=== PATIENT | male | born 1945 | race Caucasian/White ===

== ENCOUNTER 2020-10-18 11:19 | Emergency (ER) | payer MEDICARE, SELFPAY ==
--- NOTE | ~2020-10-18 | CT_ITS ---
EXAMINATION: CT abdomen pelvis w con DATE: 10/18/2020 12:52 INDICATION: Generalized abdominal pain. Nausea. TECHNIQUE: Computed tomography (CT) of the abdomen and pelvis was performed with 100 mL Omnipaque 350 intravenous contrast. Automated exposure control and iterative reconstruction technique were employe d. The dose-length product was 792.83 mGy-cm. COMPARISON: CT abdomen and pelvis 06/24/2016 FINDINGS: The visualized portions of the lung bases demonstrate motion artifact. There are airspace a nd groundglass opacities in dependent right lower lobe. There is mild atelectasis in left lower lobe. Calcified bilateral pulmonary nodules are consistent with old granulomatous disease. No pleural effu tata. There is a large sliding hiatal hernia. The heart size is normal. No pericardial effusion. Ther e are cysts in the liver measuring up to 7 mm. The gallbladder is normal. Calcifications in the splee n are consistent with old granulomatous disease. The pancreas and right adrenal gland are normal. The re is a chronic 11 mm mass in left adrenal gland, likely an adenoma. There are cysts in the kidneys m easuring up to 15 mm on the left. There are scattered diverticula in the colon. There is wall thicken ing of the rectosigmoid. There is a 6.9 x 5.5 cm mass of extraluminal stool adjacent to the sigmoid c olon with visible large perforation of the sigmoid colon. There are scattered foci of free intraperit giordano gas. The appendix is normal. There is a small volume of ascites. There is wall thickening of mu ch of the small bowel, consistent with enteritis. There is a supraumbilical ventral hernia containing fat. There are no pathologically enlarged lymph nodes. There is thoracic dextroscoliosis and lumbar levoscoliosis. There is severe thoracolumbar spondylosis. IMPRESSION: 1. Perforated sigmoid colon with fecal peritonitis. I called this result to Dr. Urbina on 10/18/20 at 1:01 PM. 2. Large sliding hiatal hernia. 3. Airspace and groundglass opacities in right lung lower lobe, consistent with atelectasis versus pn eumonia. Reviewed, dictated and finalized at location A. ST MANAGER IMPRESSION: 1. Perforated sigmoid colon with fecal peritonitis. I called this result to Dr. Urbina on 10/18/20 at 1:01 PM. 2. Large sliding hiatal hernia. 3. Airspace and groundglass opacities in right lung lower lobe, consistent with atelectasis versus pneumonia.
--- NOTE | ~2020-10-18 | XR_ITS ---
EXAMINATION: XR chest 2V EXAM DATE: 10/18/2020 12:53 INDICATION: Shortness of breath, nausea, constipation. 2 days status post colonoscopy. TECHNIQUE: Frontal and lateral projections of the chest obtained and reviewed. Comparison is made to prior examination from 12/22/2014. FINDINGS: Small amount of patchy right basilar atelectasis or infection. Also probable moderate-sized hiatal hernia. There is no pneumothorax suspected. There are no pleural effusions. Cardiomediastinal silhouette is normal. There are mild bony degenerative changes. IMPRESSION: Small amount of patchy right basilar atelectasis or infection. Hiatal hernia. Reviewed, dictated and finalized at location A. ER WIRE LOOM IMPRESSION: Small amount of patchy right basilar atelectasis or infection. Hiat al hernia.
[2020-10-18 11:20] VITALS: BP 163/101; PULSE 79; RESP 20; TEMP 36.6; O2SAT 100
[2020-10-18] MEDS: MORPHINE SULFATE (*CRX) 2 MG/ML INJ (11:30)
[2020-10-18] MEDS: ONDANSETRON INJ 4 MG/2 ML VIAL (11:30)
--- NOTE | 2020-10-18 11:36 | ECG_ITS ---
Measurements Intervals Only Rate: 86 P: 78 MD: 173 QRS: 76 QRSD: 96 T: -8 QT: 362 QTc: 434 Interpretive Statements SINUS RHYTHM VENTRICULAR PREMATURE COMPLEX INCOMPLETE RIGHT BUNDLE BRANCH BLOCK DELAYED PRECORDIAL R/S TRANSITION LEFT VENTRICULAR HYPERTROPHY AND ST-T CHANGE BORDERLINE ST-T WAVE ABNORMALITY- INFERIOR LEADS BASELINE ARTIFACT- I, II, III, AVR, AVL, AVF, V1-V6 BORDERLINE ECG Electronically Signed On 10-18-2020 14:23:13 BAKERY MACHINE MECHANIC SUPERVISOR by Robson Dowling D.O.
--- NOTE | 2020-10-18 11:46 | PHAR ---
10/18/20 11:45 - PT. HAS HAD MORPHINE PRIOR AND TOLERATES PER NURSE NAGY.
[2020-10-18] MEDS: SODIUM CHLORIDE 0.9% IV 500 ML 999 ML IV CONT (11:52)
[2020-10-18 12:09] LABS: Basophils Absolute Auto 0.01 K/mm3 (0.00-0.10); Basophils Percent Auto 0.1 % (0.0-1.0); Eosinophils Absolute Auto 0.03 K/mm3 (0.02-0.50); Eosinophils Percent Auto 0.3 % (1.0-6.0); Hematocrit 48.9 % (37.0-46.0); Hemoglobin 15.7 g/dL (12.4-15.3); Immature Granulocyte Absolute 0.03 K/mm3 (0.00-0.00); Immature Granulocyte Percent A 0.3 % (0.0-0.0); Lymphocytes Absolute Auto 1.24 K/mm3 (1.10-4.50); Lymphocytes Percent Auto 12.1 % (18.0-42.0); Mean Corpuscular HGB Conc 32.1 g/dL (32.0-36.0); Mean Corpuscular Hemoglobin 31.3 pg (27.0-31.0); Mean Corpuscular Volume 97.6 fL (78.0-102.0); Mean Platelet Volume 9.5 fl (8.7-11.0); Monocytes Absolute Auto 0.33 K/mm3 (0.10-0.90); Monocytes Percent Auto 3.2 % (2.0-11.0); Neutrophils Absolute Auto 8.6 K/mm3 (1.7-7.2); Platelet Count Result 286 K/mm3 (150-420); Red Blood Count 5.01 M/mm3 (4.70-6.10); Red Cell Distribution Width 12.8 % (11.6-14.4); White Blood Count 10.2 K/mm3 (4.8-10.8)
[2020-10-18 12:30] LABS: Alanine Aminotransferase 25 U/L (16-63); Albumin Level 3.7 g/dL (3.4-5.0); Alkaline Phosphatase 84 U/L (46-116); Anion Gap 13 mmol/L (8-16); Aspartate Amino Transferase 18 U/L (15-37); Bilirubin,Total 0.4 mg/dL (0.00-1.00); Blood Urea Nitrogen 14 mg/dL (7-18); Calcium 9.1 mg/dL (8.5-10.1); Carbon Dioxide 23 mmol/L (21-32); Chloride 102 mmol/L (98-108); Estimated Glomerular Filt Rate > 60; Glucose 127 mg/dL (70-99); Lipase 129 U/L (73-393); Osmolality Calculated 288 mOsm/kg (285-295); Potassium 3.6 mmol/L (3.5-5.1); Sodium 138 mmol/L (136-145); Total Protein 7.2 g/dL (6.4-8.2)
[2020-10-18 12:31] LABS: Troponin I < 0.02 ng/mL (0.00-0.056)
[2020-10-18 12:32] LABS: BNP 30.1 pg/mL (0-100)
[2020-10-18] MEDS: ONDANSETRON INJ 4 MG/2 ML VIAL IV PUSH (12:38)
--- NOTE | 2020-10-18 13:12 | PC.NURSE ---
RN IN TO ROOM - V-TACH FOUND ON MONITOR. PT STATES HE DOESN'T FEEL BAD. PADS PLACED, CRASH CART AT BEDSIDE - ORDERS FOR AMOIDARONE REQUESTED
[2020-10-18 13:19] VITALS: BP 126/79; PULSE 81
[2020-10-18] MEDS: AMIODARONE 150 MG/D5W 100 ML 150 MG/100 ML BAG 600 MG IV CONT ×2 (13:19→13:35)
--- NOTE | 2020-10-18 13:21 | ECG_ITS ---
Measurements Intervals [place] Rate: 87 P: 61 NM: 166 QRS: 50 QRSD: 96 T: 74 QT: 364 QTc: 440 Interpretive Statements SINUS RHYTHM VENTRICULAR COUPLET AND VENTRICULAR BIGEMINY INCOMPLETE RIGHT BUNDLE BRANCH BLOCK LEFT VENTRICULAR HYPERTROPHY WITH ST-T CHANGE BORDERLINE ST-T WAVE ABNORMALITY- INFERIOR LEADS ABNORMAL ECG Electronically Signed On 10-18-2020 14:25:45 LIGHT ARMORED RECONNAISSANCE OFFICER by Robson Dowling D.O.
[2020-10-18 13:30] VITALS: BP 136/83; PULSE 94; RESP 16; O2SAT 100
[2020-10-18] MEDS: MORPHINE SULFATE (*CRX) 2 MG/ML INJ IV PUSH (13:30)
[2020-10-18 13:35] VITALS: BP 112/50; PULSE 88
--- NOTE | 2020-10-18 13:38 | PC.NURSE ---
1ST L NS STARTED AND INFUSING THROUGH RIGHT HAND
[2020-10-18 13:39] LABS: Magnesium 2.1 mg/dL (1.8-2.4)
--- NOTE | 2020-10-18 13:55 | ED.ABDPAIN ---
HPI - Abdominal Pain General Chief Complaint: Abdominal Pain Stated Complaint: AMBULANCE Source: patient and family Mode of arrival: EMS Limitations: no limitations History of Present Illness HPI narrative: This is a 74-year-old gentleman presents to the emergency department via EMS after having severe abdominal pain started earlier this morning, with nausea vomiting. Initially prior to arrival O2 sats dropped to 75% was started on 4L of oxygen currently at 96 to 100%. Patient has a history of hypertension, patient had a colonoscopy approximately 3 days ago at [facility] by Dr. Luna and found to have diverticulosis with some colon polyps. Subsequent to that over the last 2 to 3 days has become increasingly constipated with severe abdominal pain diffuse in nature with some currently no fever or chills blood pressure of 112/50. Patient has also history of mild emphysema with hypertension and BPH. Denies chest pain currently there is no shortness of breath no flank pain no dysuria. MD elicited complaint: abdominal pain Pertinent past history: constipation Onset (ago): hour(s) Pain Consistency: constant Location: diffuse Severity: severe Quality: dull Related Data Home Medications Medication Instructions Recorded Confirmed dorzolamide 2 %-timolol 0.5 % (PF) 1 drop EACH EYE BID 07/19/20 10/18/20 eye drops fiber 1 tablet PO DAILY 07/19/20 10/18/20 lactobacillus combination no.9 4 4,000 mmu cells PO DAILY 07/19/20 10/18/20 billion cell capsule latanoprost 0.005 % eye drops 1 drop EACH EYE QPM 07/19/20 10/18/20 multivitamin with minerals 1 tablet PO DAILY 07/19/20 10/18/20 Allergies Allergy/AdvReac Type Severity Reaction Status Date / Time brimonidine Allergy Unknown irritation Verified 07/19/20 08:36 in eye brinzolamide Allergy Unknown increase Verified 07/19/20 08:36 in eye pressure codeine Allergy Unknown Unknown Verified 07/19/20 08:36 erythromycin base Allergy Unknown made eye Verified 07/19/20 08:36 red and eyelid swell oxycodone Allergy Unknown rash with Verified 07/19/20 08:36 blisters on back & sores in mouth procaine Allergy Unknown heart race Verified 07/19/20 08:36 NOVACAINE Allergy Mild Unknown Uncoded 07/19/20 08:36 Review of Systems Review of Systems: All systems reviewed & are unremarkable except as noted in HPI and below PMFSH Past Medical History Medical History (Updated 10/18/20 @ 14:05 by Claudy Urbina MD) Adenoma of left adrenal gland BPH (benign prostatic hyperplasia) Chronic low back pain Colon cancer screening COPD with emphysema Elevated PSA Glaucoma Hard of hearing History of colon polyps History of lung cancer History of SCC (squamous cell carcinoma) of skin Medicare annual wellness visit, subsequent Osteoarthritis, multiple sites Primary hypertension Prostate cancer screening Ventral hernia Family History Family History Mother Carcinoma of colon Family history of rheumatoid arthritis Family history of osteoarthritis Acute myocardial infarction Grandparent Acute myocardial infarction Social History Social History Smoking status: Former smoker (Quit 5 years ago) Second hand tobacco smoke exposure: No Smoking end date: 11/30/00 Alcohol intake: current Substance use: never Substance use type: does not use Gender identity (if verbalized by the patient): Male Spiritual care concerns: No Agree to blood products: Yes Exam Const: General: no acute distress Orientation/consciousness: patient oriented x3 HENMT: Head: normal to inspection Eyes: Conjunctivae: conjunctivae normal Pupils: Equal, round and reactive pupils present Neck: Neck: normal visual inspection, no lymphadenopathy and no meningeal signs Chest: Chest palpation & inspection: normal inspection of the
--- NOTE | 2020-10-18 13:56 | PC.NURSE ---
ATTEMPTED TO PLACE NG TUBE X 2 WITHOUT SUCCESS - PT UNABLE TO SWALLOW, UNABLE TO PARTICIPATE - PT STATES THAT HE IS DOING BETTER WITH PAIN OTHER THAN THE NG TUBE PLACEMENT - CALL BACK FROM [facility] STATING THAT DR JOHNSON WILL TAKE PATIENT STRAIGHT TO SURGERY - WILL AWAIT HOSPITALIST FOR ADMIT - PT STILL HAVING RUNS OF V-TACH AND OCCASSIONAL COUPLETS
[2020-10-18 15:05] LABS: Reflex Lactic Acid Yes or No Add Lactic
[2020-10-18 15:15] VITALS: BP 169/96; PULSE 99; RESP 16; O2SAT 99
== END 2020-10-18 15:30 | disposition short-term general hospital (02) ==
PROVIDERS: Emergency Provider Emergency Medicine; PCP Family Medicine
DX: K65.9 Peritonitis, unspecified (principal); Z85.118 Personal history of other malignant neoplasm of bronchus and lung; I10 Essential (primary) hypertension; Z87.891 Personal history of nicotine dependence
CPT/HCPCS: 36415; 71046; 74177; 80053; 83605; 83690; 83735; 83880; 84484; 85025; 87040; 87077; 93005; 96361; 96365; 96367; 96375; 96376; 99285; J0282; J2270; J2405; J2543; J7030; J7040; Q9965

== ENCOUNTER 2020-10-18 16:05 | Inpatient (IN) | payer MEDICARE, SELFPAY ==
[2020-10-18] VITALS (13 sets, daily range): BP systolic 81–155; BP diastolic 47–91; PULSE 74–128; RESP 19–23; TEMP 37.1–37.5; O2SAT 94–100; BMI 24.6
--- NOTE | ~2020-10-18 | XR_ITS ---
EXAMINATION: XR chest PICC line EXAM DATE: 10/19/2020 12:45 INDICATION: PICC Line Insertion . TECHNIQUE: Portable AP frontal chest x-ray was obtained. Comparison is made to prior examination from 10/18/2020. FINDINGS: There is a left-sided PICC line with tip projecting over the cavoatrial junction. Mild car diomegaly. There is pulmonary vascular congestion. Some small bibasilar opacities, atelectasis or inf ection. This is new on the left side. No pneumothorax. There are mild bony degenerative changes. IMPRESSION: 1. Congestive changes. 2. Small amount of bibasilar infection or atelectasis. Reviewed, dictated and finalized at location A. AL SURGEON
--- NOTE | ~2020-10-18 | XR_ITS ---
EXAMINATION: XR chest 1V portable EXAM DATE: 10/20/2020 05:46 INDICATION: Severe sepsis . TECHNIQUE: Portable AP frontal chest x-ray was obtained. Comparison is made to prior examination from 10/19. FINDINGS: There is a left-sided PICC line with tip projecting over the cavoatrial junction. Mild car diomegaly. There is pulmonary vascular congestion. Segmental right mid and bilateral lower lung zone bibasilar opacities, atelectasis or infection. Possible small pleural effusions. No pneumothorax. The re are mild bony degenerative changes. IMPRESSION: 1. Congestive changes. 2. Subsegmental bilateral infection or atelectasis. Reviewed, dictated and finalized at location A. NESS ASSISTANT
--- NOTE | ~2020-10-18 | XR_ITS ---
EXAMINATION: XR chest 1V portable EXAM DATE: 10/21/2020 05:45 INDICATION: Severe sepsis . TECHNIQUE: Portable AP frontal chest x-ray was obtained. Comparison is made to prior examination from 10/20, 10/19, 10/18. FINDINGS: There is a left-sided PICC line with tip projecting over the cavoatrial junction. Mild car diomegaly. There is pulmonary vascular congestion. Segmental right mid and bilateral lower lung zone bibasilar opacities, atelectasis or infection. Poss ible small pleural effusions. No pneumothorax. There are mild bony degenerative changes. Airspace disease has been progressing compared to 10/18. IMPRESSION: 1. Congestive changes. 2. Progressing segmental bilateral infection or atelectasis. Reviewed, dictated and finalized at location A. D SWEATBAND CUTTER
--- NOTE | ~2020-10-18 | CT_ITS ---
EXAMINATION: CT abdomen pelvis wo con DATE: 10/22/2020 08:07 INDICATION: Status post heart segments pouch. Leukocytosis. TECHNIQUE: Computed tomography (CT) of the abdomen and pelvis was performed without intravenous contr ast. The dose-length product was 575.01 mGy-cm. Automated exposure control and iterative reconstructi on technique were employed. COMPARISON: CT dated 10/18/2020. FINDINGS: Interval placement of drainage catheter in the pelvis. There is a laparotomy staple line. I nterval placement of Dan's pouch. There are dilated fluid-filled small bowel loops throughout the abdomen, most likely adynamic ileus. There is Hurd catheter in the bladder. Prostate gland is enlar ged. Small amount of free air, consistent with recent surgery. Gallbladder contains high density material which may represent stones, sludge or vicarious excretion of contrast. Calcified granulomas of the spleen. Nodular thickening of the left adrenal gland, most likely benign adrenal adenoma. Outer lumbar spondylosis. No acute osseous abnormality. Small pleural effusions with underlying compressive atelectasis. There is atherosclerosis. No lymphadenopathy. IMPRESSION: 1. Dilated fluid-filled small bowel loops throughout the abdomen and pelvis, most likely postoperativ e ileus. Obstruction less favored. 2: Postoperative changes noted with drainage catheter in the pelvis. 3: Small pleural effusions with underlying compressive atelectasis. Reviewed, dictated and finalized at location A. OPHANE WORKER IMPRESSION: 1. Dilated fluid-filled small bowel loops throughout the abdomen and pelvis, mo st likely postoperative ileus. Obstruction less favored. 2: Postoperative changes noted with drainage catheter in the pelvis. 3: Small pleural effusions with underlying compressive atelectasis.
--- NOTE | 2020-10-18 16:10 | PC.NURSE ---
This patient, Rafael Moe, was admitted to IMU Room 232-01. Patient/family oriented to hospital policies and general routines including ID bracelet, bed and alarms, visiting hours, pain management, procedures, bathroom and other care routines, personal items, smoking policy, room service/diet, and visiting hours. Information on how to activate the Rapid Response Team has been discussed. Patient/Family are encouraged to report perceived risks to care and to ask questions if they do not understand what they are told or what they should do.
--- NOTE | 2020-10-18 16:37 | PM.CNGS ---
Assessment and Plan Assessment and plan (1) Perforation of sigmoid colon: Code(s): K63.1 - Perforation of intestine (nontraumatic) Status: Acute Assessment and Plan: Patient presents 2 days after a colonoscopy with evidence of large sigmoid perforation and a significant amount of extraluminal stool/fecal peritonitis. CT scan discussed with the patient in detail. He is becoming increasingly more hemodynamically unstable. Will initiate IV fluid bolus, he has received IV Zosyn x 1, continue IV abx, and analgesics. Discussed the patient's case with Dr. Rodriguez. He plans to proceed with emergent exploratory laparotomy, possible ostomy, possible bowel resection. The patient may require a June's procedure. Description of the procedure, risks, benefits, indications, and expected outcomes were discussed with the patient in detail. All questions were answered. Due to his multiple co-morbidities, the patient is a higher risk surgical candidate, which I discussed with him as well. Further plan forthcoming after surgery and Dr. Rodriguez's evaluation. (2) Fecal peritonitis: Code(s): K65.8 - Other peritonitis Status: Acute Assessment and Plan: See plan above. (3) Sepsis: Code(s): A41.9 - Sepsis, unspecified organism Status: Acute Assessment and Plan: Criteria met with tachycardia and tachypnea with known source of infection - fecal peritonitis with sigmoid perforation. Received a dose of IV Zosyn in [place] [facility]. Continue broad-spectrum IV abx. Blood cultures were also obtained at the ER. IV fluid resuscitation, I have initiated a 1L IV fluid bolus while awaiting transfer to OR. (4) COPD with emphysema: Qualifiers: Emphysema type: unspecified Qualified Code(s): J43.9 - Emphysema, unspecified Code(s): J43.9 - Emphysema, unspecified Status: Acute Assessment and Plan: Also with history of left lower lobectomy for lung cancer. Increases risks for surgery. (5) Primary hypertension: Code(s): I10 - Essential (primary) hypertension Status: Acute (6) Ventral hernia: Qualifiers: Obstruction and gangrene presence: without obstruction or gangrene Qualified Code(s): K43.9 - Ventral hernia without obstruction or gangrene Code(s): K43.9 - Ventral hernia without obstruction or gangrene Status: Acute Assessment and Plan: Noted on exam. Asymptomatic. Not currently an urgent issue. History of Present Illness Consult details Consult date: 10/18/20 Reason for consult: other (Sigmoid perforation with fecal peritonitis) Requesting physician: Veronica Bro MD Narrative: This is a 74-year-old male with a history lung cancer, hypertension, COPD, and glaucoma, who presented to [facility] with complaints of generalized abdominal pain. The patient had a routine screening colonoscopy on 10/16/20 with findings of diverticulosis and colon polyps. The patient was sent home and reports noticing abdominal pain after eating dinner that night. He reports the pain was tolerable initially, until this morning after eating breakfast when it suddenly intensified. He reports the pain is sharp and shooting down to his suprapubic area. He reports no bowel movement since the prep prior to the colonoscopy. He states he tried taking suppositories x 2 with still no BM. He does report associated chills and nausea with vomiting in [place] [facility]. CT scan of the abdomen and pelvis in the ED showed a large sigmoid perforation with fecal peritonitis and large sliding hiatal hernia. WBC normal at 10,000 and patient was afebrile. He apparently had a non-sustained run of Vtach and received 300 mg IV Amiodarone in the ER. Vital signs remained stable. Our service was contacted by the ER physician for consult on transfer. The patient was also given a dose of IV Zosyn and IV fluids. The patient is now seen in the IMU. He reports significant abdominal pain with nausea. He repor
[2020-10-18] MEDS: SODIUM CHLORIDE 0.9% IV 1,000 ML 999 ML IV CONT ×2 (17:25→23:50)
--- NOTE | 2020-10-18 18:14 | PM.IMHP ---
H&P: HPI History of Present Illness Date/Time: 10/18/20 18:14 Chief complaint: Peritonitis Narrative: Rafael Moe is a 74 year old male Who is a direct admit from [facility]. The patient had a colonoscopy by Dr. Ornelas approximately 3 days ago at [facility]. The patient stated that he had a little bit of discomfort but nothing major. He said that he just felt like he was constipated so he tried use 2 Dulcolax suppositories yesterday. He had no relief. The patient went to [facility] after having severe abdominal pain that started this morning he also had nausea vomiting. Initially his oxygen was 75% upon arrival via EMS and he was started on 4 L per nasal cannula and his oxygen level came up to 96-100%. He has a history of having polypectomy in the past but the patient was not able to tell me if he had polyps removed 3 days ago. Patient tells me that he had a PFT and was told that he does not have COPD or emphysema. Patient's white count was noted to be 10.2 H&H of 15.7 and 48.9. Neutrophil percentage 84.0. Lactic acid 3.0. Patient had a run of ventricular tachycardia at [facility] and was started on amiodarone. Patient had bigeminy in route to [facility]. Surgery and Cardiology have been consulted. Abdominal pelvis CT was read as perforated sigmoid colon with fecal peritonitis. Large sliding hiatal hernia. Airspace and ground-glass opacities in the right lung lower lobe consistent with atelectasis versus pneumonia. Patient was started on Zosyn. The patient has already been seen by surgery. An IV bolus was ordered for the patient. I spoke with Dorothea Mark concerning the patient we both agreed that the patient should be on an amiodarone drip. Patient is being admitted /placed as inpatient admission on date of service 10/18/2020. Review of Systems Review of Systems: Narrative: The patient is very hard of hearing. All systems reviewed & are unremarkable except as noted in HPI and below Constitutional: Constitutional: Reports as per HPI and Reports no additional constitutional complaints Eyes: Eyes: Reports as per HPI and Reports no additional eye complaints ENT: Reports system reviewed and no additional complaints, except as documented and Reports Normal hearing present Cardiovascular: Cardiovascular: Reports no additional cardiovascular complaints Respiratory: Respiratory: Reports no additional respiratory complaints and Reports no additional respiratory complaints Gastrointestinal: Gastrointestinal: Reports as per HPI and Reports no additional gastrointestinal complaints Musculoskeletal: Musculoskeletal: Reports no additional musculoskeletal complaints Integumentary/Breasts: Skin/Breast: Reports system reviewed and no additional complaints, except as docu and Reports as per HPI Neurologic: Reports system reviewed and no additional complaints, except as documented, Reports as per HPI and Reports Normal hearing present Psychiatric: Psychiatric: Reports no additional psychiatric complaints and Reports as per HPI Endocrine: Endocrine: Reports no additional endocrine complaints Hematologic/Lymphatic: Hematologic/Lymphatic: Reports no additional hematologic/lymphatic complaints Allergic/Immunologic: Allergic/Immunologic: Reports no additional allergic/immunologic complaints [facility] Past Medical History Medical History (Updated 10/18/20 @ 18:43 by Mayda Loza NP) Adenoma of left adrenal gland which was noted to be stable. BPH (benign prostatic hyperplasia) Chronic low back pain Colon cancer screening COPD with emphysema Patient stated that he had PFTs and it was rule out that he does not have emphysema or COPD. Elevated PSA Glaucoma Hard of hearing History of colon polyps History of lung cancer status post partial lobectomy History of SCC (squamous cell carcinoma) of skin Medicare annual wellness visit, subsequent Osteoarthritis, multiple sites Primary hype
[2020-10-18] MEDS: HYDROmorphone HCL INJ (*CRX) 1 MG/ML SYR 2 MG IV PUSH (18:26)
[2020-10-18] MEDS: AMIODARONE 360 MG/D5W 200 ML 360 MG/200 ML BAG 33.33 MG IV CONT (18:27)
[2020-10-18] MEDS: ONDANSETRON INJ 4 MG/2 ML VIAL IV PUSH ×2 (18:36→23:40)
[2020-10-18] MEDS: SODIUM CHLORIDE 0.9% IV 1,000 ML 100 ML IV CONT (18:37)
[2020-10-18 18:54] LABS: Estimated CRCL calculation 79 ml/min; Estimated Glomerular Filt Rate > 60
[2020-10-18 19:17] LABS: Lactic Acid Reflex 2.1 mmol/L (0.7-2.1)
--- NOTE | 2020-10-18 19:25 | WPDANESEPPF ---
Anes - Initial Pre Proc Eval Procedure: Operation Date: 10/18/20 19:45 Proposed Procedures p Exploratory Laparotomy, Possible Bowel Resection, Possible Osteotomy - Kelsie Rodriguez MD Date/Time: 10/18/20 19:25 Surgeon: Veronica Bro MD Pre Op Diagnosis: Peritonitis Patient Data Age: 74 Gender: M Height: 6 ft Weight: 82.5 kg Last Vital Signs Temp 37.5 C 10/18/20 17:04 Pulse 128 H 10/18/20 18:27 Resp 22 H 10/18/20 17:04 BP 148/88 H 10/18/20 18:27 Pulse Ox 98 10/18/20 17:04 Allergies Allergy/AdvReac Type Severity Reaction Status Date / Time brimonidine Allergy Unknown irritation Verified 07/19/20 08:36 in eye brinzolamide Allergy Unknown increase Verified 07/19/20 08:36 in eye pressure codeine Allergy Unknown Unknown Verified 07/19/20 08:36 erythromycin base Allergy Unknown made eye Verified 07/19/20 08:36 red and eyelid swell oxycodone Allergy Unknown rash with Verified 07/19/20 08:36 blisters on back & sores in mouth procaine Allergy Unknown heart race Verified 07/19/20 08:36 NOVACAINE Allergy Mild Unknown Uncoded 07/19/20 08:36 Home Medications Medication Instructions Recorded Confirmed Type dorzolamide 2 %-timolol 0.5 % (PF) 1 drop EACH EYE BID 07/19/20 10/18/20 History eye drops fiber 1 tablet PO DAILY 07/19/20 10/18/20 History lactobacillus combination no.9 4 4,000 mmu cells PO DAILY 07/19/20 10/18/20 History billion cell capsule latanoprost 0.005 % eye drops 1 drop EACH EYE QPM 07/19/20 10/18/20 History lisinopril 10 mg tablet 10 mg PO DAILY #90 tablet 07/19/20 10/18/20 Rx multivitamin with minerals 1 tablet PO DAILY 07/19/20 10/18/20 History Laboratory Tests 10/18/20 10/18/20 10/18/20 18:36 18:36 19:01 WBC Pending RBC Pending Hgb Pending Hct Pending MCV Pending MCH Pending MCHC Pending RDW Pending Plt Count Pending MPV Pending Immature Gran % (Auto) Pending Neut % (Auto) Pending Lymph % (Auto) Pending [place] % (Auto) Pending Eos % (Auto) Pending Baso % (Auto) Pending Lymph # (Auto) Pending [place] # (Auto) Pending Eos # (Auto) Pending Baso # (Auto) Pending Abs Immat Gran (auto) Pending Absolute Neuts (auto) Pending Absolute Nucleated RBC Pending Nucleated RBC % Pending Creatinine 0.80 mg/dL mg/dL (0.7-1.3) Estim Creat Clear Calc 79 ml/min ml/min Estimated GFR > 60 (59 - ) Lactic Acid 2.1 mmol/L mmol/L (0.7-2.1) Patient hx anesthesia problems: none Family hx anesthesia problems: none [facility] Past Medical History Medical History Adenoma of left adrenal gland which was noted to be stable. BPH (benign prostatic hyperplasia) Chronic low back pain Colon cancer screening COPD with emphysema Patient stated that he had PFTs and it was rule out that he does not have emphysema or COPD. Elevated PSA Glaucoma Hard of hearing History of colon polyps History of lung cancer status post partial lobectomy History of SCC (squamous cell carcinoma) of skin Medicare annual wellness visit, subsequent Osteoarthritis, multiple sites Primary hypertension Prostate cancer screening Ventral hernia Surgical History Surgical History H/O cataract extraction H/O colonoscopy with polypectomy H/O vasectomy History of lobectomy of lung History of prostate biopsy History of tonsillectomy Hx of local excision of skin lesion facial Family History Family History Mother Carcinoma of colon Family history of rheumatoid arthri
--- NOTE | 2020-10-18 19:28 | WPDHPUPDATE1 ---
History and Physical Update Update Date/Time: 10/18/20 19:28 History and Physical has been reviewed, including an updated exam of the patient. There are NO changes in the patient's condition. Risks, benefits, and alternatives have been discussed and questions answered. Patient agrees to proceed with procedure.
--- NOTE | 2020-10-18 19:30 | PC.NURSE ---
patient taken to OR by OR staff at 1930 via bed with amio drip running.
--- NOTE | 2020-10-18 20:51 | PM.PROC ---
Procedure Note - Detailed Date of procedure: 10/18/20 Pre-op diagnosis: perforated sigmoid colon perforated sigmoid colon, sepsis, feculent peritonitis Post-op diagnosis: same Procedure performed: exploratory laparatomy, sigmoid colectomy, creation of colostomy, intraabdominal washout Description of procedure: Patient was taken to the operating room and placed in the supine position. After adequate induction of general anesthesia the patient was prepped and draped in the normal sterile fashion. A time-out was then done to verify the patient's identity as well as the procedure being performed. I began by making a generous midline incision. Under entering the abdominal cavity, a large amount of air and feculent drainage was noted. I went ahead and washed out the abdomen and there was noted to be a large amount of feculent peritonitis. In the area of the pelvis there was noted to be a large amount of stool that was extraluminal. This was removed and washed out. The mid sigmoid colon there was noted to be a very large perforation. Given this I went ahead and took down the lateral attachments of the sigmoid colon. Once the sigmoid colon was mobilized I was able to get distal to the perforation. This area of colon was noted to be unremarkable. I went ahead and created window between the mesentery and the colon itself and using in the contour stapler went ahead and transected the distal sigmoid at this point. I then found an area proximal to the perforation and again created a window between the mesentery of the colon. I then went ahead and transected the proximal sigmoid colon with a 75 JOSE stapler. I then took down the mesenteric attachments with the LigaSure device. Once the sigmoid colon removed was sent to pathology for further review. I then went ahead and created a opening in the left lower abdomen for our colostomy. I went ahead and took this incision down through the subcutaneous tissue to the level of the fascia. Once to the fascia and made a cruciate incision and the rectus muscles. I then got through the underlying fascial layer and into the abdominal cavity. I was then able to bring up our proximal sigmoid colon through this incision. This was noted to be tension-free and not twisted. I then went ahead and copiously washed out the abdomen once again. No other pathology was noted. I then left a drain in the pelvis coming out through the right lower quadrant. I then closed the fascia with looped 0 PDS suture x2. The skin was closed with skin rosalba. I then went ahead and matured the ostomy using interrupted 3.0 Vicryl sutures. The patient was noted to be somewhat hypotensive in the operating room and did respond to fluids. His tachycardia did improve during the case. He will be sent back to the recovery room now in critical condition. Of note, he was able to be extubated in the operating room postoperatively. Anesthesia: GETA Surgeon: Kelsie Rodriguez MD Estimated blood loss (mL): 25 Drains: Yes Packing: No Pathology: yes Complications: No immediate complications Condition: critical Disposition: PACU Findings: large perforation of mid sigmoid colon
[2020-10-18] MEDS: LACTATED RINGERS 1,000 ML 30 ML IV CONT (20:54)
--- NOTE | 2020-10-18 21:14 | SUR.PHASEI ---
2053 amiodarone gtt continues 1mg/min.
[2020-10-18] MEDS: fentaNYL CITRATE INJ (*CRX) 100 MCG/2 ML VIAL 25 MCG IV PUSH ×8 (21:20→22:06)
--- NOTE | 2020-10-18 22:27 | PC.NURSE ---
Pt returned from surgery.
[2020-10-19] VITALS (32 sets, daily range): BP systolic 69–140; BP diastolic 42–82; PULSE 74–91; RESP 15–24; TEMP 36.3–37.3; O2SAT 91–99
--- NOTE | 2020-10-19 | ECHO_ITS ---
Patient Info Name: Rafael Moe Age: 74 years : 1945 Gender: Male Ht: 72 in Wt: 191 lbs BSA: 2.11 m2 HR: 77 bpm BP: 94 / 55 mmHg Heart Rhythm: Sinus Rhythm Technical Quality: Good Exam Date: 10/19/2020 9:43 AM Exam Location: [facility] Pul[facility] Patient Status: Inpatient Admit Date: 10/18/2020 Staff Ordering Physician: Marlon Sepulveda MD Sponge Diver: Bryan Ashford, WADECS, RT Attending Provider: Veronica Bro MD Referring Physician: Coco GARCIA; Exam Type: CA echo doppler color flow Study Info Indications I47.2 - Ventricular tachycardia Complete two-dimensional, color flow and Doppler transthoracic echocardiogram is performed. Strain analysis performed. Summary 1. Complete two-dimensional, color flow and Doppler transthoracic echocardiogram is performed. 2. Left ventricular chamber dimension is moderately enlarged. 3. Left ventricular systolic function is moderately reduced, estimated at 30-35%. 4. Right ventricular chamber dimension is moderately enlarged. 5. Mild biatrial dilation. Left Ventricle Left ventricular chamber dimension is moderately enlarged. Left ventricular systolic function is moderately reduced, estimated at 30-35%. The left ventricular diastolic function is normal. Right Ventricle Right ventricular chamber dimension is moderately enlarged. Left Atria Left atrial chamber dimension is mildly enlarged. Right Atria Right atrial chamber dimension is mildly enlarged. Aortic Valve The aortic valve is trileaflet. There is mild aortic valve sclerosis. Pulmonic Valve The pulmonic valve is not well visualized. Mitral Valve The mitral valve has normal leaflets. The mitral valve annulus is mildly calcified. Tricuspid Valve The tricuspid valve leaflets are normal. There is mild tricuspid valve regurgitation. Pericardium/Pleural The pericardium appears normal. Aorta The aortic root size at the sinus of Valsalva is normal. Left Ventricular Outflow Tract Name Value Normal LVOT 2D LVOT Diameter 2.3 cm LVOT Doppler LVOT Peak Gradient 3 mmHg LVOT Mean Gradient 2 mmHg LVOT VTI 14 cm LVOT VTI/AV VTI Ratio 1.1 LVOT Stroke Volume 58 ml LVOT CO 4.4 l/min LVOT CI 2.1 l/min/m2 Pulmonic Valve Name Value Normal RVOT Doppler RVOT Peak Gradient 1 mmHg RVOT Mean Gradient 0 mmHg Mitral Valve Name Value Normal MV Doppler
[2020-10-19] MEDS: metroNIDAZOLE 500 MG/ISO 100ML 500 MG/100 ML BAG 100 MG IVPB ×4 (00:32→21:41)
[2020-10-19] MEDS: HYDROmorphone HCL INJ (*CRX) 1 MG/ML SYR 2 MG IV PUSH (00:44)
[2020-10-19] MEDS: AMIODARONE 360 MG/D5W 200 ML 360 MG/200 ML BAG 33.33 MG IV CONT ×2 (00:45→12:53)
[2020-10-19 04:55] LABS: Hematocrit 44.3 % (42.0-52.0); Hemoglobin 14.5 g/dL (14.0-18.0); Mean Corpuscular HGB Conc 32.7 g/dl (32-36); Mean Corpuscular Hemoglobin 31.5 pg (26-34); Mean Corpuscular Volume 96.1 fl (80-100); Mean Platelet Volume 9.6 fl (7.4-10.4); Platelet Count Result 247 k/mm3 (150-375); Red Blood Count 4.61 M/mm3 (4.6-6.20); Red Cell Distribution Width 13.3 % (11.5-14.5); White Blood Count 13.5 K/mm3 (4.5-10.0)
[2020-10-19 05:09] LABS: Add Urine Microscopic? YES; Appearance Urine Clear (Clear); Bacteria Urine Trace /hpf; Bilirubin Urine Negative (Negative); Blood Urine 2+ (Negative); Color Urine Amber (Yellow); Glucose Urine UA Negative (Negative); Ketones Urine Negative (Negative); Leukocyte Esterase Ur Negative LEU/UL (Negative); Mucus Urine Rare /lpf; Nitrate Urine Negative (Negative); Protein Urine 1+ mg/dL (Negative); RBC Urine 21-50 /hpf (0-2); Squamous Epithelial Cell Urine Rare /hpf (Few); Urobilinogen Urine Negative mg/dL (<2.0)
[2020-10-19 05:09] LABS: Alanine Aminotransferase 23 U/L (4-50); Albumin Level 2.7 g/dL (3.5-5.1); Alkaline Phosphatase 39 U/L (38-126); Anion Gap 9 mmol/L (8-16); Aspartate Amino Transferase 27 U/L (17-59); Bilirubin,Total 0.4 mg/dL (0.2-1.3); Blood Urea Nitrogen 25 mg/dL (9-20); Calcium 8.1 mg/dL (8.4-10.2); Carbon Dioxide 21 mmol/L (22-30); Chloride 107 mmol/L (98-107); Estimated CRCL calculation 43 ml/min; Estimated Glomerular Filt Rate 46; Glucose 125 mg/dL (75-110); Magnesium 1.7 mg/dL (1.6-2.3); Potassium 4.3 mmol/L (3.4-5.0); Sodium 137 mmol/L (137-145)
[2020-10-19 05:15] LABS: Lactic Acid Reflex 4.3 mmol/L (0.7-2.1)
[2020-10-19 05:56] LABS: Band Neutrophils Percent 35 % (0-6); Lymphocytes Absolute Manual 2.02 K/mm3 (1.1-4.5); Monocytes Absolute Manual 1.35 K/mm3 (0.1-0.90); Monocytes Percent Manual 10 % (3-9); Neutrophils Absolute Manual 10.12 K/mm3 (1.3-6.7); Neutrophils Percent Manual 40 % (46-73); Platelet Estimate Adequate (Adequate); Total Cells Counted 100
[2020-10-19] MEDS: SODIUM CHLORIDE 0.9% IV 1,000 ML 100 ML IV CONT ×2 (06:00→16:16)
[2020-10-19] MEDS: ONDANSETRON INJ 4 MG/2 ML VIAL IV PUSH ×2 (06:02→22:16)
[2020-10-19 07:51] LABS: Reflex Lactic Acid Yes or No Add Lactic
[2020-10-19 08:26] LABS: Lactic Acid 3.1 mmol/L (0.7-2.1)
[2020-10-19] MEDS: SODIUM CHLORIDE 0.9% IV 1,000 ML 999 ML IV CONT ×2 (08:33→11:15)
[2020-10-19] MEDS: MORPHINE SULFATE (*CRX) 4 MG/ML INJ 2 MG IV PUSH ×3 (08:34→17:47)
[2020-10-19] MEDS: PROMETHAZINE HCL 25 MG/ML AMPUL 12.5 MG IV PUSH (08:35)
[2020-10-19] MEDS: ENOXAPARIN 40 MG/0.4 ML SYRINGE SUB-Q (08:44)
--- NOTE | 2020-10-19 09:19 | PM.PNGS ---
Progress Note: A&P Assessment and Plan (1) Perforation of sigmoid colon: Code(s): K63.1 - Perforation of intestine (nontraumatic) Status: Acute Assessment and Plan: await ostomy fxn, clears, abx, encourage OOB/IS, start Toradol (2) Fecal peritonitis: Code(s): K65.8 - Other peritonitis Status: Acute Assessment and Plan: cont abx, WBC trending down (3) Sepsis: Code(s): A41.9 - Sepsis, unspecified organism Status: Acute Assessment and Plan: HD stable, cont abx, resus Subjective Subjective Date/Time Seen: 10/19/20 09:19 still c/o significant abd pain Review of Systems Review of Systems: All systems reviewed & are unremarkable except as noted in HPI and below Exam Const: General: acute distress moderate and ill appearing Orientation/consciousness: patient oriented x3 Resp: Effort & Inspection: normal respiratory effort Auscultation: clear to auscultation bilaterally Cardio: Rate: regular rate Rhythm: regular rhythm GI: Inspection: normal to inspection Other: soft, sl dist, ra TTP, incision C/D/I, ostomy viable Objective Data Vital Signs Vital Signs: Vital Signs - 24 hr 10/18/20 16:15 10/18/20 17:04 10/18/20 18:00 Temperature 37.1 C 37.5 C Pulse Rate 110 H 120 H 120 H Respiratory Rate 20 22 H Blood Pressure 155/91 H 148/88 H Pulse Oximetry 100 98 10/18/20 18:27 10/18/20 21:03 10/18/20 21:05 Temperature 37.1 C Pulse Rate 128 H 107 H 97 Respiratory Rate 22 H 23 H Blood Pressure 148/88 H 140/87 120/67 Pulse Oximetry 100 97 10/18/20 21:20 10/18/20 21:35 10/18/20 21:50 Temperature Pulse Rate 97 93 98 Respiratory Rate 19 Blood Pressure 102/52 L 109/71 105/72 Pulse Oximetry 98 97 94 10/18/20 22:25 10/18/20 22:42 10/18/20 23:25 Temperature 37.4 C Pulse Rate 74 87 Respiratory Rate 20 22 H Blood Pressure 104/50 L 94/47 L 81/53 L Pulse Oximetry 95 95 10/18/20 23:39 10/19/20 00:00 10/19/20 00:38 Temperature Pulse Rate 89 91 Respiratory Rate 24 H Blood Pressure 88/53 L 109/65 Pulse Oximetry 10/19/20 00:45 10/19/20 02:00 10/19/20 04:00 Temperature 36.4 C Pulse Rate 82 91 85 Respiratory Rate 18 Blood Pressure 109/65 99/60 L 69/43 L Pulse Oximetry 92 10/19/20 04:16 10/19/20 05:47 10/19/20 06:00 Temperature Pulse Rate 91 83 Respiratory Rate Blood Pressure 76/44 L 107/57 L Pulse Oximetry 10/19/20 06:11 10/19/20 07:55 10/19/20 08:00 Temperature 36.7 C 36.5 C Pulse Rate 81 81 Respiratory Rate 18 22 H Blood Pressure 91/42 L 95/56 L 94/55 L Pulse Oximetry 91 97 10/19/20 09:13 Temperature Pulse Rate 83 Respiratory Rate 20 Blood Pressure 75/53 L Pulse Oximetry 99 Intake/Output Intake/Output: Intake & Output 10/16/20 10/17/20 10/18/20 10/19/20 23:59 23:59 23:59 23:59 Intake Total 1800 2600 Output Total 255 195 Balance 1545 2405 Meds/Results Medications: Active Medications Generic Name Dose Route Start Last Admin Trade Name Freq PRN Reason Stop Dose Admin Dorzolamide/Timolol 1 drop 10/19/20 09:00 10/19/20 08:45 Dorzolamide/Timolol/Pf 2%-0.5% Ophth Droperette EACH EYE 1 drop BID SAYDA Administration Enoxaparin Sodium 40 mg 10/19/20 09:00 10/19/20 08:44 Enoxaparin 40 Mg/0.4 Ml Syringe SUB-Q 40 mg DAILY SAYDA Administration Sodium Chloride 1,000 mls @ 100 mls/hr 10/18/20 18:10 10/19/20 06:00 Normal Saline Iv IV CONT 100 mls/hr .Q10H SAYDA Administration Metronidazole 500 mg in 100 mls @ 100 mls/hr 10/18/20 22:00 10/19/20 07:45 Flagyl 500 Mg/Iso Soln 100 Ml IVPB Infused Q8H SAYDA Infusion Acetaminophen 1,000 mg in 100 mls @ 400 mls/hr 10/18/20 23:48 10/19/20 06:20 Ofirmev 1,000 Mg Ivpb IVPB 10/19/20 23:49 Infused Q6H PRN Infusion Pain Rated 4-6 Amiodarone HCl/Dextrose 360 mg in 200 mls @ 33.333 mls/hr 10/19/20 06:36 Nexterone 360 Mg/D5w 200 Ml IV CONT .Q6H SAYDA 1 MG
[2020-10-19] MEDS: PANTOPRAZOLE 40 MG TABLET PO (10:29)
[2020-10-19] MEDS: MAGNESIUM SULF 1 GM/D5W 100 ML 1 GM/100 ML BAG IVPB (10:30)
--- NOTE | 2020-10-19 11:47 | PM.IMPN ---
Progress Note: A&P Assessment and Plan (1) Sepsis: Code(s): A41.9 - Sepsis, unspecified organism Status: Acute Assessment and Plan: secondary to perforation of colon. Patient had a colonoscopy approximately 3 days ago. Status post colon resection and diverting colostomy p.m. 10/18. Blood pressure continues to be low despite fluid challenges in lactic acid still elevated. Continue antibiotics, central line place for pressors, armature straightener consult added and will be transferred to ICU status. Serial lactate (2) Fecal peritonitis: Code(s): K65.8 - Other peritonitis Status: Acute Assessment and Plan: See above continue with IV fluids IV antibiotics and pain medication. (3) Glaucoma: Qualifiers: Glaucoma type: open-angle Open angle glaucoma type: unspecified type Laterality: bilateral Glaucoma stage: stage unspecified Qualified Code(s): H40.10X0 - Unspecified open-angle glaucoma, stage unspecified Code(s): H40.9 - Unspecified glaucoma Status: Chronic Assessment and Plan: continue with current eye drops. (4) BPH (benign prostatic hyperplasia): Qualifiers: Lower urinary tract symptom presence: unspecified whether lower urinary tract symptoms present Qualified Code(s): N40.0 - Benign prostatic hyperplasia without lower urinary tract symptoms Code(s): N40.0 - Benign prostatic hyperplasia without lower urinary tract symptoms Status: Chronic Assessment and Plan: Patient currently has a Hurd catheter is draining clear yellow urine. (5) Primary hypertension: Code(s): I10 - Essential (primary) hypertension Status: Chronic Assessment and Plan: Patient appears to be septic at this time will hold all blood pressure medications at this time. With continued hypotension pressors will be started. (6) Ventricular tachycardia: Code(s): I47.2 - Ventricular tachycardia Status: Acute Assessment and Plan: Patient was given amiodarone at [facility]. Will continue with amiodarone and his magnesium level is 1.7(1 gm ordered). Echocardiogram has been taken and results pending, cardiology to see (7) JERAD (acute kidney injury): Code(s): N17.9 - Acute kidney failure, unspecified Status: Acute Assessment and Plan: With sepsis and hypotension creatinine has risen to 1.5. Continue to monitor and pressors to raise mean arterial pressure (8) DVT prophylaxis: Code(s): Z29.9 - Encounter for prophylactic measures, unspecified Status: Acute Assessment and Plan: Sanjiv Subjective Date/time seen: 10/19/20 11:47 Interval history: Date of visit 10/19. 74-year-old hypertensive male admitted from [facility] with sigmoid perforation. Patient was septic, had ventricular tachycardia, and was taken to the OR for sigmoid resection and diverting colostomy. This a.m. complaining of quite a bit of pain but continues to have low blood pressure despite fluid boluses. Continues on antibiotics and cultures are pending Exam Narrative: Exam Narrative: Blood pressure 88/52 pulse is 78 saturating 96% on room air afebrile Lungs are clear CV regular to present time a no murmurs Abdomen soft with absent bowel sounds bandage not removed colostomy in place Extremities without edema distal pulses 1+ Neuro alert mentating properly with no focal deficits Objective Data Vital Signs Vital Signs: Vital Signs - 24 hr 10/18/20 16:15 10/18/20 17:04 10/18/20 18:00 Temperature 37.1 C 37.5 C Pulse Rate 110 H 120 H 120 H Respiratory Rate 20 22 H Blood Pressure 155/91 H 148/88 H Pulse Oximetry 100 98 10/18/20 18:27 10/18/20 21:03 10/18/20 21:05 Temperature 37.1 C Pulse Rate 128 H 107 H 97 Respiratory Rate 22 H 23 H Blood Pressure 148/88 H 140/87 120/67 Pulse Oximetry 100 97 10/18/20 21:20 10/18/20 21:35 10/18/20 21:50 Temperature Pulse Rate 97 93 98 Res
[2020-10-19] MEDS: LIDOCAINE HCL 1% PF INJ 5 ML VIAL INFILTRATE (12:15)
--- NOTE | 2020-10-19 12:42 | WPDCNINT ---
Assessment and Plan Assessment and plan (1) Septic shock: Code(s): A41.9 - Sepsis, unspecified organism; R65.21 - Severe sepsis with septic shock Status: Acute Assessment and Plan: septic shock most likely related to peritonitis, perforated sigmoid colon - patient hypotensive, refractory to 3 L IV fluid bolus - decreased end organ perfusion reflected by elevated lactic acid acute kidney injury - with PICC line inserted, will start Levophed and maintain mean arterial pressures > 65 mmHg (2) Perforation of sigmoid colon: Code(s): K63.1 - Perforation of intestine (nontraumatic) Status: Acute Assessment and Plan: perforated sigmoid colon status post ex lap, sigmoid colectomy, creation of colostomy on 10/18/2020 - surgery following - pain control - ARASELI draining serosanguineous drainage (3) JERAD (acute kidney injury): Code(s): N17.9 - Acute kidney failure, unspecified Status: Acute Assessment and Plan: patient with acute kidney injury most likely related to septic shock, decreased and organ perfusion - patient adequately fluid-resuscitated - this will start Levophed and maintain mean arterial pressures greater than 65 mmHg - will continue monitor urine output, renal function,electrolytes (4) DVT prophylaxis: Code(s): Z29.9 - Encounter for prophylactic measures, unspecified Status: Acute Assessment and Plan: continue Lovenox (5) Ventricular tachycardia: Code(s): I47.2 - Ventricular tachycardia Status: Acute Assessment and Plan: patient was ventricular tachycardia could be related to acidosis, sepsis septic shock - will continue to monitor - cardiology has been consulted, patient was given a bolus of amiodarone overnight (6) Fecal peritonitis: Code(s): K65.8 - Other peritonitis Status: Acute Assessment and Plan: as above (7) COPD with emphysema: Qualifiers: Emphysema type: unspecified Qualified Code(s): J43.9 - Emphysema, unspecified Code(s): J43.9 - Emphysema, unspecified Status: Acute Assessment and Plan: will place patient on bronchodilators Additional Plan discussed with patient and updated with his condition and plan of care. I did discuss with him regarding putting a central line /PICC line and starting 1 blood pressure support medication to which he is agreeable. I answered all questions code status: Full code critical care time spent: 47 minutes patient transferred from IMU status to ICU status Due to a high probability of clinically significant, life threatening deterioration, the patient required my highest level of preparedness to intervene emergently and I personally spent this critical care time directly and personally managing the patient. This critical care time included obtaining a history; examining the patient; pulse oximetry; ordering and review of studies; arranging urgent treatment with development of a management plan; evaluation of patient's response to treatment; frequent reassessment; and discussions with other providers. It was exclusive of separately billable procedures and treating other patients and teaching time. Please see Assessment and Plan section and the rest of the note for further information on patient assessment and treatment Gas Worker Consult Note Consult date: 10/19/20 Time Seen: 11:02 Reason for consult: severe sepsis /shock, perforated sigmoid colon status post ex lap, sigmoid colectomy, creation of colostomy on 10/18/2020 HPI: Rafael Moe is a 74 year old male with past medical history of COPD with emphysema, history of lung cancer status post partial lobectomy, osteoarthritis, essential hypertension, BPH, chronic back pain, adenoma of the left adrenal gland presented the ED at [facility] on 10/18/2020 with complains of nausea, vomiting on the day of admission. Patient is O2 sats ER will also 75% and had to be plac
[2020-10-19] MEDS: IPRATROPIUM BR 0.02% INH SOLN 0.5 MG/2.5 ML VIAL INHALATION ×2 (13:33→20:22)
[2020-10-19] MEDS: LEVALBUTEROL NEB 1.25 MG/3 ML 0.63 MG INHALATION ×2 (13:33→20:22)
[2020-10-19] MEDS: CENTRAL LINE FLUSH 10 ML IV PUSH ×2 (14:30→21:47)
--- NOTE | 2020-10-19 14:33 | PM.CNCAR ---
Assessment and Plan Additional Plan 74-year-old gentleman with longstanding hypertension appears to have LVH fib by high based on the appearance of his electrocardiogram. He had asymptomatic ventricular tachycardia in the emergency room as he was presenting with peritonitis due to perforation of the sigmoid colon. Is now been operated last evening to repair the perforation and is recovering satisfactorily. I believe we should discontinue intravenous amiodarone at this time since he has never had clinically problematic arrhythmias in the past. Obviously I will review his echocardiogram and leave further recommendations if necessary based on those findings. Claudy Palacios MD [facility] History of Present Illness History of Present Illness Consult date/time: 10/19/20 14:33 Reason For Visit: perforated sigmoid colon Narrative: This is a 74-year-old man I am seeing at the request of the hospitalist because of ventricular arrhythmias that were [facility] was transferred here yesterday evening. The patient states he is not known to have any significant cardiac problems in the past. He came to the emergency room at [place] because of abdominal pain that began 2 days prior to presenting shortly after he underwent a routine screening colonoscopy at another hospital. I do not have any of the records pertaining to the procedure but the patient states that after he was discharged 0 me did have some abdominal pain on Thursday evening at home through the course of Thursday and with it progressively worsened at to the point where he went to the emergency room. He was found to have peritonitis with a perforation in the sigmoid colon as a consequence of the procedure. He was transferred here to [facility] for some reason even though we did not perform the colonoscopy here. I do not believe any of his medical care is delivered at this hospital. He was taken to the operating room by the surgeons last evening for repair of the perforation in the colon and lavage of the peritoneum with fecal peritonitis. When he was in the emergency room at [place] he was on telemetry and he had a 8 or 9 beat run of ventricular tachycardia which was asymptomatic and that prompted consulting me to see him. He states other than hypertension he has never had any specific cardiac problems in the past he does not have any history of chest pain exertional dyspnea orthopnea PND palpitations he has never had a syncopal episode. Because of the arrhythmia he was placed on intravenous amiodarone which continues to run at this time. His telemetry at [place] has not demonstrated any significant arrhythmias thus far. An echocardiogram has apparently been done this morning which is pending. The patient's 12 lead ECG demonstrates a sinus mechanism with voltage criteria and repolarization abnormalities typical of LVH. Review of Systems Constitutional: Comments: Patient of course is generally weak and has abdominal pain following surgery last evening. Eyes: Eyes: Reports no additional eye complaints ENT: Reports system reviewed and no additional complaints, except as documented Cardiovascular: Cardiovascular: Reports no additional cardiovascular complaints Gastrointestinal: Gastrointestinal: Reports as per HPI Neurologic: Reports system reviewed and no additional complaints, except as documented Endocrine: Endocrine: Reports no additional endocrine complaints Hematologic/Lymphatic: Hematologic/Lymphatic: Reports no additional hematologic/lymphatic complaints Allergic/Immunologic: Allergic/Immunologic: Reports no additional allergic/immunologic complaints PMFSH Past Medical History Medical History Adenoma of left adrenal gland which was noted to be stable. BPH (benign prostatic hyperplasia) Chronic low back pain Colon cancer screening COPD with emphysema P
--- NOTE | 2020-10-19 17:13 | WPDANESPN ---
Anes - Prog Note Post-Op Date/Time: 10/19/20 17:13 Cardiovascular status: normal Respiratory status: normal Airway patency: baseline Mental status: baseline Post-Op hydration status: normal Vital Signs: Last Vital Signs Temp 37.3 C 10/19/20 16:00 Pulse 83 10/19/20 16:00 Resp 20 10/19/20 16:00 BP 110/59 L 10/19/20 16:00 Pulse Ox 99 10/19/20 16:00 Pain Score (VAS): 0 I/O: Intake & Output 10/19/20 10/19/20 10/19/20 07:59 15:59 23:59 Intake Total 2600 150 1000 Output Total 195 510 Balance 2405 -360 1000 Laboratory Tests 10/19/20 04:24 10/19/20 04:24 10/18/20 10/18/20 10/18/20 18:36 18:36 19:01 WBC Cancelled RBC Cancelled Hgb Cancelled Hct Cancelled MCV Cancelled MCH Cancelled MCHC Cancelled RDW Cancelled Plt Count Cancelled MPV Cancelled Immature Gran % (Auto) Cancelled Neut % (Auto) Cancelled Lymph % (Auto) Cancelled [place] % (Auto) Cancelled Eos % (Auto) Cancelled Baso % (Auto) Cancelled Lymph # (Auto) Cancelled [place] # (Auto) Cancelled Eos # (Auto) Cancelled Baso # (Auto) Cancelled Abs Immat Gran (auto) Cancelled Absolute Neuts (auto) Cancelled Absolute Nucleated RBC Cancelled Total Counted Neutrophils % (Manual) Band Neutrophils % Lymphocytes % (Manual) Monocytes % (Manual) Nucleated RBC % Cancelled Abs Neuts (Manual) Abs Lymphs (Manual) Abs Monocytes (Manual) Platelet Estimate % Immature Plt Fraction Cancelled Sodium Potassium Chloride Carbon Dioxide Anion Gap BUN Creatinine 0.80 Estim Creat Clear Calc 79 Estimated GFR > 60 Glucose Lactic Acid 2.1 Calcium Magnesium Total Bilirubin AST ALT Alkaline Phosphatase Total Protein Albumin TSH (Reflex) Urine Color Urine Appearance Urine pH Ur Specific [place] Urine Protein Urine Glucose (UA) Urine Ketones Ur Blood (Man) Urine Nitrate Urine Bilirubin Urine Urobilinogen Leukocyte Esterase Rfl Urine RBC Urine WBC Ur Squamous Epith Cells Urine Bacteria Urine Mucus 10/19/20 10/19/20 10/19/20 04:24 04:24 04:24 WBC 13.5 H RBC 4.61 Hgb 14.5 Hct 44.3 MCV 96.1 MCH 31.5 MCHC 32.7 RDW 13.3 Plt Count 247 MPV 9.6 Immature Gran % (Auto) Bulldozer Operator Neut % (Auto) Bulldozer Operator Lymph % (Auto) Bulldozer Operator [place] % (Auto) Bulldozer Operator Eos % (Auto) Bulldozer Operator Baso % (Auto) Bulldozer Operator Lymph # (Auto) Bulldozer Operator [place] # (Auto) Bulldozer Operator Eos # (Auto) Bulldozer Operator Baso # (Auto) Bulldozer Operator Abs Immat Gran (auto) Bulldozer Operator Absolute Neuts (auto) Bulldozer Operator Absolute Nucleated RBC Bulldozer Operator Total Counted 100 Neutrophils % (Manual) 40 L Band Neutrophils % 35 H Lymphocytes % (Manual) 15.0 L Monocytes % (Manual) 10 H Nucleated RBC % Bulldozer Operator Abs Neuts (Manual) 10.12 H Abs Lymphs (Manual) 2.02 Abs Monocytes (Manual) 1.35 H Platelet Estimate Adequate % Immature Plt Fraction Sodium 137 Potassium 4.3 Chloride 107 Carbon Dioxide 21 L Anion Gap 9 BUN 25 H Creatinine 1.50 H Estim Creat Clear Calc 43 Estimated GFR 46 L Glucose 125 H Lactic Acid 4.3 H* Calcium 8.1 L Magnesium 1.7 Total Bilirubin 0.4 AST 27 ALT 23 Alkaline Phosphatase 39 Total Protein 5.0 L Albumin 2.7 L TSH (Reflex) Urine Color Urine Appearance Urine pH Ur Specific [place] Urine Protein Urine Glucose (UA) Urine Ketones Ur Blood (Man) Urine Nitrate Urine Bilirubin Urine Urobilinogen Leukocyte Esterase Rfl Urine RBC Urine WBC Ur Squamous Epith Cells Urine Bacteria Urine Mucus 10/19/20 10/19/20 10/19/20 04:24 04:40 08:05 WBC RBC Hgb Hct MCV MCH MCHC RDW Plt Count MPV Immature Gran % (Auto) Neut % (Auto) Lymph % (Auto) [place] % (Auto) Eos % (Auto) Baso % (Auto) Lymph # (Auto)
--- NOTE | 2020-10-19 20:31 | PC.NURSE ---
@1100 - status changed to ICU - remains in room 206-2
[2020-10-19] MEDS: LATANOPROST 0.005% OP SOLN 2.5 ML BTL 1 DROP EACH EYE (21:57)
[2020-10-20] VITALS (27 sets, daily range): BP systolic 111–172; BP diastolic 70–91; PULSE 61–100; RESP 16–21; TEMP 36.3–37.2; O2SAT 92–98
[2020-10-20] MEDS: MORPHINE SULFATE (*CRX) 4 MG/ML INJ 2 MG IV PUSH (01:11)
[2020-10-20] MEDS: LEVALBUTEROL NEB 1.25 MG/3 ML 0.63 MG INHALATION ×4 (02:28→20:29)
[2020-10-20] MEDS: IPRATROPIUM BR 0.02% INH SOLN 0.5 MG/2.5 ML VIAL INHALATION ×4 (02:28→20:29)
[2020-10-20] MEDS: SODIUM CHLORIDE 0.9% IV 1,000 ML 100 ML IV CONT (02:46)
[2020-10-20] MEDS: metroNIDAZOLE 500 MG/ISO 100ML 500 MG/100 ML BAG 100 MG IVPB ×3 (05:55→21:25)
[2020-10-20] MEDS: CENTRAL LINE FLUSH 10 ML IV PUSH ×3 (05:55→21:28)
[2020-10-20 05:58] LABS: Hematocrit 36.2 % (42.0-52.0); Hemoglobin 12.4 g/dL (14.0-18.0); Mean Corpuscular HGB Conc 34.3 g/dl (32-36); Mean Corpuscular Hemoglobin 31.9 pg (26-34); Mean Corpuscular Volume 93.1 fl (80-100); Mean Platelet Volume 9.5 fl (7.4-10.4); Platelet Count Result 170 k/mm3 (150-375); Red Blood Count 3.89 M/mm3 (4.6-6.20); Red Cell Distribution Width 13.5 % (11.5-14.5); White Blood Count 20.2 K/mm3 (4.5-10.0)
[2020-10-20 06:15] LABS: Lactic Acid Reflex 1.2 mmol/L (0.7-2.1)
[2020-10-20 06:16] LABS: Alanine Aminotransferase 23 U/L (4-50); Albumin Level 2.5 g/dL (3.5-5.1); Alkaline Phosphatase 51 U/L (38-126); Anion Gap 4 mmol/L (8-16); Aspartate Amino Transferase 44 U/L (17-59); Bilirubin,Total 0.3 mg/dL (0.2-1.3); Blood Urea Nitrogen 33 mg/dL (9-20); Calcium 7.8 mg/dL (8.4-10.2); Carbon Dioxide 23 mmol/L (22-30); Chloride 110 mmol/L (98-107); Estimated CRCL calculation 46 ml/min; Estimated Glomerular Filt Rate 50; Glucose 89 mg/dL (75-110); Magnesium 2.1 mg/dL (1.6-2.3); Phosphorus 3.2 mg/dL (2.5-4.5); Potassium 4.2 mmol/L (3.4-5.0); Sodium 137 mmol/L (137-145)
--- NOTE | 2020-10-20 08:17 | WPDINTPN ---
Progress Note: A&P Assessment and Plan (1) Septic shock: Code(s): A41.9 - Sepsis, unspecified organism; R65.21 - Severe sepsis with septic shock Status: Acute Assessment and Plan: septic shock most likely related to peritonitis, perforated sigmoid colon responded well to continued fluid challenge without need for pressors Continue Zosyn Ok to downgrade to IMU status (2) JERAD (acute kidney injury): Code(s): N17.9 - Acute kidney failure, unspecified Status: Acute Assessment and Plan: 10/19 creatinine 1.5, 10/20 1.4 (baseline 0.9) 10/19 U/O 550 ml Continue to monitor (3) Perforation of sigmoid colon: Code(s): K63.1 - Perforation of intestine (nontraumatic) Status: Acute Assessment and Plan: s/p expl lap 10/18/2020 (4) Anemia: Qualifiers: Anemia type: unspecified type Qualified Code(s): D64.9 - Anemia, unspecified Code(s): D64.9 - Anemia, unspecified Status: Acute Assessment and Plan: Likely due to dilution and phlebotomies, no s/sx bleeding Monitor (5) COPD with emphysema: Qualifiers: Emphysema type: unspecified Qualified Code(s): J43.9 - Emphysema, unspecified Code(s): J43.9 - Emphysema, unspecified Status: Acute Assessment and Plan: Continue oxygen, bronchodilators (6) Primary hypertension: Code(s): I10 - Essential (primary) hypertension Status: Chronic Assessment and Plan: Medications on hold Subjective Date/time seen: 10/20/20 08:17 Interval history: Seen by yoga coordinator 10/19 due to refractory hypotension, JERAD, septic shock. C/o moderate abdominal pain with coughing. Otherwise comfortable. No sob at rest. Denies home oxygen use. Review of Systems Review of Systems: All systems reviewed & are unremarkable except as noted in HPI and below Exam Narrative: Exam Narrative: HEENT: PERRL, sclerae nonicteric, pharyngeal mucosa pink and intact NECK: No JVD, adenopathy, or thyromegaly CHEST: Coarse BS. Normal effort. HEART: NL S1/S2, regular, no murmur ABDOMEN: BS+, soft, mild diffuse tenderness EXTREMITIES: No cyanosis, edema, or clubbing. Pedal pulses trace NEUROLOGIC: CN intact and symmetric to inspection. MUSCULOSKELETAL: Tone and strength symmetric. PSYCH: Alert. Oriented to person, place, and time. (including date: 10/20/2020) Objective Data Vital Signs Vital Signs: Vital Signs - 24 hr 10/19/20 09:13 10/19/20 10:00 10/19/20 10:30 Temperature Pulse Rate 83 78 83 Respiratory Rate 20 15 Blood Pressure 75/53 L 89/57 L Pulse Oximetry 99 94 10/19/20 11:31 10/19/20 12:00 10/19/20 12:45 Temperature 97.6 F 97.4 F L Pulse Rate 79 74 80 Respiratory Rate 18 24 H Blood Pressure 89/58 L 98/53 L Pulse Oximetry 96 95 10/19/20 12:53 10/19/20 13:00 10/19/20 13:30 Temperature Pulse Rate 81 80 81 Respiratory Rate 20 20 Blood Pressure 98/53 L 106/62 109/70 Pulse Oximetry 94 94 10/19/20 13:35 10/19/20 13:46 10/19/20 14:00 Temperature Pulse Rate 83 83 84 Respiratory Rate 16 16 20 Blood Pressure 101/64 Pulse Oximetry 94 10/19/20 15:00 10/19/20 16:00 10/19/20 17:00 Temperature 99.2 F Pulse Rate 87 78 78 Respiratory Rate 20 20 Blood Pressure 110/62 110/59 L 114/69 Pulse Oximetry 99 99 99 10/19/20 18:00 10/19/20 19:00 10/19/20 20:00 Temperature 97.4 F L Pulse Rate 87 79 80 Respiratory Rate 20 16 Blood Pressure 115/65 114/79 125/59 L Pulse Oximetry 99 98 10/19/20 20:25 10/19/20 21:00 10/19/20 22:00 Temperature Pulse Rate 84 85 Respiratory Rate 18 Blood Pressure 140/82 130/67 Pulse Oximetry 10/20/20 00:00 10/20/20 02:00 10/20/20 02:29 Temperature 97.4 F L Pulse Rate 83 89 92 Respiratory Rate 16 18 Blood Pressure 138/74 111/89 Pulse Oximetry 95 10/20/20 03:00 10/20/20 04:00 10/20/20 04:33 Temperature 97.7 F 97.9 F Pulse Rate 98 88 88 Respiratory Rate 20 16 18 Bloo
[2020-10-20] MEDS: ONDANSETRON INJ 4 MG/2 ML VIAL IV PUSH ×2 (09:11→20:33)
[2020-10-20] MEDS: carvediloL 3.125 MG TABLET PO ×2 (09:39→21:27)
--- NOTE | 2020-10-20 10:54 | PM.PNCARD ---
Progress Note: A&P Additional Plan 74-year-old gentleman with Ventricular arrhythmias that are asymptomatic but are noted on telemetry while he is here undergoing treatment for fecal peritonitis. Echocardiogram does demonstrate left ventricular systolic dysfunction. Today will plan to start medical therapy for this since he is no longer NPO carvedilol and losartan are started for his LV systolic dysfunction and I am going to start a loading dose of amiodarone orally for the ventricular arrhythmias. When he is recovered from this acute illness he will need to undergo angiography to clarify hit the substrate of his systolic dysfunction and ventricular arrhythmias. Claudy Palacios MD [facility] Subjective Date/time seen: Date of service: 10/20/20 10:54 Interval history: Follow-up visit in this 74-year-old gentleman with ventricular arrhythmias. Patient was hospitalized for fecal peritonitis resulted from iatrogenic perforation of his sigmoid colon. No cardiovascular complaints today No previous history of significant cardiac problems but echocardiogram done yesterday does demonstrate significant left ventricular systolic dysfunction. Long discussion with the patient this morning about the implications of these findings and the need to start medical therapy for this while he is in the hospital. He will require more complete evaluation when he is recovered from his peritonitis. Exam Const: General: no acute distress Other: Still has mild abdominal discomfort tolerating clear liquids HENMT: Mouth: Yes moist mucous membranes Eyes: Sclera: sclerae normal Pupils: Equal, round and reactive pupils present Neck: Neck: supple and no JVD Other: Carotid upstrokes normal no bruits audible Resp: Effort & Inspection: normal respiratory effort Auscultation: clear to auscultation bilaterally Cardio: Rate: regular rate Rhythm: regular rhythm GI: Other: Abdomen relatively soft hypoactive bowel sounds are noted Skin: General skin exam: normal color Neuro: Cognition (Neuro): normal cognition Extrem: General: normal to inspection Objective Data Vital Signs Vital Signs: Vital Signs - 24 hr 10/19/20 11:31 10/19/20 12:00 10/19/20 12:45 Temperature 36.4 C 36.3 C L Pulse Rate 79 74 80 Respiratory Rate 18 24 H Blood Pressure 89/58 L 98/53 L Pulse Oximetry 96 95 10/19/20 12:53 10/19/20 13:00 10/19/20 13:30 Temperature Pulse Rate 81 80 81 Respiratory Rate 20 20 Blood Pressure 98/53 L 106/62 109/70 Pulse Oximetry 94 94 10/19/20 13:35 10/19/20 13:46 10/19/20 14:00 Temperature Pulse Rate 83 83 84 Respiratory Rate 16 16 20 Blood Pressure 101/64 Pulse Oximetry 94 10/19/20 15:00 10/19/20 16:00 10/19/20 17:00 Temperature 37.3 C Pulse Rate 87 78 78 Respiratory Rate 20 20 Blood Pressure 110/62 110/59 L 114/69 Pulse Oximetry 99 99 99 10/19/20 18:00 10/19/20 19:00 10/19/20 20:00 Temperature 36.3 C L Pulse Rate 87 79 80 Respiratory Rate 20 16 Blood Pressure 115/65 114/79 125/59 L Pulse Oximetry 99 98 10/19/20 20:25 10/19/20 21:00 10/19/20 22:00 Temperature Pulse Rate 84 85 Respiratory Rate 18 Blood Pressure 140/82 130/67 Pulse Oximetry 10/20/20 00:00 10/20/20 02:00 10/20/20 02:29 Temperature 36.3 C L Pulse Rate 83 89 92 Respiratory Rate 16 18 Blood Pressure 138/74 111/89 Pulse Oximetry 95 10/20/20 03:00 10/20/20 04:00 10/20/20 04:33 Temperature 36.5 C 36.6 C Pulse Rate 98 88 88 Respiratory Rate 20 16 18 Blood Pressure 137/70 139/76 139/76 Pulse Oximetry 95 97 97 10/20/20 06:00 10/20/20 08:00 10/20/20 09:04 Temperature 36.9 C Pulse Rate 97 98 91 Respiratory Rate 20 21 H Blood Pressure 143/89 H 156/85 H Pulse Oximetry 97 97 10/20/20 09:39 Temperature Pulse Rate 99 Respiratory Rate Blood Pressure Pulse Oximetry Intake/Output Intake/Output: Intake & Output 10/17/20 10/18/20 10/19/20 10/20/20 23:59 23:59 23:59 23:59
--- NOTE | 2020-10-20 11:13 | PM.PNGS ---
Progress Note: A&P Assessment and Plan (1) Perforation of sigmoid colon: Code(s): K63.1 - Perforation of intestine (nontraumatic) Status: Acute Assessment and Plan: await ostomy fxn, clears, abx, encourage OOB/IS. Encouraged patient to try to do more walking today if he feels good. (2) Fecal peritonitis: Code(s): K65.8 - Other peritonitis Status: Acute Assessment and Plan: cont abx, WBC trending down (3) Sepsis: Code(s): A41.9 - Sepsis, unspecified organism Status: Acute Assessment and Plan: HD stable, cont abx, resus. Creatinine and BUN still up some will continue IV fluids. Subjective Subjective Date/Time Seen: 10/20/20 11:13 Post Op day: 2 ( Continues to progress fairly well postop day 2) Patient reports: feels better and still having pain Interval history: nurses have not had to empty the ostomy bag. Patient has not noticed any flatus coming into the bag. Denies nausea today. Tolerating some sips clear liquids. Review of Systems Review of Systems: All systems reviewed & are unremarkable except as noted in HPI and below Eyes: Eyes: Denies change in vision and Denies loss of vision ENT: Denies dizziness and Denies headache(s) Cardiovascular: Cardiovascular: Denies chest pain, Denies syncope, Denies leg edema, Denies lightheadedness, Denies radiating jaw, neck or arm pain and Denies dyspnea Respiratory: Respiratory: Denies cough, Denies dyspnea and Denies wheezing Gastrointestinal: Gastrointestinal: Reports as per HPI, Reports no additional gastrointestinal complaints, Reports abdominal pain, Reports constipation, Denies nausea and Denies vomiting Comments: Indicates he took 2 sips of coffee and some water since breakfast. Musculoskeletal: Musculoskeletal: Denies deformity, Denies joint swelling, Denies radiating pain into limb and Denies tingling Integumentary/Breasts: Skin/Breast: Denies pruritus, Denies wounds and Denies jaundice Neurologic: Denies dizziness, Denies syncope, Denies headache(s), Denies loss of vision, Denies tingling, Denies tremor(s) and Denies weakness Psychiatric: Psychiatric: Denies anxiety and Denies depression Hematologic/Lymphatic: Hematologic/Lymphatic: Denies easy bleeding and Denies easy bruising Allergic/Immunologic: Allergic/Immunologic: Denies wheezing Exam Const: General: alert, awake, acute distress moderate, in distress moderate, ill appearing and uncomfortable Nutritional Appearance: average body habitus Orientation/consciousness: patient oriented x3 Limitations: no limitations HENMT: Head: normal to inspection, normocephalic and atraumatic Ears: external ears normal and other ([place]) General nose exam: Normal external nose present Mouth: Yes Normal oral and palatal mucosa present and Yes moist mucous membranes Eyes: General: appearance normal, both eyes and all related structures Sclera: sclerae normal Pupils: Equal, round and reactive pupils present EOM: EOMs intact bilaterally Neck: Neck: normal visual inspection and full ROM Resp: Effort & Inspection: normal respiratory effort, able to speak in complete sentences and no respiratory distress Auscultation: clear to auscultation bilaterally Cardio: Rate: regular rate and tachycardic Rhythm: regular rhythm Heart sounds: S1 normal heart sound present and S2 normal heart sound present GI: Inspection: normal to inspection and no scars GI Palp: Yes abdominal tenderness and Yes Soft to palpation Auscultation: normal bowel sounds Rectal Exam: deferred Other: soft, sl dist, ra TTP, incision C/D/I, ostomy viable. Only some bloody fluid in ostomy bag. No gas or stool yet. Midline incision covered with Tegaderm and under ostomy so not changed today. Mild serosanguineous drainage is visible. Skin: General skin exam: no rashes or lesions noted and pallor Neuro: General: patient oriented x3, moves all extremities and no focal motor deficits Cranial nerves:
[2020-10-20] MEDS: AMIODARONE HCL 200 MG TABLET 400 MG PO ×2 (12:19→21:26)
[2020-10-20] MEDS: LOSARTAN POTASSIUM 25 MG TABLET PO (12:19)
[2020-10-20] MEDS: SODIUM CHLORIDE 0.9% IV 1,000 ML 75 ML IV CONT (12:19)
[2020-10-20] MEDS: PANTOPRAZOLE 40 MG TABLET PO (12:19)
[2020-10-20] MEDS: ENOXAPARIN 40 MG/0.4 ML SYRINGE SUB-Q (12:19)
--- NOTE | 2020-10-20 16:38 | PM.IMPN ---
Progress Note: A&P Assessment and Plan (1) Sepsis: Code(s): A41.9 - Sepsis, unspecified organism Status: Acute Assessment and Plan: secondary to perforation of colon. Patient had a colonoscopy approximately 3 days prior. Status post colon resection and diverting colostomy p.m. 10/18. Blood pressure continues to rebound without pressors and lactic acid now normal. Continue antibiotics, central line placed 10/19, sales planning analyst consulted and will now downgrade to IMU status (2) Fecal peritonitis: Code(s): K65.8 - Other peritonitis Status: Acute Assessment and Plan: See above continue with IV fluids IV antibiotics and pain medication. One BC growing clostridium ramasum . continue zosyn (3) Glaucoma: Qualifiers: Glaucoma type: open-angle Open angle glaucoma type: unspecified type Laterality: bilateral Glaucoma stage: stage unspecified Qualified Code(s): H40.10X0 - Unspecified open-angle glaucoma, stage unspecified Code(s): H40.9 - Unspecified glaucoma Status: Chronic Assessment and Plan: continue with current eye drops. (4) BPH (benign prostatic hyperplasia): Qualifiers: Lower urinary tract symptom presence: unspecified whether lower urinary tract symptoms present Qualified Code(s): N40.0 - Benign prostatic hyperplasia without lower urinary tract symptoms Code(s): N40.0 - Benign prostatic hyperplasia without lower urinary tract symptoms Status: Chronic Assessment and Plan: Patient currently has a Hurd catheter is draining clear yellow urine. (5) Primary hypertension: Code(s): I10 - Essential (primary) hypertension Status: Chronic Assessment and Plan: Blood pressure has rebounded and Cardiology starting ARB with the beta-eloy, losartan 25 daily and Coreg 3.125 b.i.d. (6) Ventricular tachycardia: Code(s): I47.2 - Ventricular tachycardia Status: Acute Assessment and Plan: Patient was given amiodarone at [facility]. Echo revealed ejection fraction 30-35% and Cardiology loading orally with amiodarone (7) JERAD (acute kidney injury): Code(s): N17.9 - Acute kidney failure, unspecified Status: Acute Assessment and Plan: With sepsis and hypotension creatinine milan to 1.5 and now 1.4. Continue to monitor (8) DVT prophylaxis: Code(s): Z29.9 - Encounter for prophylactic measures, unspecified Status: [facility] ([facility] Cardiomyopathy: Code(s): I42.9 - Cardiomyopathy, unspecified Status: Acute Assessment and Plan: EF 30-35% , started Coreg and losartan. Watch fluid balance. Will need ischemic evaluation eval later date Subjective Date/time seen: 10/20/20 16:38 Interval history: Date of visit 10/20. 74-year-old hypertensive male admitted from [facility] with sigmoid perforation. Patient was septic, had ventricular tachycardia, and was taken to the OR for sigmoid resection and diverting colostomy. This a.m. still feels poorly. Continues on antibiotics Exam Narrative: Exam Narrative: Blood pressure 156/84 pulse is 92 saturating 96% on room air afebrile Lungs are clear CV regular a no murmurs Abdomen soft with bowel sounds increasing, bandage not removed colostomy in place Extremities without edema distal pulses 1+ Neuro alert mentating properly with no focal deficits Objective Data Vital Signs Vital Signs: Vital Signs - 24 hr 10/19/20 17:00 10/19/20 18:00 10/19/20 19:00 Temperature Pulse Rate 78 87 79 Respiratory Rate 20 20 Blood Pressure 114/69 115/65 114/79 Pulse Oximetry 99 99 10/19/20 20:00 10/19/20 20:25 10/19/20 21:00 Temperature 36.3 C L Pulse Rate 80 84 Respiratory Rate 16 18 Blood Pressure 125/59 L 140/82 Pulse Oximetry 98 10/19/20 22:00 10/20/20 00:00 10/20/20 02:00 Temperature 36.3 C L Pulse Rate 85 83 89 Respiratory Rate 16 Bloo
[2020-10-20] MEDS: LATANOPROST 0.005% OP SOLN 2.5 ML BTL 1 DROP EACH EYE (17:58)
[2020-10-21] VITALS (22 sets, daily range): BP systolic 165–183; BP diastolic 82–97; PULSE 47–98; RESP 16–24; TEMP 36.9–37.4; O2SAT 92–97
[2020-10-21] MEDS: PROMETHAZINE HCL 25 MG/ML AMPUL 12.5 MG IV PUSH ×3 (00:08→22:12)
[2020-10-21] MEDS: SODIUM CHLORIDE 0.9% IV 1,000 ML 75 ML IV CONT ×2 (00:09→19:58)
[2020-10-21] MEDS: LEVALBUTEROL NEB 1.25 MG/3 ML 0.63 MG INHALATION ×2 (01:44→14:51)
[2020-10-21] MEDS: IPRATROPIUM BR 0.02% INH SOLN 0.5 MG/2.5 ML VIAL INHALATION ×2 (01:44→14:51)
[2020-10-21] MEDS: metroNIDAZOLE 500 MG/ISO 100ML 500 MG/100 ML BAG 100 MG IVPB ×3 (05:44→20:01)
[2020-10-21] MEDS: CENTRAL LINE FLUSH 10 ML IV PUSH ×3 (05:52→20:00)
[2020-10-21 06:17] LABS: Hemoglobin 11.8 g/dL (14.0-18.0); Mean Corpuscular HGB Conc 34.7 g/dl (32-36); Mean Corpuscular Hemoglobin 31.2 pg (26-34); Mean Corpuscular Volume 89.9 fl (80-100); Mean Platelet Volume 10.1 fl (7.4-10.4); Platelet Count Result 180 k/mm3 (150-375); Red Blood Count 3.78 M/mm3 (4.6-6.20); Red Cell Distribution Width 13.4 % (11.5-14.5); White Blood Count 21.8 K/mm3 (4.5-10.0)
[2020-10-21 06:33] LABS: Alanine Aminotransferase 22 U/L (4-50); Albumin Level 2.7 g/dL (3.5-5.1); Alkaline Phosphatase 69 U/L (38-126); Anion Gap 5 mmol/L (8-16); Aspartate Amino Transferase 44 U/L (17-59); Bilirubin,Total 0.4 mg/dL (0.2-1.3); Blood Urea Nitrogen 37 mg/dL (9-20); Carbon Dioxide 24 mmol/L (22-30); Chloride 109 mmol/L (98-107); Estimated CRCL calculation 54 ml/min; Estimated Glomerular Filt Rate 59; Glucose 94 mg/dL (75-110); Magnesium 2.3 mg/dL (1.6-2.3); Phosphorus 2.2 mg/dL (2.5-4.5); Potassium 3.1 mmol/L (3.4-5.0); Sodium 138 mmol/L (137-145)
[2020-10-21 06:46] LABS: Band Neutrophils Percent 10 % (0-6); Metamyelocytes Percent 3 %; Monocytes Absolute Manual 0.21 K/mm3 (0.1-0.90); Monocytes Percent Manual 1 % (3-9); Neutrophils Absolute Manual 19.62 K/mm3 (1.3-6.7); Neutrophils Percent Manual 80 % (46-73); Platelet Estimate Adequate (Adequate); Total Cells Counted 100
[2020-10-21 06:47] LABS: Crenated RBC 2+ (NORMAL)
[2020-10-21] MEDS: POTASSIUM CHLORIDE 20 MEQ PACKET (FOR LIQUID) 40 MEQ PO (09:38)
[2020-10-21] MEDS: POTASSIUM PHOS,M-BASIC-D-BASIC 20 MMOL in SODIUM CHLORIDE 0.9% IV 250 ML 64 MMOL IVPB (09:39)
[2020-10-21] MEDS: ENOXAPARIN 40 MG/0.4 ML SYRINGE SUB-Q (09:40)
[2020-10-21] MEDS: LOSARTAN POTASSIUM 25 MG TABLET PO (09:40)
[2020-10-21] MEDS: PANTOPRAZOLE 40 MG TABLET PO (09:40)
[2020-10-21] MEDS: DORZOLAMIDE/TIMOLOL OPHTH SOL 10 ML BOTTLE 1 DROP EACH EYE ×2 (09:40→19:59)
[2020-10-21] MEDS: carvediloL 3.125 MG TABLET PO (09:41)
[2020-10-21] MEDS: AMIODARONE HCL 200 MG TABLET 400 MG PO ×2 (09:41→19:59)
[2020-10-21] MEDS: ONDANSETRON INJ 4 MG/2 ML VIAL IV PUSH ×2 (10:19→19:58)
--- NOTE | 2020-10-21 11:14 | PCPTNOTE ---
Per nursing: Patient reported he did not want any therapy for today and that patient had a busy morning.
--- NOTE | 2020-10-21 11:59 | PM.PNCARD ---
Progress Note: A&P Additional Plan 74-year-old white male with: Ventricular arrhythmias and fecal peritonitis with echo evidence of moderate left ventricular systolic dysfunction. Carvedilol and losartan were started. Because of elevated blood pressure I will advanced the doses of both of them today. Amiodarone will be continued orally at 400 mg q.12 hours with anticipation to reduce the dosage to a more typical maintenance dosage prior to discharge. If he remains clinically stable from the cardiac perspective I would plan on bringing this gentleman's the cardiac catheterization lab for angiography when he is recovered from his peritonitis. Claudy Palacios MD [facility] Subjective Date/time seen: Date of service: 10/21/20 11:59 Interval history: Follow-up visit in this 74-year-old gentleman with ventricular arrhythmias. Patient was hospitalized for fecal peritonitis resulted from iatrogenic perforation of his sigmoid colon. No previous history of significant cardiac problems but echocardiogram done does demonstrate significant left ventricular systolic dysfunction. Long discussion with the patient about the implications of these findings and the need to start medical therapy for this while he is in the hospital. He will require more complete evaluation when he is recovered from his peritonitis. No cardiovascular complaints today. Patient still has some abdominal discomfort not surprisingly because of his fecal peritonitis. He is hypertensive but no longer having any ventricular arrhythmias on oral amiodarone Exam Const: General: no acute distress and uncomfortable Other: Still has mild abdominal discomfort tolerating clear liquids HENMT: Mouth: Yes moist mucous membranes Eyes: Sclera: sclerae normal Pupils: Equal, round and reactive pupils present Neck: Neck: supple and no JVD Thyroid: thyroid normal Other: Carotid upstrokes normal no bruits audible Resp: Effort & Inspection: normal respiratory effort Auscultation: clear to auscultation bilaterally Cardio: Rate: regular rate Rhythm: regular rhythm Other: No murmur no gallop no rub GI: Auscultation: abnormal bowel sounds Other: Abdomen relatively soft hypoactive bowel sounds are noted Skin: General skin exam: normal color Neuro: Cranial nerves: Yes Equal, round and reactive pupils present Cognition (Neuro): normal cognition Extrem: General: normal to inspection Objective Data Vital Signs Vital Signs: Vital Signs - 24 hr 10/20/20 12:00 10/20/20 12:19 10/20/20 14:00 Temperature 36.5 C Pulse Rate 94 99 87 Respiratory Rate 20 Blood Pressure 158/91 H Pulse Oximetry 98 10/20/20 15:17 10/20/20 15:54 10/20/20 16:00 Temperature 37.2 C Pulse Rate 89 95 Respiratory Rate 18 20 Blood Pressure 168/90 H Pulse Oximetry 92 93 10/20/20 18:00 10/20/20 19:57 10/20/20 20:00 Temperature 37.1 C Pulse Rate 100 96 95 Respiratory Rate 18 Blood Pressure 167/89 H Pulse Oximetry 95 94 10/20/20 20:32 10/20/20 20:45 10/20/20 21:26 Temperature Pulse Rate 94 92 86 Respiratory Rate 20 20 Blood Pressure Pulse Oximetry 10/20/20 21:27 10/20/20 22:00 10/20/20 23:41 Temperature 36.9 C Pulse Rate 86 97 95 Respiratory Rate 18 Blood Pressure 172/89 H Pulse Oximetry 94 10/20/20 23:45 10/21/20 00:00 10/21/20 01:45 Temperature Pulse Rate 98 90 Respiratory Rate 20 Blood Pressure Pulse Oximetry 94 10/21/20 01:54 10/21/20 02:00 10/21/20 04:00 Temperature 37.1 C Pulse Rate 90 93 87 Respiratory Rate 20 18 Blood Pressure 174/94 H Pulse Oximetry 96 10/21/20 06:00 10/21/20 08:00 10/21/20 09:41 Temperature 37.1 C Pulse Rate 93 96 81 Respiratory Rate 16 Blood Pressure 170/97 H Pulse Oximetry 93 10/21/20 10:00 Temperature Pulse Rate 88 Respiratory Rate Blood Pressure Pulse Oximetry Intake/Output Intake/Output: Intake & Output 10/18/20 10/19/20 10/20/20 10/21/20
--- NOTE | 2020-10-21 13:05 | PCOTNOTE ---
10/21/2020: per nursing hold therapy this date due to patient not feeling well; per nursing patient verbalized not wanting any therapy today; will follow up as appropriate at later time/date for OT treatment
--- NOTE | 2020-10-21 13:45 | PM.PNGS ---
Progress Note: A&P Assessment and Plan (1) Perforation of sigmoid colon: Code(s): K63.1 - Perforation of intestine (nontraumatic) Status: Acute Assessment and Plan: Improving postop day 3. Ostomy now functioning so continue with increasing clear liquids and add b.i.d. ensure surgery supplement also, cont' abx, encourage OOB/IS and walking with PT. Encouraged patient to try to do more walking today if he feels good. (2) Fecal peritonitis: Code(s): K65.8 - Other peritonitis Status: Acute Assessment and Plan: cont abx, WBC trending slightly up will repeat CBC in a.m. (3) Sepsis: Code(s): A41.9 - Sepsis, unspecified organism Status: Acute Assessment and Plan: HD stable, cont abx, watch IVF and increase po liquid intake as tolerated. Creatinine and BUN still up some will continue IV fluids. Subjective Subjective Date/Time Seen: 10/21/20 12:45 Post Op day: 3 Patient reports: still having pain and bowel movement Interval history: patient was sleeping peacefully in his bed when I entered the room. He wakened easily. States he is still has some abdominal pain but is improving. Nurse reports a blowout with lots of liquid stool from the ostomy today in the morning. She has had to change the bag twice and some stool did spill over onto the dressing so dressing on the midline was changed, but the incision looks clean and dry. Review of Systems Constitutional: Constitutional: Reports as per HPI, Denies excessive sweating, Denies fatigue, Denies fever(s), Denies headache(s), Reports lethargy and Denies weakness Eyes: Eyes: Denies change in vision and Denies loss of vision ENT: Denies dizziness and Denies headache(s) Cardiovascular: Cardiovascular: Denies chest pain, Denies syncope, Denies leg edema, Denies lightheadedness, Denies radiating jaw, neck or arm pain and Denies dyspnea Respiratory: Respiratory: Denies cough, Denies dyspnea and Denies wheezing Gastrointestinal: Gastrointestinal: Reports as per HPI, Reports abdominal pain ( Mild and incisional), Denies nausea and Denies vomiting Comments: patient and nurse report loose liquid dark stool from a ostomy. Patient tolerating sips of clear liquids now. Musculoskeletal: Musculoskeletal: Denies deformity, Denies joint swelling, Denies radiating pain into limb and Denies tingling Integumentary/Breasts: Skin/Breast: Denies pruritus, Denies wounds and Denies jaundice Neurologic: Denies dizziness, Denies syncope, Denies headache(s), Denies loss of vision, Denies tingling, Denies tremor(s) and Denies weakness Psychiatric: Psychiatric: Denies anxiety and Denies depression Exam Const: General: alert, awake, acute distress moderate, in distress moderate, ill appearing and uncomfortable Nutritional Appearance: average body habitus Orientation/consciousness: patient oriented x3 Limitations: no limitations HENMT: Head: normal to inspection, normocephalic and atraumatic Ears: external ears normal and other (U[place]KLEET) General nose exam: Normal external nose present Mouth: Yes Normal oral and palatal mucosa present and Yes moist mucous membranes Eyes: General: appearance normal, both eyes and all related structures Sclera: sclerae normal Pupils: Equal, round and reactive pupils present EOM: EOMs intact bilaterally Neck: Neck: normal visual inspection and full ROM Resp: Effort & Inspection: normal respiratory effort, able to speak in complete sentences and no respiratory distress Auscultation: clear to auscultation bilaterally Cardio: Rate: regular rate and tachycardic Rhythm: regular rhythm Heart sounds: S1 normal heart sound present and S2 normal heart sound present GI: Inspection: incision ( clean and dry with widely spaced intermittent rosalba, no erythema) and scaphoid GI Palp: Yes abdominal tenderness ( mild near incision) Auscultation: normal bowel sounds Other: ostomy pink and viable with dark liquid stool coming
--- NOTE | 2020-10-21 17:29 | PM.IMPN ---
Progress Note: A&P Assessment and Plan (1) Sepsis: Code(s): A41.9 - Sepsis, unspecified organism Status: Acute Assessment and Plan: secondary to perforation of colon. Patient had a colonoscopy approximately 3 days prior. Status post colon resection and diverting colostomy p.m. 10/18. Blood pressure continues to rebound without pressors and lactic acid now normal. Continue antibiotics, central line placed 10/19, diesel inspector consulted and now downgraded to IMU status 10/20 (2) Fecal peritonitis: Code(s): K65.8 - Other peritonitis Status: Acute Assessment and Plan: See above continue with IV fluids IV antibiotics and pain medication. One BC growing clostridium ramasum . continue zosyn (3) Glaucoma: Qualifiers: Glaucoma type: open-angle Open angle glaucoma type: unspecified type Laterality: bilateral Glaucoma stage: stage unspecified Qualified Code(s): H40.10X0 - Unspecified open-angle glaucoma, stage unspecified Code(s): H40.9 - Unspecified glaucoma Status: Chronic Assessment and Plan: continue with current eye drops. (4) BPH (benign prostatic hyperplasia): Qualifiers: Lower urinary tract symptom presence: unspecified whether lower urinary tract symptoms present Qualified Code(s): N40.0 - Benign prostatic hyperplasia without lower urinary tract symptoms Code(s): N40.0 - Benign prostatic hyperplasia without lower urinary tract symptoms Status: Chronic Assessment and Plan: Patient currently has a Hurd catheter is draining clear yellow urine. (5) Primary hypertension: Code(s): I10 - Essential (primary) hypertension Status: Chronic Assessment and Plan: Blood pressure has rebounded and Cardiology starting ARB with the beta-eloy, now losartan 50 daily and Coreg 6.25 b.i.d. (6) Ventricular tachycardia: Code(s): I47.2 - Ventricular tachycardia Status: Acute Assessment and Plan: Patient was given amiodarone at [facility]. Echo revealed ejection fraction 30-35% and Cardiology loading orally with amiodarone (7) JERAD (acute kidney injury): Code(s): N17.9 - Acute kidney failure, unspecified Status: Acute Assessment and Plan: With sepsis and hypotension creatinine milan to 1.5 and now 1.2. Continue to monitor good urine output with 1L more than intake (8) DVT prophylaxis: Code(s): Z29.9 - Encounter for prophylactic measures, unspecified Status: Acute Assessment and Plan: Lovenox (9) Cardiomyopathy: Code(s): I42.9 - Cardiomyopathy, unspecified Status: Acute Assessment and Plan: EF 30-35% , started Coreg and losartan. Watch fluid balance.(good as above) Will need ischemic evaluation eval later date Subjective Date/time seen: 10/21/20 17:29 Interval history: Date of visit 10/21. 74-year-old hypertensive male admitted from [facility] with sigmoid perforation. Patient was septic, had ventricular tachycardia, and was taken to the OR for sigmoid resection and diverting colostomy. This a.m. still feels poorly. Continues on antibiotics, colostomy functioning Exam Narrative: Exam Narrative: Blood pressure 170/76 pulse is 90 saturating 94% on room air afebrile Lungs are clear CV regular no murmurs Abdomen soft with bowel sounds increasing, bandage not removed colostomy in place with gas and lliquid stool Extremities without edema distal pulses 1+ Neuro alert mentating properly with no focal deficits Objective Data Vital Signs Vital Signs: Vital Signs - 24 hr 10/20/20 18:00 10/20/20 19:57 10/20/20 20:00 Temperature 37.1 C Pulse Rate 100 96 95 Respiratory Rate 18 Blood Pressure 167/89 H Pulse Oximetry 95 94 10/20/20 20:32 10/20/20 20:45 10/20/20 21:26 Temperature Pulse Rate 94 92 86 Respiratory Rate 20 20 Blood Pressure Pulse Oximetry 10/20/20 21:27 10/20/20 22:00 11
[2020-10-21] MEDS: LATANOPROST 0.005% OP SOLN 2.5 ML BTL 1 DROP EACH EYE (17:41)
[2020-10-21] MEDS: MORPHINE SULFATE (*CRX) 4 MG/ML INJ 2 MG IV PUSH ×2 (17:41→22:12)
[2020-10-21] MEDS: carvediloL 6.25 MG TABLET PO (19:59)
[2020-10-22] VITALS (21 sets, daily range): BP systolic 152–181; BP diastolic 85–98; PULSE 76–98; RESP 18–24; TEMP 36.3–37.4; O2SAT 96–98; BMI 27.3
[2020-10-22] MEDS: LEVALBUTEROL NEB 1.25 MG/3 ML 0.63 MG INHALATION ×3 (01:41→22:02)
[2020-10-22] MEDS: IPRATROPIUM BR 0.02% INH SOLN 0.5 MG/2.5 ML VIAL INHALATION ×3 (01:41→22:02)
[2020-10-22] MEDS: MORPHINE SULFATE (*CRX) 4 MG/ML INJ 2 MG IV PUSH ×3 (02:51→21:18)
[2020-10-22] MEDS: PROMETHAZINE HCL 25 MG/ML AMPUL 12.5 MG IV PUSH ×2 (02:51→12:05)
[2020-10-22] MEDS: metroNIDAZOLE 500 MG/ISO 100ML 500 MG/100 ML BAG 100 MG IVPB ×3 (05:15→21:12)
[2020-10-22] MEDS: CENTRAL LINE FLUSH 10 ML IV PUSH ×3 (05:16→21:13)
[2020-10-22 05:36] LABS: Hematocrit 35.6 % (42.0-52.0); Hemoglobin 12.2 g/dL (14.0-18.0); Mean Corpuscular HGB Conc 34.3 g/dl (32-36); Mean Corpuscular Hemoglobin 31.3 pg (26-34); Mean Corpuscular Volume 91.3 fl (80-100); Mean Platelet Volume 9.9 fl (7.4-10.4); Platelet Count Result 198 k/mm3 (150-375); Red Cell Distribution Width 13.7 % (11.5-14.5); White Blood Count 23.6 K/mm3 (4.5-10.0)
[2020-10-22 05:46] LABS: Alanine Aminotransferase 21 U/L (4-50); Albumin Level 2.7 g/dL (3.5-5.1); Alkaline Phosphatase 87 U/L (38-126); Anion Gap 5 mmol/L (8-16); Aspartate Amino Transferase 39 U/L (17-59); Bilirubin,Total 0.6 mg/dL (0.2-1.3); Blood Urea Nitrogen 41 mg/dL (9-20); Calcium 8.1 mg/dL (8.4-10.2); Carbon Dioxide 25 mmol/L (22-30); Chloride 108 mmol/L (98-107); Estimated CRCL calculation 58 ml/min; Estimated Glomerular Filt Rate > 60; Glucose 101 mg/dL (75-110); Magnesium 2.4 mg/dL (1.6-2.3); Phosphorus 2.4 mg/dL (2.5-4.5); Potassium 3.4 mmol/L (3.4-5.0); Sodium 138 mmol/L (137-145)
[2020-10-22 07:06] LABS: Band Neutrophils Percent 6 % (0-6); Lymphocytes Absolute Manual 1.88 K/mm3 (1.1-4.5); Metamyelocytes Percent 2 %; Monocytes Percent Manual 3 % (3-9); Neutrophils Absolute Manual 20.53 K/mm3 (1.3-6.7); Neutrophils Percent Manual 81 % (46-73); Total Cells Counted 100
[2020-10-22 07:07] LABS: Platelet Estimate Adequate (Adequate)
--- NOTE | 2020-10-22 07:29 | PM.PNGS ---
Progress Note: A&P Assessment and Plan (1) Perforation of sigmoid colon: Code(s): K63.1 - Perforation of intestine (nontraumatic) Status: Acute Assessment and Plan: ostomy + fxn, nuzhat clears, cont to encourage OOB/IS (2) Sepsis: Code(s): A41.9 - Sepsis, unspecified organism Status: Acute Assessment and Plan: increasing leukocytosis, will get CT for further eval Subjective Subjective Date/Time Seen: 10/22/20 07:25 feels a little better, still c abd pain Review of Systems Constitutional: Constitutional: Denies chills, Reports fatigue, Denies fever(s), Reports lethargy, Reports malaise, Reports poor appetite and Reports weakness Cardiovascular: Cardiovascular: Reports no additional cardiovascular complaints Respiratory: Respiratory: Reports no additional respiratory complaints Gastrointestinal: Gastrointestinal: Reports abdominal pain, Denies nausea and Denies vomiting Exam Const: General: cooperative, acute distress mild and ill appearing Orientation/consciousness: patient oriented x3 Resp: Effort & Inspection: normal respiratory effort Auscultation: diminished lung sounds Cardio: Rate: regular rate Rhythm: regular rhythm GI: Inspection: normal to inspection, distended and incision GI Palp: Yes abdominal tenderness, Yes Soft to palpation, Yes Tenderness to palpation present (GI) and No Guarding due to palpation present (GI) Other: ostomy c good output, ARASELI c serous output Objective Data Vital Signs Vital Signs: Vital Signs - 24 hr 10/21/20 08:00 10/21/20 09:41 10/21/20 10:00 Temperature 37.1 C Pulse Rate 96 81 88 Respiratory Rate 16 Blood Pressure 170/97 H Pulse Oximetry 93 10/21/20 10:22 10/21/20 12:00 10/21/20 14:00 Temperature 36.9 C Pulse Rate 86 87 Respiratory Rate 16 Blood Pressure 172/93 H Pulse Oximetry 92 96 10/21/20 14:54 10/21/20 15:04 10/21/20 16:00 Temperature 37.1 C Pulse Rate 96 92 84 Respiratory Rate 24 H 24 H 20 Blood Pressure 177/96 H Pulse Oximetry 95 10/21/20 18:00 10/21/20 19:59 10/21/20 20:00 Temperature Pulse Rate 83 84 85 Respiratory Rate 18 Blood Pressure Pulse Oximetry 97 10/21/20 20:03 10/21/20 21:40 10/21/20 22:00 Temperature 37.4 C Pulse Rate 83 78 87 Respiratory Rate 20 Blood Pressure 183/87 H 171/82 H Pulse Oximetry 96 10/21/20 23:18 10/22/20 00:00 10/22/20 01:42 Temperature 37.0 C Pulse Rate 84 86 95 Respiratory Rate 20 18 24 H Blood Pressure 165/96 H Pulse Oximetry 95 98 10/22/20 01:54 10/22/20 02:00 10/22/20 04:00 Temperature 36.6 C Pulse Rate 98 81 83 Respiratory Rate 24 H 18 Blood Pressure 181/93 H Pulse Oximetry 96 10/22/20 06:00 10/22/20 07:07 Temperature 36.5 C Pulse Rate 84 80 Respiratory Rate 18 Blood Pressure 159/98 H Pulse Oximetry 97 Intake/Output Intake/Output: Intake & Output 10/19/20 10/20/20 10/21/20 10/22/20 23:59 23:59 23:59 23:59 Intake Total 4120 2615 3501.7 978 Output Total 1185 1020 3910 560 Balance 2935 1595 -408.3 418 Meds/Results Medications: Active Medications Generic Name Dose Route Start Last Admin Trade Name Freq PRN Reason Stop Dose Admin Amiodarone HCl 400 mg 10/20/20 10:55 10/21/20 19:59 Amiodarone Hcl 200 Mg Tablet PO 400 mg Q12HR SAYDA Administration Carvedilol 6.25 mg 10/21/20 21:00 10/21/20 19:59 Carvedilol 6.25 Mg Tablet PO 6.25 mg Q12HR SAYDA Administration Dorzolamide/Timolol 1 drop 10/20/20 09:00 10/21/20 19:59 Dorzolamide/Timolol Ophth Roseanna 10 Ml Bottle EACH EYE 1 drop Q12HR SAYDA Administration Enoxaparin Sodium 40 mg 10/19/20 09:00 10/21/20 09:40 Enoxaparin 40 Mg/0.4 Ml Syringe SUB-Q 40 mg DAILY SAYDA Administration Sodium Chloride 1,000 mls @ 75 mls/hr 10/18/20 18:10 10/22/20 06:36 Normal Saline Iv IV CONT 75 mls/hr .[id number] SAYDA Infusion Metronidazole 500 mg in 100 mls @ 100 mls/hr 10/18/20 22:00 10/22/20 06:
[2020-10-22] MEDS: carvediloL 6.25 MG TABLET PO ×2 (09:04→21:12)
[2020-10-22] MEDS: LOSARTAN POTASSIUM 50 MG TABLET PO (09:05)
[2020-10-22] MEDS: ENOXAPARIN 40 MG/0.4 ML SYRINGE SUB-Q (09:05)
[2020-10-22] MEDS: DORZOLAMIDE/TIMOLOL OPHTH SOL 10 ML BOTTLE 1 DROP EACH EYE ×2 (09:06→21:12)
[2020-10-22] MEDS: PANTOPRAZOLE 40 MG TABLET PO (09:06)
[2020-10-22] MEDS: AMIODARONE HCL 200 MG TABLET 400 MG PO (09:07)
[2020-10-22] MEDS: ONDANSETRON INJ 4 MG/2 ML VIAL IV PUSH ×2 (09:15→21:18)
[2020-10-22] MEDS: SODIUM CHLORIDE 0.9% IV 1,000 ML 75 ML IV CONT (14:20)
--- NOTE | 2020-10-22 14:56 | PM.PNCARD ---
Progress Note: A&P Additional Plan Patient is clinically stable no evidence of decompensated LV dysfunction and arrhythmias seem to have settled down with amiodarone. I am going to reduce his dosage to 400 mg daily. Once again when he is recovered from his peritonitis he will need angiography to further workup his LV dysfunction and ventricular arrhythmias. Claudy Palacios MD [facility] Subjective Date/time seen: 10/22/20 14:56 Interval history: Follow-up visit in this 74-year-old man with left ventricular systolic dysfunction identified an echocardiogram because of ventricular arrhythmias. Patient is principally admitted to the hospital because of fecal peritonitis due to iatrogenic perforation of his colon during colonoscopy Patient generally feels poorly but not on any other significant distress. Exam Const: General: no acute distress and uncomfortable Other: Still has mild abdominal discomfort tolerating clear liquids HENMT: Mouth: Yes moist mucous membranes Eyes: Sclera: sclerae normal Pupils: Equal, round and reactive pupils present Neck: Neck: supple and no JVD Thyroid: thyroid normal Other: Carotid upstrokes normal no bruits audible Resp: Effort & Inspection: normal respiratory effort Auscultation: clear to auscultation bilaterally Cardio: Rate: regular rate Rhythm: regular rhythm Other: No murmur no gallop no rub GI: Auscultation: abnormal bowel sounds Other: Abdomen relatively soft hypoactive bowel sounds are noted Skin: General skin exam: normal color Neuro: Cranial nerves: Yes Equal, round and reactive pupils present Cognition (Neuro): normal cognition Extrem: General: normal to inspection Objective Data Vital Signs Vital Signs: Vital Signs - 24 hr 10/21/20 15:04 10/21/20 16:00 10/21/20 18:00 Temperature 37.1 C Pulse Rate 92 84 83 Respiratory Rate 24 H 20 Blood Pressure 177/96 H Pulse Oximetry 95 10/21/20 19:59 10/21/20 20:00 10/21/20 20:03 Temperature 37.4 C Pulse Rate 84 85 83 Respiratory Rate 18 20 Blood Pressure 183/87 H Pulse Oximetry 97 96 10/21/20 21:40 10/21/20 22:00 10/21/20 23:18 Temperature 37.0 C Pulse Rate 78 87 84 Respiratory Rate 20 Blood Pressure 171/82 H 165/96 H Pulse Oximetry 95 10/22/20 00:00 10/22/20 01:42 10/22/20 01:54 Temperature Pulse Rate 86 95 98 Respiratory Rate 18 24 H 24 H Blood Pressure Pulse Oximetry 98 10/22/20 02:00 10/22/20 04:00 10/22/20 06:00 Temperature 36.6 C Pulse Rate 81 83 84 Respiratory Rate 18 Blood Pressure 181/93 H Pulse Oximetry 96 10/22/20 07:07 10/22/20 08:00 10/22/20 09:04 Temperature 36.5 C Pulse Rate 80 90 83 Respiratory Rate 18 Blood Pressure 159/98 H Pulse Oximetry 97 10/22/20 09:07 10/22/20 10:00 10/22/20 10:21 Temperature Pulse Rate 86 78 76 Respiratory Rate 18 Blood Pressure Pulse Oximetry 96 10/22/20 12:00 Temperature 36.8 C Pulse Rate 82 Respiratory Rate 18 Blood Pressure 152/85 H Pulse Oximetry 97 Intake/Output Intake/Output: Intake & Output 10/19/20 10/20/20 10/21/20 10/22/20 23:59 23:59 23:59 23:59 Intake Total 4120 2615 3501.7 1750 Output Total 1185 1020 3910 600 Balance 2935 1595 -408.3 1150 Meds/Results Medications: Active Medications Generic Name Dose Route Start Last Admin Trade Name Freq PRN Reason Stop Dose Admin Amiodarone HCl 400 mg 10/20/20 10:55 10/22/20 09:07 Amiodarone Hcl 200 Mg Tablet PO 400 mg Q12HR SAYDA Administration Carvedilol 6.25 mg 10/21/20 21:00 10/22/20 09:04 Carvedilol 6.25 Mg Tablet PO 6.25 mg Q12HR SAYDA Administration Dorzolamide/Timolol 1 drop 10/20/20 09:00 10/22/20 09:06 Dorzolamide/Timolol Ophth Roseanna 10 Ml Bottle EACH EYE 1 drop Q12HR SAYDA Administration Enoxaparin Sodium 40 mg 10/19/20 09:00 10/22/20 09:05 Enoxaparin 40 Mg/0.4 Ml Syringe SUB-Q 40 mg DAILY SAYDA Administration Sodium Chloride 1,000 mls @ 75 mls/hr 10/18/20
--- NOTE | 2020-10-22 17:14 | PM.IMPN ---
Progress Note: A&P Assessment and Plan (1) Sepsis: Code(s): A41.9 - Sepsis, unspecified organism Status: Acute Assessment and Plan: secondary to perforation of colon. Patient had a colonoscopy approximately 3 days prior. Status post colon resection and diverting colostomy p.m. 10/18. Blood pressure continues to rebound without pressors and lactic acid now normal. Continue antibiotics, central line placed 10/19, physical testing supervisor consulted and now downgraded to IMU status 10/20 (2) Fecal peritonitis: Code(s): K65.8 - Other peritonitis Status: Acute Assessment and Plan: See above continue with IV fluids IV antibiotics and pain medication. One BC growing clostridium ramasum . continue zosyn WBC still 23k today and repeat CT scan abdomen pelvis showed only ileus with no evidence of abscess formation (3) Glaucoma: Qualifiers: Glaucoma type: open-angle Open angle glaucoma type: unspecified type Laterality: bilateral Glaucoma stage: stage unspecified Qualified Code(s): H40.10X0 - Unspecified open-angle glaucoma, stage unspecified Code(s): H40.9 - Unspecified glaucoma Status: Chronic Assessment and Plan: continue with current eye drops. (4) BPH (benign prostatic hyperplasia): Qualifiers: Lower urinary tract symptom presence: unspecified whether lower urinary tract symptoms present Qualified Code(s): N40.0 - Benign prostatic hyperplasia without lower urinary tract symptoms Code(s): N40.0 - Benign prostatic hyperplasia without lower urinary tract symptoms Status: Chronic Assessment and Plan: Patient currently has a Hurd catheter is draining clear yellow urine. (5) Primary hypertension: Code(s): I10 - Essential (primary) hypertension Status: Chronic Assessment and Plan: Blood pressure has rebounded and Cardiology started ARB with the beta-eloy, now losartan 50 daily and Coreg 6.25 b.i.d. (6) Ventricular tachycardia: Code(s): I47.2 - Ventricular tachycardia Status: Acute Assessment and Plan: Patient was given amiodarone at [facility]. Echo revealed ejection fraction 30-35% and Cardiology loading orally with amiodarone (7) JERAD (acute kidney injury): Code(s): N17.9 - Acute kidney failure, unspecified Status: Acute Assessment and Plan: With sepsis and hypotension creatinine milan to 1.5 and now 1.1. Continue to monitor good urine output still (8) DVT prophylaxis: Code(s): Z29.9 - Encounter for prophylactic measures, unspecified Status: Acute Assessment and Plan: Lovenox (9) Cardiomyopathy: Code(s): I42.9 - Cardiomyopathy, unspecified Status: Acute Assessment and Plan: EF 30-35% , started Coreg and losartan. Watch fluid balance.(good as above) Will need ischemic evaluation eval later date Subjective Date/time seen: 10/22/20 17:14 Interval history: Date of visit 10/22. 74-year-old hypertensive male admitted from [facility] with sigmoid perforation. Patient was septic, had ventricular tachycardia, and was taken to the OR for sigmoid resection and diverting colostomy. This a.m. still feels poorly. Continues on antibiotics, colostomy functioning now Exam Narrative: Exam Narrative: Blood pressure 168/78 pulse is 90 saturating 94% on room air afebrile Lungs are clear CV regular no murmurs Abdomen soft with bowel sounds increasing, bandage not removed colostomy in place with gas and liquid stool Extremities without edema distal pulses 1+ Neuro alert mentating properly with no focal deficits Objective Data Vital Signs Vital Signs: Vital Signs - 24 hr 10/21/20 18:00 10/21/20 19:59 10/21/20 20:00 Temperature Pulse Rate 83 84 85 Respiratory Rate 18 Blood Pressure Pulse Oximetry 97 10/21/20 20:03 10/21/20 21:40 10/21/20 22:00 Temperature 37.4 C Pulse Rate 83 78 87 Respiratory Rate
[2020-10-22] MEDS: LATANOPROST 0.005% OP SOLN 2.5 ML BTL 1 DROP EACH EYE (17:28)
[2020-10-22] MEDS: POTASSIUM PHOS,M-BASIC-D-BASIC 20 MMOL in SODIUM CHLORIDE 0.9% IV 250 ML 64 MMOL IVPB (19:07)
[2020-10-23] VITALS (19 sets, daily range): BP systolic 122–162; BP diastolic 66–91; PULSE 66–86; RESP 16–20; TEMP 36.2–37.2; O2SAT 94–100
[2020-10-23] MEDS: PROMETHAZINE HCL 25 MG/ML AMPUL 12.5 MG IV PUSH (01:31)
[2020-10-23] MEDS: LEVALBUTEROL NEB 1.25 MG/3 ML 0.63 MG INHALATION ×3 (03:00→14:34)
[2020-10-23] MEDS: IPRATROPIUM BR 0.02% INH SOLN 0.5 MG/2.5 ML VIAL INHALATION ×3 (03:00→14:34)
[2020-10-23 04:17] LABS: Basophils Absolute Auto 0.1 K/mm3 (0.0-0.1); Basophils Percent Auto 0.3 % (0.2-1.2); Eosinophils Absolute Auto 0.1 K/mm3 (0-0.3); Eosinophils Percent Auto 0.5 % (0-4.4); Hematocrit 34.1 % (42.0-52.0); Hemoglobin 11.3 g/dL (14.0-18.0); Immature Granulocyte Absolute 0.29 K/mm3 (0.00-0.031); Immature Granulocyte Percent A 1.6 % (0-0.5); Lymphocytes Absolute Auto 1.71 K/mm3 (0.9-3.2); Lymphocytes Percent Auto 9.7 % (18.3-44.2); Mean Corpuscular HGB Conc 33.1 g/dl (32-36); Mean Corpuscular Hemoglobin 30.4 pg (26-34); Mean Corpuscular Volume 91.7 fl (80-100); Mean Platelet Volume 9.7 fl (7.4-10.4); Monocytes Absolute Auto 2.1 K/mm3 (0.1-0.6); Monocytes Percent Auto 11.7 % (2.6-8.5); Neutrophils Absolute Auto 13.5 K/mm3 (1.3-6.7); Neutrophils Percent Auto 76.2 % (45.5-73.1); Platelet Count Result 205 k/mm3 (150-375); Red Blood Count 3.72 M/mm3 (4.6-6.20); Red Cell Distribution Width 13.7 % (11.5-14.5); White Blood Count 17.7 K/mm3 (4.5-10.0)
[2020-10-23 04:37] LABS: Alanine Aminotransferase 19 U/L (4-50); Albumin Level 2.5 g/dL (3.5-5.1); Alkaline Phosphatase 86 U/L (38-126); Anion Gap 4 mmol/L (8-16); Aspartate Amino Transferase 33 U/L (17-59); Bilirubin,Total 0.6 mg/dL (0.2-1.3); Blood Urea Nitrogen 37 mg/dL (9-20); Calcium 7.8 mg/dL (8.4-10.2); Carbon Dioxide 23 mmol/L (22-30); Chloride 112 mmol/L (98-107); Estimated CRCL calculation 58 ml/min; Estimated Glomerular Filt Rate > 60; Glucose 92 mg/dL (75-110); Magnesium 2.1 mg/dL (1.6-2.3); Phosphorus 2.9 mg/dL (2.5-4.5); Potassium 3.4 mmol/L (3.4-5.0); Sodium 139 mmol/L (137-145)
[2020-10-23] MEDS: SODIUM CHLORIDE 0.9% IV 1,000 ML 75 ML IV CONT (05:33)
[2020-10-23] MEDS: metroNIDAZOLE 500 MG/ISO 100ML 500 MG/100 ML BAG 100 MG IVPB (05:35)
[2020-10-23] MEDS: CENTRAL LINE FLUSH 10 ML IV PUSH ×3 (05:35→21:09)
[2020-10-23] MEDS: PANTOPRAZOLE 40 MG TABLET PO (08:11)
[2020-10-23] MEDS: ENOXAPARIN 40 MG/0.4 ML SYRINGE SUB-Q (08:12)
[2020-10-23] MEDS: AMIODARONE HCL 200 MG TABLET 400 MG PO (08:12)
[2020-10-23] MEDS: carvediloL 6.25 MG TABLET PO (08:12)
[2020-10-23] MEDS: LOSARTAN POTASSIUM 50 MG TABLET PO (08:12)
[2020-10-23] MEDS: ONDANSETRON INJ 4 MG/2 ML VIAL IV PUSH ×3 (08:13→20:58)
[2020-10-23] MEDS: MORPHINE SULFATE (*CRX) 4 MG/ML INJ 2 MG IV PUSH ×2 (08:13→14:33)
[2020-10-23] MEDS: DORZOLAMIDE/TIMOLOL OPHTH SOL 10 ML BOTTLE 1 DROP EACH EYE ×2 (08:13→20:02)
--- NOTE | 2020-10-23 08:21 | PM.IMPN ---
Progress Note: A&P Assessment and Plan (1) Sepsis: Code(s): A41.9 - Sepsis, unspecified organism Status: Acute Assessment and Plan: Sepsis with shock. Secondary to perforation of colon. Blood pressure continues to rebound without pressors and lactic acid now normal (1.2 on 10/20). Was initially ICU status but able to be downgraded to IMU on 10/20. Central line placed 10/19 but changed to PICC line now in place. Continue antibiotics and IV fluids but monitor closely since has low EF. Slowly recovering. (2) Fecal peritonitis: Code(s): K65.8 - Other peritonitis Status: Acute Assessment and Plan: Secondary to perforation of colon. Patient had a colonoscopy approximately 3 days prior. Now status post colon resection and diverting colostomy p.m. 10/18. One of four BC growing beta lactamase negative clostridium ramosum. Currently on Zosyn and Flagyl. WBC better today. Repeat CT scan abdomen pelvis (10/22) showing dilated, fluid filled SB c/w ileus but no evidence of abscess formation. Increase activity as toelrated. Continue with IV fluids, IV antibiotics and pain medication. Could stop Flagyl since redundant and could be contributing to his nausea. (3) Glaucoma: Qualifiers: Glaucoma stage: stage unspecified Glaucoma type: open-angle Laterality: bilateral Open angle glaucoma type: unspecified type Qualified Code(s): H40.10X0 - Unspecified open-angle glaucoma, stage unspecified Code(s): H40.9 - Unspecified glaucoma Status: Chronic Assessment and Plan: Stable. Continue with current eye drops. (4) BPH (benign prostatic hyperplasia): Qualifiers: Lower urinary tract symptom presence: unspecified whether lower urinary tract symptoms present Qualified Code(s): N40.0 - Benign prostatic hyperplasia without lower urinary tract symptoms Code(s): N40.0 - Benign prostatic hyperplasia without lower urinary tract symptoms Status: Chronic Assessment and Plan: Patient currently has a Hurd catheter is draining clear yellow urine. Okay to remove Hurd catheter when okay with General surgery. Patient is not on medications for BPH from home. Watch for urine retention after Hurd removed. (5) Primary hypertension: Code(s): I10 - Essential (primary) hypertension Status: Chronic Assessment and Plan: Patient became severely hypotensive on the main supervisor ditching hours of 10/19/2020. Blood pressure has since improved and he has reverted back to hypertensive pressures. Coreg and losartan have been started. Continue to adjust medications as needed. (6) Ventricular tachycardia: Code(s): I47.2 - Ventricular tachycardia Status: Acute Assessment and Plan: Patient was given amiodarone at [facility]. Echo revealed ejection fraction 30-35% and Cardiology loading orally with amiodarone. Continue the same. (7) JERAD (acute kidney injury): Code(s): N17.9 - Acute kidney failure, unspecified Status: Acute Assessment and Plan: Acute kidney injury related to sepsis and hypotension. Creatinine milan to 1.5 and now 1.1 and stable. Good urine output. Continue to monitor. Okay to remove Hurd catheter when okay with surgery. (8) Cardiomyopathy: Code(s): I42.9 - Cardiomyopathy, unspecified Status: Acute Assessment and Plan: Echo here showing EF 30-35%. He has been started on Coreg and losartan. Monitor fluid balance. Will need ischemic evaluation at a later date. Appreciate Cardiology input. (9) DVT prophylaxis: Code(s): Z29.9 - Encounter for prophylactic measures, unspecified Status: Acute Assessment and Plan: Lovenox Subjective Date/time seen: 10/23/20 08:21 Interval history: Date of visit 10/23 74yo male with HTN admitted from [facility] with sigmoid perforation. Patient was septic, had ventricular tachycardi
--- NOTE | 2020-10-23 09:34 | PM.PNCARD ---
Progress Note: A&P Assessment and Plan (1) Ventricular tachycardia: Code(s): I47.2 - Ventricular tachycardia Status: Acute Assessment and Plan: Continue amiodarone. Rhythm is stable. Eventually need cardiac catheterization (2) Cardiomyopathy: Code(s): I42.9 - Cardiomyopathy, unspecified Status: Acute Assessment and Plan: As above. Continue carvedilol, losartan. Will increase his carvedilol to 12.5 mg p.o. b.i.d. (3) Perforation of sigmoid colon: Code(s): K63.1 - Perforation of intestine (nontraumatic) Status: Acute Assessment and Plan: On antibiotics (4) Septic shock: Code(s): A41.9 - Sepsis, unspecified organism; R65.21 - Severe sepsis with septic shock Status: Acute Assessment and Plan: Per other Services Subjective Date/time seen: 10/23/20 09:34 Interval history: 74-year-old with peritonitis. Cardiology consult had for ventricular arrhythmia Date of service 10/23/2020: She remains stable from a rhythm perspective. No significant arrhythmia overnight. No chest pain or shortness of breath Review of Systems Eyes: Eyes: Reports no additional eye complaints ENT: Reports system reviewed and no additional complaints, except as documented Cardiovascular: Cardiovascular: Reports no additional cardiovascular complaints Gastrointestinal: Gastrointestinal: Reports as per HPI Neurologic: Reports system reviewed and no additional complaints, except as documented Endocrine: Endocrine: Reports no additional endocrine complaints Hematologic/Lymphatic: Hematologic/Lymphatic: Reports no additional hematologic/lymphatic complaints Allergic/Immunologic: Allergic/Immunologic: Reports no additional allergic/immunologic complaints Exam Const: General: no acute distress and uncomfortable Other: Still has mild abdominal discomfort tolerating clear liquids HENMT: Mouth: Yes moist mucous membranes Eyes: Sclera: sclerae normal Pupils: Equal, round and reactive pupils present Neck: Neck: supple and no JVD Thyroid: thyroid normal Other: Carotid upstrokes normal no bruits audible Resp: Effort & Inspection: normal respiratory effort Auscultation: clear to auscultation bilaterally Cardio: Rate: regular rate Rhythm: regular rhythm Other: No murmur no gallop no rub GI: Auscultation: abnormal bowel sounds Other: Abdomen relatively soft hypoactive bowel sounds are noted Skin: General skin exam: normal color Neuro: Cranial nerves: Yes Equal, round and reactive pupils present Cognition (Neuro): normal cognition Extrem: General: normal to inspection Objective Data Vital Signs Vital Signs: Vital Signs - 24 hr 10/22/20 10:00 10/22/20 10:21 10/22/20 12:00 Temperature 36.8 C Pulse Rate 78 76 82 Respiratory Rate 18 18 Blood Pressure 152/85 H Pulse Oximetry 96 97 10/22/20 14:00 10/22/20 16:00 10/22/20 18:00 Temperature 37.4 C Pulse Rate 78 80 86 Respiratory Rate 20 Blood Pressure 162/96 H Pulse Oximetry 96 10/22/20 19:33 10/22/20 20:00 10/22/20 21:12 Temperature 36.3 C L Pulse Rate 85 78 78 Respiratory Rate 20 18 Blood Pressure 158/95 H Pulse Oximetry 96 96 10/22/20 22:00 10/22/20 22:03 10/23/20 00:00 Temperature 36.3 C L Pulse Rate 78 78 76 Respiratory Rate 18 20 Blood Pressure 152/81 H Pulse Oximetry 98 10/23/20 02:00 10/23/20 03:03 10/23/20 04:00 Temperature 36.6 C Pulse Rate 78 81 77 Respiratory Rate 20 20 Blood Pressure 162/91 H Pulse Oximetry 97 10/23/20 06:00 10/23/20 08:12 10/23/20 08:19 Temperature 37.1 C Pulse Rate 78 66 80 Respiratory Rate 20 Blood Pressure 161/89 H Pulse Oximetry 99 10/23/20 09:04 Temperature Pulse Rate 74 Respiratory Rate 16 Blood Pressure Pulse Oximetry 94 Intake/Output Intake/Output: Intake & Output 10/20/20 10/21/20 10/22/20 10/23/20 23:59 23:59 23:59 23:59 Intake Total 4045 3501.7 2596.667 1200 Output
[2020-10-23] MEDS: KCL 20 MEQ/D5/0.9% SOD CHL 1,000 ML 70 ML IV CONT (10:04)
--- NOTE | 2020-10-23 16:20 | PM.PNGS ---
Progress Note: A&P Assessment and Plan (1) Perforation of sigmoid colon: Code(s): K63.1 - Perforation of intestine (nontraumatic) Status: Acute Assessment and Plan: Ostomy function and patient tolerating his diet. Will advance to full liquids today. Continue IV abx. WBC trending down to 17,700 today and he is afebrile. CT scan abd/pelvis reviewed, no concerning findings. Encourage OOB/IS. His son is planning to get ostomy teaching with the wound care nurses tomorrow. (2) Sepsis: Code(s): A41.9 - Sepsis, unspecified organism Status: Acute Assessment and Plan: Continue IV abx, see plan above. Additional Plan Discussed plan of care with Dr. Rodriguez. Subjective Subjective Date/Time Seen: 10/23/20 16:20 Post Op day: 5 Patient reports: no new complaints, pain is less, tolerating liquids well and voiding w/o difficulty Interval history: Patient seen and examined. He reports having some mid abdominal pain primarily only with movement and this improves with pain medication. Denies any abdominal pain at rest in bed at this time. Denies nausea or vomiting, but did have a short episode of nausea earlier today when he had severe pain with walking the halls, which subsided quickly. Voiding without issues since Hurd was removed. +ostomy function. No other complaints at this time. Review of Systems Review of Systems: All systems reviewed & are unremarkable except as noted in HPI and below Constitutional: Constitutional: Reports no additional constitutional complaints, Denies chills and Denies fever(s) Cardiovascular: Cardiovascular: Reports no additional cardiovascular complaints, Denies chest pain, Denies pedal edema, Denies leg edema and Denies dyspnea Respiratory: Respiratory: Reports no additional respiratory complaints, Denies cough and Denies dyspnea Gastrointestinal: Gastrointestinal: Reports as per HPI and Reports no additional gastrointestinal complaints Exam Const: General: comfortable, no acute distress, alert and awake Orientation/consciousness: patient oriented x3 Resp: Effort & Inspection: normal respiratory effort and able to speak in complete sentences Auscultation: clear to auscultation bilaterally Cardio: Rate: regular rate Rhythm: regular rhythm GI: Inspection: non-distended GI Palp: Yes Soft to palpation, Yes Tenderness to palpation present (GI) (incisional), No Guarding due to palpation present (GI) and No Rebound tenderness present Auscultation: normal bowel sounds Other: Midline incision with minimal cloudy murrieta drainage, rosalba intact and no erythema. RLQ ARASELI drain with serous drainage. LLQ colostomy edematous but pink/moist with small amount of liquid stool in bag. Neuro: General: patient oriented x3 and moves all extremities Cranial nerves: Yes CN's II-XII intact bilaterally Speech: normal speech Extrem: General: no calf tenderness and no edema Psych: Mental Status: mental status grossly normal Attitude: cooperative Thought process: Normal thought process present Thought content: Yes Normal thought content present Objective Data Vital Signs Vital Signs: Vital Signs - 24 hr 10/22/20 18:00 10/22/20 19:33 10/22/20 20:00 Temperature 97.3 F L Pulse Rate 86 85 78 Respiratory Rate 20 18 Blood Pressure 158/95 H Pulse Oximetry 96 96 10/22/20 21:12 10/22/20 22:00 10/22/20 22:03 Temperature Pulse Rate 78 78 78 Respiratory Rate 18 Blood Pressure Pulse Oximetry 10/23/20 00:00 10/23/20 02:00 10/23/20 03:03 Temperature 97.4 F L Pulse Rate 76 78 81 Respiratory Rate 20 20 Blood Pressure 152/81 H Pulse Oximetry 98 10/23/20 04:00 10/23/20 06:00 10/23/20 08:00 Temperature 97.8 F Pulse Rate 77 78 75 Respiratory Rate 20 16 Blood Pressure 162/91 H Pulse Oximetry 97 94 10/23/20 08:12 10/23/20 08:19 10/23/20 09:04 Temperature 98.8 F Pulse Rate 66 80 74 Respiratory Rate 20 16 Blood Pressure 161/89 H Pulse Oximetry 99 9
--- NOTE | 2020-10-23 17:27 | PC.NURSE ---
This patient, Rafael Moe, was received from IMU on 10/23/20 at 1727. Patient/family oriented to unit policies and routines
--- NOTE | 2020-10-23 17:37 | PC.NURSE ---
This patient, Rafael Moe, was transferred to [ 349] on 10/23/20 at 1737. Personal belongings sent with patient. Report given to [PATRICIO Aguayo @ [phone] ]. Appropriate documentation sent with patient.
[2020-10-23] MEDS: LATANOPROST 0.005% OP SOLN 2.5 ML BTL 1 DROP EACH EYE (17:51)
[2020-10-23] MEDS: carvediloL 12.5 MG TABLET PO (20:01)
[2020-10-24] VITALS (14 sets, daily range): BP systolic 134–167; BP diastolic 71–89; PULSE 59–98; RESP 16–20; TEMP 35.8–36.8; O2SAT 96–100
[2020-10-24] MEDS: MORPHINE SULFATE (*CRX) 4 MG/ML INJ 2 MG IV PUSH ×4 (00:20→21:09)
[2020-10-24 05:28] LABS: Basophils Absolute Auto 0.1 K/mm3 (0.0-0.1); Basophils Percent Auto 0.5 % (0.2-1.2); Eosinophils Absolute Auto 0.2 K/mm3 (0-0.3); Eosinophils Percent Auto 1.2 % (0-4.4); Hematocrit 34.7 % (42.0-52.0); Hemoglobin 11.8 g/dL (14.0-18.0); Immature Granulocyte Percent A 4.5 % (0-0.5); Lymphocytes Absolute Auto 2.17 K/mm3 (0.9-3.2); Lymphocytes Percent Auto 12.2 % (18.3-44.2); Mean Corpuscular Hemoglobin 31.2 pg (26-34); Mean Corpuscular Volume 91.8 fl (80-100); Mean Platelet Volume 9.6 fl (7.4-10.4); Monocytes Absolute Auto 2.5 K/mm3 (0.1-0.6); Monocytes Percent Auto 14.1 % (2.6-8.5); Neutrophils Percent Auto 67.5 % (45.5-73.1); Platelet Count Result 220 k/mm3 (150-375); Red Blood Count 3.78 M/mm3 (4.6-6.20); Red Cell Distribution Width 13.9 % (11.5-14.5); White Blood Count 17.8 K/mm3 (4.5-10.0)
[2020-10-24 05:38] LABS: Alanine Aminotransferase 19 U/L (4-50); Albumin Level 2.5 g/dL (3.5-5.1); Alkaline Phosphatase 75 U/L (38-126); Anion Gap 3 mmol/L (8-16); Aspartate Amino Transferase 32 U/L (17-59); Bilirubin,Total 0.7 mg/dL (0.2-1.3); Blood Urea Nitrogen 31 mg/dL (9-20); Calcium 7.7 mg/dL (8.4-10.2); Carbon Dioxide 25 mmol/L (22-30); Chloride 110 mmol/L (98-107); Estimated CRCL calculation 64 ml/min; Estimated Glomerular Filt Rate > 60; Glucose 119 mg/dL (75-110); Phosphorus 2.7 mg/dL (2.5-4.5); Potassium 3.4 mmol/L (3.4-5.0); Sodium 138 mmol/L (137-145)
[2020-10-24] MEDS: KCL 20 MEQ/D5/0.9% SOD CHL 1,000 ML 70 ML IV CONT (06:00)
[2020-10-24] MEDS: CENTRAL LINE FLUSH 10 ML IV PUSH ×3 (06:47→21:04)
--- NOTE | 2020-10-24 08:17 | PM.PNGS ---
Progress Note: A&P Assessment and Plan (1) Perforation of sigmoid colon: Code(s): K63.1 - Perforation of intestine (nontraumatic) Status: Acute Assessment and Plan: Ostomy functioning well and patient tolerating his diet, although with more complaints of bloating today. Will try advancing to soft diet and see how patient tolerates. Ostomy is functioning well. Continue IV Zosyn (day 7), Flagyl stopped. WBC 17,800 today and he remains afebrile, trend labs. Encourage increased activity and out of bed for meals. Encouraged IS use. (2) Sepsis: Code(s): A41.9 - Sepsis, unspecified organism Status: Acute Assessment and Plan: Patient was previously on vasopressors post-op, but is off now and BP remains stable. / blood cultures show clostridium ramosum. Continue IV abx, see plan above. (3) Cardiomyopathy: Code(s): I42.9 - Cardiomyopathy, unspecified Status: Acute Assessment and Plan: Cardiology now following and recommendations noted. Echo showed EF of 30-35%. Now on Coreg and losartan. Additional Plan Discussed plan of care with Dr. Rodriguez. Subjective Subjective Date/Time Seen: 10/24/20 08:17 Post Op day: 6 (Ex lap, intraabdominal washout, June's procedure) Patient reports: still having pain, tolerating liquids well, voiding w/o difficulty, bowel movement (+ostomy function), nausea and afebrile Interval history: Patient seen and examined this morning with wound care nurses. The patient's son is at the bedside to get colostomy education. The patient reports feeling bloated this morning. He did have some nausea earlier this morning again, but no vomiting. + ostomy output with about 100 cc or more of liquid stool in the bag. No other complaints at this time. Review of Systems Review of Systems: All systems reviewed & are unremarkable except as noted in HPI and below Constitutional: Constitutional: Reports no additional constitutional complaints, Denies chills and Denies fever(s) Cardiovascular: Cardiovascular: Reports no additional cardiovascular complaints, Denies chest pain and Denies pedal edema Respiratory: Respiratory: Reports no additional respiratory complaints, Denies cough and Denies wheezing Gastrointestinal: Gastrointestinal: Reports as per HPI, Reports no additional gastrointestinal complaints, Reports bloating, Reports nausea and Denies vomiting Exam Const: General: comfortable, no acute distress, alert and awake Orientation/consciousness: patient oriented x3 Resp: Effort & Inspection: able to speak in complete sentences and no respiratory distress Auscultation: clear to auscultation bilaterally Cardio: Rate: regular rate Rhythm: regular rhythm GI: Inspection: other (mildly distended) GI Palp: Yes Soft to palpation, Yes Tenderness to palpation present (GI) (diffusely tender, improved, worse near incision) and No Hernia present Auscultation: normal bowel sounds Other: Midline incision with minimal cloudy murrieta drainage, rosalba intact and no erythema. RLQ ARASELI drain with serous drainage. LLQ colostomy edematous but pink/moist with small amount of liquid stool in bag - surrounding skin appears healthy. Neuro: General: moves all extremities and no focal motor deficits Speech: normal speech Extrem: General: no clubbing, cyanosis or edema and no calf tenderness Psych: Appearance: grossly normal Mental Status: mental status grossly normal Affect: normal affect Insight: Good insight present (Psych) Judgement: Good judgement present (Psych) Objective Data Vital Signs Vital Signs: Vital Signs - 24 hr 10/23/20 08:19 10/23/20 09:04 10/23/20 09:14 Temperature 98.8 F Pulse Rate 80 74 79 Respiratory Rate 20 16 16 Blood Pressure 161/89 H Pulse Oximetry 99 94 10/23/20 10:00 10/23/20 12:00 10/23/20 14:34 Temperature 97.1 F L Pulse Rate 78 76 84 Respiratory Rate 18 18 Blood Pressure 126/78 Pulse Oximetry 95 10/23/20 14:44 10/23/20 15:29
[2020-10-24] MEDS: POTASSIUM CHLORIDE 20 MEQ TABLET PO (09:00)
[2020-10-24] MEDS: AMIODARONE HCL 200 MG TABLET 400 MG PO (09:01)
[2020-10-24] MEDS: PANTOPRAZOLE 40 MG TABLET PO (09:03)
[2020-10-24] MEDS: LOSARTAN POTASSIUM 50 MG TABLET PO (09:03)
[2020-10-24] MEDS: DORZOLAMIDE/TIMOLOL OPHTH SOL 10 ML BOTTLE 1 DROP EACH EYE ×2 (09:03→21:04)
[2020-10-24] MEDS: ENOXAPARIN 40 MG/0.4 ML SYRINGE SUB-Q (09:03)
[2020-10-24] MEDS: carvediloL 12.5 MG TABLET PO ×2 (09:04→21:04)
--- NOTE | 2020-10-24 10:28 | PM.PNCARD ---
Progress Note: A&P Additional Plan 74-year-old man with: Admission with fecal peritonitis due to colon perforation recovering from surgery satisfactorily. Patient with ventricular arrhythmias and found to have moderate left ventricular systolic dysfunction placed on medical therapy for this as well as amiodarone for his rhythm he is asymptomatic. As we have set in previous notes when he is recovered from this peritonitis he will require ischemia workup ( cath) Claudy Palacios MD [facility] Subjective Date/time seen: Date of service: 10/24/20 10:28 Interval history: 74-year-old man with: Newly diagnosed left ventricular systolic dysfunction while the patient is hospitalized with fecal peritonitis related to iatrogenic colon perforation. Seems to be recovering fairly well from surgery apparently his ostomy is working fine and he is tolerating a liquid diet. Patient was resting comfortably in the room when I came in to see him did not appear to be in any distress Exam Const: General: comfortable and no acute distress HENMT: Mouth: Yes moist mucous membranes Eyes: Sclera: sclerae normal Pupils: Equal, round and reactive pupils present Neck: Neck: supple and no JVD Resp: Effort & Inspection: normal respiratory effort Auscultation: clear to auscultation bilaterally Cardio: Rate: regular rate Rhythm: regular rhythm Other: Occasional PVCs GI: GI Palp: Yes Soft to palpation Other: Bowel sounds remain hypoactive Skin: General skin exam: normal color Neuro: Cognition (Neuro): normal cognition Objective Data Vital Signs Vital Signs: Vital Signs - 24 hr 10/23/20 12:00 10/23/20 14:34 10/23/20 14:44 Temperature 36.2 C L Pulse Rate 76 84 86 Respiratory Rate 18 18 18 Blood Pressure 126/78 Pulse Oximetry 95 10/23/20 15:29 10/23/20 16:00 10/23/20 20:00 Temperature 37.2 C Pulse Rate 72 77 84 Respiratory Rate 20 Blood Pressure 122/66 Pulse Oximetry 100 10/23/20 20:01 10/23/20 21:04 10/24/20 00:00 Temperature 36.8 C Pulse Rate 81 83 76 Respiratory Rate 18 Blood Pressure 147/82 H Pulse Oximetry 99 10/24/20 04:00 10/24/20 06:00 10/24/20 09:01 Temperature 36.7 C Pulse Rate 79 59 L 87 Respiratory Rate 16 Blood Pressure 167/89 H Pulse Oximetry 96 10/24/20 09:04 10/24/20 09:05 10/24/20 09:55 Temperature 36.2 C L Pulse Rate 87 77 79 Respiratory Rate 16 Blood Pressure 150/71 H Pulse Oximetry 100 Intake/Output Intake/Output: Intake & Output 10/21/20 10/22/20 10/23/20 10/24/20 23:59 23:59 23:59 23:59 Intake Total 3501.7 2596.667 2308 1445 Output Total 3910 4700 2950 1890 Balance -408.3 -2103.333 -642 -445 Meds/Results Medications: Active Medications Generic Name Dose Route Start Last Admin Trade Name Freq PRN Reason Stop Dose Admin Amiodarone HCl 400 mg 10/23/20 09:00 10/24/20 09:01 Amiodarone Hcl 200 Mg Tablet PO 400 mg DAILY SAYDA Administration Carvedilol 12.5 mg 10/23/20 21:00 10/24/20 09:04 Carvedilol 12.5 Mg Tablet PO 12.5 mg Q12HR SAYDA Administration Dorzolamide/Timolol 1 drop 10/20/20 09:00 10/24/20 09:03 Dorzolamide/Timolol Ophth Roseanna 10 Ml Bottle EACH EYE 1 drop Q12HR SAYDA Administration Enoxaparin Sodium 40 mg 10/19/20 09:00 10/24/20 09:03 Enoxaparin 40 Mg/0.4 Ml Syringe SUB-Q 40 mg DAILY SAYDA Administration Piperacillin/Tazobactam/Dextrose 3.375 gm in 50 mls @ 100 mls/hr 10/19/20 12:00 10/24/20 05:18 Zosyn 3.375 Gm/D5w 50ml Pm IVPB 100 mls/hr Q6HR SAYDA Administration Potassium Chloride/Dextrose/Sod Cl 1,000 mls @ 70 mls/hr 10/23/20 08:45 10/24/20 06:00 Kcl 20 Meq/D5/0.9% Sod Chl IV CONT 70 mls/hr .[id number] SAYDA Administration Ipratropium [place] 0.5 mg 10/23/20 15:04 Ipratropium Br 0.02% Inh Soln 0.5 Mg/2.5 Ml Vial INHALATION Q6HRT PRN Shortness Of Breath Or Wheezing Latanoprost 1 drop 10/19/20 18:00 10/23/20 17:51 Latanoprost 0.005% Op Soln 2.
--- NOTE | 2020-10-24 11:24 | PCDIET ---
Nutrition Follow-Up Complete: Nutrition Diagnosis: Inadequate oral intake related to fecal peritonitis, post op ileus as evidenced by day 5 NPO/clear liquid diet. Nutrition Goal: Patient to meet estimated nutritional needs. Goal in progress. Patient tolerating small amounts of full liquid diet (50% of meals and below) with Ensure Surgery (330kcal, 18g protein) at meals. Some reported c/o nausea and bloating, but keeping liquids down. Last recorded weight is 92.2 kg which is increased from last review, despite -I/O. Recommend continuing diet, as tolerated, with supplements. Bowel Motility: +Stool via ostomy Labs Reviewed: Hgb (11.8), Hct (34.7), Glu (119), Alb (2.5), Cl (110), Jefe Ca (8.9) Meds Noted: Amiodarone, Coreg, Atrovent, Xopenex, Cozaar, Protonix, Zosyn, D5NS with 20mEq KCl at 70mL/hr Additional Notes: No skin issues, other than abdominal drains and surgical sites. Will continue to monitor with same goal. Nutrition Monitoring and Evaluation: Follow up every 5 days.
--- NOTE | 2020-10-24 12:52 | PC.NURSE ---
Ostomy bag completely changed. Pt got up to chair for lunch and bag leaked requiring a complete bed change as well as a new ostomy. Pt tolerated well.
--- NOTE | 2020-10-24 16:27 | PM.IMPN ---
Progress Note: A&P Assessment and Plan (1) Sepsis: Code(s): A41.9 - Sepsis, unspecified organism Status: Acute Assessment and Plan: Sepsis with shock. Secondary to perforation of colon. Blood pressure rebounded without pressors and lactic acid became normal. Was initially ICU status but able to be downgraded to IMU on 10/20 then moved to medical. Central line placed 10/19 but changed to PICC line now in place. Continue antibiotics. Slowly recovering. (2) Fecal peritonitis: Code(s): K65.8 - Other peritonitis Status: Acute Assessment and Plan: Secondary to perforation of colon. Patient had a colonoscopy approximately 3 days prior. Now status post colon resection and diverting colostomy performed on 10/18. 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 Was on Zosyn and Flagyl but narrowed just to Zosyn. WBC about the same. Repeat CT scan abdomen pelvis (10/22) showing dilated, fluid filled SB c/w ileus but no evidence of abscess formation. Increase activity as tolerated. Continue with IV antibiotics and pain medication. (3) Glaucoma: Qualifiers: Glaucoma stage: stage unspecified Glaucoma type: open-angle Laterality: bilateral Open angle glaucoma type: unspecified type Qualified Code(s): H40.10X0 - Unspecified open-angle glaucoma, stage unspecified Code(s): H40.9 - Unspecified glaucoma Status: Chronic Assessment and Plan: Stable. Continue with current eye drops. (4) BPH (benign prostatic hyperplasia): Qualifiers: Lower urinary tract symptom presence: unspecified whether lower urinary tract symptoms present Qualified Code(s): N40.0 - Benign prostatic hyperplasia without lower urinary tract symptoms Code(s): N40.0 - Benign prostatic hyperplasia without lower urinary tract symptoms Status: Chronic Assessment and Plan: Patient had Hurd catheter removed. Patient is not on medications for BPH from home. No evidence of urine retention. 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 Blood pressure has since improved and he has reverted back to hypertensive pressures. Coreg and losartan have been started and he is tolerating it well. Continue to adjust medications as needed. (6) Ventricular tachycardia: Code(s): I47.2 - Ventricular tachycardia Status: Acute Assessment and Plan: Patient was given amiodarone at [facility]. Echo revealed ejection fraction 30-35% and Cardiology loading orally with amiodarone. Continue the same. (7) JERAD (acute kidney injury): Code(s): N17.9 - Acute kidney failure, unspecified Status: Acute Assessment and Plan: Acute kidney injury related to sepsis and hypotension. Creatinine milan to 1.5 and now 1.0 and stable. Continue to monitor. (8) Cardiomyopathy: Code(s): I42.9 - Cardiomyopathy, unspecified Status: Acute Assessment and Plan: Echo here showing EF 30-35%. He has been started on Coreg and losartan. Monitor fluid balance. Will need ischemic evaluation at a later date. Appreciate Cardiology input. (9) DVT prophylaxis: Code(s): Z29.9 - Encounter for prophylactic measures, unspecified Status: Acute Assessment and Plan: Lovenox Subjective Date/time seen: 10/24/20 16:27 Interval history: Date of visit 10/24 74yo male with HTN admitted from [facility] with sigmoid perforation. Patient was septic, had ventricular tachycardia, and was taken to the OR for sigmoid resection and diverting colostomy the evening of 10/18. Patient feels craig. Abd pain 6/10 earlier. Tolerting the diet advancement without n/v. No CP or SOB. Exam Narrative: Exam Narrative: AF 96.5 136/75 80 16 99%
[2020-10-24] MEDS: LATANOPROST 0.005% OP SOLN 2.5 ML BTL 1 DROP EACH EYE (18:01)
[2020-10-25] VITALS (12 sets, daily range): BP systolic 136–142; BP diastolic 72–80; PULSE 68–86; RESP 14–20; TEMP 36.6–37.3; O2SAT 96–97
[2020-10-25] MEDS: MORPHINE SULFATE (*CRX) 4 MG/ML INJ 2 MG IV PUSH ×4 (01:39→18:43)
[2020-10-25] MEDS: CENTRAL LINE FLUSH 20 ML IV PUSH (05:15)
[2020-10-25] MEDS: CENTRAL LINE FLUSH 10 ML IV PUSH ×3 (05:15→21:55)
[2020-10-25 05:24] LABS: Basophils Absolute Auto 0.1 K/mm3 (0.0-0.1); Basophils Percent Auto 0.3 % (0.2-1.2); Eosinophils Absolute Auto 0.4 K/mm3 (0-0.3); Eosinophils Percent Auto 1.8 % (0-4.4); Hematocrit 32.2 % (42.0-52.0); Hemoglobin 10.8 g/dL (14.0-18.0); Immature Granulocyte Absolute 0.82 K/mm3 (0.00-0.031); Immature Granulocyte Percent A 4.3 % (0-0.5); Lymphocytes Absolute Auto 2.29 K/mm3 (0.9-3.2); Mean Corpuscular HGB Conc 33.5 g/dl (32-36); Mean Corpuscular Hemoglobin 31.2 pg (26-34); Mean Corpuscular Volume 93.1 fl (80-100); Mean Platelet Volume 9.8 fl (7.4-10.4); Monocytes Absolute Auto 2.2 K/mm3 (0.1-0.6); Monocytes Percent Auto 11.7 % (2.6-8.5); Neutrophils Absolute Auto 13.4 K/mm3 (1.3-6.7); Neutrophils Percent Auto 69.9 % (45.5-73.1); Platelet Count Result 235 k/mm3 (150-375); Red Blood Count 3.46 M/mm3 (4.6-6.20); Red Cell Distribution Width 13.8 % (11.5-14.5); White Blood Count 19.1 K/mm3 (4.5-10.0)
[2020-10-25 08:24] LABS: Alanine Aminotransferase 17 U/L (4-50); Albumin Level 2.4 g/dL (3.5-5.1); Alkaline Phosphatase 64 U/L (38-126); Anion Gap 5 mmol/L (8-16); Aspartate Amino Transferase 30 U/L (17-59); Bilirubin,Total 0.5 mg/dL (0.2-1.3); Blood Urea Nitrogen 26 mg/dL (9-20); Calcium 7.8 mg/dL (8.4-10.2); Carbon Dioxide 23 mmol/L (22-30); Chloride 110 mmol/L (98-107); Estimated CRCL calculation 64 ml/min; Estimated Glomerular Filt Rate > 60; Glucose 98 mg/dL (75-110); Potassium 3.2 mmol/L (3.4-5.0); Sodium 138 mmol/L (137-145)
--- NOTE | 2020-10-25 09:30 | PM.PNCARD ---
Progress Note: A&P Additional Plan 74-year-old man with left ventricular systolic dysfunction and ventricular arrhythmias now on amiodarone, losartan and carvedilol. He is clinically stable. When he completely recovers from his peritonitis he will require angiography but there is no reason to proceed with this in the foreseeable future Claudy Palacios MD [facility] Subjective Date/time seen: Date of service: 10/25/20 09:30 Interval history: 74-year-old man with: Newly diagnosed left ventricular systolic dysfunction. Patient is being treated with ARB, beta-eloy and amiodarone for ventricular arrhythmias. He has been admitted because of fecal peritonitis related to iatrogenic perforation of the sigmoid colon. Recovering from surgery satisfactorily. Resting comfortably in bed this morning offers no cardiovascular complaints. Exam Const: General: comfortable, no acute distress and uncomfortable Other: Still has mild abdominal discomfort tolerating clear liquids HENMT: Mouth: Yes moist mucous membranes Eyes: Sclera: sclerae normal Pupils: Equal, round and reactive pupils present Neck: Neck: supple and no JVD Thyroid: thyroid normal Other: Carotid upstrokes normal no bruits audible Resp: Effort & Inspection: normal respiratory effort Auscultation: clear to auscultation bilaterally Cardio: Rate: regular rate Rhythm: regular rhythm Other: Occasional PVCs GI: Auscultation: abnormal bowel sounds Other: Bowel sounds remain hypoactive Skin: General skin exam: normal color Neuro: Cranial nerves: Yes Equal, round and reactive pupils present Cognition (Neuro): normal cognition Extrem: General: normal to inspection Objective Data Vital Signs Vital Signs: Vital Signs - 24 hr 10/24/20 09:55 10/24/20 12:00 10/24/20 14:00 Temperature 36.2 C L 35.8 C L Pulse Rate 79 78 98 Respiratory Rate 16 16 Blood Pressure 150/71 H 136/75 Pulse Oximetry 100 99 10/24/20 16:00 10/24/20 18:00 10/24/20 20:00 Temperature 36.1 C L Pulse Rate 80 84 80 Respiratory Rate 16 Blood Pressure 134/77 Pulse Oximetry 100 10/24/20 20:26 10/24/20 21:04 10/25/20 00:00 Temperature 36.8 C Pulse Rate 76 80 73 Respiratory Rate 20 Blood Pressure 142/72 H Pulse Oximetry 96 10/25/20 00:46 10/25/20 04:17 10/25/20 06:00 Temperature 37.1 C 37.3 C Pulse Rate 72 79 68 Respiratory Rate 20 14 Blood Pressure 142/72 H 136/80 Pulse Oximetry 97 96 Intake/Output Intake/Output: Intake & Output 10/22/20 10/23/20 10/24/20 10/25/20 23:59 23:59 23:59 23:59 Intake Total 2596.667 2308 2825 100 Output Total 4700 2950 5495 340 Balance -2103.333 -422 70 -240 Meds/Results Medications: Active Medications Generic Name Dose Route Start Last Admin Trade Name Freq PRN Reason Stop Dose Admin Amiodarone HCl 400 mg 10/23/20 09:00 10/24/20 09:01 Amiodarone Hcl 200 Mg Tablet PO 400 mg DAILY SAYDA Administration Carvedilol 12.5 mg 10/23/20 21:00 10/24/20 21:04 Carvedilol 12.5 Mg Tablet PO 12.5 mg Q12HR SAYDA Administration Dorzolamide/Timolol 1 drop 10/20/20 09:00 10/24/20 21:04 Dorzolamide/Timolol Ophth Roseanna 10 Ml Bottle EACH EYE 1 drop Q12HR SAYDA Administration Enoxaparin Sodium 40 mg 10/19/20 09:00 10/24/20 09:03 Enoxaparin 40 Mg/0.4 Ml Syringe SUB-Q 40 mg DAILY SAYDA Administration Piperacillin/Tazobactam/Dextrose 3.375 gm in 50 mls @ 100 mls/hr 10/19/20 12:00 10/25/20 05:44 Zosyn 3.375 Gm/D5w 50ml Pm IVPB Infused Q6HR SAYDA Infusion Ipratropium Summers 0.5 mg 10/23/20 15:04 Ipratropium Br 0.02% Inh Soln 0.5 Mg/2.5 Ml Vial INHALATION Q6HRT PRN Shortness Of Breath Or Wheezing Latanoprost 1 drop 10/19/20 18:00 10/24/20 18:01 Latanoprost 0.005% Op Soln 2.5 Ml Btl EACH EYE 1 drop QPM SAYDA Administration Levalbuterol HCl 0.63 mg 10/23/20 15:04 Levalbuterol Neb 1.25 Mg/3 Ml INHALATION Q6HRT PRN Shortness Of Breath Or Wheezing L
[2020-10-25] MEDS: carvediloL 12.5 MG TABLET PO ×2 (10:01→20:11)
[2020-10-25] MEDS: DORZOLAMIDE/TIMOLOL OPHTH SOL 10 ML BOTTLE 1 DROP EACH EYE ×2 (10:01→20:12)
[2020-10-25] MEDS: LOSARTAN POTASSIUM 50 MG TABLET PO (10:01)
[2020-10-25] MEDS: PANTOPRAZOLE 40 MG TABLET PO (10:01)
[2020-10-25] MEDS: AMIODARONE HCL 200 MG TABLET 400 MG PO (10:01)
[2020-10-25] MEDS: ENOXAPARIN 40 MG/0.4 ML SYRINGE SUB-Q (10:01)
--- NOTE | 2020-10-25 10:19 | PM.PNGS ---
Progress Note: A&P Assessment and Plan (1) Perforation of sigmoid colon: Code(s): K63.1 - Perforation of intestine (nontraumatic) Status: Acute Assessment and Plan: doing well overall, cont soft diet, cont ARASELI/abx given leukocytosis (2) Leukocytosis: Code(s): D72.829 - Elevated white blood cell count, unspecified Status: Acute Assessment and Plan: unsure of etiology, cont ARASELI and abx for now, CT a few days ago largely unremarkable, cont to follow Subjective Subjective Date/Time Seen: 10/25/20 10:19 feels ok, nuzhat soft diet Review of Systems Review of Systems: All systems reviewed & are unremarkable except as noted in HPI and below Exam Const: General: cooperative, comfortable and no acute distress Resp: Effort & Inspection: normal respiratory effort Auscultation: clear to auscultation bilaterally Cardio: Rate: regular rate Rhythm: regular rhythm GI: Inspection: normal to inspection, non-distended and incision GI Palp: Yes abdominal tenderness, Yes Soft to palpation and No Tenderness to palpation present (GI) Other: soft, sl dist, ra TTP, incision C/D/I, ostomy good fxn, ARASELI c serous drainage Objective Data Vital Signs Vital Signs: Vital Signs - 24 hr 10/24/20 12:00 10/24/20 14:00 10/24/20 16:00 Temperature 35.8 C L Pulse Rate 78 98 80 Respiratory Rate 16 Blood Pressure 136/75 Pulse Oximetry 99 10/24/20 18:00 10/24/20 20:00 10/24/20 20:26 Temperature 36.1 C L 36.8 C Pulse Rate 84 80 76 Respiratory Rate 16 20 Blood Pressure 134/77 142/72 H Pulse Oximetry 100 96 10/24/20 21:04 10/25/20 00:00 10/25/20 00:46 Temperature 37.1 C Pulse Rate 80 73 72 Respiratory Rate 20 Blood Pressure 142/72 H Pulse Oximetry 97 10/25/20 04:17 10/25/20 06:00 10/25/20 10:01 Temperature 37.3 C Pulse Rate 79 68 85 Respiratory Rate 14 Blood Pressure 136/80 Pulse Oximetry 96 Intake/Output Intake/Output: Intake & Output 10/22/20 10/23/20 10/24/20 10/25/20 23:59 23:59 23:59 23:59 Intake Total 2596.667 2308 2825 100 Output Total 6961 8794 6994 623 Spnzghd -9195.040 -462 70 240 Meds/Results Medications: Active Medications Generic Name Dose Route Start Last Admin Trade Name Freq PRN Reason Stop Dose Admin Amiodarone HCl 400 mg 10/23/20 09:00 10/25/20 10:01 Amiodarone Hcl 200 Mg Tablet PO 400 mg DAILY SAYDA Administration Carvedilol 12.5 mg 10/23/20 21:00 10/25/20 10:01 Carvedilol 12.5 Mg Tablet PO 12.5 mg Q12HR SAYDA Administration Dorzolamide/Timolol 1 drop 10/20/20 09:00 10/25/20 10:01 Dorzolamide/Timolol Ophth Roseanna 10 Ml Bottle EACH EYE 1 drop Q12HR SAYDA Administration Enoxaparin Sodium 40 mg 10/19/20 09:00 10/25/20 10:01 Enoxaparin 40 Mg/0.4 Ml Syringe SUB-Q 40 mg DAILY SAYDA Administration Piperacillin/Tazobactam/Dextrose 3.375 gm in 50 mls @ 100 mls/hr 10/19/20 12:00 10/25/20 05:44 Zosyn 3.375 Gm/D5w 50ml Pm IVPB Infused Q6HR SAYDA Infusion Ipratropium Schwertner 0.5 mg 10/23/20 15:04 Ipratropium Br 0.02% Inh Soln 0.5 Mg/2.5 Ml Vial INHALATION Q6HRT PRN Shortness Of Breath Or Wheezing Latanoprost 1 drop 10/19/20 18:00 10/24/20 18:01 Latanoprost 0.005% Op Soln 2.5 Ml Btl EACH EYE 1 drop QPM SAYDA Administration Levalbuterol HCl 0.63 mg 10/23/20 15:04 Levalbuterol Neb 1.25 Mg/3 Ml INHALATION Q6HRT PRN Shortness Of Breath Or Wheezing Losartan Potassium 50 mg 10/22/20 09:00 10/25/20 10:01 Losartan Potassium 50 Mg Tablet PO 50 mg QAM SAYDA Administration Morphine Sulfate 2 mg 10/19/20 08:19 10/25/20 08:00 Morphine Sulfate (*Crx) 4 Mg/Ml Inj IV PUSH 2 mg Q4H PRN Administration Pain Rated 7-10 Ondansetron HCl 4 mg 10/18/20 18:06 10/23/20 20:58 Ondansetron Inj 4 Mg/2 Ml Vial IV PUSH 4 mg Q6H PRN Administration Nausea And Vomiting Pantoprazole Sodium 40 mg 10/19/20 09:00 10/25/20 10:01 Pantoprazole 4
--- NOTE | 2020-10-25 15:13 | PM.IMPN ---
Progress Note: A&P Assessment and Plan (1) Sepsis: Code(s): A41.9 - Sepsis, unspecified organism Status: Acute Assessment and Plan: Sepsis with shock. Secondary to perforation of colon. Blood pressure rebounded without pressors and lactic acid became normal. Was initially ICU status but able to be downgraded to IMU on 10/20 then moved to medical. Central line placed 10/19 but changed to PICC line now in place. No fevers but white count still persistently elevated. Recovering well. Continue antibiotics. (2) Fecal peritonitis: Code(s): K65.8 - Other peritonitis Status: Acute Assessment and Plan: Secondary to perforation of colon. Patient had a colonoscopy approximately 3 days prior. Now status post colon resection and diverting colostomy performed on 10/18. 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 Was on Zosyn and Flagyl but narrowed just to Zosyn. Repeat CT scan abdomen pelvis (10/22) showing dilated, fluid filled SB c/w ileus but no evidence of abscess formation. WBC higher today. Continue with IV antibiotics and pain medication. (3) Ventricular tachycardia: Code(s): I47.2 - Ventricular tachycardia Status: Acute Assessment and Plan: Patient was given amiodarone at [facility]. Echo revealed ejection fraction 30-35% and Cardiology loading orally with amiodarone. Continue the same. (4) JERAD (acute kidney injury): Code(s): N17.9 - Acute kidney failure, unspecified Status: Acute Assessment and Plan: Acute kidney injury related to sepsis and hypotension. Creatinine milan to 1.5 and now normal. Continue to monitor. (5) Cardiomyopathy: Code(s): I42.9 - Cardiomyopathy, unspecified Status: Acute Assessment and Plan: Echo here showing EF 30-35%. He has been started on Coreg and losartan. Monitor fluid balance. Will need ischemic evaluation at a later date. Appreciate Cardiology input. 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 Blood pressure has since improved and he has reverted back to hypertensive pressures. Coreg and losartan have been started and he is tolerating it well. Continue to adjust medications as needed. (7) BPH (benign prostatic hyperplasia): Qualifiers: Lower urinary tract symptom presence: unspecified whether lower urinary tract symptoms present Qualified Code(s): N40.0 - Benign prostatic hyperplasia without lower urinary tract symptoms Code(s): N40.0 - Benign prostatic hyperplasia without lower urinary tract symptoms Status: Chronic Assessment and Plan: Patient had Hurd catheter removed. Patient is not on medications for BPH from home. No evidence of urine retention. (8) Glaucoma: Qualifiers: Glaucoma stage: stage unspecified Glaucoma type: open-angle Laterality: bilateral Open angle glaucoma type: unspecified type Qualified Code(s): H40.10X0 - Unspecified open-angle glaucoma, stage unspecified Code(s): H40.9 - Unspecified glaucoma Status: Chronic Assessment and Plan: Stable. Continue with current eye drops. (9) DVT prophylaxis: Code(s): Z29.9 - Encounter for prophylactic measures, unspecified Status: Acute Assessment and Plan: Lovenox Subjective Date/time seen: 10/25/20 15:13 Interval history: Date of visit 10/25 74yo male with HTN admitted from [facility] with sigmoid perforation. Patient was septic, had ventricular tachycardia, and was taken to the OR for sigmoid resection and diverting colostomy the evening of 10/18. Had abdominal pain when sitting up but otherwise abdominal pain is well controlled. No nausea or vomiting. Tolerating oral intake. Up walking to the bathroom. No c
[2020-10-25] MEDS: POTASSIUM CHLORIDE 20 MEQ TABLET PO (15:51)
[2020-10-25] MEDS: LATANOPROST 0.005% OP SOLN 2.5 ML BTL 1 DROP EACH EYE (17:25)
[2020-10-26] VITALS (14 sets, daily range): BP systolic 108–144; BP diastolic 56–77; PULSE 72–83; RESP 16–18; TEMP 36.4–36.8; O2SAT 96–99
[2020-10-26] MEDS: MORPHINE SULFATE (*CRX) 4 MG/ML INJ 2 MG IV PUSH (04:04)
[2020-10-26] MEDS: CENTRAL LINE FLUSH 10 ML IV PUSH ×3 (05:23→21:01)
[2020-10-26] MEDS: ALTEPLASE 2 MG VIAL (CATHFLO) IV PUSH ×2 (06:23→06:24)
[2020-10-26] MEDS: carvediloL 12.5 MG TABLET PO ×2 (08:35→21:00)
[2020-10-26] MEDS: AMIODARONE HCL 200 MG TABLET 400 MG PO (08:35)
[2020-10-26] MEDS: PANTOPRAZOLE 40 MG TABLET PO (08:36)
[2020-10-26] MEDS: DORZOLAMIDE/TIMOLOL OPHTH SOL 10 ML BOTTLE 1 DROP EACH EYE ×2 (08:36→21:01)
[2020-10-26] MEDS: LOSARTAN POTASSIUM 50 MG TABLET PO (08:36)
[2020-10-26] MEDS: ENOXAPARIN 40 MG/0.4 ML SYRINGE SUB-Q (08:36)
--- NOTE | 2020-10-26 08:51 | PM.PNGS ---
Progress Note: A&P Assessment and Plan (1) Perforation of sigmoid colon: Code(s): K63.1 - Perforation of intestine (nontraumatic) Status: Acute Assessment and Plan: patient continues to improve remarkably well. He is now had 7 days of IV Zosyn. Will advance to regular diet. His colostomy is working well and his wound is healing well. Labs are pending from today. Hope to DC ARASELI drain tomorrow. If continues to improve, probably can be discharged on oral antibiotics in the next 2 or 3 days. (2) Fecal peritonitis: Code(s): K65.8 - Other peritonitis Status: Acute Assessment and Plan: Continue IV Zosyn for now. No signs of peritonitis at present. (3) Cardiomyopathy: Code(s): I42.9 - Cardiomyopathy, unspecified Status: Acute Assessment and Plan: Low ejection fraction noted on cardiac echo 10/19. This may have improved. Does not appear to have any signs of congestive heart failure at present. Subjective Subjective Date/Time Seen: 10/26/20 08:51 Post Op day: Eight Patient reports: no new complaints, feels better, pain is less, tolerating a regular diet ( tolerating soft diet well), bowel movement and afebrile Review of Systems Review of Systems: All systems reviewed & are unremarkable except as noted in HPI and below Constitutional: Constitutional: Denies chills, Denies fever(s) and Denies headache(s) Cardiovascular: Cardiovascular: Denies chest pain and Denies dyspnea Respiratory: Respiratory: Denies cough and Denies dyspnea Gastrointestinal: Gastrointestinal: Reports as per HPI Neurologic: Denies confusion and Denies headache(s) Exam Const: General: comfortable and no acute distress; No confusion Orientation/consciousness: patient oriented x3 and No confusion Resp: Effort & Inspection: normal respiratory effort Auscultation: clear to auscultation bilaterally Cardio: Rate: regular rate Rhythm: regular rhythm GI: Inspection: non-distended and incision ( wound healing well, colostomy edematous but pink healthy and functioning) GI Palp: Yes Soft to palpation, Yes Tenderness to palpation present (GI) ( minimal appropriate tenderness), No Guarding due to palpation present (GI) and No Rebound tenderness present Auscultation: normal bowel sounds Neuro: General: patient oriented x3, no focal motor deficits and No confusion Extrem: General: no calf tenderness and no edema Psych: Affect: normal affect Insight: Good insight present (Psych) Judgement: Good judgement present (Psych) Objective Data Vital Signs Vital Signs: Vital Signs - 24 hr 10/25/20 10:01 10/25/20 12:00 10/25/20 14:30 Temperature 36.6 C Pulse Rate 85 78 77 Respiratory Rate 18 Blood Pressure 139/77 Pulse Oximetry 97 10/25/20 16:00 10/25/20 20:00 10/25/20 20:11 Temperature Pulse Rate 77 86 74 Respiratory Rate Blood Pressure Pulse Oximetry 10/25/20 21:57 10/26/20 00:00 10/26/20 02:00 Temperature 37.1 C 36.7 C Pulse Rate 79 74 74 Respiratory Rate 16 18 Blood Pressure 138/77 144/62 H Pulse Oximetry 96 96 10/26/20 04:00 10/26/20 06:00 10/26/20 08:30 Temperature 36.8 C Pulse Rate 74 78 83 Respiratory Rate 16 Blood Pressure 130/56 L Pulse Oximetry 98 10/26/20 08:35 Temperature Pulse Rate 82 Respiratory Rate Blood Pressure Pulse Oximetry Intake/Output Intake/Output: Intake & Output 10/23/20 10/24/20 10/25/20 10/26/20 23:59 23:59 23:59 23:59 Intake Total 2308 2825 850 60 Output Total 2950 2755 1820 1030 [facility] -2 [phone] Meds/Results Medications: Active Medications Generic Name Dose Route Start Last Admin Trade Name Freq PRN Reason Stop Dose Admin Alteplase, Recombinant 2 mg 10/26/20 05:02 10/26/20 06:23 Alteplase 2 Mg Vial (Cathflo) IV PUSH 2 mg ONCE PRN Administration Line Occlusion Alteplase, Recombinant 2 mg 10/26/20 05:03 10/26/20 06:24 Alteplase 2 Mg Vial (Cathfl
[2020-10-26 08:52] LABS: Basophils Absolute Auto 0.1 K/mm3 (0.0-0.1); Basophils Percent Auto 0.4 % (0.2-1.2); Eosinophils Absolute Auto 0.3 K/mm3 (0-0.3); Eosinophils Percent Auto 1.7 % (0-4.4); Hematocrit 31.3 % (42.0-52.0); Hemoglobin 10.4 g/dL (14.0-18.0); Immature Granulocyte Absolute 0.64 K/mm3 (0.00-0.031); Immature Granulocyte Percent A 3.4 % (0-0.5); Lymphocytes Absolute Auto 1.72 K/mm3 (0.9-3.2); Lymphocytes Percent Auto 9.2 % (18.3-44.2); Mean Corpuscular HGB Conc 33.2 g/dl (32-36); Mean Corpuscular Volume 93.4 fl (80-100); Mean Platelet Volume 10.9 fl (7.4-10.4); Monocytes Absolute Auto 1.4 K/mm3 (0.1-0.6); Monocytes Percent Auto 7.2 % (2.6-8.5); Neutrophils Absolute Auto 14.7 K/mm3 (1.3-6.7); Neutrophils Percent Auto 78.1 % (45.5-73.1); Red Blood Count 3.35 M/mm3 (4.6-6.20); Red Cell Distribution Width 13.6 % (11.5-14.5); White Blood Count 18.8 K/mm3 (4.5-10.0)
[2020-10-26 08:53] LABS: Anion Gap 2 mmol/L (8-16); Blood Urea Nitrogen 21 mg/dL (9-20); Calcium 7.7 mg/dL (8.4-10.2); Carbon Dioxide 27 mmol/L (22-30); Chloride 106 mmol/L (98-107); Estimated CRCL calculation 64 ml/min; Estimated Glomerular Filt Rate > 60; Glucose 175 mg/dL (75-110); Potassium 3.1 mmol/L (3.4-5.0); Sodium 135 mmol/L (137-145)
[2020-10-26] MEDS: POTASSIUM CHLORIDE 20 MEQ TABLET 40 MEQ PO (11:14)
--- NOTE | 2020-10-26 11:22 | PM.PNCARD ---
Progress Note: A&P Additional Plan 74-year-old man who is found to have left ventricular systolic dysfunction not previously known to be the case in the setting of admission for iatrogenic colon perforation and fecal peritonitis. He is clinically stable and on appropriate medication at this time. Further cardiac workup will be performed after he completely recovers from this event. Claudy Palacios MD [facility] Subjective Date/time seen: date of service:10/26/20 11:22 Interval history: 74-year-old man with: Newly diagnosed left ventricular systolic dysfunction. Patient is being treated with ARB, beta-eloy and amiodarone for ventricular arrhythmias. He has been admitted because of fecal peritonitis related to iatrogenic perforation of the sigmoid colon. Recovering from surgery satisfactorily. Resting comfortably in bed this morning offers no cardiovascular complaints. Patient continues to do reasonably well. His diet is being advanced as of today and he is hoping to be discharged in the next couple of days. Exam Const: General: comfortable, no acute distress and uncomfortable Other: Still has mild abdominal discomfort tolerating clear liquids HENMT: Mouth: Yes moist mucous membranes Eyes: Sclera: sclerae normal Pupils: Equal, round and reactive pupils present Neck: Neck: supple and no JVD Thyroid: thyroid normal Other: Carotid upstrokes normal no bruits audible Resp: Effort & Inspection: normal respiratory effort Auscultation: clear to auscultation bilaterally Cardio: Rate: regular rate Rhythm: regular rhythm Other: Occasional PVCs GI: Auscultation: abnormal bowel sounds Other: Bowel sounds remain hypoactive Skin: General skin exam: normal color Neuro: Cranial nerves: Yes Equal, round and reactive pupils present Cognition (Neuro): normal cognition Extrem: General: normal to inspection Objective Data Vital Signs Vital Signs: Vital Signs - 24 hr 10/25/20 12:00 10/25/20 14:30 10/25/20 16:00 Temperature 36.6 C Pulse Rate 78 77 77 Respiratory Rate 18 Blood Pressure 139/77 Pulse Oximetry 97 10/25/20 20:00 10/25/20 20:11 10/25/20 21:57 Temperature 37.1 C Pulse Rate 86 74 79 Respiratory Rate 16 Blood Pressure 138/77 Pulse Oximetry 96 10/26/20 00:00 10/26/20 02:00 10/26/20 04:00 Temperature 36.7 C Pulse Rate 74 74 74 Respiratory Rate 18 Blood Pressure 144/62 H Pulse Oximetry 96 10/26/20 06:00 10/26/20 08:30 10/26/20 08:35 Temperature 36.8 C Pulse Rate 78 83 82 Respiratory Rate 16 Blood Pressure 130/56 L Pulse Oximetry 98 10/26/20 09:47 Temperature 36.6 C Pulse Rate 77 Respiratory Rate 18 Blood Pressure 114/62 Pulse Oximetry 98 Intake/Output Intake/Output: Intake & Output 10/23/20 10/24/20 10/25/20 10/26/20 23:59 23:59 23:59 23:59 Intake Total 2308 2825 850 230 Output Total 2950 2755 1820 1330 [facility] -[phone] Meds/Results Medications: Active Medications Generic Name Dose Route Start Last Admin Trade Name Freq PRN Reason Stop Dose Admin Acetaminophen 500 mg 10/26/20 08:46 Acetaminophen 500 Mg Tablet PO Q6H PRN Mild Pain (1-3) or Fever Alteplase, Recombinant 2 mg 10/26/20 05:02 10/26/20 06:23 Alteplase 2 Mg Vial (Cathflo) IV PUSH 2 mg ONCE PRN Administration Line Occlusion Alteplase, Recombinant 2 mg 10/26/20 05:03 10/26/20 06:24 Alteplase 2 Mg Vial (Cathflo) IV PUSH 2 mg ONCE PRN Administration Line Occlusion Amiodarone HCl 400 mg 10/23/20 09:00 10/26/20 08:35 Amiodarone Hcl 200 Mg Tablet PO 400 mg DAILY SAYDA Administration Carvedilol 12.5 mg 10/23/20 21:00 10/26/20 08:35 Carvedilol 12.5 Mg Tablet PO 12.5 mg Q12HR SAYDA Administration Dorzolamide/Timolol 1 drop 10/20/20 09:00 10/26/20 08:36 Dorzolamide/Timolol Ophth Roseanna 10 Ml Bottle EACH EYE 1 drop Q12HR SAYDA Administration Enoxaparin Sodium 40 mg 10/19/20 09:00
[2020-10-26] MEDS: LATANOPROST 0.005% OP SOLN 2.5 ML BTL 1 DROP EACH EYE (17:18)
[2020-10-26] MEDS: POTASSIUM CHLORIDE 20 MEQ TABLET.ER 40 MEQ PO (17:18)
--- NOTE | 2020-10-26 17:32 | PM.IMPN ---
Progress Note: A&P Assessment and Plan (1) Sepsis: Code(s): A41.9 - Sepsis, unspecified organism Status: Acute Assessment and Plan: Sepsis with shock. Secondary to perforation of colon. Blood pressure rebounded without pressors and lactic acid became normal. Was initially ICU status but able to be downgraded to IMU on 10/20 then moved to medical. Central line placed 10/19 but changed to PICC line now in place. No fevers but white count still persistently elevated. Recovering well. (2) Fecal peritonitis: Code(s): K65.8 - Other peritonitis Status: Acute Assessment and Plan: Secondary to perforation of colon. Patient had a colonoscopy approximately 3 days prior. Now status post colon resection and diverting colostomy performed on 10/18. 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 Was on Zosyn and Flagyl but narrowed just to Zosyn. Repeat CT scan abdomen pelvis (10/22) showing dilated, fluid filled SB c/w ileus but no evidence of abscess formation. WBC higher today. Consider ESBL or related to the PICC line. Will adjust abx. Increase activity as tolerated. Continue to monitor. (3) Ventricular tachycardia: Code(s): I47.2 - Ventricular tachycardia Status: Acute Assessment and Plan: Patient was given amiodarone at [facility]. Echo revealed ejection fraction 30-35% and Cardiology loading orally with amiodarone. Continue the same. (4) JERAD (acute kidney injury): Code(s): N17.9 - Acute kidney failure, unspecified Status: Acute Assessment and Plan: Acute kidney injury related to sepsis and hypotension. Creatinine milan to 1.5 and now normal. Continue to monitor. (5) Cardiomyopathy: Code(s): I42.9 - Cardiomyopathy, unspecified Status: Acute Assessment and Plan: Echo here showing EF 30-35%. He has been started on Coreg and losartan. Monitor fluid balance. Will need ischemic evaluation at a later date. Appreciate Cardiology input. 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 Blood pressure has since improved and he has reverted back to hypertensive pressures. Coreg and losartan have been started and he is tolerating it well. Continue to adjust medications as needed. (7) BPH (benign prostatic hyperplasia): Qualifiers: Lower urinary tract symptom presence: unspecified whether lower urinary tract symptoms present Qualified Code(s): N40.0 - Benign prostatic hyperplasia without lower urinary tract symptoms Code(s): N40.0 - Benign prostatic hyperplasia without lower urinary tract symptoms Status: Chronic Assessment and Plan: Patient had Hurd catheter removed. Patient is not on medications for BPH from home. No evidence of urine retention. (8) Glaucoma: Qualifiers: Glaucoma stage: stage unspecified Glaucoma type: open-angle Laterality: bilateral Open angle glaucoma type: unspecified type Qualified Code(s): H40.10X0 - Unspecified open-angle glaucoma, stage unspecified Code(s): H40.9 - Unspecified glaucoma Status: Chronic Assessment and Plan: Stable. Continue with current eye drops. (9) DVT prophylaxis: Code(s): Z29.9 - Encounter for prophylactic measures, unspecified Status: Acute Assessment and Plan: Lovenox Subjective Date/time seen: 10/26/20 17:32 Interval history: Date of visit 10/26 74[facility]. Patient was septic, had ventricular tachycardia, and was taken to the OR for sigmoid resection and diverting colostomy the evening of 10/18. Patient feels well. Wa
[2020-10-26] MEDS: traMADol HCL (*CRX) 50 MG TABLET PO (21:00)
[2020-10-27] VITALS (8 sets, daily range): BP systolic 131–139; BP diastolic 56–63; PULSE 50–85; RESP 15–16; TEMP 36.2–36.5; O2SAT 97–99
[2020-10-27] MEDS: CENTRAL LINE FLUSH 10 ML IV PUSH ×3 (05:29→21:09)
[2020-10-27 06:10] LABS: Hematocrit 30.7 % (42.0-52.0); Hemoglobin 10.4 g/dL (14.0-18.0); Mean Corpuscular HGB Conc 33.9 g/dl (32-36); Mean Corpuscular Hemoglobin 30.9 pg (26-34); Mean Corpuscular Volume 91.1 fl (80-100); Mean Platelet Volume 9.8 fl (7.4-10.4); Platelet Count Result 375 k/mm3 (150-375); Red Blood Count 3.37 M/mm3 (4.6-6.20); Red Cell Distribution Width 13.6 % (11.5-14.5); White Blood Count 20.2 K/mm3 (4.5-10.0)
[2020-10-27 06:25] LABS: Anion Gap 4 mmol/L (8-16); Blood Urea Nitrogen 17 mg/dL (9-20); Calcium 7.7 mg/dL (8.4-10.2); Carbon Dioxide 25 mmol/L (22-30); Chloride 107 mmol/L (98-107); Estimated CRCL calculation 70 ml/min; Estimated Glomerular Filt Rate > 60; Glucose 107 mg/dL (75-110); Potassium 3.7 mmol/L (3.4-5.0); Sodium 136 mmol/L (137-145)
[2020-10-27] MEDS: LOSARTAN POTASSIUM 50 MG TABLET PO (08:18)
[2020-10-27] MEDS: ENOXAPARIN 40 MG/0.4 ML SYRINGE SUB-Q (08:18)
[2020-10-27] MEDS: AMIODARONE HCL 200 MG TABLET 400 MG PO (08:18)
[2020-10-27] MEDS: PANTOPRAZOLE 40 MG TABLET PO (08:18)
[2020-10-27] MEDS: POTASSIUM CHLORIDE 20 MEQ TABLET.ER 40 MEQ PO ×2 (08:18→16:59)
[2020-10-27] MEDS: DORZOLAMIDE/TIMOLOL OPHTH SOL 10 ML BOTTLE 1 DROP EACH EYE ×2 (08:18→21:06)
[2020-10-27] MEDS: carvediloL 12.5 MG TABLET PO ×2 (08:18→21:06)
--- NOTE | 2020-10-27 10:23 | PM.PNGS ---
Progress Note: A&P Assessment and Plan (1) Fecal peritonitis: Code(s): K65.8 - Other peritonitis Status: Acute Assessment and Plan: Peritonitis has resolved but white blood cell count continues to be elevated. Appears patient has a wound infection which is not at all surprising considering the nature of his illness. Lower 2/3 of the wound cleaned and irrigated. Will start dressing changes. Hopefully white blood cell count will come down. If not would repeat CT scan. Antibiotic changed to Primaxin noted (2) Perforation of sigmoid colon: Code(s): K63.1 - Perforation of intestine (nontraumatic) Status: Acute Assessment and Plan: Resolved after resection and June procedure (3) Leukocytosis: Code(s): D72.829 - Elevated white blood cell count, unspecified Status: Acute Assessment and Plan: See above. Probably from wound infection as noted (4) Cardiomyopathy: Code(s): I42.9 - Cardiomyopathy, unspecified Status: Acute Assessment and Plan: See if can DC telemetry. Subjective Subjective Date/Time Seen: 10/27/20 10:23 Post Op day: Nine Patient reports: no new complaints, pain is less, tolerating a regular diet and afebrile Review of Systems Review of Systems: All systems reviewed & are unremarkable except as noted in HPI and below Constitutional: Constitutional: Denies chills, Denies fever(s) and Denies headache(s) Cardiovascular: Cardiovascular: Denies chest pain and Denies dyspnea Respiratory: Respiratory: Denies cough and Denies dyspnea Gastrointestinal: Gastrointestinal: Reports as per HPI Neurologic: Denies confusion and Denies headache(s) Exam Const: General: comfortable and no acute distress; No confusion Orientation/consciousness: patient oriented x3 and No confusion GI: Inspection: non-distended and incision (Erythema and purulent drainage noted) GI Palp: Yes Soft to palpation, Yes Tenderness to palpation present (GI), No Guarding due to palpation present (GI), No Rebound tenderness present and Yes Other GI palpation findings present (Isaac removed and purulent fluid noted lower 2/3 wound) Auscultation: normal bowel sounds Neuro: General: patient oriented x3, no focal motor deficits and No confusion Extrem: General: no calf tenderness and no edema Psych: Affect: normal affect Insight: Good insight present (Psych) Judgement: Good judgement present (Psych) Objective Data Vital Signs Vital Signs: Vital Signs - 24 hr 10/26/20 12:00 10/26/20 13:39 10/26/20 16:00 Temperature 36.4 C Pulse Rate 80 74 74 Respiratory Rate 16 Blood Pressure 108/59 L Pulse Oximetry 99 10/26/20 17:24 10/26/20 20:00 10/26/20 21:00 Temperature 36.6 C Pulse Rate 72 79 76 Respiratory Rate 16 Blood Pressure 122/69 Pulse Oximetry 98 10/26/20 21:10 10/27/20 00:00 10/27/20 04:00 Temperature 36.5 C Pulse Rate 74 71 75 Respiratory Rate 16 Blood Pressure 138/77 Pulse Oximetry 98 10/27/20 05:38 10/27/20 08:18 Temperature 36.5 C Pulse Rate 50 L 85 Respiratory Rate 15 Blood Pressure 131/58 L Pulse Oximetry 98 Intake/Output Intake/Output: Intake & Output 10/24/20 10/25/20 10/26/20 10/27/20 23:59 23:59 23:59 23:59 Intake Total 2825 850 1090 1150 Output Total 2755 1820 1590 1175 Balance 70 -970 -500 -25 Meds/Results Medications: Active Medications Generic Name Dose Route Start Last Admin Trade Name Freq PRN Reason Stop Dose Admin Acetaminophen 500 mg 10/26/20 08:46 Acetaminophen 500 Mg Tablet PO Q6H PRN Mild Pain (1-3) or Fever Alteplase, Recombinant 2 mg 10/26/20 05:02 10/26/20 06:23 Alteplase 2 Mg Vial (Cathflo) IV PUSH 2 mg ONCE PRN Administration Line Occlusion Alteplase, Recombinant 2 mg 10/26/20 05:03 10/26/20 06:24 Alteplase 2 Mg Vial (Cathflo) IV PUSH 2 mg ONCE PRN Administration Line Occlusion Amiodarone HCl 400 mg 10/23
[2020-10-27] MEDS: HYDROGEN PEROXIDE 3% SOLN(*SP) 473 ML BOTTLE (12:30)
--- NOTE | 2020-10-27 13:53 | PM.PNCARD ---
Progress Note: A&P Assessment and Plan (1) Ventricular tachycardia: Code(s): I47.2 - Ventricular tachycardia Status: Acute Assessment and Plan: Continue amiodarone. In bigeminy today. Potassium was low the last couple of days and is being supplemented. Now up to 3.7. Eventually needs an ischemia eval, probably cardiac catheterization. Will follow up in office after discharge. (2) Cardiomyopathy: Code(s): I42.9 - Cardiomyopathy, unspecified Status: Acute Assessment and Plan: As above. Continue carvedilol, losartan. (3) Perforation of sigmoid colon: Code(s): K63.1 - Perforation of intestine (nontraumatic) Status: Acute Assessment and Plan: White cell count still elevated, Dr. Mccann thinks he has a wound infection, on Primaxin. Recovering. (4) Septic shock: Code(s): A41.9 - Sepsis, unspecified organism; R65.21 - Severe sepsis with septic shock Status: Acute Assessment and Plan: Resolved. Subjective Date/time seen: 10/27/20 13:53 Interval history: 74-year-old man we are following for newly diagnosed left ventricular systolic dysfunction. Patient is being treated with ARB, beta-eloy and amiodarone for ventricular arrhythmias. He has been admitted because of fecal peritonitis related to iatrogenic perforation of the sigmoid colon. 10/26/2020: Recovering from surgery satisfactorily. Resting comfortably in bed this morning offers no cardiovascular complaints. Patient continues to do reasonably well. His diet is being advanced as of today and he is hoping to be discharged in the next couple of days. Date of service 10/27/2020: Able to walk to the bathroom with assistance. Did not sleep well; was a bit queasy last night. No shortness of breath or chest pain. Telemetry discontinued. Does not need oxygen. Narcotic pain medications changed to Tylenol because of confusion. Review of Systems Constitutional: Constitutional: Reports fatigue and Reports weakness ENT: Denies nasal congestion Cardiovascular: Cardiovascular: Denies chest pain, Denies leg edema, Denies lightheadedness and Denies palpitations Respiratory: Respiratory: Denies cough and Denies dyspnea Gastrointestinal: Gastrointestinal: Reports abdominal pain Genitourinary: Genitourinary: Denies hematuria Musculoskeletal: Musculoskeletal: Reports no additional musculoskeletal complaints Integumentary/Breasts: Skin/Breast: Reports dry skin ( itchy back, dry skin, no rash) Neurologic: Reports system reviewed and no additional complaints, except as documented Psychiatric: Psychiatric: Reports behavioral changes ( apparently was disoriented, thought to be secondary to narcotics) Exam Const: General: comfortable and no acute distress HENMT: General nose exam: no epistaxis Eyes: EOM: EOMs intact bilaterally Neck: Neck: supple Resp: Effort & Inspection: normal respiratory effort Auscultation: clear to auscultation bilaterally Cardio: Rate: regular rate Rhythm: abnormal rhythm regularly irregular Other: the patient is in bigeminy GI: Inspection: non-distended Skin: General skin exam: normal color and no rashes or lesions noted Neuro: Cognition (Neuro): abnormal cognition ( patient is still a bit fuzzy about details) Speech: normal speech Motor exam (neuro): Normal motor muscle tone present throughout Extrem: Right lower extremity: lower leg not examined Left lower extremity: lower leg not examined Psych: Affect: normal affect Objective Data Vital Signs Vital Signs: Vital Signs - 24 hr 10/26/20 16:00 10/26/20 17:24 10/26/20 20:00 Temperature 97.8 F Pulse Rate 74 72 79 Respiratory Rate 16 Blood Pressure 122/69 Pulse Oximetry 98 10/26/20 21:00 10/26/20 21:10 10/27/20 00:00 Temperature 97
--- NOTE | 2020-10-27 15:10 | PM.IMPN ---
Progress Note: A&P Assessment and Plan (1) Sepsis: Code(s): A41.9 - Sepsis, unspecified organism Status: Acute Assessment and Plan: Sepsis with shock. Secondary to perforation of colon. Blood pressure rebounded without pressors and lactic acid became normal. Was initially ICU status but able to be downgraded to IMU on 10/20 then moved to medical. Central line placed 10/19 but changed to PICC line now in place. No fevers but white count still persistently elevated. Recovering well. (2) Fecal peritonitis: Code(s): K65.8 - Other peritonitis Status: Acute Assessment and Plan: Secondary to perforation of colon. Patient had a colonoscopy approximately 3 days prior. Now status post colon resection and diverting colostomy performed on 10/18. 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 Was on Zosyn and Flagyl but narrowed just to Zosyn. Repeat CT scan abdomen pelvis (10/22) showing dilated, fluid filled SB c/w ileus but no evidence of abscess formation. WBC was climbing so we considered ESBL or related to the PICC line; abx changed to Primaxin 10/26/20. WBC worse today but felt related to to the wound infection and not failure of abx therapy. Will continue Primaxin and follow WBC now that this area has been opened and drained. Increase activity as tolerated. Continue to monitor. (3) Ventricular tachycardia: Code(s): I47.2 - Ventricular tachycardia Status: Acute Assessment and Plan: Patient was given amiodarone at [facility]. Echo revealed ejection fraction 30-35% and Cardiology loading orally with amiodarone. Continue the same. (4) JERAD (acute kidney injury): Code(s): N17.9 - Acute kidney failure, unspecified Status: Acute Assessment and Plan: Acute kidney injury related to sepsis and hypotension. Creatinine milan to 1.5 and now normal. Continue to monitor. (5) Cardiomyopathy: Code(s): I42.9 - Cardiomyopathy, unspecified Status: Acute Assessment and Plan: Echo here showing EF 30-35%. He has been started on Coreg and losartan. Monitor fluid balance. Will need ischemic evaluation at a later date. Appreciate Cardiology input. (6) Primary hypertension: Code(s): I10 - Essential (primary) hypertension Status: Chronic Assessment and Plan: Patient became severely hypotensive on student assistance counselor hours of 10/19/2020. Blood pressure has since improved and he has reverted back to hypertensive pressures. Coreg and losartan have been started and he is tolerating it well. Continue to adjust medications as needed. (7) BPH (benign prostatic hyperplasia): Qualifiers: Lower urinary tract symptom presence: unspecified whether lower urinary tract symptoms present Qualified Code(s): N40.0 - Benign prostatic hyperplasia without lower urinary tract symptoms Code(s): N40.0 - Benign prostatic hyperplasia without lower urinary tract symptoms Status: Chronic Assessment and Plan: Patient had Hurd catheter removed. Patient is not on medications for BPH from home. No evidence of urine retention. (8) Glaucoma: Qualifiers: Glaucoma stage: stage unspecified Glaucoma type: open-angle Laterality: bilateral Open angle glaucoma type: unspecified type Qualified Code(s): H40.10X0 - Unspecified open-angle glaucoma, stage unspecified Code(s): H40.9 - Unspecified glaucoma Status: Chronic Assessment and Plan: Stable. Continue with current eye drops. (9) DVT prophylaxis: Code(s): Z29.9 - Encounter for prophylactic measures, unspecified Status: Acute Assessment and Plan: Lovenox Subjective Date/time seen: 10/27/20 15:10 Interval history: Date of visit 10/27 74yo male with HTN admitted from [facility]
[2020-10-27] MEDS: LATANOPROST 0.005% OP SOLN 2.5 ML BTL 1 DROP EACH EYE (16:59)
[2020-10-28] MEDS: ACETAMINOPHEN 500 MG TABLET PO ×4 (00:21→22:46)
[2020-10-28 04:22] VITALS: BP 139/57; PULSE 70; RESP 17; TEMP 36.4; O2SAT 99
[2020-10-28] MEDS: CENTRAL LINE FLUSH 20 ML IV PUSH (05:02)
[2020-10-28] MEDS: CENTRAL LINE FLUSH 10 ML IV PUSH ×3 (05:03→20:47)
[2020-10-28 05:12] LABS: Hematocrit 29.7 % (42.0-52.0); Hemoglobin 10.1 g/dL (14.0-18.0); Mean Corpuscular Hemoglobin 31.8 pg (26-34); Mean Corpuscular Volume 93.4 fl (80-100); Mean Platelet Volume 9.5 fl (7.4-10.4); Platelet Count Result 384 k/mm3 (150-375); Red Blood Count 3.18 M/mm3 (4.6-6.20); Red Cell Distribution Width 13.4 % (11.5-14.5); White Blood Count 18.4 K/mm3 (4.5-10.0)
[2020-10-28 05:40] LABS: Anion Gap 2 mmol/L (8-16); Blood Urea Nitrogen 13 mg/dL (9-20); Calcium 7.8 mg/dL (8.4-10.2); Carbon Dioxide 27 mmol/L (22-30); Chloride 107 mmol/L (98-107); Estimated CRCL calculation 70 ml/min; Estimated Glomerular Filt Rate > 60; Glucose 102 mg/dL (75-110); Potassium 3.9 mmol/L (3.4-5.0); Sodium 136 mmol/L (137-145)
[2020-10-28] MEDS: PANTOPRAZOLE 40 MG TABLET PO (08:37)
[2020-10-28] MEDS: DORZOLAMIDE/TIMOLOL OPHTH SOL 10 ML BOTTLE 1 DROP EACH EYE ×2 (08:37→20:47)
[2020-10-28] MEDS: LOSARTAN POTASSIUM 50 MG TABLET PO (08:37)
[2020-10-28] MEDS: POTASSIUM CHLORIDE 20 MEQ TABLET.ER 40 MEQ PO (08:37)
[2020-10-28] MEDS: ENOXAPARIN 40 MG/0.4 ML SYRINGE SUB-Q (08:37)
[2020-10-28 08:38] VITALS: PULSE 80
[2020-10-28] MEDS: carvediloL 12.5 MG TABLET PO ×2 (08:38→20:47)
[2020-10-28] MEDS: AMIODARONE HCL 200 MG TABLET 400 MG PO (08:38)
--- NOTE | 2020-10-28 09:23 | PM.PNGS ---
Progress Note: A&P Assessment and Plan (1) Fecal peritonitis: Code(s): K65.8 - Other peritonitis Status: Acute Assessment and Plan: essentially resolved as patient is eating and has normal bowel sounds. Colostomy is functioning. He is having some stool per rectum which is concerning to him. I reassured him that this was not unusual and will stop in time. White blood cell count slightly better at 18,000 today. Wound looks good. Fascia intact but understandably has some fascial necrosis due to fecal peritonitis. No purulent drainage from wound. (2) Perforation of sigmoid colon: Code(s): K63.1 - Perforation of intestine (nontraumatic) Status: Resolved (3) Leukocytosis: Code(s): D72.829 - Elevated white blood cell count, unspecified Status: Acute Assessment and Plan: Slightly better at 18,000. Continue to follow. (4) Cardiomyopathy: Code(s): I42.9 - Cardiomyopathy, unspecified Status: Acute Assessment and Plan: No evidence CHF at present Subjective Subjective Date/Time Seen: 10/28/20 09:23 Post Op day: 10 Patient reports: no new complaints, feels better, tolerating a regular diet, bowel movement and afebrile Review of Systems Review of Systems: All systems reviewed & are unremarkable except as noted in HPI and below Constitutional: Constitutional: Denies chills, Denies fever(s), Reports increased appetite and Denies night sweats Cardiovascular: Cardiovascular: Denies chest pain and Denies dyspnea Respiratory: Respiratory: Denies cough and Denies dyspnea Gastrointestinal: Gastrointestinal: Reports as per HPI Neurologic: Denies confusion and Denies headache(s) Exam Const: General: comfortable and no acute distress; No confusion Orientation/consciousness: patient oriented x3 and No confusion GI: Inspection: incision ( Mostly pink and granulating but there is some fascial necrosis. ) and other ( stoma working well) GI Palp: Yes Soft to palpation, Yes Tenderness to palpation present (GI) ( minimal), No Guarding due to palpation present (GI) and No Rebound tenderness present Auscultation: normal bowel sounds Neuro: General: patient oriented x3, no focal motor deficits and No confusion Extrem: General: no calf tenderness and no edema Psych: Affect: normal affect Insight: Good insight present (Psych) Judgement: Good judgement present (Psych) Objective Data Vital Signs Vital Signs: Vital Signs - 24 hr 10/27/20 14:18 10/27/20 19:57 10/27/20 21:06 Temperature 36.2 C L 36.3 C L Pulse Rate 66 70 80 Respiratory Rate 16 16 Blood Pressure 139/56 L 138/63 Pulse Oximetry 99 97 10/28/20 04:22 10/28/20 08:38 Temperature 36.4 C Pulse Rate 70 80 Respiratory Rate 17 Blood Pressure 139/57 L Pulse Oximetry 99 Intake/Output Intake/Output: Intake & Output 10/25/20 10/26/20 10/27/20 10/28/20 23:59 23:59 23:59 23:59 Intake Total 850 1090 3260 450 Output Total 1820 1590 2575 800 Balance -970 -500 685 -350 Meds/Results Medications: Active Medications Generic Name Dose Route Start Last Admin Trade Name Freq PRN Reason Stop Dose Admin Acetaminophen 500 mg 10/26/20 08:46 10/28/20 08:36 Acetaminophen 500 Mg Tablet PO 500 mg Q6H PRN Administration Mild Pain (1-3) or Fever Alteplase, Recombinant 2 mg 10/26/20 05:02 10/26/20 06:23 Alteplase 2 Mg Vial (Cathflo) IV PUSH 2 mg ONCE PRN Administration Line Occlusion Alteplase, Recombinant 2 mg 10/26/20 05:03 10/26/20 06:24 Alteplase 2 Mg Vial (Cathflo) IV PUSH 2 mg ONCE PRN Administration Line Occlusion Amiodarone HCl 400 mg 10/23/20 09:00 10/28/20 08:38 Amiodarone Hcl 200 Mg Tablet PO 400 mg DAILY SAYDA Administration Carvedilol 12.5 mg 10/23/20 21:00 10/28/20 08:38 Carvedilol 12.5 Mg Tablet PO 12.5 mg Q12HR SAYDA Administration Dorzolamide/Timolol 1 drop 10/20/20 09:00 10/28/20 08:37 Dorzolamide/
--- NOTE | 2020-10-28 11:52 | PM.PNCARD ---
Progress Note: A&P Assessment and Plan (1) Ventricular tachycardia: Code(s): I47.2 - Ventricular tachycardia Status: Acute Assessment and Plan: Continue amiodarone. Potassium was low the last couple of days and is being supplemented BID. Now up to 3.9. Eventually needs an ischemia eval, probably cardiac catheterization. Will follow up in office after discharge. (2) Cardiomyopathy: Code(s): I42.9 - Cardiomyopathy, unspecified Status: Acute Assessment and Plan: EF 30- 35%. Continue carvedilol, losartan. (3) Perforation of sigmoid colon: Code(s): K63.1 - Perforation of intestine (nontraumatic) Status: Resolved Assessment and Plan: White cell count still elevated, Dr. Mccann thinks he has a wound infection, on Primaxin. Recovering. (4) Septic shock: Code(s): A41.9 - Sepsis, unspecified organism; R65.21 - Severe sepsis with septic shock Status: Acute Assessment and Plan: Resolved. STill has IV antibiotics through PICC. Subjective Date/time seen: 10/28/20 11:52 Interval history: 74-year-old man we are following for newly diagnosed left ventricular systolic dysfunction, EF 30-35%. Patient is being treated with ARB, beta-eloy and amiodarone for nonsustained ventricular tachycardia and PVCs. He has been admitted because of fecal peritonitis related to iatrogenic perforation of the sigmoid colon. 10/26/2020: Recovering from surgery satisfactorily. Resting comfortably in bed this morning offers no cardiovascular complaints. Patient continues to do reasonably well. His diet is being advanced as of today and he is hoping to be discharged in the next couple of days. 10/27/2020: Able to walk to the bathroom with assistance. Did not sleep well; was a bit queasy last night. No shortness of breath or chest pain. Telemetry discontinued. Does not need oxygen. Narcotic pain medications changed to Tylenol because of confusion. Date of Service 10/28/2020: Doing better, tolerating diet, no SOB or CP. Tongue chavez. Review of Systems Constitutional: Constitutional: Reports lethargy ENT: Denies epistaxis Cardiovascular: Cardiovascular: Denies chest pain, Denies pedal edema, Denies lightheadedness and Denies palpitations Respiratory: Respiratory: Denies dyspnea and Denies dyspnea on exertion Gastrointestinal: Gastrointestinal: Reports abdominal pain and Denies hematochezia Genitourinary: Genitourinary: Denies hematuria Musculoskeletal: Musculoskeletal: Reports no additional musculoskeletal complaints Integumentary/Breasts: Skin/Breast: Denies rash Neurologic: Reports system reviewed and no additional complaints, except as documented Exam Const: General: no acute distress HENMT: Mouth: Yes moist mucous membranes Other: Fissures on tongue but no lesions or thrush Eyes: EOM: EOMs intact bilaterally Neck: Neck: supple Resp: Effort & Inspection: normal respiratory effort Auscultation: clear to auscultation bilaterally Cardio: Rate: regular rate Rhythm: regular rhythm Heart sounds: no murmurs GI: Inspection: non-distended GI Palp: Yes Soft to palpation Skin: General skin exam: normal color Neuro: Speech: normal speech Extrem: Right lower extremity: no edema Left lower extremity: no edema Psych: Mental Status: mental status grossly normal Affect: normal affect Objective Data Vital Signs Vital Signs: Vital Signs - 24 hr 10/27/20 14:18 10/27/20 19:57 10/27/20 21:06 Temperature 97.1 F L 97.3 F L Pulse Rate 66 70 80 Respiratory Rate 16 16 Blood Pressure 139/56 L 138/63 Pulse Oximetry 99 97 10/28/20 04:22 10/28/20 08:38 Temperature 97.6 F Pulse Rate 70 80 Respiratory Rate 17 Blood Pressure 139/57 L Pulse Oximetry 99 Intake/Output Intake/Output: Int
--- NOTE | 2020-10-28 16:47 | PM.IMPN ---
Progress Note: A&P Assessment and Plan (1) Sepsis: Code(s): A41.9 - Sepsis, unspecified organism Status: Acute Assessment and Plan: Sepsis with shock. Secondary to perforation of colon. Blood pressure rebounded without pressors and lactic acid became normal. Was initially ICU status but able to be downgraded to IMU on 10/20 then moved to medical. Central line placed 10/19 but changed to PICC line that is now in place. No fevers but white count persistently elevated but improved today. Recovering well. (2) Fecal peritonitis: Code(s): K65.8 - Other peritonitis Status: Acute Assessment and Plan: Secondary to perforation of colon. Patient had a colonoscopy approximately 3 days prior. Now status post colon resection and diverting colostomy performed on 10/18. 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 Was on Zosyn and Flagyl but narrowed just to Zosyn. Repeat CT scan abdomen pelvis (10/22) showing dilated, fluid filled SB c/w ileus but no evidence of abscess formation. WBC was climbing so ESBL considered and abx changed to Primaxin 10/26/20. Lower part of the wound was cleaned and irrigated 10/27; WBC better today and felt elevated WBC related to the wound infection and not failure of abx therapy. Will continue Primaxin and follow WBC now that this area has been opened and drained. Increase activity as tolerated. Continue to monitor. (3) Ventricular tachycardia: Code(s): I47.2 - Ventricular tachycardia Status: Acute Assessment and Plan: Patient was given amiodarone at [facility]. Echo revealed ejection fraction 30-35% and Cardiology loading orally with amiodarone. Continue the same. (4) JERAD (acute kidney injury): Code(s): N17.9 - Acute kidney failure, unspecified Status: Acute Assessment and Plan: Acute kidney injury related to sepsis and hypotension. Creatinine milan to 1.5 and now normal. Continue to monitor. (5) Cardiomyopathy: Code(s): I42.9 - Cardiomyopathy, unspecified Status: Acute Assessment and Plan: Echo here showing EF 30-35%. He has been started on Coreg and losartan. Monitor fluid balance. Will need ischemic evaluation at a later date. Appreciate Cardiology input. (6) Primary hypertension: Code(s): I10 - Essential (primary) hypertension Status: Chronic Assessment and Plan: Patient became severely hypotensive on town manager hours of 10/19/2020. Blood pressure has since improved and he has reverted back to hypertensive pressures. Coreg and losartan have been started and he is tolerating it well. Continue to adjust medications as needed. (7) BPH (benign prostatic hyperplasia): Qualifiers: Lower urinary tract symptom presence: unspecified whether lower urinary tract symptoms present Qualified Code(s): N40.0 - Benign prostatic hyperplasia without lower urinary tract symptoms Code(s): N40.0 - Benign prostatic hyperplasia without lower urinary tract symptoms Status: Chronic Assessment and Plan: Patient had Hurd catheter removed. Patient is not on medications for BPH from home. No evidence of urine retention. (8) Glaucoma: Qualifiers: Glaucoma stage: stage unspecified Glaucoma type: open-angle Laterality: bilateral Open angle glaucoma type: unspecified type Qualified Code(s): H40.10X0 - Unspecified open-angle glaucoma, stage unspecified Code(s): H40.9 - Unspecified glaucoma Status: Chronic Assessment and Plan: Stable. Continue with current eye drops. (9) DVT prophylaxis: Code(s): Z29.9 - Encounter for prophylactic measures, unspecified Status: Acute Assessment and Plan: Lovenox Subjective Date/time seen: 10/28/20 16:47 Interval history: Date o
[2020-10-28] MEDS: LATANOPROST 0.005% OP SOLN 2.5 ML BTL 1 DROP EACH EYE (17:00)
[2020-10-28] MEDS: POTASSIUM CHLORIDE 20 MEQ TABLET.ER PO (17:00)
[2020-10-28 19:28] VITALS: BP 151/75; PULSE 64; RESP 17; TEMP 36.1; O2SAT 99
[2020-10-28 20:47] VITALS: PULSE 64
[2020-10-29 04:21] VITALS: BP 154/70; PULSE 72; RESP 16; TEMP 36.3; O2SAT 98
[2020-10-29] MEDS: ACETAMINOPHEN 500 MG TABLET PO ×3 (05:26→20:40)
[2020-10-29] MEDS: CENTRAL LINE FLUSH 10 ML IV PUSH ×3 (05:27→21:22)
[2020-10-29] MEDS: CENTRAL LINE FLUSH 20 ML IV PUSH (05:27)
[2020-10-29 05:48] LABS: Hematocrit 31.8 % (42.0-52.0); Hemoglobin 10.7 g/dL (14.0-18.0); Mean Corpuscular HGB Conc 33.6 g/dl (32-36); Mean Corpuscular Hemoglobin 30.7 pg (26-34); Mean Corpuscular Volume 91.1 fl (80-100); Mean Platelet Volume 9.6 fl (7.4-10.4); Platelet Count Result 488 k/mm3 (150-375); Red Blood Count 3.49 M/mm3 (4.6-6.20); Red Cell Distribution Width 13.3 % (11.5-14.5); White Blood Count 16.4 K/mm3 (4.5-10.0)
[2020-10-29 06:01] LABS: Anion Gap 3 mmol/L (8-16); Blood Urea Nitrogen 13 mg/dL (9-20); Calcium 8.3 mg/dL (8.4-10.2); Carbon Dioxide 27 mmol/L (22-30); Chloride 105 mmol/L (98-107); Estimated CRCL calculation 64 ml/min; Estimated Glomerular Filt Rate > 60; Glucose 105 mg/dL (75-110); Potassium 3.9 mmol/L (3.4-5.0); Sodium 135 mmol/L (137-145)
[2020-10-29 08:09] VITALS: PULSE 70
[2020-10-29] MEDS: AMIODARONE HCL 200 MG TABLET 400 MG PO (08:09)
[2020-10-29] MEDS: POTASSIUM CHLORIDE 20 MEQ TABLET.ER PO ×2 (08:09→17:29)
[2020-10-29 08:11] VITALS: PULSE 70
[2020-10-29] MEDS: DORZOLAMIDE/TIMOLOL OPHTH SOL 10 ML BOTTLE 1 DROP EACH EYE ×2 (08:11→20:40)
[2020-10-29] MEDS: PANTOPRAZOLE 40 MG TABLET PO (08:11)
[2020-10-29] MEDS: ENOXAPARIN 40 MG/0.4 ML SYRINGE SUB-Q (08:11)
[2020-10-29] MEDS: carvediloL 12.5 MG TABLET PO ×2 (08:11→20:40)
[2020-10-29] MEDS: LOSARTAN POTASSIUM 50 MG TABLET PO (08:14)
--- NOTE | 2020-10-29 09:41 | PM.PNGS ---
Progress Note: A&P Assessment and Plan (1) Perforation of sigmoid colon: Code(s): K63.1 - Perforation of intestine (nontraumatic) Status: Resolved Assessment and Plan: doing well, nuzhat diet, +ostomy fxn, will try to get wound vac for opened incision (2) Leukocytosis: Code(s): D72.829 - Elevated white blood cell count, unspecified Status: Acute Assessment and Plan: trending down, cont abx, wound care Subjective Subjective Date/Time Seen: 10/29/20 09:41 feels pretty good, no acute issues Review of Systems Review of Systems: All systems reviewed & are unremarkable except as noted in HPI and below Exam Const: General: cooperative, comfortable and no acute distress Resp: Effort & Inspection: normal respiratory effort Auscultation: clear to auscultation bilaterally Cardio: Rate: regular rate Rhythm: regular rhythm GI: Inspection: incision GI Palp: Yes Soft to palpation, Yes Tenderness to palpation present (GI), No Guarding due to palpation present (GI) and No Rigid due to palpation Other: ostomy - +fxn, viable, soft, sl dist, ap TTP, incision opened no drainage some fibrinous exudate noted Objective Data Vital Signs Vital Signs: Vital Signs - 24 hr 10/28/20 19:28 10/28/20 20:47 10/29/20 04:21 Temperature 36.1 C L 36.3 C L Pulse Rate 64 64 72 Respiratory Rate 17 16 Blood Pressure 151/75 H 154/70 H Pulse Oximetry 99 98 10/29/20 08:09 10/29/20 08:11 Temperature Pulse Rate 70 70 Respiratory Rate Blood Pressure Pulse Oximetry Intake/Output Intake/Output: Intake & Output 10/26/20 10/27/20 10/28/20 10/29/20 23:59 23:59 23:59 23:59 Intake Total 1090 3260 2860 250 Output Total 1590 2575 800 Balance -415 665 0097 250 Meds/Results Medications: Active Medications Generic Name Dose Route Start Last Admin Trade Name Freq PRN Reason Stop Dose Admin Acetaminophen 500 mg 10/26/20 08:46 10/29/20 05:26 Acetaminophen 500 Mg Tablet PO 500 mg Q6H PRN Administration Mild Pain (1-3) or Fever Alteplase, Recombinant 2 mg 10/26/20 05:02 10/26/20 06:23 Alteplase 2 Mg Vial (Cathflo) IV PUSH 2 mg ONCE PRN Administration Line Occlusion Alteplase, Recombinant 2 mg 10/26/20 05:03 10/26/20 06:24 Alteplase 2 Mg Vial (Cathflo) IV PUSH 2 mg ONCE PRN Administration Line Occlusion Amiodarone HCl 400 mg 10/23/20 09:00 10/29/20 08:09 Amiodarone Hcl 200 Mg Tablet PO 400 mg DAILY SAYDA Administration Carvedilol 12.5 mg 10/23/20 21:00 10/29/20 08:11 Carvedilol 12.5 Mg Tablet PO 12.5 mg Q12HR SAYDA Administration Dorzolamide/Timolol 1 drop 10/20/20 09:00 10/29/20 08:11 Dorzolamide/Timolol Ophth [place] 10 Ml Bottle EACH EYE 1 drop Q12HR SAYDA Administration Enoxaparin Sodium 40 mg 10/19/20 09:00 10/29/20 08:11 Enoxaparin 40 Mg/0.4 Ml Syringe SUB-Q 40 mg DAILY SAYDA Administration Imipenem/Cilastatin Sodium 500 mg in 100 mls @ 300 mls/hr 10/27/20 00:00 10/29/20 05:25 Primaxin 500 Mg/D5w 100 Ml IVPB 300 mls/hr Q6HR SAYDA Administration Ipratropium [place] 0.5 mg 10/23/20 15:04 Ipratropium Br 0.02% Inh Soln 0.5 Mg/2.5 Ml Vial INHALATION Q6HRT PRN Shortness Of Breath Or Wheezing Latanoprost 1 drop 10/19/20 18:00 10/28/20 17:00 Latanoprost 0.005% Op Soln 2.5 Ml Btl EACH EYE 1 drop QPM SAYDA Administration Levalbuterol HCl 0.63 mg 10/23/20 15:04 Levalbuterol Neb 1.25 Mg/3 Ml INHALATION Q6HRT PRN Shortness Of Breath Or Wheezing Losartan Potassium 50 mg 10/22/20 09:00 10/29/20 08:14 Losartan Potassium 50 Mg Tablet PO 50 mg QAM SAYDA Administration Ondansetron HCl 4 mg 10/18/20 18:06 10/23/20 20:58 Ondansetron Inj 4 Mg/2 Ml Vial IV PUSH 4 mg Q6H PRN Administration Nausea And Vomiting Pantoprazole Sodium 40 mg 10/19/20 09:00 10/29/20 08:11 Pantoprazole 40 Mg Tablet PO 40 mg QAM SAYDA Administration Potassium Chlor
--- NOTE | 2020-10-29 09:50 | PM.PNCARD ---
Progress Note: A&P Additional Plan 74-year-old man with: Newly diagnosed left ventricular systolic dysfunction as well as ventricular arrhythmias on appropriate medical therapy and doing well clinically. Today I will reduce his amiodarone to 200 mg daily and anticipate seeing this man in the office in the next 1-3 months as an outpatient at which time we will discuss plans for arranging left heart catheterization for completing his workup. There has been no urgent reason for proceeding with that during this hospitalization. Claudy Palacios MD [facility] Subjective Date/time seen: Date of service: 10/29/20 09:51 Interval history: 74-year-old man we are following for newly diagnosed left ventricular systolic dysfunction, EF 30-35%. Patient is being treated with ARB, beta-eloy and amiodarone for nonsustained ventricular tachycardia and PVCs. He has been admitted because of fecal peritonitis related to iatrogenic perforation of the sigmoid colon. 10/29/2020: Resting comfortably denies any cardiovascular symptoms or concerns. Now has been taken off telemetry as well. I will reduce his amiodarone dosage to 200 mg daily in anticipation of upcoming discharge and will make plans to have me see him in the office in the foreseeable future where we will discuss timing of left heart catheterization for further evaluation of his LV dysfunction and arrhythmias. Exam Const: General: comfortable, no acute distress and uncomfortable Other: Still has mild abdominal discomfort tolerating clear liquids HENMT: General nose exam: no epistaxis Mouth: Yes moist mucous membranes Other: Fissures on tongue but no lesions or thrush Eyes: Sclera: sclerae normal Pupils: Equal, round and reactive pupils present EOM: EOMs intact bilaterally Neck: Neck: supple and no JVD Thyroid: thyroid normal Other: Carotid upstrokes normal no bruits audible Resp: Effort & Inspection: normal respiratory effort Auscultation: clear to auscultation bilaterally Cardio: Rate: regular rate Rhythm: regular rhythm and abnormal rhythm regularly irregular Heart sounds: no murmurs Other: the patient is in bigeminy GI: Inspection: non-distended Auscultation: abnormal bowel sounds Other: Bowel sounds remain hypoactive Skin: General skin exam: normal color and no rashes or lesions noted Neuro: Cranial nerves: Yes Equal, round and reactive pupils present Cognition (Neuro): normal cognition and abnormal cognition ( patient is still a bit fuzzy about details) Speech: normal speech Motor exam (neuro): Normal motor muscle tone present throughout Extrem: General: normal to inspection Right lower extremity: no edema Left lower extremity: no edema Psych: Mental Status: mental status grossly normal Affect: normal affect Objective Data Vital Signs Vital Signs: Vital Signs - 24 hr 10/28/20 19:28 10/28/20 20:47 10/29/20 04:21 Temperature 36.1 C L 36.3 C L Pulse Rate 64 64 72 Respiratory Rate 17 16 Blood Pressure 151/75 H 154/70 H Pulse Oximetry 99 98 10/29/20 08:09 10/29/20 08:11 Temperature Pulse Rate 70 70 Respiratory Rate Blood Pressure Pulse Oximetry Intake/Output Intake/Output: Intake & Output 10/26/20 10/27/20 10/28/20 10/29/20 23:59 23:59 23:59 23:59 Intake Total 1090 3260 2860 250 Output Total 1590 2575 800 Balance -586 770 5267 250 Meds/Results Medications: Active Medications Generic Name Dose Route Start Last Admin Trade Name Freq PRN Reason Stop Dose Admin Acetaminophen 500 mg 10/26/20 08:46 10/29/20 05:26 Acetaminophen 500 Mg Tablet PO 500 mg Q6H PRN Administration Mild Pain (1-3) or Fever Alteplase, Recombinant 2 mg 10/26/20 05:02 10/26/20 06:23 Alteplase 2 Mg Vial (Cathflo) IV PUSH 2 mg ONCE PRN Administration Line Occlusion Alteplase, Recombinant 2 mg 10/26/20 05:03 10/26/20 06:24 Alteplase 2 Mg Vial (Cathflo) IV PUSH 2 mg ONCE PRN Administration Line Occlusio
--- NOTE | 2020-10-29 11:59 | PCNFU ---
Nutrition Follow-Up Complete: Inadequate oral intake related to fecal peritonitis, post op ileus as evidenced by day 5 NPO/clear liquid diet. Goal: Patient to meet estimated nutritional needs. Progressing towards goal. We will continue with current goal. Pt current nutrition is Regular. Last recorded weight is 82.9 kg, down from admit weight 91.5 kg. Bowel Motility:+BM reported 10/29. Labs Reviewed:Na 135,Hct 31.8,Hgb 10.7 Meds Noted:KCL, Protonix,Zofran,Lovenox,Coreg Additional Notes: Nutrition follow up. Patient is currently on a regular diet, eating 25-90% of meals. Diet supplements Ensure Surgery is being provided BID providing an additional 330 kcals and 18 gms of protein. Agree with diet orders. Monitoring; Follow up every 5 days.
[2020-10-29 14:00] VITALS: BP 148/58; PULSE 69; RESP 16; TEMP 36.3; O2SAT 100
--- NOTE | 2020-10-29 14:50 | PM.IMPN ---
Progress Note: A&P Assessment and Plan (1) Sepsis: Code(s): A41.9 - Sepsis, unspecified organism Status: Acute Assessment and Plan: Sepsis with shock. Secondary to perforation of colon. Blood pressure rebounded without pressors and lactic acid became normal. Was initially ICU status but able to be downgraded to IMU on 10/20 then moved to medical. Central line placed 10/19 but changed to PICC line that is now in place. No fevers and white count improving. Overall, patient is recovering well. (2) Fecal peritonitis: Code(s): K65.8 - Other peritonitis Status: Acute Assessment and Plan: Secondary to perforation of colon. Patient had a colonoscopy approximately 3 days prior. Now status post colon resection and diverting colostomy performed on 10/18. 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 Was on Zosyn and Flagyl but narrowed just to Zosyn. Repeat CT scan abdomen pelvis (10/22) showing dilated, fluid filled SB c/w ileus but no evidence of abscess formation. WBC was climbing so ESBL considered and abx changed to Primaxin 10/26/20. Lower part of the wound was cleaned and irrigated 10/27; WBC has been trending down since cleaning/irrigating wound. Kelly elevated WBC related to the wound infection and not failure of abx therapy. Will continue Primaxin and follow WBC now that this area has been opened and drained. retina subspecialist to evaluate for possible wound vac. Continue to monitor. Could be discharged on Augmentin when okay with others. (3) Ventricular tachycardia: Code(s): I47.2 - Ventricular tachycardia Status: Acute Assessment and Plan: Patient was given amiodarone at [facility]. Echo revealed ejection fraction 30-35% and Cardiology loading orally with amiodarone. Continue the same. (4) JERAD (acute kidney injury): Code(s): N17.9 - Acute kidney failure, unspecified Status: Acute Assessment and Plan: Acute kidney injury related to sepsis and hypotension. Creatinine milan to 1.5 and now normal. Continue to monitor. (5) Cardiomyopathy: Code(s): I42.9 - Cardiomyopathy, unspecified Status: Acute Assessment and Plan: Echo here showing EF 30-35%. He has been started on Coreg and losartan. Monitor fluid balance. Will need ischemic evaluation at a later date. Appreciate Cardiology input. (6) Primary hypertension: Code(s): I10 - Essential (primary) hypertension Status: Chronic Assessment and Plan: Patient became severely hypotensive on [employer] hours of 10/19/20. Blood pressure has since improved and he has reverted back to hypertensive pressures. Coreg and losartan have been started and he is tolerating these medications well. Continue to adjust medications as needed. (7) BPH (benign prostatic hyperplasia): Qualifiers: Lower urinary tract symptom presence: unspecified whether lower urinary tract symptoms present Qualified Code(s): N40.0 - Benign prostatic hyperplasia without lower urinary tract symptoms Code(s): N40.0 - Benign prostatic hyperplasia without lower urinary tract symptoms Status: Chronic Assessment and Plan: Patient has had Hurd catheter removed. Patient is not on medications for BPH from home. No evidence of urine retention. (8) Glaucoma: Qualifiers: Glaucoma stage: stage unspecified Glaucoma type: open-angle Laterality: bilateral Open angle glaucoma type: unspecified type Qualified Code(s): H40.10X0 - Unspecified open-angle glaucoma, stage unspecified Code(s): H40.9 - Unspecified glaucoma Status: Chronic Assessment and Plan: Stable. Continue with current eye drops. (9) DVT prophylaxis: Code(s): Z29.9 - Encounter for prophylactic measures, unspecified Statu
--- NOTE | 2020-10-29 15:33 | PCWOUND ---
WOCN NOTE Floor RN called to ask about surgeons note for wound vac placement. Did not receive official consult. open incision to close to stoma to achieve a air tight seal. Let Monica WELCH for Dr Rodriguez Know.
[2020-10-29] MEDS: LATANOPROST 0.005% OP SOLN 2.5 ML BTL 1 DROP EACH EYE (17:31)
[2020-10-29 20:31] VITALS: BP 168/70; PULSE 71; RESP 16; TEMP 36.2; O2SAT 95
[2020-10-29 20:40] VITALS: PULSE 71
[2020-10-30] MEDS: ACETAMINOPHEN 500 MG TABLET PO ×2 (04:12→15:40)
[2020-10-30] MEDS: CENTRAL LINE FLUSH 10 ML IV PUSH ×3 (05:07→21:33)
[2020-10-30] MEDS: CENTRAL LINE FLUSH 20 ML IV PUSH (05:08)
[2020-10-30 05:19] LABS: Hematocrit 30.5 % (42.0-52.0); Hemoglobin 10.3 g/dL (14.0-18.0); Mean Corpuscular HGB Conc 33.8 g/dl (32-36); Mean Corpuscular Hemoglobin 31.4 pg (26-34); Mean Platelet Volume 9.3 fl (7.4-10.4); Platelet Count Result 461 k/mm3 (150-375); Red Blood Count 3.28 M/mm3 (4.6-6.20); Red Cell Distribution Width 13.2 % (11.5-14.5); White Blood Count 15.1 K/mm3 (4.5-10.0)
[2020-10-30] MEDS: LOSARTAN POTASSIUM 50 MG TABLET PO (07:59)
[2020-10-30] MEDS: POTASSIUM CHLORIDE 20 MEQ TABLET.ER PO ×2 (07:59→17:04)
[2020-10-30] MEDS: DORZOLAMIDE/TIMOLOL OPHTH SOL 10 ML BOTTLE 1 DROP EACH EYE ×2 (07:59→21:32)
[2020-10-30] MEDS: ENOXAPARIN 40 MG/0.4 ML SYRINGE SUB-Q (07:59)
[2020-10-30] MEDS: PANTOPRAZOLE 40 MG TABLET PO (07:59)
[2020-10-30 08:00] VITALS: PULSE 72
[2020-10-30] MEDS: AMIODARONE HCL 200 MG TABLET PO (08:00)
[2020-10-30 08:03] VITALS: PULSE 72
[2020-10-30] MEDS: carvediloL 12.5 MG TABLET PO ×2 (08:03→21:32)
--- NOTE | 2020-10-30 11:06 | PM.PNGS ---
Progress Note: A&P Assessment and Plan (1) Perforation of sigmoid colon: Code(s): K63.1 - Perforation of intestine (nontraumatic) Status: Resolved Assessment and Plan: Continues to improve. Tolerating a diet and and colostomy is functioning well. Wound care nurses evaluated yesterday and unable to place a wound VAC due to the close proximity of the midline wound to the ostomy not allowing enough room to get a proper seal on the wound VAC. Continue local wound care with wet to dry dressings and medipore tape. Encouraged OOB/IS. Okay from a surgical standpoint to discharge patient with home health when okay with other services. Would recommend another week of oral antibiotics and follow-up in [address] Rodriguez. (2) Leukocytosis: Code(s): D72.829 - Elevated white blood cell count, unspecified Status: Acute Assessment and Plan: Continues to trend down slowly. Continue antibiotics. (3) Cardiomyopathy: Code(s): I42.9 - Cardiomyopathy, unspecified Status: Acute (4) Ventricular tachycardia: Code(s): I47.2 - Ventricular tachycardia Status: Acute Additional Plan Discussed plan of care with Dr. Rodriguez. Subjective Subjective Date/Time Seen: 10/30/20 11:06 Post Op day: 12 Patient reports: no new complaints, feels better, tolerating a regular diet and voiding w/o difficulty Interval history: Patient seen and examined. He reports feeling well today and was tolerating walking the halls earlier this morning. Tolerating a regular diet. Denies nausea, vomiting, or bloating. He reports feeling some soreness on the right side of his ribs and thought he was lying on something to cause this soreness. He is taking Tylenol for this. Denies chest pain, pressure, or SOB. Reports intermittent dry cough. Review of Systems Review of Systems: All systems reviewed & are unremarkable except as noted in HPI and below Constitutional: Constitutional: Reports no additional constitutional complaints, Denies chills and Denies fever(s) Cardiovascular: Cardiovascular: Reports no additional cardiovascular complaints, Denies chest pain, Denies rapid heart rate and Denies pedal edema Respiratory: Respiratory: Reports no additional respiratory complaints, Denies chest congestion, Reports cough, Denies dyspnea and Denies dyspnea on exertion Gastrointestinal: Gastrointestinal: Reports as per HPI, Reports no additional gastrointestinal complaints and Reports other (+ostomy output) Exam Const: General: no acute distress, alert and awake Orientation/consciousness: patient oriented x3 Resp: Effort & Inspection: normal respiratory effort and no respiratory distress Auscultation: clear to auscultation bilaterally Cardio: Rate: regular rate Rhythm: regular rhythm GI: Inspection: non-distended and other (LLQ stoma edematous, pink/moist, working well) GI Palp: Yes Soft to palpation, No Tenderness to palpation present (GI), No Guarding due to palpation present (GI) and No Rebound tenderness present Auscultation: normal bowel sounds Other: Midline wound showing some pink granulation tissue with minimal amount of loose fibrinous debri, no signs of infection. Neuro: General: patient oriented x3, moves all extremities and no focal motor deficits Extrem: General: no clubbing, cyanosis or edema and no calf tenderness Psych: Mental Status: mental status grossly normal Insight: Good insight present (Psych) Judgement: Good judgement present (Psych) Objective Data Vital Signs Vital Signs: Vital Signs - 24 hr 10/29/20 14:00 10/29/20 20:31 10/29/20 20:40 Temperature 97.4 F L 97.1 F L Pulse Rate 69 71 71 Respiratory Rate 16 16 Blood Pressure 148/58 H 168/70 H Pulse Oximetry 100 95 10/30/20 08:00 10/30/20 08:03 Temperature Pulse Rate 72 72 Respiratory Rate Blood Pressure Pulse Oximetry Intake/Output Intake/Output: Intake & Output 10/27/20 10/28/20 10/29/20 10/30/20 23:59 23:59
--- NOTE | 2020-10-30 11:59 | PM.PNCARD ---
Progress Note: A&P Assessment and Plan (1) Ventricular tachycardia: Code(s): I47.2 - Ventricular tachycardia Status: Acute Assessment and Plan: Continue amiodarone. Potassium being supplemented. 3.9 today. Eventually needs an ischemia evaluation. Follow-up this been provided. Cardiac catheterization will be discussed at that time. (2) Cardiomyopathy: Code(s): I42.9 - Cardiomyopathy, unspecified Status: Acute Assessment and Plan: EF 30- 35%. Continue carvedilol, losartan. (3) Perforation of sigmoid colon: Code(s): K63.1 - Perforation of intestine (nontraumatic) Status: Resolved Assessment and Plan: Management per surgery (4) Septic shock: Code(s): A41.9 - Sepsis, unspecified organism; R65.21 - Severe sepsis with septic shock Status: Acute Assessment and Plan: Resolved. Still has IV antibiotics through PICC. Additional Plan OK to discharge from cardiac standpoint. Will monitor potassium and magnesium is an outpatient. See discharge instructions for follow-up. Plan discussed with Dr Monteneg[place] 1200 10/30/2020 Subjective Date/time seen: 10/30/20 11:59 Interval history: Follow-up for: newly diagnosed left ventricular systolic dysfunction, EF 30-35%, nonsustained ventricular tachycardia in the setting of sepsis Date of service: 10/30/2020 Subjective: Right rib pain with deep inspiration. Denied any other chest discomfort, shortness of breath, lightheadedness or palpitations. No lower extremity edema. Review of Systems Constitutional: Constitutional: Reports weakness Eyes: Eyes: Denies blurry vision ENT: Denies epistaxis and Denies nasal congestion Cardiovascular: Cardiovascular: Denies chest pain, Denies pedal edema, Denies leg edema, Denies lightheadedness, Denies palpitations, Denies dyspnea and Denies dyspnea on exertion Respiratory: Respiratory: Denies cough, Denies dyspnea and Denies dyspnea on exertion Gastrointestinal: Gastrointestinal: Denies hematochezia Genitourinary: Genitourinary: Denies hematuria Musculoskeletal: Musculoskeletal: Reports other (Right rib discomfort) Integumentary/Breasts: Skin/Breast: Reports dry skin ( itchy back, dry skin, no rash) and Denies rash Neurologic: Reports weakness Psychiatric: Psychiatric: Denies anxiety and Denies behavioral changes Endocrine: Endocrine: Denies palpitations Hematologic/Lymphatic: Hematologic/Lymphatic: Denies easy bleeding and Denies easy bruising Allergic/Immunologic: Allergic/Immunologic: Denies throat swelling and Denies tongue swelling Exam Const: General: cooperative, comfortable and no acute distress Nutritional Appearance: underweight Orientation/consciousness: patient oriented x3 Limitations: no limitations HENMT: General nose exam: no epistaxis Mouth: Yes moist mucous membranes Eyes: Sclera: sclerae normal Pupils: Equal, round and reactive pupils present EOM: EOMs intact bilaterally Neck: Neck: supple and no JVD Resp: Effort & Inspection: normal respiratory effort Auscultation: clear to auscultation bilaterally Cardio: Rate: regular rate Rhythm: regular rhythm and abnormal rhythm regularly irregular Heart sounds: no murmurs GI: Inspection: non-distended GI Palp: Yes Soft to palpation Auscultation: normal bowel sounds Skin: General skin exam: normal color and no rashes or lesions noted Neuro: Cranial nerves: Yes Equal, round and reactive pupils present Cognition (Neuro): normal cognition Speech: normal speech Motor exam (neuro): Normal motor muscle tone present throughout Extrem: General: normal to inspection Right lower extremity: no edema Left lower extremity: no edema Psych: Mental Status: mental status grossly normal Affect: normal affect Objective Data Vital Signs Vital Signs: Vital Sign
[2020-10-30 12:33] VITALS: BP 114/66
--- NOTE | 2020-10-30 12:36 | PM.IMPN ---
Progress Note: A&P Assessment and Plan (1) Sepsis: Code(s): A41.9 - Sepsis, unspecified organism Status: Acute Assessment and Plan: Sepsis with shock. Secondary to perforation of colon. Blood pressure rebounded without pressors and lactic acid became normal. Was initially ICU status but able to be downgraded to IMU on 10/20 then moved to medical. Central line placed 10/19 but changed to PICC line that is now in place. No fevers and white count slowly falling. Recovering well. (2) Fecal peritonitis: Code(s): K65.8 - Other peritonitis Status: Acute Assessment and Plan: Secondary to perforation of colon. Patient had a colonoscopy approximately 3 days prior. Now status post colon resection and diverting colostomy performed on 10/18. 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 Was on Zosyn and Flagyl but narrowed just to Zosyn. Repeat CT scan abdomen pelvis (10/22) showing dilated, fluid filled SB c/w ileus but no evidence of abscess formation. WBC was climbing so ESBL considered and abx changed to Primaxin 10/26/20. Lower part of the wound was cleaned and irrigated 10/27; WBC better today and felt elevated WBC related to the wound infection and not failure of abx therapy. Will continue Primaxin and follow WBC now that this area has been opened and drained. Increase activity as tolerated. Continue to monitor. (3) Ventricular tachycardia: Code(s): I47.2 - Ventricular tachycardia Status: Acute Assessment and Plan: Patient was given amiodarone at [facility]. Echo revealed ejection fraction 30-35% and Cardiology loaded orally with amiodarone. Continue the same. (4) JERAD (acute kidney injury): Code(s): N17.9 - Acute kidney failure, unspecified Status: Acute Assessment and Plan: Acute kidney injury related to sepsis and hypotension. Creatinine milan to 1.5 and now normal 1.0 . Continue to monitor. (5) Cardiomyopathy: Code(s): I42.9 - Cardiomyopathy, unspecified Status: Acute Assessment and Plan: Echo here showing EF 30-35%. Was started on Coreg and losartan and now at 12.5 bid and 50 mg respectively. Monitor fluid balance. Will need ischemic evaluation at a later date. 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 Blood pressure has since improved and he has reverted back to hypertensive pressures. Coreg and losartan were started and he is tolerating it well. Continue to adjust medications as needed. (7) BPH (benign prostatic hyperplasia): Qualifiers: Lower urinary tract symptom presence: unspecified whether lower urinary tract symptoms present Qualified Code(s): N40.0 - Benign prostatic hyperplasia without lower urinary tract symptoms Code(s): N40.0 - Benign prostatic hyperplasia without lower urinary tract symptoms Status: Chronic Assessment and Plan: Patient had Hurd catheter removed. Patient is not on medications for BPH from home. No evidence of urine retention. (8) Glaucoma: Qualifiers: Glaucoma type: open-angle Open angle glaucoma type: unspecified type Laterality: bilateral Glaucoma stage: stage unspecified Qualified Code(s): H40.10X0 - Unspecified open-angle glaucoma, stage unspecified Code(s): H40.9 - Unspecified glaucoma Status: Chronic Assessment and Plan: Stable. Continue with current eye drops. (9) DVT prophylaxis: Code(s): Z29.9 - Encounter for prophylactic measures, unspecified Status: Acute Assessment and Plan: Lovenox Subjective Date/time seen: 10/30/20 12:36 Interval history: Date of visit 10/30 74yo m
[2020-10-30 14:00] VITALS: BP 125/55; PULSE 68; RESP 16; TEMP 37; O2SAT 100
[2020-10-30] MEDS: LATANOPROST 0.005% OP SOLN 2.5 ML BTL 1 DROP EACH EYE (17:01)
[2020-10-30 20:21] VITALS: BP 124/61; PULSE 72; RESP 16; TEMP 36; O2SAT 99
[2020-10-30 21:32] VITALS: PULSE 74
[2020-10-31] MEDS: ACETAMINOPHEN 500 MG TABLET PO ×2 (00:13→11:24)
[2020-10-31 05:16] LABS: Hematocrit 29.1 % (42.0-52.0); Hemoglobin 9.9 g/dL (14.0-18.0); Mean Corpuscular Volume 91.2 fl (80-100); Mean Platelet Volume 9.1 fl (7.4-10.4); Platelet Count Result 462 k/mm3 (150-375); Red Blood Count 3.19 M/mm3 (4.6-6.20); Red Cell Distribution Width 13.3 % (11.5-14.5); White Blood Count 14.4 K/mm3 (4.5-10.0)
[2020-10-31] MEDS: CENTRAL LINE FLUSH 20 ML IV PUSH (05:28)
[2020-10-31] MEDS: CENTRAL LINE FLUSH 10 ML IV PUSH ×2 (05:28→12:59)
[2020-10-31 05:30] LABS: Potassium 4.1 mmol/L (3.4-5.0)
[2020-10-31 05:54] VITALS: BP 139/60; PULSE 65; RESP 14; TEMP 36.2; O2SAT 100
[2020-10-31 08:52] VITALS: PULSE 65
[2020-10-31] MEDS: AMIODARONE HCL 200 MG TABLET PO (08:52)
[2020-10-31] MEDS: ENOXAPARIN 40 MG/0.4 ML SYRINGE SUB-Q (08:53)
[2020-10-31] MEDS: DORZOLAMIDE/TIMOLOL OPHTH SOL 10 ML BOTTLE 1 DROP EACH EYE (08:53)
[2020-10-31] MEDS: POTASSIUM CHLORIDE 20 MEQ TABLET.ER PO (08:53)
[2020-10-31] MEDS: LOSARTAN POTASSIUM 50 MG TABLET PO (08:53)
[2020-10-31 08:54] VITALS: PULSE 65
[2020-10-31] MEDS: PANTOPRAZOLE 40 MG TABLET PO (08:54)
[2020-10-31] MEDS: carvediloL 12.5 MG TABLET PO (08:54)
--- NOTE | 2020-10-31 12:04 | PM.PNGS ---
Progress Note: A&P Assessment and Plan (1) Perforation of sigmoid colon: Code(s): K63.1 - Perforation of intestine (nontraumatic) Status: Resolved Assessment and Plan: ok to dc home, cont local wound/ostomy care, po abx for additional week, f/u 1-2 wks Subjective Subjective Date/Time Seen: 10/31/20 12:04 pt doing well, reports no issues Review of Systems Review of Systems: All systems reviewed & are unremarkable except as noted in HPI and below Exam Resp: Auscultation: clear to auscultation bilaterally Cardio: Rate: regular rate Rhythm: regular rhythm GI: Inspection: normal to inspection, non-distended and incision GI Palp: No abdominal tenderness, Yes Soft to palpation and No Guarding due to palpation present (GI) Other: S, sl dist, ra TTP, incision drsg C/D/I, ostomy +fxn Objective Data Vital Signs Vital Signs: Vital Signs - 24 hr 10/30/20 12:33 10/30/20 14:00 10/30/20 20:21 Temperature 37.0 C 36.0 C L Pulse Rate 68 72 Respiratory Rate 16 16 Blood Pressure 114/66 125/55 L 124/61 Pulse Oximetry 100 99 10/30/20 21:32 10/31/20 05:54 10/31/20 08:52 Temperature 36.2 C L Pulse Rate 74 65 65 Respiratory Rate 14 Blood Pressure 139/60 Pulse Oximetry 100 10/31/20 08:54 Temperature Pulse Rate 65 Respiratory Rate Blood Pressure Pulse Oximetry Intake/Output Intake/Output: Intake & Output 10/28/20 10/29/20 10/30/20 10/31/20 23:59 23:59 23:59 23:59 Intake Total 2860 1410 2510 840 Output Total 800 Balance 2060 1410 2510 840 Meds/Results Medications: Active Medications Generic Name Dose Route Start Last Admin Trade Name Freq PRN Reason Stop Dose Admin Acetaminophen 500 mg 10/26/20 08:46 10/31/20 11:24 Acetaminophen 500 Mg Tablet PO 500 mg Q6H PRN Administration Mild Pain (1-3) or Fever Alteplase, Recombinant 2 mg 10/26/20 05:02 10/26/20 06:23 Alteplase 2 Mg Vial (Cathflo) IV PUSH 2 mg ONCE PRN Administration Line Occlusion Alteplase, Recombinant 2 mg 10/26/20 05:03 10/26/20 06:24 Alteplase 2 Mg Vial (Cathflo) IV PUSH 2 mg ONCE PRN Administration Line Occlusion Amiodarone HCl 200 mg 10/30/20 09:00 10/31/20 08:52 Amiodarone Hcl 200 Mg Tablet PO 200 mg DAILY SAYDA Administration Carvedilol 12.5 mg 10/23/20 21:00 10/31/20 08:54 Carvedilol 12.5 Mg Tablet PO 12.5 mg Q12HR SAYDA Administration Dorzolamide/Timolol 1 drop 10/20/20 09:00 10/31/20 08:53 Dorzolamide/Timolol Ophth Roseanna 10 Ml Bottle EACH EYE 1 drop Q12HR SAYDA Administration Enoxaparin Sodium 40 mg 10/19/20 09:00 10/31/20 08:53 Enoxaparin 40 Mg/0.4 Ml Syringe SUB-Q 40 mg DAILY SAYDA Administration Imipenem/Cilastatin Sodium 500 mg in 100 mls @ 300 mls/hr 10/27/20 00:00 10/31/20 05:46 Primaxin 500 Mg/D5w 100 Ml IVPB Infused Q6HR SAYDA Infusion Ipratropium [place] 0.5 mg 10/23/20 15:04 Ipratropium Br 0.02% Inh Soln 0.5 Mg/2.5 Ml Vial INHALATION Q6HRT PRN Shortness Of Breath Or Wheezing Latanoprost 1 drop 10/19/20 18:00 10/30/20 17:01 Latanoprost 0.005% Op Soln 2.5 Ml Btl EACH EYE 1 drop QPM SAYDA Administration Levalbuterol HCl 0.63 mg 10/23/20 15:04 Levalbuterol Neb 1.25 Mg/3 Ml INHALATION Q6HRT PRN Shortness Of Breath Or Wheezing Losartan Potassium 50 mg 10/22/20 09:00 10/31/20 08:53 Losartan Potassium 50 Mg Tablet PO 50 mg QAM SAYDA Administration Ondansetron HCl 4 mg 10/18/20 18:06 10/23/20 20:58 Ondansetron Inj 4 Mg/2 Ml Vial IV PUSH 4 mg Q6H PRN Administration Nausea And Vomiting Pantoprazole Sodium 40 mg 10/19/20 09:00 10/31/20 08:54 Pantoprazole 40 Mg Tablet PO 40 mg QAM SAYDA Administration Potassium Chloride 20 meq 10/28/20 17:00 10/31/20 08:53 Potassium Chloride 20 Meq Tablet.Er PO 20 meq BIDWM SAYDA Administration Promethazine HCl 12.5 mg 10/19/20 08:19 10/23/20 01:31 Promethazine Hcl 25 Mg/Ml Amp
--- NOTE | 2020-10-31 18:35 | PM.DS ---
DS: Admitting Diagnosis Admitting Diagnosis Admitting Diagnosis: perforated sigmoid colon DS: Discharge Diagnosis Discharge Diagnosis (1) Sepsis: Code(s): A41.9 - Sepsis, unspecified organism Status: Acute Assessment and Plan: Sepsis with shock. Secondary to perforation of colon. Blood pressure rebounded without pressors and lactic acid became normal. Was initially ICU status but able to be downgraded to IMU on 10/20 then moved to medical. Central line placed 10/19 but changed to PICC line and removed at discharge. No fevers and white count slowly falling 14 K at discharge. Recovering well. (2) Fecal peritonitis: Code(s): K65.8 - Other peritonitis Status: Acute Assessment and Plan: Secondary to perforation of colon. Patient had a colonoscopy approximately 3 days prior. Now status post colon resection and diverting colostomy performed on 10/18. 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 Was on Zosyn and Flagyl but narrowed just to Zosyn. Repeat CT scan abdomen pelvis (10/22) showing dilated, fluid filled SB c/w ileus but no evidence of abscess formation. WBC was climbing so ESBL considered and abx changed to Primaxin 10/26/20. Lower part of the wound was cleaned and irrigated 10/27; WBC better today and felt elevated WBC related to the wound infection and not failure of abx therapy. As above white count down to 14 K and will discharge home for surgery with Cipro and metronidazole for 1 more week and follow-up with surgery after that (3) Ventricular tachycardia: Code(s): I47.2 - Ventricular tachycardia Status: Acute Assessment and Plan: Patient was given amiodarone at [facility]. Echo revealed ejection fraction 30-35% and Cardiology loaded orally with amiodarone. Continue the same. Will follow-up with cardiology 01/10 for possible cardiac catheterization at that time (4) JERAD (acute kidney injury): Code(s): N17.9 - Acute kidney failure, unspecified Status: Acute Assessment and Plan: Acute kidney injury related to sepsis and hypotension. Creatinine milan to 1.5 and now normal 1.0 . Continue to monitor. (5) Cardiomyopathy: Code(s): I42.9 - Cardiomyopathy, unspecified Status: Acute Assessment and Plan: Echo here showing EF 30-35%. Was started on Coreg and losartan and now at 12.5 bid and 50 mg respectively. Will follow-up with cardiology 01/10 for possible follow-up cardiac catheterization ischemic evaluation (6) Primary hypertension: Code(s): I10 - Essential (primary) hypertension Status: Chronic Assessment and Plan: Patient became severely hypotensive on legal transcriptionist hours of 10/19/2020. Blood pressure has since improved and he has reverted back to hypertensive pressures. Coreg and losartan were started and he is tolerating it well. Continue (7) BPH (benign prostatic hyperplasia): Qualifiers: Lower urinary tract symptom presence: unspecified whether lower urinary tract symptoms present Qualified Code(s): N40.0 - Benign prostatic hyperplasia without lower urinary tract symptoms Code(s): N40.0 - Benign prostatic hyperplasia without lower urinary tract symptoms Status: Chronic Assessment and Plan: Patient had Hurd catheter removed. Patient is not on medications for BPH from home. No evidence of urine retention. (8) Glaucoma: Qualifiers: Glaucoma type: open-angle Open angle glaucoma type: unspecified type Laterality: bilateral Glaucoma stage: stage unspecified Qualified Code(s): H40.10X0 - Unspecified open-angle glaucoma, stage unspecified Code(s): H40.9 - Unspecified glaucoma Status: Chronic Assessment and Plan: Stable. Continue with current eye drops. DS: Summary Hospital Course H
== END 2020-10-31 14:35 | disposition home health service (06) | DRG 853 ==
LOC: ANHIMU 10-23 07:59 → ANH3MED 10-24 14:18 → ANHIMU 11-02 15:56 → ANH3MED 11-02 16:01 → ANHIMU 11-02 16:01
PROVIDERS: Internal Medicine; Nurse Practitioner; Nurse Practitioner Family; Surgery; Admitting Provider Family Medicine; PCP Family Medicine; Visit Provider Internal Medicine
PROC: 0DBN0ZZ Excision of Sigmoid Colon, Open Approach (ICD-10-PCS; CPT 49000; principal; 2020-10-18 19:45)
DX: A41.9 Sepsis, unspecified organism (principal); K65.8 Other peritonitis; K63.1 Perforation of intestine (nontraumatic); N17.9 Acute kidney failure, unspecified; I42.9 Cardiomyopathy, unspecified; I47.2 Ventricular tachycardia; N40.0 Benign prostatic hyperplasia without lower urinary tract symptoms; H40.9 Unspecified glaucoma; K44.9 Diaphragmatic hernia without obstruction or gangrene; J43.9 Emphysema, unspecified; K43.9 Ventral hernia without obstruction or gangrene; D72.829 Elevated white blood cell count, unspecified; D64.9 Anemia, unspecified; I10 Essential (primary) hypertension; M19.90 Unspecified osteoarthritis, unspecified site; Z85.118 Personal history of other malignant neoplasm of bronchus and lung; Z85.828 Personal history of other malignant neoplasm of skin; Z98.42 Cataract extraction status, left eye; Z98.41 Cataract extraction status, right eye; Z87.891 Personal history of nicotine dependence
CPT/HCPCS: 36415; 36569; 71045; 74176; 80048; 80053; 80069; 81001; 82565; 83605; 83735; 84100; 84132; 84443; 85025; 85027; 87040; 87086; 88307; 93306; 94640; 97110; 97116; 97163; 97165; 97530; 97535; A9270; C1751; J0131; J0282; J0330; J0743; J1100; J1165; J1170; J1650; J2270; J2405; J2543; J2550; J2704; J2710; J2997; J3010; J3475; J3480; J7030; J7050; J7120

== ENCOUNTER 2020-11-06 12:55 | Outpatient (NON) | payer MEDICARE, SELFPAY ==
[2020-11-06 13:53] LABS: Anion Gap 8 mmol/L (8-16); Blood Urea Nitrogen 11 mg/dL (9-20); Calcium 8.6 mg/dL (8.4-10.2); Carbon Dioxide 26 mmol/L (22-30); Chloride 101 mmol/L (98-107); Estimated Glomerular Filt Rate > 60; Glucose 167 mg/dL (75-110); Potassium 3.9 mmol/L (3.4-5.0); Sodium 135 mmol/L (137-145)
== END 2020-11-06 12:56 ==
LOC: ANHLAB 12:57
PROVIDERS: PCP Family Medicine; Visit Provider Nurse Practitioner Adult Health
DX: I42.9 Cardiomyopathy, unspecified (principal); I10 Essential (primary) hypertension; Z48.815 Encounter for surgical aftercare following surgery on the digestive system; Z43.3 Encounter for attention to colostomy
CPT/HCPCS: 36415; 80048; 83735

== ENCOUNTER 2020-12-07 14:24 | Outpatient (NON) | payer MEDICARE, SELFPAY ==
[2020-12-07 15:35] LABS: Add Urine Microscopic? NO; Appearance Urine Clear (Clear); Bilirubin Urine Negative (Negative); Blood Urine Negative (Negative); Color Urine Yellow (Yellow); Glucose Urine UA Negative (Negative); Ketones Urine Negative (Negative); Leukocyte Esterase Ur Negative LEU/UL (Negative); Nitrate Urine Negative (Negative); Protein Urine Negative (Negative); Specific Grav Ur 1.013 (1.001-1.035); Urobilinogen Urine Negative mg/dL (<2.0)
== END 2020-12-07 14:25 ==
PROVIDERS: PCP Physician Assistant; Visit Provider Physician Assistant
DX: I42.9 Cardiomyopathy, unspecified (principal); I10 Essential (primary) hypertension; Z43.3 Encounter for attention to colostomy; Z48.815 Encounter for surgical aftercare following surgery on the digestive system
CPT/HCPCS: 81003

== ENCOUNTER → 2020-12-24 09:58 | Outpatient (CLI) | payer MEDICARE, SELFPAY ==
--- NOTE | ~2020-12-24 | XR_ITS ---
EXAMINATION: XR enema water soluble DATE: 12/24/2020 10:44 INDICATION: Perforation of a Dan's pouch post prior colostomy placement. TECHNIQUE: A labor representative radiograph was obtained. A catheter was inserted into the patient's rectum. Contra st was infused by gravity. 18 fluoroscopic spot images and 2 conventional radiographs were obtained. Fluoroscopy exposure time was 0.9 minutes. COMPARISON: CT dated 10/22/2020 FINDINGS: Contrast fills a Dan's pouch in the pelvis. There are multiple diverticula along the Dan's po uch. No evident extravasation of contrast to suggest a persistent leak. Multiple phleboliths in the p rehan. IMPRESSION: 1. Dan's pouch with diverticulosis but no evident leak. Reviewed, dictated and finalized at location B. PSY ASSISTANT
== END ==
PROVIDERS: Visit Provider Surgery
DX: K63.1 Perforation of intestine (nontraumatic) (principal); K82.8 Other specified diseases of gallbladder; K57.30 Diverticulosis of large intestine without perforation or abscess without bleeding
CPT/HCPCS: 74270

== ENCOUNTER 2021-02-26 09:41 | Outpatient (CLI) | payer MEDICARE, SELFPAY | END 2021-02-26 09:42 | disposition home or self-care (01) | LOC: ANHSURGERY 09:46 | PROVIDERS: PCP Physician Assistant; Visit Provider Surgery | DX: K63.1 Perforation of intestine (nontraumatic) (principal) | CPT/HCPCS: 36415; 86850; 86900; 86901 ==

== ENCOUNTER → 2021-03-02 05:32 | Outpatient (CLI) | payer MEDICARE, SELFPAY ==
[2021-03-02 19:34] LABS: SARS-CoV-2 RNA PCR Negative
== END ==
PROVIDERS: PCP Physician Assistant; Visit Provider Surgery
DX: Z01.812 Encounter for preprocedural laboratory examination (principal); Z20.822 Contact with and (suspected) exposure to COVID-19
CPT/HCPCS: C9803; U0003; U0005

== ENCOUNTER 2021-03-06 11:32 | Inpatient (IN) | payer MEDICARE, SELFPAY ==
[2021-02-26 10:38] VITALS: PULSE 49; TEMP 36.4; O2SAT 95; BMI 23.8
[2021-03-06] VITALS (14 sets, daily range): BP systolic 107–144; BP diastolic 52–85; PULSE 55–91; RESP 12–20; TEMP 36.3–36.9; O2SAT 96–100
--- NOTE | 2021-03-06 07:34 | PM.IMHP ---
H&P: HPI History of Present Illness Date/Time: 03/06/21 07:34 Pt is a 75 y/o M well known to my service from previous Hartmans' procedure. Pt had perforated sigmoid colon after colonoscopy. Pt has done relatively well and has now been cleared for reversal. Pt c hypaque enema that shows stump is well healed. Pt c known small, reducible parastomal hernia. Chief Complaint: perforated sigmoid colon Review of Systems Review of Systems: All systems reviewed & are unremarkable except as noted in HPI and below PMFSH Past Medical History Medical History Adenoma of left adrenal gland which was noted to be stable. BPH (benign prostatic hyperplasia) Chronic low back pain Colon cancer screening COPD with emphysema Patient stated that he had PFTs and it was rule out that he does not have emphysema or COPD. Elevated PSA Glaucoma Hard of hearing History of colon polyps History of lung cancer status post partial lobectomy History of SCC (squamous cell carcinoma) of skin Medicare annual wellness visit, subsequent Osteoarthritis, multiple sites Primary hypertension Prostate cancer screening Ventral hernia Surgical History Surgical History H/O cataract extraction H/O colonoscopy with polypectomy H/O exploratory laparotomy 10/18/20 exploratory laparatomy, sigmoid colectomy, creation of colostomy, intraabdominal washout H/O vasectomy History of lobectomy of lung History of prostate biopsy History of tonsillectomy Hx of local excision of skin lesion facial Family History Family History Mother Carcinoma of colon Family history of rheumatoid arthritis Family history of osteoarthritis Acute myocardial infarction Grandparent Acute myocardial infarction Father Aneurysm Social History Social History Social History: Lives at home with his China Moe, who he states is his healthcare POA. The patient has 3 biological children and he has 3 step children. 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 Patient has a history of being a former smoker we smoked up to 1 and half packs of cigarettes a day. He stop smoking 1-2-2015. 1-2 beers a day. No marijuana or illicit drugs. Smoking packs per day: 1 Smoking cigarettes per day: 20.0 Years smoked: 50 Smoking pack-years: 50.00 Smoking status: Former smoker Tobacco type: cigarettes Second hand tobacco smoke exposure: No Smoking end date: 11/30/00 Alcohol intake: former Drinks per week: 14 Substance use: never Substance use type: does not use Living arrangements: with family Additional living arrangements comments: Gender identity (if verbalized by the patient): Male Spiritual care concerns: No Agree to blood products: Yes Meds Home Medications and Allergies Home Medications Medication Instructions Recorded Confirmed Type dorzolamide 2 %-timolol 0.5 % (PF) 1 drop EACH EYE BID 07/19/20 02/26/21 History eye drops lactobacillus combination no.9 4 4,000 mmu cells PO DAILY 07/19/20 02/26/21 History billion cell capsule latanoprost 0.005 % eye drops 1 drop EACH EYE QPM 07/19/20 02/26/21 History multivitamin with minerals 1 tablet PO DAILY 07/19/20 02/26/21 History carvedilol [Coreg] 12.5 mg PO Q12HR #60 tablet 10/30/20 02/26/21 Rx losartan [Cozaar] 50 mg PO QAM #30 tablet 10/30/20 02/26/21 Rx docusate sodium 50 mg capsule 50 mg PO DAILY 11/28/20 02/26/21 History peg 400-propylene glycol 0.4 %-0.3 1 drp OPHTHALMIC (EYE) DAILY PRN 11/28/20 02/26/21 History % eye drops acetaminophen 500 mg tablet 500 mg PO Q6H PRN 12/12/20 02/26/21 History metronidazole 500 mg tablet 500 mg PO .COMPLEX #3 tablet 02/05/21 02/26/21 Rx
--- NOTE | 2021-03-06 07:39 | WPDHPUPDATE1 ---
History and Physical Update Update Date/Time: 03/06/21 07:39 History and Physical has been reviewed, including an updated exam of the patient. There are NO changes in the patient's condition. Risks, benefits, and alternatives have been discussed and questions answered. Patient agrees to proceed with procedure.
[2021-03-06] MEDS: ACETAMINOPHEN 500 MG TABLET 1000 MG PO (08:24)
[2021-03-06] MEDS: KETOROLAC 15 MG/ML VIAL (*BKC) IV PUSH (08:30)
[2021-03-06] MEDS: LACTATED RINGERS 1,000 ML 30 ML IV CONT ×2 (08:31→12:14)
[2021-03-06] MEDS: ALVIMOPAN 12 MG CAPSULE PO (08:36)
--- NOTE | 2021-03-06 08:48 | WPDANESEPPF ---
Anes - Initial Pre Proc Eval Procedure: Operation Date: 03/06/21 09:30 Proposed Procedures p Dan's Reversal, Peristomal Hernia Repair - Kelsie Rodriguez MD Date/Time: 03/06/21 08:48 Surgeon: Kelsie Rodriguez MD Pre Op Diagnosis: sigmoid perforation, peristomal hernia Patient Data Age: 75 Gender: M Height: 6 ft Weight: 76.45 kg Last Vital Signs Temp 36.4 C 02/26/21 10:38 Pulse 49 L 02/26/21 10:38 Pulse Ox 95 02/26/21 10:38 Allergies Allergy/AdvReac Type Severity Reaction Status Date / Time codeine Allergy Severe Rash Verified 02/26/21 10:28 oxycodone Allergy Severe rash with Verified 02/26/21 10:28 blisters on back & sores in mouth brimonidine Allergy Unknown irritation Verified 02/26/21 10:28 in eye brinzolamide Allergy Unknown increase Verified 02/26/21 10:28 in eye pressure erythromycin base Allergy Unknown made eye Verified 02/26/21 10:28 red and eyelid swell procaine Allergy Unknown heart race Verified 02/26/21 10:28 NOVACAINE Allergy Mild HEART RACE Uncoded 02/26/21 10:28 Home Medications Medication Instructions Recorded Confirmed Type dorzolamide 2 %-timolol 0.5 % (PF) 1 drop EACH EYE BID 07/19/20 03/06/21 History eye drops lactobacillus combination no.9 4 4,000 mmu cells PO DAILY 07/19/20 03/06/21 History billion cell capsule latanoprost 0.005 % eye drops 1 drop EACH EYE QPM 07/19/20 03/06/21 History multivitamin with minerals 1 tablet PO DAILY 07/19/20 03/06/21 History carvedilol [Coreg] 12.5 mg PO Q12HR #60 tablet 10/30/20 03/06/21 Rx losartan [Cozaar] 50 mg PO QAM #30 tablet 10/30/20 03/06/21 Rx docusate sodium 50 mg capsule 50 mg PO DAILY 11/28/20 03/06/21 History peg 400-propylene glycol 0.4 %-0.3 1 drp OPHTHALMIC (EYE) DAILY PRN 11/28/20 03/06/21 History % eye drops acetaminophen 500 mg tablet 500 mg PO Q6H PRN 12/12/20 03/06/21 History metronidazole 500 mg tablet 500 mg PO .COMPLEX #3 tablet 02/05/21 03/06/21 Rx neomycin 500 mg tablet See Rx Instructions PO .COMPLEX #6 02/05/21 03/06/21 Rx tablet Patient hx anesthesia problems: none Family hx anesthesia problems: none PMFSH Past Medical History Medical History Adenoma of left adrenal gland which was noted to be stable. BPH (benign prostatic hyperplasia) Chronic low back pain Colon cancer screening COPD with emphysema Patient stated that he had PFTs and it was rule out that he does not have emphysema or COPD. Elevated PSA Glaucoma Hard of hearing History of colon polyps History of lung cancer status post partial lobectomy History of SCC (squamous cell carcinoma) of skin Medicare annual wellness visit, subsequent Osteoarthritis, multiple sites Primary hypertension Prostate cancer screening Ventral hernia Surgical History Surgical History H/O cataract extraction H/O colonoscopy with polypectomy H/O exploratory laparotomy 10/18/20 exploratory laparatomy, sigmoid colectomy, creation of colostomy, intraabdominal washout H/O vasectomy History of lobectomy of lung History of prostate biopsy History of tonsillectomy Hx of local excision of skin lesion facial Family History Family History Mother Carcinoma of colon Family history of rheumatoid arthritis Family history of osteoarthritis Acute myocardial infarction Grandparent Acute myocardial infarction Father Aneurysm Social History Social History Social History: Lives at home with his China Moe, who he states is his healthcare POA. The patient has 3 biological children and he has 3 step children. 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 Patient has a history of being
--- NOTE | 2021-03-06 12:07 | PM.PROC ---
Procedure Note - Detailed Date of procedure: 03/06/21 Pre-op diagnosis: sigmoid perforation, peristomal hernia Post-op diagnosis: same Procedure performed: June's reversal, primary repair parastomal hernia, mobilization of the splenic flexure, lysis of adhesions Description of procedure: The patient was taken to the operating room placed in the modified lithotomy position. After adequate induction of general anesthesia, the patient was prepped and draped in the normal sterile fashion. A time-out was then done to verify the patient's identity, as well as the procedure being performed. I began by closing the left lower quadrant colostomy with a running 2 silk stitch. I then made a midline incision through the previous incision and this was carried down into the peritoneal cavity. Once into the peritoneal cavity, it was noted that the patient had some adhesions especially to the pelvic area. A lysis of adhesions was undertaken to free up the small bowel from the pelvis. This lysis of adhesions took approximately half an hour. Once the pelvis was free of its adhesions, I was able to identify the rectal stump. I then slowly and carefully dissected out the rectal stump, which was noted to be quite thin walled. It was noted to be long rectal stump and the proximal portion of the stump was noted to be somewhat friable and thin walled. Given this, I went ahead and placed a contour stapler and freshened the rectal stump resecting approximately 4 cm. I then took down the colostomy in the left lower quadrant. Was noted to be a peristomal hernia with some small bowel that was easily reduced. Once the colostomy was taken down, I went ahead and measured the colon with the EEA sizers. It was noted that a 28 EEA would be the appropriate size for our anastomosis. I then placed the auto purse Sandor device approximately 3 cm from the end of the colostomy. The distal 3 cm of the previous colostomy site was then excised and sent to pathology for further. I then placed the 28 EEA anvil into the proximal colon and tied the pursestring sutures. I then freed up the sigmoid colon for our anticipated anastomosis by taking down the lateral attachments and freeing up the splenic flexure. Once this was achieved, I was able to easily bring the proximal colon down into the pelvis. The rectum was then superiorly dilated with both digital an EEA sizers. Once appropriately dilated, we completed the 28 EEA anastomosis. Upon doing the proctoscope and air leak test, was noted to be some tiny air bubbles. I then went ahead and over sewed the entirety of the staple line with interrupted 3 0 silk sutures. Repeat proctoscope and air leak test showed no bubbles. I then left a 15 Ethiopian ARASELI drain in the pelvis coming out through the right lower quadrant. I then primarily closed the previous stoma and peristomal hernia site with 1 PDS suture. The midline incision was then closed with 0 looped PDS suture. The skin including the stoma site was closed with skin rosalba. Sterile dressing was placed on all wounds. The patient tolerated the procedure well and was extubated in the operating room postoperatively. Will be sent to the recovery room in stable condition. Anesthesia: GETA Surgeon: Kelsie Rodriguez MD Estimated blood loss (mL): 150 Drains: Yes Packing: No Pathology: yes Complications: No immediate complications Condition: stable Disposition: PACU Findings: thin wall, friable rectal stump
--- NOTE | 2021-03-06 12:16 | SUR.OPER ---
1202:: CALL PLACED TO SURGEON ABOUT DRAIN PER HOP STRAINER REQUEST X2
[2021-03-06] MEDS: fentaNYL CITRATE INJ (*CRX) 100 MCG/2 ML VIAL 25 MCG IV PUSH ×5 (12:32→13:10)
--- NOTE | 2021-03-06 12:36 | SUR.PHASEI ---
1230: Dr. Rodriguez present at the bedside and removed ARASELI drain since it wasn't in all the way.
--- NOTE | 2021-03-06 13:25 | ADMGEN ---
This patient, Rafael Moe, was admitted to Medical Room 250-01. Patient/family oriented to hospital policies and general routines including ID bracelet, bed and alarms, visiting hours, pain management, procedures, bathroom and other care routines, personal items, smoking policy, room service/diet, and visiting hours. Information on how to activate the Rapid Response Team has been discussed. Patient/Family are encouraged to report perceived risks to care and to ask questions if they do not understand what they are told or what they should do.
[2021-03-06] MEDS: LACTATED RINGERS 1,000 ML 100 ML IV CONT ×2 (14:01→23:55)
[2021-03-06] MEDS: GABAPENTIN 300 MG CAPSULE 600 MG PO (14:42)
[2021-03-06] MEDS: ACETAMINOPHEN 325 MG TABLET 650 MG PO (17:53)
[2021-03-06] MEDS: carvediloL 12.5 MG TABLET PO (20:41)
[2021-03-06] MEDS: LATANOPROST 0.005% OP SOLN 2.5 ML BTL 1 DROP EACH EYE (20:41)
[2021-03-06] MEDS: DORZOLAMIDE/TIMOLOL OPHTH SOL 10 ML BOTTLE 1 DROP EACH EYE (20:42)
[2021-03-07] VITALS (12 sets, daily range): BP systolic 114–161; BP diastolic 56–93; PULSE 64–104; RESP 16–24; TEMP 36.4–37.9; O2SAT 93–98
[2021-03-07 05:37] LABS: Basophils Percent Auto 0.2 % (0.2-1.2); Eosinophils Percent Auto 0.1 % (0-4.4); Hematocrit 33.3 % (42.0-52.0); Hemoglobin 11.2 g/dL (14.0-18.0); Immature Granulocyte Percent A 0.6 % (0-0.5); Lymphocytes Absolute Auto 2.88 K/mm3 (0.9-3.2); Lymphocytes Percent Auto 16.4 % (18.3-44.2); Mean Corpuscular HGB Conc 33.6 g/dl (32-36); Mean Corpuscular Hemoglobin 30.9 pg (26-34); Mean Corpuscular Volume 91.7 fl (80-100); Mean Platelet Volume 9.9 fl (7.4-10.4); Monocytes Absolute Auto 1.6 K/mm3 (0.1-0.6); Monocytes Percent Auto 9.3 % (2.6-8.5); Neutrophils Absolute Auto 12.9 K/mm3 (1.3-6.7); Neutrophils Percent Auto 73.4 % (45.5-73.1); Platelet Count Result 194 k/mm3 (150-375); Red Blood Count 3.63 M/mm3 (4.6-6.20); Red Cell Distribution Width 13.3 % (11.5-14.5); White Blood Count 17.6 K/mm3 (4.5-10.0)
[2021-03-07 06:00] LABS: Anion Gap 3 mmol/L (8-16); Blood Urea Nitrogen 17 mg/dL (9-20); Carbon Dioxide 26 mmol/L (22-30); Chloride 103 mmol/L (98-107); Estimated CRCL calculation 48 ml/min; Estimated Glomerular Filt Rate 54; Glucose 112 mg/dL (75-110); Potassium 3.9 mmol/L (3.4-5.0); Sodium 132 mmol/L (137-145)
[2021-03-07] MEDS: ACETAMINOPHEN 325 MG TABLET 650 MG PO ×4 (07:16→21:39)
--- NOTE | 2021-03-07 07:36 | WPDANESPN ---
Anes - Prog Note Post-Op Date/Time: 03/07/21 07:36 Cardiovascular status: normal Respiratory status: normal Airway patency: baseline Mental status: baseline Post-Op hydration status: normal Vital Signs: Last Vital Signs Temp 36.7 C 03/07/21 03:01 Pulse 64 03/07/21 03:01 Resp 16 03/07/21 03:01 BP 129/63 03/07/21 03:01 Pulse Ox 97 03/07/21 03:01 Pain Score (VAS): 0 I/O: Intake & Output 03/06/21 03/06/21 03/07/21 15:59 23:59 07:59 Intake Total 300 1155 300 Output Total 350 300 Balance 300 805 0 Laboratory Tests 03/07/21 05:19 03/07/21 05:19 03/07/21 03/07/21 05:19 05:19 WBC 17.6 H RBC 3.63 L Hgb 11.2 L Hct 33.3 L MCV 91.7 MCH 30.9 MCHC 33.6 RDW 13.3 Plt Count 194 D MPV 9.9 Immature Gran % (Auto) 0.6 H Neut % (Auto) 73.4 H Lymph % (Auto) 16.4 L Josephine % (Auto) 9.3 H Eos % (Auto) 0.1 Baso % (Auto) 0.2 Lymph # (Auto) 2.88 Josephine # (Auto) 1.6 H Eos # (Auto) 0.0 Baso # (Auto) 0.0 Abs Immat Gran (auto) 0.10 H Absolute Neuts (auto) 12.9 H Absolute Nucleated RBC 0.0 Nucleated RBC % 0.0 Sodium 132 L Potassium 3.9 Chloride 103 Carbon Dioxide 26 Anion Gap 3 L BUN 17 Creatinine 1.30 Estim Creat Clear Calc 48 Estimated GFR 54 L Glucose 112 H Calcium 8.0 L Post-procedural complaints: none Patient Feedback: Patient satisfied with anesthetic care.
[2021-03-07] MEDS: PANTOPRAZOLE 40 MG TABLET PO (08:01)
[2021-03-07] MEDS: LOSARTAN POTASSIUM 50 MG TABLET PO (08:01)
[2021-03-07] MEDS: carvediloL 12.5 MG TABLET PO ×2 (08:01→21:37)
[2021-03-07] MEDS: ENOXAPARIN 40 MG/0.4 ML SYRINGE SUB-Q (08:03)
[2021-03-07] MEDS: DORZOLAMIDE/TIMOLOL OPHTH SOL 10 ML BOTTLE 1 DROP EACH EYE ×2 (08:03→21:38)
[2021-03-07] MEDS: LACTATED RINGERS 1,000 ML 100 ML IV CONT (10:27)
--- NOTE | 2021-03-07 12:04 | PM.PNGS ---
Progress Note: A&P Assessment and Plan (1) History of creation of ostomy: Code(s): Z93.9 - Artificial opening status, unspecified Status: Acute Assessment and Plan: POD1 and doing well. Having some bloating with meals. Will keep on clear liquids for today. Pain well controlled. Await return of bowel function. Encouraged increased activity/OOB/IS. Will remove Hurd either later today or tomorrow. (2) Parastomal hernia without obstruction or gangrene: Code(s): K43.5 - Parastomal hernia without obstruction or gangrene Status: Acute Assessment and Plan: POD1. See plan above. (3) COPD with emphysema: Qualifiers: Emphysema type: unspecified Qualified Code(s): J43.9 - Emphysema, unspecified Code(s): J43.9 - Emphysema, unspecified Status: Acute Assessment and Plan: Stable. No respiratory complaints. Additional Plan Discussed plan of care with Dr. Rodriguez. Subjective Subjective Date/Time Seen: 03/07/21 12:04 Post Op day: 1 (June's reversal, primary repair parastomal hernia, mobilization of the splenic flexure, lysis of adhesions) Patient reports: no flatus and no bowel movement Interval history: Patient seen lying in bed this morning. Feels bloated after having clear liquids this morning. No nausea or vomiting. Having some incisional abdominal pain but mostly with movement. No other complaints. Review of Systems Review of Systems: All systems reviewed & are unremarkable except as noted in HPI and below Constitutional: Constitutional: Reports as per HPI, Reports no additional constitutional complaints, Denies chills and Denies fever(s) Cardiovascular: Cardiovascular: Reports no additional cardiovascular complaints, Denies chest pain, Denies leg edema and Denies dyspnea Respiratory: Respiratory: Reports no additional respiratory complaints, Denies cough and Denies dyspnea Gastrointestinal: Gastrointestinal: Reports as per HPI and Reports no additional gastrointestinal complaints Neurologic: Reports system reviewed and no additional complaints, except as documented, Denies Abnormal speech present and Denies focal weakness Exam Const: General: comfortable, no acute distress, alert and awake Orientation/consciousness: patient oriented x3 Resp: Effort & Inspection: normal respiratory effort Auscultation: clear to auscultation bilaterally Cardio: Rate: regular rate Rhythm: regular rhythm GI: Inspection: incision (Abdominal dressing clean and dry.) and other (mildly distended) GI Palp: Yes Soft to palpation and Yes Tenderness to palpation present (GI) (incisional) Auscultation: Hypoactive bowel sounds present Skin: General skin exam: normal color Neuro: General: moves all extremities and no focal motor deficits Extrem: General: no clubbing, cyanosis or edema and no calf tenderness Psych: Mental Status: mental status grossly normal Insight: Good insight present (Psych) Judgement: Good judgement present (Psych) Objective Data Vital Signs Vital Signs: Vital Signs - 24 hr 03/06/21 12:14 03/06/21 12:30 03/06/21 12:45 Temperature 97.6 F Pulse Rate 68 60 64 Respiratory Rate 13 20 12 Blood Pressure 107/63 132/52 L 121/56 L Pulse Oximetry 100 100 99 03/06/21 13:00 03/06/21 13:15 03/06/21 13:25 Temperature 97.4 F L Pulse Rate 60 69 69 Respiratory Rate 17 20 16 Blood Pressure 127/60 125/63 137/59 L Pulse Oximetry 96 98 100 03/06/21 13:40 03/06/21 14:10 03/06/21 15:10 Temperature 97.5 F L 97.5 F L 98.5 F Pulse Rate 55 L 68 81 Respiratory Rate 16 16 16 Blood Pressure 136/61 144/78 H 140/85 Pulse Oximetry 99 100 100 03/06/21 18:00 03/06/21 19:01 03/06/21 20:00 Temperature 98.5 F 98.1 F Pulse Rate 91 74 74 Respiratory Rate 16 16 16 Blood Pressure 130/76 121/69 Pulse Oximetry 100 97 97 03/06/21 20:41 03/06/21 23:01 03/07/21 03:01 Temperature 98.2 F 98.1 F Pulse Rate 74 62 64 Respiratory Rate 16 16 Blood Pressure 120/
[2021-03-07] MEDS: MORPHINE SULFATE (*CRX) 2 MG/ML INJ IV PUSH ×2 (17:01→18:31)
[2021-03-07] MEDS: ONDANSETRON INJ 4 MG/2 ML VIAL IV PUSH (17:53)
--- NOTE | 2021-03-07 18:15 | PC.NURSE ---
Nanotechnician called Dr. Rodriguez reported the Morphine caused nausea, zofran was givens, pt began dry heaving, when fiction writer entered room observed abd dressing saturated with serosang drainage, dressing was removed observed moderate amount of rust colored drainage from incision, pt also had murrieta colored loose stool, Dr. Rodriguez reports to check vitals, apply new dressing to abd and continue to monitor.
[2021-03-07] MEDS: PROMETHAZINE HCL 25 MG/ML AMPUL 12.5 MG IV PUSH (20:12)
[2021-03-07] MEDS: LATANOPROST 0.005% OP SOLN 2.5 ML BTL 1 DROP EACH EYE (21:38)
[2021-03-08] VITALS (14 sets, daily range): BP systolic 107–139; BP diastolic 58–72; PULSE 54–79; RESP 16–18; TEMP 36.5–37.9; O2SAT 95–98
[2021-03-08] MEDS: ACETAMINOPHEN 325 MG TABLET 650 MG PO ×3 (01:27→16:04)
[2021-03-08] MEDS: LACTATED RINGERS 1,000 ML 50 ML IV CONT ×2 (04:35→22:22)
[2021-03-08 05:41] LABS: Hematocrit 36.6 % (42.0-52.0); Hemoglobin 12.2 g/dL (14.0-18.0); Mean Corpuscular HGB Conc 33.3 g/dl (32-36); Mean Corpuscular Hemoglobin 30.1 pg (26-34); Mean Corpuscular Volume 90.4 fl (80-100); Mean Platelet Volume 9.8 fl (7.4-10.4); Platelet Count Result 206 k/mm3 (150-375); Red Blood Count 4.05 M/mm3 (4.6-6.20); Red Cell Distribution Width 13.3 % (11.5-14.5)
[2021-03-08 05:56] LABS: Anion Gap 4 mmol/L (8-16); Blood Urea Nitrogen 23 mg/dL (9-20); Calcium 8.1 mg/dL (8.4-10.2); Carbon Dioxide 26 mmol/L (22-30); Chloride 101 mmol/L (98-107); Estimated CRCL calculation 48 ml/min; Estimated Glomerular Filt Rate 54; Glucose 126 mg/dL (75-110); Potassium 4.2 mmol/L (3.4-5.0); Sodium 131 mmol/L (137-145)
[2021-03-08 06:49] LABS: Band Neutrophils Percent 14 % (0-6); Monocytes Percent Manual 6 % (3-9); Neutrophils Percent Manual 70 % (46-73); Platelet Estimate Adequate (Adequate); Total Cells Counted 100
[2021-03-08] MEDS: carvediloL 12.5 MG TABLET PO ×2 (09:10→20:44)
[2021-03-08] MEDS: ENOXAPARIN 40 MG/0.4 ML SYRINGE SUB-Q (09:10)
[2021-03-08] MEDS: PANTOPRAZOLE 40 MG TABLET PO (09:10)
[2021-03-08] MEDS: LOSARTAN POTASSIUM 50 MG TABLET PO (09:10)
[2021-03-08] MEDS: DORZOLAMIDE/TIMOLOL OPHTH SOL 10 ML BOTTLE 1 DROP EACH EYE ×2 (09:12→20:45)
--- NOTE | 2021-03-08 09:42 | PM.PNGS ---
Progress Note: A&P Assessment and Plan (1) Perforation of sigmoid colon: Code(s): K63.1 - Perforation of intestine (nontraumatic) Status: Resolved Assessment and Plan: doing better, ADAT to soft diet, encourage OOB/IS Subjective Subjective Date/Time Seen: 03/08/21 09:42 feels better this am, +flatus, +small BM x 2, nuzhat clears Review of Systems Review of Systems: All systems reviewed & are unremarkable except as noted in HPI and below Exam Const: General: cooperative, comfortable and no acute distress Resp: Auscultation: clear to auscultation bilaterally Cardio: Rate: regular rate Rhythm: regular rhythm GI: Inspection: normal to inspection, distended and incision GI Palp: Yes Soft to palpation, Yes Tenderness to palpation present (GI) and No Guarding due to palpation present (GI) Other: soft, sl dist, ra TTP, incisions C/D/I Objective Data Vital Signs Vital Signs: Vital Signs - 24 hr 03/07/21 10:00 03/07/21 10:54 03/07/21 18:33 Temperature 36.6 C 36.6 C Pulse Rate 64 97 Respiratory Rate 16 24 H Blood Pressure 114/56 L 147/93 H Pulse Oximetry 98 95 94 03/07/21 21:37 03/07/21 21:39 03/07/21 22:15 Temperature 37.9 C H 37.0 C Pulse Rate 104 H 104 H Respiratory Rate 20 Blood Pressure 161/79 H Pulse Oximetry 93 03/07/21 22:39 03/07/21 23:05 03/08/21 00:09 Temperature 37.6 C 37.6 C 37.8 C H Pulse Rate 54 L Respiratory Rate 16 Blood Pressure 122/70 Pulse Oximetry 98 03/08/21 01:27 03/08/21 02:00 03/08/21 02:19 Temperature 37.9 C H 37.2 C 37.2 C Pulse Rate Respiratory Rate Blood Pressure Pulse Oximetry 03/08/21 05:40 03/08/21 08:44 03/08/21 09:10 Temperature 36.5 C 36.7 C Pulse Rate 79 75 72 Respiratory Rate 16 18 Blood Pressure 116/65 134/70 Pulse Oximetry 97 97 Intake/Output Intake/Output: Intake & Output 03/05/21 03/06/21 03/07/2121 23:59 23:59 23:59 23:59 Intake Total 1455 2870 1100 Output Total 350 1350 200 Balance 1105 1970 900 Meds/Results Medications: Active Medications Generic Name Dose Route Start Last Admin Trade Name Freq PRN Reason Stop Dose Admin Acetaminophen 650 mg 03/06/21 17:31 03/08/21 01:27 Acetaminophen 325 Mg Tablet PO 650 mg Q4H PRN Administration Mild Pain (1-3) or Fever Artificial Tears 1 drop 03/06/21 13:16 Artificial Tears Op Soln 15 Ml Bottle EACH EYE DAILY PRN Dry Eye(S) Carvedilol 12.5 mg 03/06/21 21:00 03/08/21 09:10 Carvedilol 12.5 Mg Tablet PO 12.5 mg Q12HR SAYDA Administration Dorzolamide/Timolol 1 drop 03/06/21 21:00 03/08/21 09:12 Dorzolamide/Timolol Ophth Roseanna 10 Ml Bottle EACH EYE 1 drop Q12HR SAYDA Administration Enoxaparin Sodium 40 mg 03/07/21 09:00 03/08/21 09:10 Enoxaparin 40 Mg/0.4 Ml Syringe SUB-Q 40 mg DAILY SAYDA Administration Lactated Ringer's 1,000 mls @ 50 mls/hr 03/06/21 13:16 03/08/21 04:35 Lr - Lactated Ringers Iv IV CONT 50 mls/hr .Q20H SAYDA Administration Latanoprost 1 drop 03/06/21 21:00 03/07/21 21:38 Latanoprost 0.005% Op Soln 2.5 Ml Btl EACH EYE 1 drop HS SAYDA Administration Losartan Potassium 50 mg 03/07/21 09:00 03/08/21 09:10 Losartan Potassium 50 Mg Tablet PO 50 mg QAM SAYDA Administration Morphine Sulfate 2 mg 03/07/21 16:54 03/07/21 18:31 Morphine Sulfate (*Crx) 2 Mg/Ml Inj IV PUSH 2 mg Q1H PRN Administration Pain Rated 7-10 Naloxone HCl 0.1 mg 03/06/21 13:16 Naloxone Hcl 0.4 Mg/Ml Vial IV PUSH Q2M PRN Opiate Reversal Ondansetron HCl 4 mg 03/06/21 13:16 03/07/21 17:53 Ondansetron Inj 4 Mg/2 Ml Vial IV PUSH 4 mg Q4H PRN Administration Nausea And Vomiting Pantoprazole Sodium 40 mg 03/07/21 09:00 03/08/21 09:10 Pantoprazole 40 Mg Tablet PO 40 mg QAM SAYDA Administration Promethazine HCl 12.5 mg 03/07/21 19:33 03/07/21 20:12 Promethazine Hcl 25 Mg/Ml Ampul IV PUSH 12.5 mg Q6H
--- NOTE | 2021-03-08 13:35 | PC.NURSE ---
On 03/08/21, the student, [Karlie Grimes ], provided care and completed [facility] documentation on this patient. I have reviewed the student's documentation and agree with the findings.
[2021-03-08] MEDS: PROMETHAZINE HCL 25 MG/ML AMPUL 12.5 MG IV PUSH (20:40)
[2021-03-08] MEDS: LATANOPROST 0.005% OP SOLN 2.5 ML BTL 1 DROP EACH EYE (20:46)
[2021-03-08] MEDS: MORPHINE SULFATE (*CRX) 2 MG/ML INJ IV PUSH ×2 (20:46→23:57)
[2021-03-08] MEDS: ONDANSETRON INJ 4 MG/2 ML VIAL IV PUSH (23:29)
[2021-03-09] VITALS (7 sets, daily range): BP systolic 132–160; BP diastolic 60–96; PULSE 58–95; RESP 18–20; TEMP 36.3–36.8; O2SAT 97–98
--- NOTE | 2021-03-09 00:28 | PC.NURSE ---
0001 PATIENT WITH NAUSEA, HYPOACTIVE BOWEL SOUNDS, AND ABD DISTENTION. ANTIEMETICS GIVEN ORDERED, DISCUSSED WITH PATIENT POSSIBLE NEED FOR NGT. PATIENT STATES HE WILL REFUSE NGT IF ORDERED. STATES HE HAS HAD IT ATTEMPTED BEFORE AND UNSUCCESSFUL AND IT WAS TOO PAINFUL. WILL CONTINUE TO MONITOR
[2021-03-09 05:31] LABS: Hematocrit 32.6 % (42.0-52.0); Hemoglobin 10.9 g/dL (14.0-18.0); Mean Corpuscular HGB Conc 33.4 g/dl (32-36); Mean Corpuscular Hemoglobin 30.3 pg (26-34); Mean Corpuscular Volume 90.6 fl (80-100); Mean Platelet Volume 9.9 fl (7.4-10.4); Platelet Count Result 187 k/mm3 (150-375); Red Cell Distribution Width 13.2 % (11.5-14.5); White Blood Count 14.9 K/mm3 (4.5-10.0)
[2021-03-09] MEDS: PROMETHAZINE HCL 25 MG/ML AMPUL 12.5 MG IV PUSH ×2 (05:31→12:12)
[2021-03-09 05:46] LABS: Anion Gap 3 mmol/L (8-16); Blood Urea Nitrogen 23 mg/dL (9-20); Calcium 8.5 mg/dL (8.4-10.2); Carbon Dioxide 30 mmol/L (22-30); Chloride 99 mmol/L (98-107); Estimated CRCL calculation 56 ml/min; Estimated Glomerular Filt Rate > 60; Glucose 123 mg/dL (75-110); Potassium 3.8 mmol/L (3.4-5.0); Sodium 132 mmol/L (137-145)
[2021-03-09] MEDS: DORZOLAMIDE/TIMOLOL OPHTH SOL 10 ML BOTTLE 1 DROP EACH EYE ×2 (08:39→20:35)
[2021-03-09] MEDS: carvediloL 12.5 MG TABLET PO ×2 (08:40→20:35)
[2021-03-09] MEDS: LOSARTAN POTASSIUM 50 MG TABLET PO (08:40)
[2021-03-09] MEDS: PANTOPRAZOLE 40 MG TABLET PO (08:40)
[2021-03-09] MEDS: ENOXAPARIN 40 MG/0.4 ML SYRINGE SUB-Q (08:40)
[2021-03-09] MEDS: ONDANSETRON INJ 4 MG/2 ML VIAL IV PUSH ×2 (09:23→18:09)
--- NOTE | 2021-03-09 10:59 | PM.PNGS ---
Progress Note: A&P Assessment and Plan (1) Parastomal hernia without obstruction or gangrene: Code(s): K43.5 - Parastomal hernia without obstruction or gangrene Status: Acute Assessment and Plan: Increased activity, await return of bowel function If nausea worsens or he begins vomiting, patient may need NG tube Subjective Subjective Date/Time Seen: 03/09/21 10:59 Interval history: Patient feeling bloated and somewhat nauseated at times. Has not vomited yet. No fevers or chills. Passing flatus, but no bowel movement. Exam GI: Inspection: distended and incision (Intact with rosalba, no bleeding or drainage) GI Palp: Yes Tenderness to palpation present (GI) (Incisional) and No Guarding due to palpation present (GI) Auscultation: normal bowel sounds Other: Mildly distended but has good bowel sounds Objective Data Vital Signs Vital Signs: Vital Signs - 24 hr 03/08/21 11:59 03/08/21 14:15 03/08/21 20:00 Temperature 36.7 C 36.8 C Pulse Rate 76 75 Respiratory Rate 18 16 Blood Pressure 107/58 L Pulse Oximetry 96 95 03/08/21 20:44 03/08/21 22:00 03/09/21 00:00 Temperature 36.8 C 36.8 C Pulse Rate 75 75 76 Respiratory Rate 16 20 Blood Pressure 139/72 160/96 H Pulse Oximetry 95 98 03/09/21 02:27 03/09/21 08:40 Temperature 36.3 C L Pulse Rate 95 87 Respiratory Rate 18 Blood Pressure 140/76 Pulse Oximetry 97 Intake/Output Intake/Output: Intake & Output 03/06/21 03/07/21 03/08/21 03/09/21 23:59 23:59 23:59 23:59 Intake Total 1455 3320 3025 990 Output Total 350 1350 820 900 Balance 1105 1970 2205 90 Meds/Results Medications: Active Medications Generic Name Dose Route Start Last Admin Trade Name Freq PRN Reason Stop Dose Admin Acetaminophen 650 mg 03/06/21 17:31 03/08/21 16:04 Acetaminophen 325 Mg Tablet PO 650 mg Q4H PRN Administration Mild Pain (1-3) or Fever Hydrocodone Bitart/Acetaminophen 1 tab 03/09/21 10:13 Hydrocodone/Acetaminophen (*Crx) 5-325 Mg Tablet PO Q4H PRN Pain Rated 4-6 Hydrocodone Bitart/Acetaminophen 1 tab 03/09/21 10:13 Hydrocodone/Acetaminophen (*Crx) 10-325 Mg Tablet PO Q4H PRN Pain Rated 7-10 Artificial Tears 1 drop 03/06/21 13:16 Artificial Tears Op Soln 15 Ml Bottle EACH EYE DAILY PRN Dry Eye(S) Carvedilol 12.5 mg 03/06/21 21:00 03/09/21 08:40 Carvedilol 12.5 Mg Tablet PO 12.5 mg Q12HR SAYDA Administration Dorzolamide/Timolol 1 drop 03/06/21 21:00 03/09/21 08:39 Dorzolamide/Timolol Ophth Roseanna 10 Ml Bottle EACH EYE 1 drop Q12HR SAYDA Administration Enoxaparin Sodium 40 mg 03/07/21 09:00 03/09/21 08:40 Enoxaparin 40 Mg/0.4 Ml Syringe SUB-Q 40 mg DAILY SAYDA Administration Latanoprost 1 drop 03/06/21 21:00 03/08/21 20:46 Latanoprost 0.005% Op Soln 2.5 Ml Btl EACH EYE 1 drop HS SAYDA Administration Losartan Potassium 50 mg 03/07/21 09:00 03/09/21 08:40 Losartan Potassium 50 Mg Tablet PO 50 mg QAM SAYDA Administration Naloxone HCl 0.1 mg 03/06/21 13:16 Naloxone Hcl 0.4 Mg/Ml Vial IV PUSH Q2M PRN Opiate Reversal Ondansetron HCl 4 mg 03/06/21 13:16 03/09/21 09:23 Ondansetron Inj 4 Mg/2 Ml Vial IV PUSH 4 mg Q4H PRN Administration Nausea And Vomiting Pantoprazole Sodium 40 mg 03/07/21 09:00 03/09/21 08:40 Pantoprazole 40 Mg Tablet PO 40 mg QAM SAYDA Administration Promethazine HCl 12.5 mg 03/07/21 19:33 03/09/21 05:31 Promethazine Hcl 25 Mg/Ml Ampul IV PUSH 12.5 mg Q6H PRN Administration Nausea And Vomiting Labs Labs: Laboratory Results - last 24 hr 03/09/21 03/09/21 05:11 05:11 WBC 14.9 H RBC 3.60 L Hgb 10.9 L Hct 32.6 L MCV 90.6 MCH 30.3 MCHC 33.4 RDW 13.2 Plt Count 187 MPV 9.9 Sodium 132 L Potassium 3.8 Chloride 99 Carbon Dioxide 30 Anion Gap 3 L BUN 23 H Creatinine 1.10 Estim Creat Clear Calc 56 Estimated
[2021-03-09] MEDS: SODIUM CHLORIDE 0.9% IV 250 ML 20 ML (12:55)
[2021-03-09] MEDS: LATANOPROST 0.005% OP SOLN 2.5 ML BTL 1 DROP EACH EYE (20:34)
[2021-03-10] VITALS (7 sets, daily range): BP systolic 137–146; BP diastolic 71–76; PULSE 73–84; RESP 18–20; TEMP 36.3–36.6; O2SAT 96–100
[2021-03-10] MEDS: ACETAMINOPHEN 325 MG TABLET 650 MG PO ×5 (02:11→23:38)
[2021-03-10 05:27] LABS: Hematocrit 28.8 % (42.0-52.0); Hemoglobin 9.6 g/dL (14.0-18.0); Mean Corpuscular HGB Conc 33.3 g/dl (32-36); Mean Platelet Volume 9.7 fl (7.4-10.4); Platelet Count Result 195 k/mm3 (150-375); Red Cell Distribution Width 13.2 % (11.5-14.5); White Blood Count 11.7 K/mm3 (4.5-10.0)
[2021-03-10 05:39] LABS: Anion Gap 2 mmol/L (8-16); Blood Urea Nitrogen 20 mg/dL (9-20); Calcium 8.1 mg/dL (8.4-10.2); Carbon Dioxide 29 mmol/L (22-30); Chloride 102 mmol/L (98-107); Estimated CRCL calculation 57 ml/min; Estimated Glomerular Filt Rate > 60; Glucose 100 mg/dL (75-110); Potassium 3.4 mmol/L (3.4-5.0); Sodium 133 mmol/L (137-145)
[2021-03-10] MEDS: carvediloL 12.5 MG TABLET PO ×2 (08:15→20:49)
[2021-03-10] MEDS: PANTOPRAZOLE 40 MG TABLET PO (08:15)
[2021-03-10] MEDS: LOSARTAN POTASSIUM 50 MG TABLET PO (08:15)
[2021-03-10] MEDS: DORZOLAMIDE/TIMOLOL OPHTH SOL 10 ML BOTTLE 1 DROP EACH EYE ×2 (08:16→20:49)
[2021-03-10] MEDS: ENOXAPARIN 40 MG/0.4 ML SYRINGE SUB-Q (08:17)
--- NOTE | 2021-03-10 11:36 | PM.PNGS ---
Progress Note: A&P Assessment and Plan (1) Parastomal hernia without obstruction or gangrene: Code(s): K43.5 - Parastomal hernia without obstruction or gangrene Status: Acute Assessment and Plan: Patient slowly improving increasing his activity. Will start MiraLax daily today Await further return of bowel function, possibly home within the next 1-2 days. (2) History of creation of ostomy: Code(s): Z93.9 - Artificial opening status, unspecified Status: Acute Subjective Subjective Date/Time Seen: 03/10/21 11:36 Interval history: Nausea resolved, passing some flatus, but no bowel movement for a couple days. Tolerating soft diet. Pain well controlled. Exam GI: Inspection: distended and incision (Intact with rosalba, no bleeding or drainage) GI Palp: Yes Tenderness to palpation present (GI) (Incisional) and No Guarding due to palpation present (GI) Auscultation: normal bowel sounds Other: Mildly distended but has good bowel sounds Objective Data Vital Signs Vital Signs: Vital Signs - 24 hr 03/09/21 18:00 03/09/21 20:35 03/09/21 21:42 Temperature 36.3 C L Pulse Rate 58 L 86 Respiratory Rate 18 Blood Pressure 132/60 Pulse Oximetry 98 97 03/09/21 22:00 03/10/21 02:00 03/10/21 06:00 Temperature 36.7 C 36.4 C 36.3 C L Pulse Rate 86 81 78 Respiratory Rate 18 18 20 Blood Pressure 151/84 H 142/76 H 142/71 H Pulse Oximetry 97 96 98 03/10/21 08:15 Temperature Pulse Rate 84 Respiratory Rate Blood Pressure Pulse Oximetry Intake/Output Intake/Output: Intake & Output 03/07/21 03/08/21 03/09/21 03/10/21 23:59 23:59 23:59 23:59 Intake Total 3320 3025 1540 810 Output Total 1644 408 2855 1000 Balance 1970 2205 90 -190 Meds/Results Medications: Active Medications Generic Name Dose Route Start Last Admin Trade Name Freq PRN Reason Stop Dose Admin Acetaminophen 650 mg 03/06/21 17:31 03/10/21 11:24 Acetaminophen 325 Mg Tablet PO 650 mg Q4H PRN Administration Mild Pain (1-3) or Fever Hydrocodone Bitart/Acetaminophen 1 tab 03/09/21 10:13 Hydrocodone/Acetaminophen (*Crx) 5-325 Mg Tablet PO Q4H PRN Pain Rated 4-6 Hydrocodone Bitart/Acetaminophen 1 tab 03/09/21 10:13 Hydrocodone/Acetaminophen (*Crx) 10-325 Mg Tablet PO Q4H PRN Pain Rated 7-10 Artificial Tears 1 drop 03/06/21 13:16 Artificial Tears Op Soln 15 Ml Bottle EACH EYE DAILY PRN Dry Eye(S) Carvedilol 12.5 mg 03/06/21 21:00 03/10/21 08:15 Carvedilol 12.5 Mg Tablet PO 12.5 mg Q12HR SAYDA Administration Dorzolamide/Timolol 1 drop 03/06/21 21:00 03/10/21 08:16 Dorzolamide/Timolol Ophth Roseanna 10 Ml Bottle EACH EYE 1 drop Q12HR SAYDA Administration Enoxaparin Sodium 40 mg 03/07/21 09:00 03/10/21 08:17 Enoxaparin 40 Mg/0.4 Ml Syringe SUB-Q 40 mg DAILY SAYDA Administration Latanoprost 1 drop 03/06/21 21:00 03/09/21 20:34 Latanoprost 0.005% Op Soln 2.5 Ml Btl EACH EYE 1 drop HS SAYDA Administration Losartan Potassium 50 mg 03/07/21 09:00 03/10/21 08:15 Losartan Potassium 50 Mg Tablet PO 50 mg QAM SAYDA Administration Naloxone HCl 0.1 mg 03/06/21 13:16 Naloxone Hcl 0.4 Mg/Ml Vial IV PUSH Q2M PRN Opiate Reversal Ondansetron HCl 4 mg 03/06/21 13:16 03/09/21 18:09 Ondansetron Inj 4 Mg/2 Ml Vial IV PUSH 4 mg Q4H PRN Administration Nausea And Vomiting Pantoprazole Sodium 40 mg 03/07/21 09:00 03/10/21 08:15 Pantoprazole 40 Mg Tablet PO 40 mg QAM SAYDA Administration Polyethylene Glycol 17 gm 03/10/21 11:40 Polyethylene Glycol 3350 17 Gm Powd.Pack PO QAM SAYDA Promethazine HCl 12.5 mg 03/07/21 19:33 03/09/21 12:12 Promethazine Hcl 25 Mg/Ml Ampul IV PUSH 12.5 mg Q6H PRN Administration Nausea And Vomiting Labs Labs: Laboratory Results - last 24 hr 03/10/21 03/10/21 05:03 05:03 WBC 11.7 H RBC 3.20 L Hgb 9.6 L Hct 28.8
[2021-03-10] MEDS: polyethylene glycoL 3350 17 GM POWD.PACK PO (12:18)
[2021-03-10] MEDS: LATANOPROST 0.005% OP SOLN 2.5 ML BTL 1 DROP EACH EYE (20:48)
[2021-03-11 06:00] VITALS: BP 152/81; PULSE 80; RESP 18; TEMP 36.1; O2SAT 96
[2021-03-11] MEDS: PANTOPRAZOLE 40 MG TABLET PO (08:06)
[2021-03-11] MEDS: LOSARTAN POTASSIUM 50 MG TABLET PO (08:06)
[2021-03-11 08:07] VITALS: PULSE 80
[2021-03-11] MEDS: ENOXAPARIN 40 MG/0.4 ML SYRINGE SUB-Q (08:07)
[2021-03-11] MEDS: carvediloL 12.5 MG TABLET PO ×2 (08:07→20:43)
[2021-03-11] MEDS: polyethylene glycoL 3350 17 GM POWD.PACK PO (08:13)
[2021-03-11] MEDS: ACETAMINOPHEN 325 MG TABLET 650 MG PO (08:17)
[2021-03-11] MEDS: DORZOLAMIDE/TIMOLOL OPHTH SOL 10 ML BOTTLE 1 DROP EACH EYE ×2 (09:49→20:43)
[2021-03-11 14:00] VITALS: BP 133/60; PULSE 65; RESP 16; TEMP 36.6; O2SAT 96
--- NOTE | 2021-03-11 15:36 | PM.PNGS ---
Progress Note: A&P Assessment and Plan (1) Perforation of sigmoid colon: Code(s): K63.1 - Perforation of intestine (nontraumatic) Status: Resolved Assessment and Plan: await bowel fxn, cont bowel regimen, encourage OOB/IS, regular diet Subjective Subjective Date/Time Seen: 03/11/21 15:36 feels better, still awaiting bowel fxn, pt c small BM this am, +flatus Review of Systems Review of Systems: All systems reviewed & are unremarkable except as noted in HPI and below Exam Const: General: cooperative, comfortable and no acute distress Resp: Auscultation: clear to auscultation bilaterally Cardio: Rate: regular rate Rhythm: regular rhythm GI: Inspection: normal to inspection, distended and incision GI Palp: Yes Soft to palpation, No Tenderness to palpation present (GI) and No Guarding due to palpation present (GI) Other: soft, mod dist, ra TTP, incisions C/D/I Objective Data Vital Signs Vital Signs: Vital Signs - 24 hr 03/10/21 20:00 03/10/21 20:49 03/10/21 22:00 Temperature 36.6 C Pulse Rate 81 74 81 Respiratory Rate 18 18 Blood Pressure 137/75 Pulse Oximetry 96 96 03/11/21 06:00 03/11/21 08:07 03/11/21 14:00 Temperature 36.1 C L 36.6 C Pulse Rate 80 80 65 Respiratory Rate 18 16 Blood Pressure 152/81 H 133/60 Pulse Oximetry 96 96 Intake/Output Intake/Output: Intake & Output 03/08/21 03/09/21 03/10/21 03/11/21 23:59 23:59 23:59 23:59 Intake Total 3025 1540 1530 1030 Output Total 820 1450 1550 1100 Balance 2205 90 -20 -70 Meds/Results Medications: Active Medications Generic Name Dose Route Start Last Admin Trade Name Freq PRN Reason Stop Dose Admin Acetaminophen 650 mg 03/06/21 17:31 03/11/21 08:17 Acetaminophen 325 Mg Tablet PO 650 mg Q4H PRN Administration Mild Pain (1-3) or Fever Hydrocodone Bitart/Acetaminophen 1 tab 03/09/21 10:13 Hydrocodone/Acetaminophen (*Crx) 5-325 Mg Tablet PO Q4H PRN Pain Rated 4-6 Hydrocodone Bitart/Acetaminophen 1 tab 04/10/21 10:13 Hydrocodone/Acetaminophen (*Crx) 10-325 Mg Tablet PO Q4H PRN Pain Rated 7-10 Artificial Tears 1 drop 03/06/21 13:16 Artificial Tears Op Soln 15 Ml Bottle EACH EYE DAILY PRN Dry Eye(S) Carvedilol 12.5 mg 03/06/21 21:00 03/11/21 08:07 Carvedilol 12.5 Mg Tablet PO 12.5 mg Q12HR SAYDA Administration Dorzolamide/Timolol 1 drop 03/06/21 21:00 03/11/21 09:49 Dorzolamide/Timolol Ophth Roseanna 10 Ml Bottle EACH EYE 1 drop Q12HR SAYDA Administration Enoxaparin Sodium 40 mg 03/07/21 09:00 03/11/21 08:07 Enoxaparin 40 Mg/0.4 Ml Syringe SUB-Q 40 mg DAILY SAYDA Administration Latanoprost 1 drop 03/06/21 21:00 03/10/21 20:48 Latanoprost 0.005% Op Soln 2.5 Ml Btl EACH EYE 1 drop HS SAYDA Administration Losartan Potassium 50 mg 03/07/21 09:00 03/11/21 08:06 Losartan Potassium 50 Mg Tablet PO 50 mg QAM SAYDA Administration Naloxone HCl 0.1 mg 03/06/21 13:16 Naloxone Hcl 0.4 Mg/Ml Vial IV PUSH Q2M PRN Opiate Reversal Ondansetron HCl 4 mg 03/06/21 13:16 03/09/21 18:09 Ondansetron Inj 4 Mg/2 Ml Vial IV PUSH 4 mg Q4H PRN Administration Nausea And Vomiting Pantoprazole Sodium 40 mg 03/07/21 09:00 03/11/21 08:06 Pantoprazole 40 Mg Tablet PO 40 mg QAM SAYDA Administration Polyethylene Glycol 17 gm 03/10/21 11:40 03/11/21 08:13 Polyethylene Glycol 3350 17 Gm Powd.Pack PO 17 gm QAM SAYDA Administration Promethazine HCl 12.5 mg 03/07/21 19:33 03/09/21 12:12 Promethazine Hcl 25 Mg/Ml Ampul IV PUSH 12.5 mg Q6H PRN Administration Nausea And Vomiting
[2021-03-11 20:00] VITALS: PULSE 82; RESP 18; O2SAT 97
[2021-03-11] MEDS: LATANOPROST 0.005% OP SOLN 2.5 ML BTL 1 DROP EACH EYE (20:42)
[2021-03-11 20:43] VITALS: PULSE 82
[2021-03-11 21:18] VITALS: BP 152/73; PULSE 82; RESP 18; TEMP 37.2; O2SAT 97
[2021-03-12] MEDS: ACETAMINOPHEN 325 MG TABLET 650 MG PO (01:18)
[2021-03-12 05:25] VITALS: BP 140/74; PULSE 70; RESP 16; TEMP 36.9; O2SAT 97
[2021-03-12 08:10] VITALS: PULSE 64
[2021-03-12] MEDS: PANTOPRAZOLE 40 MG TABLET PO (08:10)
[2021-03-12] MEDS: LOSARTAN POTASSIUM 50 MG TABLET PO (08:10)
[2021-03-12] MEDS: ENOXAPARIN 40 MG/0.4 ML SYRINGE SUB-Q (08:10)
[2021-03-12] MEDS: carvediloL 12.5 MG TABLET PO (08:10)
[2021-03-12] MEDS: polyethylene glycoL 3350 17 GM POWD.PACK PO (08:11)
[2021-03-12] MEDS: DORZOLAMIDE/TIMOLOL OPHTH SOL 10 ML BOTTLE 1 DROP EACH EYE (08:11)
--- NOTE | 2021-03-12 11:16 | PM.DS ---
DS: Admitting Diagnosis Admitting Diagnosis Admitting Diagnosis: perforated sigmoid colon DS: Discharge Diagnosis Discharge Diagnosis (1) Perforation of sigmoid colon: Code(s): K63.1 - Perforation of intestine (nontraumatic) Status: Resolved Assessment and Plan: s/p Hartmans' reversal, doing well, cont routine postoperative care, f/u 1 wk for staple removal (2) Parastomal hernia without obstruction or gangrene: Code(s): K43.5 - Parastomal hernia without obstruction or gangrene Status: Acute Assessment and Plan: s/p primary repair, cont routine postoperative care and light activity restrictions DS: Summary Hospital Course Reason for hospitalization: Hartmans' reversal, repair of parastomal hernia Hospital Course: Pt is a 75 y/o M well known to the service from previous Hartmans' procedure in 10/19 for perforated sigmoid colon. Pt presented on 03/06/21 for Hartmans' reversal and repair of parastomal hernia, please see op report for details. Postop, pt has done well on the surgical floor. Pt slowly c return of bowel fxn and now nuzhat reg diet. Pt has been OOB and ambulating s issue. Pt c mild soreness at incision controlled c Tylenol. Pt will be dc'd home c instructions for light activity and local wound care. Pt to f/u 1 wk for staple removal. Status at Discharge Functional status at discharge: independent ambulation Overall status at discharge: patient is progressing back to baseline Time Spent with Patient Time attestation: Total time spent providing and/or coordinating discharge services: Time spent: Less than 30 minutes Exam Const: General: cooperative, comfortable and no acute distress Orientation/consciousness: patient oriented x3 Limitations: no limitations Resp: Auscultation: clear to auscultation bilaterally Cardio: Rate: regular rate Rhythm: regular rhythm GI: Inspection: normal to inspection and incision GI Palp: Yes Soft to palpation and Yes Tenderness to palpation present (GI) Other: soft, sl dist, ra TTP, incisions C/D/I DS: Data Data Completed and Pending Completed studies during hospitalization: Pending at discharge 03/06/21 11:55 Surgical [PTH] Routine Surgical [PTH] Routine Discharge Plan Discharge Attending physician on discharge: Kelsie Rodriguez Discharging Clinician: Kelsie Rodriguez Patient Disposition: Home, Self-Care Activity: may shower and no straining Diet: as tolerated Patient Instructions: Antibiotic Form, Open Colostomy Reversal (DC) Stand Alone Forms: General Discharge Information Follow-up/Referrals: Kelsie Rodriguez MD [Physician] - 1 Week Discharge Medications: Continued Stool Softener 50 mg capsule 50 mg PO DAILY RF: 0 Systane Ultra 0.4-0.3 % drops 1 drp ophthalmic (eye) DAILY PRN (Reason: Dry Eye(S)) RF: 0 latanoprost 0.005 % drops 1 drop EACH EYE QPM RF: 0 dorzolamide-timolol (PF) 2-0.5 % drops 1 drop EACH EYE BID RF: 0 multivitamin with minerals [Men's One Daily] Tablet 1 tablet PO DAILY RF: 0 Adult 50 Plus Probiotic 4 billion cell capsule 4,000 mmu cells PO DAILY RF: 0 acetaminophen [Tylenol Extra Strength] 500 mg tablet 500 mg PO Q6H PRN (Reason: Pain) RF: 0 carvedilol [Coreg] 12.5 mg Tablet 12.5 mg PO Q12HR Qty: 60 RF: 4 losartan [Cozaar] 50 mg Tablet 50 mg PO QAM Qty: 30 RF: 4 neomycin 500 mg tablet See Rx Instructions PO .COMPLEX Qty: 6 RF: 0 metronidazole 500 mg tablet 500 mg PO .COMPLEX Qty: 3 RF: 0 Date of admission: 03/06/21 13:16 Primary Care Provider: Lincoln Calzada Admitting Provider: Kelsie Rodriguez Attending physician on admission: Kelsie Rodriguez Condition: Stable
== END 2021-03-12 13:27 | disposition home or self-care (01) | DRG 344 ==
LOC: ANH2MED 03-08 00:55
PROVIDERS: Nurse Practitioner Family; Admitting Provider Surgery; PCP Physician Assistant; Visit Provider Surgery
PROC: 0DSN0ZZ Reposition Sigmoid Colon, Open Approach (ICD-10-PCS; CPT 44620; principal; 2021-03-06 09:30)
DX: K43.5 Parastomal hernia without obstruction or gangrene (principal); K63.1 Perforation of intestine (nontraumatic); Z43.3 Encounter for attention to colostomy; N40.0 Benign prostatic hyperplasia without lower urinary tract symptoms; J43.9 Emphysema, unspecified; H40.9 Unspecified glaucoma; M89.49 Other hypertrophic osteoarthropathy, multiple sites; D35.02 Benign neoplasm of left adrenal gland; Z79.899 Other long term (current) drug therapy; Z85.828 Personal history of other malignant neoplasm of skin; Z85.118 Personal history of other malignant neoplasm of bronchus and lung; Z86.010 Personal history of colon polyps; Z87.891 Personal history of nicotine dependence; Z98.49 Cataract extraction status, unspecified eye
CPT/HCPCS: 36415; 80048; 85025; 85027; 88304; 88305; 88307; A9270; J0330; J0360; J1100; J1650; J1885; J2270; J2405; J2550; J2704; J2710; J3010; J7050; J7120

== ENCOUNTER 2021-07-18 13:34 | Outpatient (CLI) | payer MEDICARE, SELFPAY ==
--- NOTE | ~2021-07-18 | PE_ITS ---
EXAMINATION: PET skull to mid thigh DATE: 07/18/2021 15:21 INDICATION: Lung cancer. TECHNIQUE: Blood glucose level was 98 mg/dL. 9.945 mCi of 18-fluorodeoxyglucose (18-FDG) was administ ered i.v. Low dose computed tomography (CT) images were acquired from the base of the brain to the pr oximal thighs for attenuation correction and anatomic localization. Automated exposure control was em ployed. Dose-length product (DLP) was 495 mGy-cm. Positron emission tomography (PET) images were acqu ired in the same distribution. COMPARISON: Chest CT 07/04/2021, 06/09/2017 FINDINGS: Head/neck: There is increased activity in the oropharynx without abnormal CT correlate, likely physio logic. There are no pathologically enlarged lymph nodes. Chest: There is mild scarring at the lung apices without increased activity. There are changes of lef t lower lobectomy. There is mild atelectasis in the lungs. Calcified bilateral lung nodules and calci fied right hilar and mediastinal lymph nodes are consistent with old granulomatous disease. There is a 1.9 cm nodule in right lung lower lobe with maximum SUV of 3.7. No pleural effusion. The heart size is normal. No pericardial effusion. There are coronary artery calcifications. There is a large slidi ng hiatal hernia. There is thoracic kyphosis and severe spondylosis. There is mild chronic anterior w edging of multiple vertebral bodies. Abdomen/pelvis/proximal thighs: The liver, gallbladder, spleen, pancreas, and right adrenal gland are normal. There is a 1.5 cm mass in left adrenal gland measuring low-attenuation without increased act ivity, consistent with an adenoma. Right kidney is normal. There is a 1.8 cm cyst in left kidney. The re are no dilated loops of bowel. The prostate is moderately enlarged. There is a widemouthed ventral hernia containing nonobstructed small bowel. There are no pathologically enlarged lymph nodes. There is no free intraperitoneal fluid. There is lumbar levoscoliosis and severe spondylosis. IMPRESSION: 1. 1.9 cm nodule in right lung lower lobe with maximum SUV of 3.7, consistent with primary bronchogen ic carcinoma. CT-guided biopsy is recommended. 2. Large sliding hiatal hernia. 3. Ventral hernia containing nonobstructed small bowel. Reviewed, dictated and finalized at location D. IMPRESSION: 1. 1.9 cm nodule in right lung lower lobe with maximum SUV of 3.7, consistent w ith primary bronchogenic carcinoma. CT-guided biopsy is recommended. 2. Large sliding hiatal hernia. 3. Ventral hernia containing nonobstructed small bowel.
[2021-07-18 13:56] LABS: Glucose Point of Care 98 mg/dl (65-105)
== END 2021-07-18 13:35 | disposition home or self-care (01) ==
LOC: ANHIMG 13:36
PROVIDERS: PCP Physician Assistant
DX: C34.31 Malignant neoplasm of lower lobe, right bronchus or lung (principal)
CPT/HCPCS: 78815; A9552

== ENCOUNTER 2021-07-23 08:51 | Outpatient (CLI) | payer MEDICARE, SELFPAY ==
[2021-07-18 11:46] VITALS: BMI 21.2
[2021-07-23] VITALS (9 sets, daily range): BP systolic 142–167; BP diastolic 73–96; PULSE 61–73; RESP 18–19; TEMP 36.4; O2SAT 100
--- NOTE | ~2021-07-23 | XR_ITS ---
EXAMINATION: XR chest 1V portable DATE: 07/23/2021 13:07 INDICATION: Right lung nodule status post percutaneous biopsy. TECHNIQUE: A single frontal view of the chest was obtained on 2 radiographs. COMPARISON: Chest single view at 11:44 AM FINDINGS: Calcified pulmonary nodules and calcified right hilar and mediastinal lymph nodes are consi stent with old granulomatous disease. There is mild atelectasis in right lower lung zone. No pleural effusion. There is a tiny right apical pneumothorax. The heart size is normal. There is a large hiata l hernia. IMPRESSION: 1. Stable tiny right apical pneumothorax. 2. Mild atelectasis in right lower lung zone. 3. Large hiatal hernia. Reviewed, dictated and finalized at location A.
--- NOTE | ~2021-07-23 | CT_ITS ---
EXAMINATION: CT biopsy lung w/imaging DATE: 07/23/2021 11:54 INDICATION: Right lung lower lobe nodule. TECHNIQUE: The procedure including the risks, benefits, and alternatives and possibility of chest tub e placement were discussed with the patient. Risks discussed included infection, approximately 1/20 r isk of symptomatic hemorrhage beyond mild hemoptysis, approximately 1/3 risk of pneumothorax, approxi mately 1/10 risk of pneumothorax severe enough to warrant chest tube placement, and rarely . The patient understood the risks and agreed to proceed. The patient was placed prone with the right side elevated. The skin overlying the right lung lower lobe was prepped and draped in sterile fashion. Anesthetic was administered with 1% lidocaine subcutaneously. A 19 gauge outer needle was advanced u nder CT guidance to the lesion of interest. A pneumothorax develops before samples could be taken. Th e needle was removed and the entry site was cleaned and dressed. The mA was adjusted according to pat ient size. Iterative reconstruction technique was employed. The dose-length product was 227.79 mGy-cm . FINDINGS: CT images demonstrate the outer needle tip adjacent to a 17 mm nodule in right lung lower l obe. There is a large sliding hiatal hernia. The final images demonstrate a small right pneumothorax. IMPRESSION: 1. Small right pneumothorax status post failed CT-guided core needle biopsy. 2. 17 mm right lung lower lobe nodule suspicious for primary bronchogenic carcinoma. A repeat biopsy should be scheduled in 1-2 weeks. 3. Large sliding hiatal hernia. Reviewed, dictated and finalized at location A. IMPRESSION: 1. Small right pneumothorax status post failed CT-guided core needle biopsy. 2. 17 mm right lung lower lobe nodule suspicious for primary bronchogenic carci noma. A repeat biopsy should be scheduled in 1-2 weeks. 3. Large sliding hiatal hernia.
--- NOTE | ~2021-07-23 | XR_ITS ---
EXAMINATION: XR chest 1V DATE: 07/23/2021 11:48 INDICATION: Right lung lower lobe nodule status post percutaneous biopsy. TECHNIQUE: A single frontal view of the chest was obtained. COMPARISON: Chest single view 10/21/2020 FINDINGS: Calcified pulmonary nodules and calcified right hilar and mediastinal lymph nodes are consi stent with old granulomatous disease. There is mild atelectasis in right lower lung zone. No pleural effusion. There is a tiny right apical pneumothorax. The heart size is normal. There is a large hiata l hernia. IMPRESSION: 1. Tiny right apical pneumothorax. 2. Large hiatal hernia. Reviewed, dictated and finalized at location A.
--- NOTE | ~2021-07-23 | XR_ITS ---
EXAMINATION: XR chest 1V portable DATE: 07/23/2021 14:58 INDICATION: Right lung nodule status post percutaneous biopsy. TECHNIQUE: A single frontal view of the chest was obtained on 2 radiographs. COMPARISON: Chest single view at 1:02 PM FINDINGS: There is a small right pneumothorax. Calcified bilateral lung nodules and calcified right h ilar and mediastinal lymph nodes are consistent with old granulomatous disease. There is mild atelect asis in the lower lung zones. No pleural effusion. The heart size is normal. There is a large hiatal hernia. IMPRESSION: 1. Worsened small right pneumothorax. 2. Mild atelectasis in the lower lung zones. 3. Large hiatal hernia. Reviewed, dictated and finalized at location A.
[2021-07-23 09:44] LABS: Mean Platelet Volume 9.5 fl (7.4-10.4); Platelet Count Result 258 k/mm3 (150-375)
[2021-07-23 10:04] LABS: Prothrombin Time 13.1 Seconds (11.1-14.7)
--- NOTE | 2021-07-23 12:31 | SUR.PHASEII ---
BP ELEVATED AND CALLED DR BROUSSARD. NO ORDERS AT THIS TIME.
--- NOTE | 2021-07-23 15:35 | SUR.PHASEII ---
dr claros came and discussed with pt about going home. dr claros told him and his that they need to pay attention to his breathing, and if shortness of breath or chest pain, they need to get him up to ER.
== END 2021-07-23 15:20 | disposition home or self-care (01) ==
PROVIDERS: Radiology Diagnostic Radiology; PCP Physician Assistant
DX: C34.90 Malignant neoplasm of unspecified part of unspecified bronchus or lung (principal); K44.9 Diaphragmatic hernia without obstruction or gangrene; R91.8 Other nonspecific abnormal finding of lung field; J95.811 Postprocedural pneumothorax
CPT/HCPCS: 32408; 36415; 71045; 85049; 85610

== ENCOUNTER 2022-02-11 11:37 | Outpatient (CLI) | payer MEDICARE, SELFPAY ==
--- NOTE | ~2022-02-11 | XR_ITS ---
EXAMINATION: HAND-ELENI ARTHRITIS 3+VIEWS DATE: 02/11/2022 12:03 INDICATION: Joint pain in the right hand and bilateral hand numbness TECHNIQUE: Posteroanterior, lateral, and oblique views of the left and of the right hands as well as a ballcatchers view of both hands were obtained. COMPARISON: None. FINDINGS: Alignment is normal. No fracture. 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 There are scattered degenerative subchondral cysts most prominent at the left lunate. Heterotopic o ssification at the ulnar side of the left third proximal interphalangeal joint which could represent sequela of old trauma to the ulnar collateral ligament. Periarticular soft tissue swelling about radha ral of the bilateral interphalangeal joints. IMPRESSION: 1. 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 Reviewed, dictated and finalized at location A. IMPRESSION: 1. Moderate to severe polyarticular osteoarthritis at the bilateral hands and w rists.
--- NOTE | ~2022-02-11 | XR_ITS ---
EXAMINATION: XR shoulder LT min 2V DATE: 02/11/2022 12:04 INDICATION: Left shoulder pain. TECHNIQUE: 5 views of left shoulder were obtained. COMPARISON: None. FINDINGS: Bone alignment is normal. No fracture. There is moderate osteoarthritis of glenohumeral nely nt and acromioclavicular joint. IMPRESSION: 1. Polyarticular osteoarthritis. Reviewed, dictated and finalized at location A.
== END 2022-02-11 11:38 | disposition home or self-care (01) ==
LOC: ANHIMG 11:41
PROVIDERS: PCP Family Medicine; Visit Provider Family Medicine
DX: M19.042 Primary osteoarthritis, left hand (principal); M19.041 Primary osteoarthritis, right hand; M19.032 Primary osteoarthritis, left wrist; M19.031 Primary osteoarthritis, right wrist; M79.89 Other specified soft tissue disorders; M19.012 Primary osteoarthritis, left shoulder
CPT/HCPCS: 73030; 73130

== ENCOUNTER 2024-02-10 14:23 | Outpatient (CLI) | payer MEDICARE, SELFPAY ==
--- NOTE | ~2024-02-10 | XR_ITS ---
EXAMINATION: XR ribs RT 2V DATE: 02/10/2024 14:59 INDICATION: Pleurodynia TECHNIQUE: 3 views of the right ribs were obtained. COMPARISON: Chest radiograph dated 07/23/21 FINDINGS: No rib fractures identified. Curvilinear discoid atelectasis/scarring at the right lower lung zone. T here are few bilateral calcified pulmonary nodules along with calcified hilar and mediastinal lymph n odes consistent with old granulomatous disease. Volume loss in left hemithorax with elevation of left hemidiaphragm. Suture line at the left hilum suggesting this may be related to prior partial left pn eumonectomy. Moderate-sized hiatal hernia. Heart size is normal. S-shaped thoracal lumbar scoliosis w ith severe spondylosis. IMPRESSION: 1. No rib fracture or acute cardiopulmonary disease. 2. Moderate-sized hiatal hernia. Reviewed, dictated and finalized at location B.
--- NOTE | ~2024-02-10 | XR_ITS ---
XR thoracic spine 2V 02/10/2024 14:59 Indication: Scoliosis Procedure: 4 views of the thoracic spine Comparison: No prior studies for comparison. Findings: There is dextroscoliosis of the thoracolumbar spine centered at T12. There is moderate mult ilevel thoracic and upper lumbar spondylosis. No acute fracture or traumatic malalignment. No foreign bodies. Impression: 1: Moderate thoracic spondylosis with dextroscoliosis centered at T12. Reviewed, dictated and finalized at location A. Impression: 1: Moderate thoracic spondylosis with dextroscoliosis centered at T12.
--- NOTE | ~2024-02-10 | XR_ITS ---
XR lumbar spine 2-3V 02/10/2024 14:59 Indication: Scoliosis Procedure: 3 views lumbar spine Comparison: No prior studies for comparison. Findings: There is levoscoliosis. There is disc narrowing and endplate hypertrophy at all lumbar leve ls. Pedicles intact. Sacral foramen are symmetric. No evidence for spondylolisthesis. There is athero sclerosis. Impression: 1: Severe lumbar spondylosis with levoscoliosis. Reviewed, dictated and finalized at location A. Impression: 1: Severe lumbar spondylosis with levoscoliosis.
== END 2024-02-10 14:24 | disposition home or self-care (01) ==
PROVIDERS: PCP Family Medicine; Visit Provider Physician Assistant Medical
DX: M41.9 Scoliosis, unspecified (principal); R07.81 Pleurodynia; M47.894 Other spondylosis, thoracic region; K44.9 Diaphragmatic hernia without obstruction or gangrene; M47.896 Other spondylosis, lumbar region
CPT/HCPCS: 71100; 72070; 72100

== ENCOUNTER 2024-07-18 13:00 | Outpatient (CLI) | payer MEDICARE, SELFPAY ==
--- NOTE | ~2024-07-18 | XR_ITS ---
EXAMINATION: XR chest 2V Exam Date/Time: 07/18/2024 13:30 CDT HISTORY: J18.9 - Pneumonia, unspecified organism RECENT LUNG CA TX Comparison: 07/23/2021, 10/18/2020. RESULT: Lines, tubes, and devices: Left apical/suprahilar suture line. Lungs and pleura: Severe emphysematous change. Right lower lung bulla. Cardiomediastinal silhouette: Stable. Hiatal hernia. Other: No acute osseous or upper abdominal finding. Subacute right rib fractures. IMPRESSION: No acute cardiopulmonary process. Reviewed, dictated and finalized at location K.
--- NOTE | ~2024-07-18 | XR_ITS ---
XR abdomen obstructive series Ordering provider: Milka Guerrero MD History: . R19.7 - Diarrhea, unspecified . Comparison: None. FINDINGS: BOWEL: Nonobstructive bowel gas pattern. Sliding hiatus hernia. ORGANOMEGALY: None. SIGNIFICANT PATHOLOGIC CALCIFICATIONS: None. OTHER: S-shaped scoliosis with degenerative changes. No free air is seen under the diaphragm. IMPRESSION: NO ACUTE ABDOMINAL FINDINGS. Reviewed, dictated and finalized at location A.
[2024-07-18 13:35] LABS: Basophils Percent Auto 0.3 % (0.2-1.2); Eosinophils Absolute Auto 0.1 K/mm3 (0-0.3); Eosinophils Percent Auto 1.1 % (0-4.4); Hematocrit 39.7 % (42.0-52.0); Immature Granulocyte Absolute 0.05 K/mm3 (0.00-0.031); Immature Granulocyte Percent A 0.4 % (0-0.5); Lymphocytes Percent Auto 19.4 % (18.3-44.2); Mean Corpuscular HGB Conc 32.7 g/dl (32-36); Mean Corpuscular Volume 94.5 fl (80-100); Mean Platelet Volume 9.1 fl (7.4-10.4); Monocytes Absolute Auto 1.5 K/mm3 (0.1-0.6); Monocytes Percent Auto 12.5 % (2.6-8.5); Neutrophils Absolute Auto 7.9 K/mm3 (1.3-6.7); Neutrophils Percent Auto 66.3 % (45.5-73.1); Platelet Count Result 207 k/mm3 (150-375); Red Cell Distribution Width 12.9 % (11.5-14.5); White Blood Count 11.9 K/mm3 (4.5-10.0)
[2024-07-18 13:47] LABS: Alanine Aminotransferase 22 U/L (6-50); Albumin Level 4.2 g/dL (3.5-5.1); Alkaline Phosphatase 70 U/L (38-126); Anion Gap 7 mmol/L (4-12); Aspartate Amino Transferase 27 U/L (17-59); Bilirubin,Total 0.5 mg/dL (0.2-1.3); Blood Urea Nitrogen 14 mg/dL (9-20); Calcium 9.3 mg/dL (8.4-10.2); Carbon Dioxide 28 mmol/L (22-30); Chloride 95 mmol/L (98-107); Estimated Glomerular Filt Rate > 60; Glucose 106 mg/dL (65-110); Lipase 107 U/L (23-300); Potassium 4.4 mmol/L (3.4-5.0); Sodium 130 mmol/L (137-145)
[2024-07-18 14:14] LABS: Influenza A QL RT-PCR Negative (Negative); Influenza B QL RT-PCR Negative (Negative); RSV RNA, RT-PCR Negative (Negative); SARS-CoV-2 RNA PCR Positive (Negative)
== END 2024-07-18 13:01 | disposition home or self-care (01) ==
LOC: ANHLAB 13:09
PROVIDERS: PCP Family Medicine; Visit Provider Family Medicine
DX: R10.9 Unspecified abdominal pain (principal); J06.9 Acute upper respiratory infection, unspecified; J18.9 Pneumonia, unspecified organism; R19.7 Diarrhea, unspecified
CPT/HCPCS: 36415; 71046; 74019; 80053; 83690; 85025; 87637

== ENCOUNTER 2025-02-28 11:15 | Outpatient (CLI) | payer MEDICARE, SELFPAY ==
--- NOTE | ~2025-02-28 | XR_ITS ---
Cervical Spine: AP, lateral, oblique, open-mouth views Clinical History: Pain Findings: The normal lordotic curve is maintained. The vertebral bodies and posterior elements appea r intact. The intervertebral disc spaces are well maintained. Moderate facet arthropathy present of the cervical spine. No instability on flexion or extension. Pre-vertebral soft tissues are unremarkab le. Impression: Facet arthropathy, as above. Reviewed, dictated and finalized at location M. Impression: Facet arthropathy, as above.
--- OUTSIDE RECORDS SUMMARY | 2025-02-28 12:36 | XMS_ITS | Clinical Summary ---
Author Organization [facility] Address On license of [facility] [place] [address] Care Team Providers Care Comber Fixer Name Role Phone Unavailable Primary Care Provider Unavailabl e Social History Tobacco Use Types Packs/Day Years Used Date Smoking Tobacco: Never Assessed Sex and Gender Information Value Date Recorded Sex Assigned at Not on file Legal Sex Male 7:47 PM CDT Gender Identity Not on file Sexual Orientation Not on file Plan of Treatment Health Maintenance Due Date Last Done Comments Hepatitis C 1963 DTaP, Tdap and Td Vaccines ( 1 - Tdap) 1965 Zoster Vaccines (1 of 2) 1996 Pneumococcal Vaccine: 65+ Ye ars (1 of 1 - PCV) 2011 RSV Immunization or 60+ Years (1 - 1-dose 75+ series) 2021 COVID-19 Vaccine ( - 2023-2 5 season) 2024 Meningococcal B Vaccine Aged Out No l onger eligible based on patient's age to complete this topic Meningococcal Vaccine Aged Out No ignacio cirilo eligible based on patient's age to complete this topic RSV Immunizations Under 20 Months Aged Out No longer eligible based on patient's age to complete this topic
--- OUTSIDE RECORDS SUMMARY | 2025-02-28 12:36 | XMS_ITS | Referral Summary ---
Author Organization [facility] [address] Address [address] [place] [address] Care Team Providers Care Fuller Brush Man Name Role Phone Lincoln Calzada Primary Care Provider [phone] Allergies Active Allergy Reactions Criticality Noted Date Comments Codeine Oxycodone Procaine Medications peg 400-propylene glycol (SYSTANE) 0.4-0.3 % ophthalmic solution Administer into affected eye(s) as needed Active timoloL (BETIMOL) 0.5 % ophthalmic solution Administer 1 drop into both eyes 2 (two) times a day Active latanoprost (XALATAN) 0.005 % ophthalmic solution Administer 1 drop into both eyes nightly Active multivitamin capsule Take 1 capsule by mouth daily Active acidophilus-pec tin, citrus 100 million cell-10 mg capsule Take by mouth Activ e docusate sodium (DOK) 100 mg tabletIndicatio ns:constipation Take 1 tablet (100 mg total) by mouth daily Active aspirin 81 mg enteric coated tablet Take 1 tablet (81 mg total) by mouth daily Active losartan (COZAAR) 50 mg tablet TAKE 1 TABLET BY MOUTH ONCE DAILY IN THE MORNING 90 tablet 1 2 Active Active Problems Problem Noted Date Diagnosed Date Left ventricular dysfunction 01/10/2021 Postoperative pain 02/26/2015 Tobacco use 01/15/2015 Adenocarcinoma of lung 01/01/2015 Lesion of lung 12/28/2014 Social History Tobacco Use Types Packs/Day Years Used Date Smoking Tobacco: Former Smokeless Tobacco: Never Tobacco Cessation:Counseling Given: Not Answered Alcohol Use Standard Drinks/Week Comments Not Currently 0 (1 standard drink = 0.6 oz pur e alcohol) Sex and Gender Information Value Date Recorded Sex Assigned at Not on file Legal Sex Male 3:35 AM NOC TECHNICIAN Gender Identity Not on file Sexual Orientation Not on file Last Filed Vital Signs Vital Sign Reading Time Taken Comments Blood Pressure 130/80 10/08/2023 10:30 AM NOC TECHNICIAN Pulse 74 10/08/2023 10:30 AM NOC TECHNICIAN Temperature 37.2 C (98.9 F) 01/23/2021 2:03 PM NOC TECHNICIAN Respiratory Rate - - Oxygen Saturation 99% 10/08/2023 10:30 AM NOC TECHNICIAN Inhaled Oxygen Concentration - - Weight 81.6 kg (180 lb) 10/08/2023 10:30 AM NOC TECHNICIAN Height 182.9 cm (6') 10/08/2023 10:30 AM NOC TECHNICIAN Body Mass Index 24.41 10/08/2023 10:30 AM NOC TECHNICIAN Plan of Treatment Not on file Insurance MEDICARE [facility] MEDICARE SUPPLEMENT INSURANCE MEDICARE [facility] MEDICARE SUPPLEMENT INSURANCE Care Teams Fuller Brush Man Relationship Specialty Start Date End Date Lincoln Calzada PA [address] [place] [address] PCP - 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
--- OUTSIDE RECORDS SUMMARY | 2025-02-28 12:36 | XMS_ITS | Clinical Summary ---
Author Organization [facility] Address [address] [facility], [address] [address] Phone Care Team Providers Care Wire Bound Box Machine Operator Name Role Phone Magali David MD Primary Care Provi flor Allergies Active Allergy Reactions Criticality Noted Date Comments Brimonidine Tartrate Swelling 10/29/2015 Codeine Rash 10/29/2015 Erythromycin Base Swelling 10/29/2015 Bimatoprost Itching 10/29/2015 Procaine Palpitations 10/31/2015 Oxycodone Rash 10/29/2015 Brinzolamide-Brimonidine Itching 10/29/2015 Medications dorzolamide-giuliano olol (COSOPT) 22.3-6.8 MG/ML Solution Place 1 Drop in affected eye(s) 2 times daily. Active MULTIPLE VITAMINS PO Take 2 Tabs by mouth every morning. Gummy Active lisinopril (PRINIVIL, ZESTRIL) 10 MG Tablet Take 10 mg by mouth every morning. Active Probiotic Product (PROBIOTIC DAILY PO) Take by mouth every morning. Gummy Active Docusate Calcium (STOOL SOFTENER PO) Take 2 Tabs by mouth 2 times daily. Active LATANOPROST OP Place in affected eye(s) nightly. Both eyes Active PREBIOTIC PRODUCT PO Take by mouth every morning. Active polyethyl glycol-propyl glycol (Systane) 0.4-0.3 % Solution Place in affected eye(s) as needed. Systane Active Active Problems Problem Noted Date Diagnosed Date Polyp of colon 08/20/2020 Hiatal hernia 08/20/2020 Diverticulosis 08/20/2020 Gastroesophageal reflux disease 08/20/2020 Family History Medical History Relation Name Comments Cerebral Anuerysm Father Colon Cancer Mother colon 70's Heart Attack Mother Osteoarthritis Mother Colon Polyps Other Relation Name Status Comments Father Mother Other Social History Tobacco Use Types Packs/Day Years Used Date Smoking Tobacco: Former Cigarettes 1.5 52 0 11/1962 - 11/2014 Smokeless Tobacco: Former Quit: 12/01/2014 Tobacco Cessation:Counseling Given: No Alcohol Use Standard Drinks/Week Comments Yes 0 (1 standard drink = 0.6 oz pur e alcohol) 1-2 beers/day Sexually Active Control Partners Comments Not Currently Sex and Gender Information Value Date Recorded Sex Assigned at Not on file Legal Sex Male 11:24 PM CDT Gender Identity Not on file Sexual Orientation Not on file 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 Not on file Not on file Not on file Last Filed Vital Signs Vital Sign Reading Time Taken Comments Blood Pressure 153/83 10/16/2020 11:45 AM WOOL HAT FINISHER Pulse 72 10/16/2020 11:45 AM WOOL HAT FINISHER Temperature 36 C (96.8 F) 10/16/2020 9:13 AM WOOL HAT FINISHER Respiratory Rate 18 10/16/2020 11:45 AM WOOL HAT FINISHER Oxygen Saturation 98% 10/16/2020 11:45 AM WOOL HAT FINISHER Inhaled Oxygen Concentration - - Weight 77.6 kg (171 lb) 09/11/2020 9:00 AM CDT Height 182.9 cm (6') 09/11/2020 9:00 AM CDT Body Mass Index 23.19 09/11/2020 9:00 AM CDT Plan of Treatment Health Maintenance Due Date Last Done Comments Hepatitis C Virus (HCV) Screening 1945 Zoster Immunization (1 of 2) 1996 Pneumococcal Immunization (5 0+ years) (2 of 2 - PCV) 04/19/2013 04/19/2012 Respiratory Syncytial Virus (RSV) Immunization (Adult) (1 - 1-dose 75+ series) 2021 Influenza Immunization (#1) 2024 SARS-COV-2 Immunization ( season) 2024 10/14/2021, 02/16/2021, 01/26/2021 Pneumococcal Immunization Combined Discontinued 04/19/2012 DTaP/Tdap/Td Immunization Discontinued 01/09/2017 TdaP Immunization Completed 01/09/2017 AAA Screening Ultrasound Discontinued 07/20/2017 Colonoscopy High Risk Discontinued 10/16/2020 , 10/31/2015 Colonoscopy Discontinued 10/16/2020, 10/31/2015 Colorectal Cancer Screening Discontinued Cologuard Discontinued Hepatitis B Immunization Aged Out No longer eligible based on patient's age to complete this topic Immunochemical Fecal Occult Blood Discontinued Meningococcal Immunization (ACWY) Aged Out No longer eligible based on patient's age to complete this topic Rotavirus Immunization Aged Out No lo nger eligible based on patient's age to complete this topic Procedures Procedure Name Priority Date/Time Associated Diagnosis Comments CT ABDOMEN W/WO CONTRAST Routine 07/20/2017 11:02 AM CDT Adrenal mass, left (HCC) from Last 3 Months or Most Recently Relevant to Health Maintenance Results * CT ABDOMEN W/WO CONTRAST (07/20/2017 11:02 AM CDT) Anatomical Region Laterality Modality Abdomen N/A Computed Tomogra phy 07/20/2017 2:2 0 PM CDT Addenda Addendum by Elvin Winn MD on 07/24/2017 8:45 AM CDT This addendum report supersedes the previous report dated 07/20/2017 ADDENDUM REPORT 07/23/[address] was compared to the prior CT from 06/24/2016 which is clearly stated in the history at the time of the original dictation. There is now an abdominal CT from 11/12/2015 available for comparison which is also unchanged. No change in findings or impression. ADDENDUM REPORT DICTATED BY: Elvin Winn M.D., 07/23/2017, 3:11 PM RUIZ:artis EXAMINATION: Pre and post IV contrast adrenal mass protocol CT of the abdomen. HISTORY: CT of the abdomen from 06/24/2016 showing a left adrenal mass consistent with an adenoma. This examination is obtained to follow-up of lesion. TECHNIQUE: Pre contrast and post contrast axial CT of the abdomen using renal mass protocol. 100 mL Isovue 370 injected in the right antecubital IV site. FINDINGS: Left adrenal gland nodule measuring maximum of 1.5 x 0.8 cm is unchanged in size since the prior study. Precontrast: 16 Hounsfield units. Postcontrast: 73 Hounsfield units. 15-minute delay postcontrast: 16 Hounsfield units. 100% washout. Additional findings: Minimal subpleural reticular densities consistent with scarring or subsegmental atelectasis. Too small to characterize hypodensities in the liver consistent with benign cysts. The gallbladder, right adrenal, spleen, pancreas, and right kidney are unremarkable. Too small to characterize hypodensities in the left kidney consistent with benign cysts. No abdominal or retroperitoneal lymphadenopathy. There is a supra umbilical fat filled abdominal hernia with some minimal fluid within the hernia sac. Limited imaging of the small bowel and colon are unremarkable. There is a moderate size hiatal hernia. IMPRESSION: 1. Left adrenal adenoma. Unchanged since the prior study. 2. Moderate size hiatal hernia. REPORT ORIGINALLY ELECTRONICALLY VERIFIED 07/20/2017 2:20 PM: Renée Lord:ruiz Automated exposure control was used as a dose optimization technique for this examination. THIS IS AN ELECTRONICALLY VERIFIED REPORT 07/24/2017 8:28 AM: Renée Lord M.D. Radiologist Biju HARDY Impressions 07/20/2017 2:24 PM CDT IMPRESSION: 1. Left adrenal adenoma. Unchanged since the prior study. 2. Moderate size hiatal hernia. Automated exposure control was used as a dose optimization technique for this examination. Narrative 07/20/2017 2:24 PM CDT EXAMINATION: Pre and post IV contrast adrenal mass protocol CT of the abdomen. HISTORY: CT of the abdomen from 06/24/2016 showing a left adrenal mass consistent with an adenoma. This examination is obtained to follow-up of lesion. TECHNIQUE: Pre contrast and post contrast axial CT of the abdomen using renal mass protocol. 100 mL Isovue 370 injected in the right antecubital IV site. FINDINGS: Left adrenal gland nodule measuring maximum of 1.5 x 0.8 cm is unchanged in size since the prior study. Precontrast: 16 Hounsfield units. Postcontrast: 73 Hounsfield units. 15-minute delay postcontrast: 16 Hounsfield units. 100% washout. Additional findings: Minimal subpleural reticular densities consistent with scarring or subsegmental atelectasis. Too small to characterize hypodensities in the liver consistent with benign cysts. The gallbladder, right adrenal, spleen, pancreas, and right kidney are unremarkable. Too small to characterize hypodensities in the left kidney consistent with benign cysts. No abdominal or retroperitoneal lymphadenopathy. There is a supra umbilical fat filled abdominal hernia with some minimal fluid within the hernia sac. Limited imaging of the small bowel and colon are unremarkable. There is a moderate size hiatal hernia. THIS IS AN ELECTRONICALLY VERIFIED REPORT 07/20/2017 2:20 PM: Renée Lord M.D. Radiologist RUIZ:ruiz HARDY Procedure Note Elvin Winn MD - 07/20/2017 EXAMINATION: Pre and post IV contrast adrenal mass protocol CT of the abdomen. HISTORY: CT of the abdomen from 06/24/2016 showing a left adrenal mass consistent with an adenoma. This examination is obtained to follow-up of lesion. TECHNIQUE: Pre contrast and post contrast axial CT of the abdomen using renal mass protocol. 100 mL Isovue 370 injected in the right antecubital IV site. FINDINGS: Left adrenal gland nodule measuring maximum of 1.5 x 0.8 cm is unchanged in size since the prior study. Precontrast: 16 Hounsfield units. Postcontrast: 73 Hounsfield units. 15-minute delay postcontrast: 16 Hounsfield units. 100% washout. Additional findings: Minimal subpleural reticular densities consistent with scarring or subsegmental atelectasis. Too small to characterize hypodensities in the liver consistent with benign cysts. The gallbladder, right adrenal, spleen, pancreas, and right kidney are unremarkable. Too small to characterize hypodensities in the left kidney consistent with benign cysts. No abdominal or retroperitoneal lymphadenopathy. There is a supra umbilical fat filled abdominal hernia with some minimal fluid within the hernia sac. Limited imaging of the small bowel and colon are unremarkable. There is a moderate size hiatal hernia. THIS IS AN ELECTRONICALLY VERIFIED REPORT 07/20/2017 2:20 PM: Elvin Winn M.D. Elvin Winn M.D. Radiologist RUIZ:ruiz HARDY IMPRESSION: 1. Left adrenal adenoma. Unchanged since the prior study. 2. Moderate size hiatal hernia. Automated exposure control was used as a dose optimization technique for this examination. us Leyda Camp SPORTS ANNOUNCER, STOCK CLERK SELF SERVICE STORE IMG CT ORDERABLES Edited Result - Final from Last 3 Months or Most Recently Relevant to Health Maintenance Insurance MEDICARE [employer] MEDICARE SUP Care Teams Wire Bound Box Machine Operator Relationship Specialty Start Date End Date Magali David MD [address] [place] [address] PCP - General Family Medicine 10/16/20
--- OUTSIDE RECORDS SUMMARY | 2025-02-28 12:36 | XMS_ITS | Continuity of Care Document ---
Author Organization [facility] Address [address] [place] [address] Phone Care Team Providers Care Machinist Name Role Phone Luann Jett Unavailable Unavailable Procedures Procedure Date Post-op Follow-up Visit Laser Surgery Of Eye Office/outpatient Visit, Est Post-op Follow-up Visit Laser Surgery Of Eye Eye Exam Established Pt Office/outpatient Visit, Est Fundus Photography W/ Report Visual Field Examination(s) Office/outpatient Visit, Est Eye Exam & Treatment Fundus Photography W/ Report Visual Field Examination(s) Office/outpatient Visit, Est Office/outpatient Visit, Est Fundus Photography W/ Report Office/outpatient Visit, Est Visual Field Examination(s) Advance Directives Directive Yes / No Effective Date File Name No Information Encounters Encounter Description Practice Location Reason(s) For Visit Diagnoses Date Provider Providers Copied on Encounter [facility], [address], [place], [place], [id number], [place] tel:[phone] [facility] No Information Oct-2 2-201 0 Maliha Kong. [address], [place], [address], [place]. tel:[phone] [facility], [address] [place] [address] [address], [place], [place], [address], [place] tel:[phone] [facility] No Information Oct-1 2-201 0 Jett Luann. [address], [place], [place], [facility], . tel:[phone] Office/outpat ient Visit, Est [facility], [address] [place] [address] [address], [place], [place], [address], [place] tel:[phone] [facility] No Information Sep-1 4-201 0 Jett Luann. [address], [place], [place], [facility], . tel:[phone] [facility], [address] [place] [address] [address], [place], [place], [address], tel:[phone] SEC [facility] No Information May-1 3-201 0 Jett Luann. [address], [place], [place], [facility], [place]. tel:[phone] [facility], [address] [place] [address] [address], [place], [place], [address], [place] tel:[phone] [facility] No Information May-0 4-201 0 Jett Ulann. [address], [place], [place], [facility], [place]. tel:[phone] [facility], [address] [place] [address] [address], [place], [place], [address], [place] tel:[phone] [facility] No Information Apr-2 0-201 0 Jett Luann. [address], [place], [place], [facility], . tel:[phone] Office/outpat ient Visit, Est [facility], [address] [place] [address] [address], [place], [place], [address], [place] tel:[phone] [facility] No Information Dec-1 5-200 9 Maliha Kong. [address] , [address], [place], [place], [facility], . tel:[phone] Referring Provider: Luann Llanos, [address], [place], [facility]. tel:[phone] [facility], [address] [place] [address] [address], [place], [place], [address], [place] tel:[phone] [facility] No Information Aug-1 0-200 9 Maliha Kong. [address], [place], [facility], [place]. tel:[phone] Referring Provider: Luann Llanos, [address], [place], [facility]. tel:[phone] Office/outpat ient Visit, Est [facility], [address] [place] [address] [address], [place], [place], [address], [place] tel:[phone] [facility] No Information Apr-0 7-200 9 Maliha Quiroz [address] , [address], [place], [facility], [place]. tel:[phone] [facility], [address], [place], [place], [address], [place] tel:[phone] [facility] No Information Dec-0 2-200 8 Maliha Kong. [address], [place], [facility], [place]. tel:[phone] Referring Provider: Luann Llanos, [address], [place], [facility]. tel:[phone] [facility], [address] [place] [address] [address], [place], [place], [address], [place] tel:[phone] [facility] No Information 9-200 8 Maliha Salvador [facility] , [address], [place], [facility], . tel:[phone] Referring Provider: Luann Llanos, [address], [place], [facility]. tel:[phone] Office/outpat ient Visit, [facility], [address] [place] [address] [address], [place], [place], [id number], tel:[phone] [facility] No Information 5200 [address] Maliha Quiroz [address] [facility] , [address], [place], [facility], . tel:[phone] Office/outpat ient Visit, [facility], [address] [place] [address] [address], [place], [place], [address], tel:[phone] [facility] No Information 0-200 7 Maliha Salvador [facility] , [address], [place], [facility], . tel:[phone] Referring Provider: Luann Llanos, [address], [place], [facility]. tel:[phone] Office/outpat ient Visit, [facility], [address] [place] [address] [address], [place], [place], [address], tel:[phone] [facility] No Information 7-200 7 Maliha [address] , [address], [place], [facility], . tel:[phone] [facility], [address] [place] [address] [address], [place], [place], [address], tel:[phone] [facility] No Information 3-200 7 Maliha Qu[address] , [address], [place], [address], [place]. tel:[phone] Referring Provider: Luann Llanos, [address] [facility] [address], [place], [address]. tel:[phone] Family History Family Member Type Diagnosis Age At Onset No Information Payers Payer name Insurance type Covered alliance party ID Authoriza tion(s) No Information Social History Type Description Quantity Date Captured Comments Sex Male Smoking Status No Information Chief Complaint And Reason For Visit No Information Reason For Referral Reason For Referral No Information History Of Present Illness Encounter Date Complaint History Of Prese nt Illness No Information Functional Status Date Functional Assessmen t No Information Instructions Date Instruction Additional Infor mation No Information Assessments Type Assessment Date No Information Patient Care Teams Name Effective Dates (start - stop) Status Members No Information
--- OUTSIDE RECORDS SUMMARY | 2025-02-28 12:36 | XMS_ITS | Clinical Summary ---
Author Organization [facility] [address] Address [address] [place] [address] Care Team Providers Care Oracle Iam Consultant Name Role Phone Lincoln Calzada Primary Care Provider [phone] Allergies Active Allergy Reactions Criticality Noted Date [...] of lung 01/01/2015 Lesion of lung 12/28/2014 Surgical History Surgery Date Site/Laterality Comments AR BIOPSY LUNG/MEDIASTINUM PERCUTANEOUS NEEDLE Biopsy Lung Percutaneous - (Added by TW Conv) FOOT SURGERY Foot Repair - (Added by TW Conv) AR TONSILLECTOMY PRIMARY/SECONDARY <AGE 12 Tonsillectomy - (Added by Conv) AR COLONOSCOPY FLX DX W/ANOOP J SPEC WHEN PFRMD Colonoscopy (Fiberoptic) - (Added by Conv) AR ESOPHAGOGASTRODUODENOSCOP Y TRANSORAL DIAGNOSTIC Diagnostic Esophagogastroduodenoscopy - (Added by TW Conv) Medical History Medical History Date Comments Otitis media Ear infection - (Added by TW Conv) Local infection of skin and subcutaneous tissue Foot infection - (Added by T W Conv) Personal history of other di seases of the nervous system and sense organs History of hearing los s - (Added by Conv) History of colonic polyps Histor y of colonic polyps - (Added by TW Conv) Personal history of other di seases of the circulatory system History of cardiac arrhythmi a - (Added by Conv) Personal history of other di seases of the nervous system and sense organs History of glaucoma - (Added by TW Conv) Personal history of healed t raumatic fracture History of fracture of rib - (Added by TW Conv) Hypertension Diverticulitis Glaucoma Arthritis Enlarged prostate Unspecified malignant neopla sm of skin of other parts of 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) Lung cancer (HCC) Family History Medical History Relation Name Comments Aneurysm Father Cerebral aneurysm Father Family his tory of cerebral aneurysm - (Added by Conv) Throat cancer Father's Brother Throat can cer - (Added by Conv) Colon cancer Mother Colon cancer - (Added by TW Conv) Heart attack Mother Family history of myocardial infarction - (Added by Conv) Relation Name Status Comments Father (Age 53) Father's Brother Mother (Age 82) Social History Tobacco Use Types Packs/Day Years Used Date Smoking Tobacco: Former Smokeless Tobacco: Never Tobacco Cessation:Counseling Given: Not Answered Alcohol Use Standard Drinks/Week Comments Not Currently 0 (1 standard drink = 0.6 oz pur e alcohol) Sex and Gender Information Value Date Recorded Sex Assigned at Not on file Legal Sex Male 3:35 AM COTTON TIPPER Gender Identity Not on file Sexual Orientation Not on file Obstetrics History Last Filed Vital Signs Vital Sign Reading Time Taken Comments Blood Pressure 130/80 10/08/2023 10:30 AM COTTON TIPPER Pulse 74 10/08/2023 10:30 AM COTTON TIPPER Temperature 37.2 C (98.9 F) 01/23/2021 2:03 PM COTTON TIPPER Respiratory Rate - - Oxygen Saturation 99% 10/08/2023 10:30 AM COTTON TIPPER Inhaled Oxygen Concentration - - Weight 81.6 kg (180 lb) 10/08/2023 10:30 AM COTTON TIPPER Height 182.9 cm (6') 10/08/2023 10:30 AM COTTON TIPPER Body Mass Index 24.41 10/08/2023 10:30 AM COTTON TIPPER Plan of Treatment Health Maintenance Due Date Last Done Comments Depression Screening 1945 Fall Risk Assessment 1945 Hepatitis C Screening 1945 Hepatitis B Screening 1964 Zoster Vaccine (1 of 2) 1996 Well Visit 65+ 2011 Pneumococcal vaccine 65+ (2 of 2 - PCV) 04/19/2013 04/19/2012 Influenza Vaccine (#1) 2024 DTaP/Tdap/Td Vaccine (2 - Td or Tdap) 01/09/2027 01/09/2017 Abdominal Aortic Aneurysm (A AA) Screen Completed 07/26/2018, 07/20/2017, 06/24/2016, Additional history exists Insurance MEDICARE [facility] MEDICARE SUPPLEMENT INSURANCE MEDICARE [facility] MEDICARE SUPPLEMENT INSURANCE Care Teams Oracle Iam Consultant Relationship Specialty Start Date End Date Lincoln Calzada PA [address] [place] [address] PCP - General Physician Mechanical Process Engineer 01/10/21
--- OUTSIDE RECORDS SUMMARY | 2025-02-28 12:36 | XMS_ITS | Continuity of Care Document ---
Author Name [facility] Organization [facility] Care Team Providers Care Renewable [employer] Project Manager Name Role Phone [facility] Unavailable Unavailable Problems Combined list of problems from [facility] and [facility] facilities. It does not include entries that were removed or entered in error. Problem Status Onset Date Problem Type Date of Resolution Comments Source Glaucoma Active Condition [facility] Hernia Active Condition [facility] Hypertension Active Condition [facility] Lung cancer Active Condition [facility] Varicose veins Active Condition [facility] Diagnosis: ICD-10-CM C34.90 Malignant neoplasm of unsp part of unsp bronchus or lung Active Diagnosis [facility] Diagnosis: ICD-10-CM H90.3 Sensorineural hearing loss, bilateral Active Diagnosis [facility] Diagnosis: ICD-10-CM I10 Essential (primary) hypertension Active Diagnosis [facility] Medications Combined list of outpatient medications from [facility] facilities.Medications provided include 1) outpatient medications from the last 15 months, and 2) patient-reported medications. Medication Details Route Status Patient Instructions Prescription Expires Prescription Number Last Dispense Date Ordering Provider Order Date Order Qty Source ASPIRIN 81MG TAB,EC TAKE ONE TABLET BY MOUTH ONCE A DAY ORAL ACTIVE Anali'AMANDA ROBLERO MEG A 2021 [facility] DOCUSATE NA 100MG CAP TAKE 2 CAPSULES BY MOUTH ONCE A DAY NEEDED ORAL ACTIVE Anali'OSBALDO,PA MEG A 2021 [facility] DORZOLAMIDE HCL 22.3MG/RANCHO LOL MALEATE 6.8MG/ML SOLN,OPH INSTILL 1 DROP IN BOTH EYES TWICE A DAY FOR GLAUCOMA OPHTHA LMIC ACTIVE 10/04/2025 [id number] DEPAUBALTAZARS UZANNE 2023 30 [facility] LATANOPROST 0.005%/IDALIA RSUDIL 0.02% SOLN,OPH INSTILL 1 DROP IN BOTH EYES EVERY EVENING FOR ELEVATED INTRAOCU LAR PRESSURE KEEP REFRIGER ATED UNTIL READY TO USE. OPHTHA LMIC ACTIVE 12/29/2025 [id number] 5 [facility] 2024 2.5 [facility] LATANOPROST 0.005%/IDALIA RSUDIL 0.02% SOLN,OPH INSTILL 1 DROP IN BOTH EYES EVERY EVENING FOR ELEVATED INTRAOCU LAR PRESSURE KEEP REFRIGER ATED UNTIL READY TO USE. [facility]/25[facility]2024 [id number] 4 [facility] 2023 2.5 [facility] [place] POTASSIUM 100MG TAB TAKE ONE-HALF TABLET BY MOUTH ONCE A DAY ORAL ACTIVE 12/29/2025 [id number] 5 [facility] 2024 45 [facility] [place] POTASSIUM 100MG TAB TAKE ONE-HALF TABLET BY MOUTH ONCE A DAY ORAL DISCONT INUED 03/02/2025 [id number] 4 [facility] 2023 45 [facility] [place] POTASSIUM 100MG TAB TAKE ONE-HALF TABLET BY MOUTH ONCE A DAY ORAL DISCONT INUED 02/08/2024 [id number] AMANDA LAI A 2022 45 [facility] MULTIVITAMI N CAP/TAB TAKE BY MOUTH ONCE A DAY ORAL ACTIVE AMANDA LAI A 2021 [facility] PEG-400 0.4%/PROPYL AMANDA GLYCOL 0.3% SOLN,OPH INSTILL 1 DROP IN AFFECTED EYE(S) EVERY 4 HOURS NEEDED OPHTHA LMIC ACTIVE AMANDA LAI A 2021 [facility] PROBIOTIC COMBINATION CAP/TAB TAKE 1 CAPSULE BY MOUTH ONCE A DAY ORAL ACTIVE AMANDA LAI 2021 [facility] Allergies, Adverse Reactions, Alerts Combined list of allergies from [facility] and [facility] facilities. It does not include entries that were removed or entered in error. Substance Category Reaction Severity Reaction type Status Date Reported Comments Source CODEINE Propensity to adverse reactions to drug (finding) Eruption active 2 [facility] ERYTHROMYCIN Propensity to adverse reactions to drug (finding) EYE IRRITATION active 2 [facility] LUMIGAN Propensity to adverse reactions to drug (finding) active 2 [facility] NOVOCAIN Propensity to adverse reactions to drug (finding) Tachycardia active 2 [facility] OXYCODONE Propensity to adverse reactions to drug (finding) active 2 [facility] SIMBRINZA Propensity to adverse reactions to drug (finding) active 2 [facility] Immunizations Combined list of available immunizations from the [facility] and [facility] facilities. 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 Status Comments Source COVID-19 (PFIZER), MRNA, LNP-S, PF, 30 MCG/0.3 ML DOSE 3 2020 208 complet ed [facility] COVID-19 ([email or web address]), MRNA, LNP-S, PF, 30 MCG/0.3 ML DOSE 2 2020 208 complet ed [facility] COVID-19 ([email or web address]), MRNA, LNP-S, PF, 30 MCG/0.3 ML DOSE 1 2020 208 complet ed [facility] TDAP 1 2016 115 complet ed [facility] PNEUMOCOCCAL POLYSACCHARID E PPV23 1 2011 33 complet ed [facility] Vital Signs Combined list of inpatient and outpatient Vital Signs from [facility] and [facility], ranging from 12 months to all on record, depending upon the facility. Vital Sign Value Date Comments Source SYSTOLIC BLOOD PRESSURE 136 12/28/2024 13:31:31 [facility] DIASTOLIC BLOOD PRESSURE 78 12/28/2024 13:31:31 [facility] PULSE OXIMETRY 98 12/28/2024 13:31:31 [facility] WEIGHT 178.6 12/28/2024 13:31:31 [facility] BMI 24 kg/m2 12/28/2024 13:31:31 [facility] PAIN 0 12/28/2024 13:31:31 [facility] HEIGHT 72 12/28/2024 13:31:31 [facility] TEMPERATURE 97.3 12/28/2024 13:31:31 [facility] PULSE 82 12/28/2024 13:31:31 [facility] RESPIRATION 18 12/28/2024 13:31:31 [facility] SYSTOLIC BLOOD PRESSURE 168 05/27/2024 10:22:44 [facility] DIASTOLIC BLOOD PRESSURE 83 05/27/2024 10:22:44 [facility] PULSE OXIMETRY 99 05/27/2024 10:22:44 [facility] WEIGHT 177 05/27/2024 10:22:44 [facility] BMI 24 kg/m2 05/27/2024 10:22:44 [facility] PAIN 0 05/27/2024 10:22:44 [facility] HEIGHT 72 05/27/2024 10:22:44 [facility] TEMPERATURE 98 05/27/2024 10:22:44 [facility] PULSE 50 05/27/2024 10:22:44 [facility] RESPIRATION 18 05/27/2024 10:22:44 [facility] Encounters Combined list of: 1) Encounters from [facility] facilities going backup to the last 18 months, not all VA inpatient encounters are included; 2) Encounters from the Department of Defense facilities going backup to 280 months. Location Location Details Encounter Type Encounter Number Reason For Visit Attending Provider ADM Date DC Date Status Disposition Source [facility] Outpatient Encounter [id number] 10/02 [facility] Outpatient Encounter [id number] JONATHANSAAD A 11/19 [facility] OFFICE O/P EST MOD 30-39 MIN [id number] Diagnos is: ICD-10- CM I10 Essenti al (primar y) hyperte nsmelba ZHANGBRYSON ADAMS STEPHEN R 11/25 [facility] SUP/ACCESS /DEV [id number] Diagnos is: ICD-10- CM H90.3 Sensori neural hearing loss, bilater al MARIANN LAO 12/08 [facility] Outpatient Encounter [id number] LYNNE OROZCO 12/25 [facility] Outpatient Encounter [id number] JE JERRY 03/01 [facility] Outpatient Encounter [id number] 04/07 [facility] OFFICE O/P EST MOD 30 MIN [id number] Diagnos is: ICD-10- CM C34.90 Maligna nt neoplas m of unsp part of unsp bronchu s or lung FROILAN STEELE 05/27 [facility] Outpatient Encounter [id number] 10/03 [facility] Outpatient Encounter [id number] SAAD CASTILLO 12/21 [facility] OFFICE O/P EST MOD 30 MIN [id number] Diagnos is: ICD-10- CM C34.90 Maligna nt neoplas m of unsp part of unsp bronchu s or lung FROILAN STEELE 12/28 [facility] Social History Combined list of available smoking, tobacco, and other social history from Department of Defense and Veterans Affairs facilities. Social History Type Response Date Comment Sour e Tobacco smoking status NHIS CO-TOBACCO FORMER USER 05/27/2024 [facility] History of tobacco use CO-TOBACCO QUIT 5 TO < 15 YRS 05/27/2024 [facility] History of tobacco use CO-TOBACCO FORMER USER 05/27/2023 [facility] History of tobacco use CO-TOBACCO FORMER USER 05/28/2022 [facility] Plan of Care List of future care activities from [facility] facilities. Additional future care activities may be listed in the Assessment and Plan section. Date/Time Care Activity Care Activity Detail Facili ty 07/03/2025 AMBULATORY - MEDICINE AMBULATORY - MEDICI NE [facility]
== END 2025-02-28 11:16 | disposition home or self-care (01) ==
PROVIDERS: PCP Family Medicine; Visit Provider Family Medicine
DX: M54.2 Cervicalgia (principal)
CPT/HCPCS: 72052

== ENCOUNTER 2025-04-19 09:46 | Outpatient (CLI) | payer MEDICARE, SELFPAY ==
--- OUTSIDE RECORDS SUMMARY | 2025-04-19 10:27 | XMS_ITS ---
Author Name [facility] Organization [facility] ([place] Address [address] [place] [address] Care Team Providers Care Agent Spa Desk Name Role Phone CATRACHITA STEELE Primary Care Provider Unavailab le Insurance Providers: All historical and current Section Date Range: From patient's date of to the date document was created. This section includes the names of all active insurance providers for the patient. Insurance Provider Type of Coverage Plan Name Start of Policy Coverage End of Policy Coverage Group Number Member ID Insurance Provider's Telephone Number Policy Castillo's Name Patient's Relationship to Policy Castillo [employer] MEDICARE SUPPLEMENT MEDIGAP PLAN F MEDIC ARE SUPPL EMENT Nov 30, 2015 PLAN F [id number] ROSALIE WASHINGTON PATIENT MEDICARE (WNR) MEDICARE (M) PART A Oct 30, 2011 PART A [id number] [facility] ROSALIE WASHINGTON PATIENT MEDICARE (WNR) MEDICARE (M) PART B Oct 30, 2011 PART B [id number] ROSALIE WASHINGTON PATIENT Selected Encounter This section includes the information on record at [place] for the Encounter. Date/Time Encounter Type Encounter Description Reason Provider Source Dec 28, 2024 02:00 PM OFFICE O/P EST MOD 30 MIN PRIMARY CARE/MEDICINE ICD-10-CM C34.90 Malignant neoplasm of unsp part of unsp bronchus or lung RIRI STEELE Encounter Template Text not used by [place] Assessments - Encounter Diagnoses This section includes the primary and secondary diagnoses documented for the Encounter. Date/Time Primary/Secondary Diagnosis Diagnosis Name Provider Source Jan 10, 2025 11:50 AM PRIMARY Malignant neoplasm of unsp part of unsp bronchus or lung RIRI STEELE Kar [facility] Jan 10, 2025 11:50 AM SECONDARY Benign prostatic hyperplasia without lower urinry tract symp RIRI STEELE [facility] Jan 10, 2025 11:50 AM SECONDARY Elevated prostate specific antigen [PSA] RIRI STEELE [facility] Jan 10, 2025 11:50 AM SECONDARY Essential (primary) hypertension RIRI STEELE [facility] Jan 10, 2025 11:50 AM SECONDARY Headache, unspecified IVETTERIRI E [facility] Jan 10, 2025 11:50 AM SECONDARY Sensorineural hearing loss, bilateral RIRI STEELE [facility] Jan 10, 2025 11:50 AM SECONDARY Unspecified abdominal hernia without obstruction or gangrene RIRI STEELE [facility] Jan 10, 2025 11:50 AM SECONDARY Unspecified [facility] Vital Signs: All taken on the encounter date This section contains inpatient and outpatient Vital Signs collected on the date of the Encounter. Date/Time Temperature Pulse Blood Pressure Respiratory Rate SP02 Pain Height Weight Body Mass Index Source Dec 28, 2024 01:31 PM 97.3 82 136/78 18 98 0 72 178.6 24 [facility] Social History: Smoking Status (Most current) and Tobacco Use (All prior to encounter date) This section includes the most current, and the historical, smoking and tobacco- related health factors from the [place] facility where the Encounter took place. Current Smoking Status This section includes the most current smoking, or tobacco-related health factor, from the [place] facility where the Encounter took place. Date/Time Current Smoking Status Comment Facil ity May 27, 2024 10:30 AM VA-TOBACCO FORMER USER [facility] Tobacco Use History This section includes a history of the smoking, or tobacco-related health factors, that were collected on or before the date of the Encounter. The data comes from the [place] facility where the Encounter took place. Date/Time Smoking Status/Tobacco Use Comment F acility May 27, 2024 10:30 AM VA-TOBACCO QUIT 5 TO < 15 YRS [facility] May 27, 2023 01:30 PM VA-TOBACCO FORMER USER . [facility] May 27, 2023 01:30 PM VA-TOBACCO QUIT 5 TO < 15 YRS [facility] May 28, 2022 01:00 PM VA-TOBACCO FORMER USER . [facility] May 28, 2022 01:00 PM VA-TOBACCO QUIT 5 TO < 15 YRS [facility] Encounter Notes: All associated encounter notes This section contains the clinical notes associated to the Encounter. Date/Time Encounter Note(s) Provider Source Dec 29, 2024 12:13 PM ADDENDUM: LOCAL TITLE: Addendum STANDARD TITLE: ADDENDUM DATE OF NOTE: DEC 29, 2024@12:13:39 ENTRY DATE: DEC 29, 2024@12:13:40 AUTHOR: CATRACHITA STEELE EXP COSIGNER: URGENCY: STATUS: COMPLETED Can we request records from his nonVA oncology clinic: oncologist- Dr Crisostomo, [facility] /merly/ CATRACHITA STEELE Staff Physician Signed: 12/29/2024 12:14 Receipt Acknowledged By: 12/30/2024 15:37 /merly/ Mustapha Sidhu Rn, BSN REGISTERED NURSE --- Original Document --- 12/28/24 PRIMARY CARE PROVIDER ESTABLISHED VISIT STL: Patient is 79 and WHITE Self Identified Gender - Man Reason for visit:Scheduled follow-up Chief Complaint: 79yo male here for f/u visit, last visit April 2024. NonVA Providers: urologist-Dr Morelos marketing account manager Dr Palacios at [facility] Dr Johnson at [facility] Lung surgeon/oncologist- Dr Crisostomo, [facility]. PCP- Milka Guerrero Derm: Dr. Forbes, [place], [place] History of Present Illness: Hx of lung CA, currently seeing nonVA oncology. --hx of radiation and lobectomy. Last radiation tx 1-2 years ago. --reports no current treatment, has been getting regular CT scan for monitoring. Problem List: 1) Hypertension 2) Glaucoma 3) Hernia 4) Varicose veins 5) Lung cancer Social History: NICOTINE: quit smoking 2013 ALCOHOL: 2 beers 3-4x per week ILLICIT DRUGS: None MARITAL STATUS: Medication Review: The essential med list for review which includes the patient's active VA prescriptions and if applicable, remote VA prescriptions, non-VA prescriptions, and discontinued VA prescriptions within the last 90 days and known allergies including local and remote allergies have been reviewed. Allergies:NOVOCAIN, SIMBRINZA, LUMIGAN, ERYTHROMYCIN, OXYCODONE, CODEINE Active and Recently Outpatient Medications (excluding Supplies): Active Outpatient Medications Status 1) DORZOLAMIDE 22.3/TIMOLOL6.8MG/ML OPH [place] INSTILL 1 DROP IN ACTIVE BOTH EYES TWICE A DAY Indication: FOR GLAUCOMA 2) LOSARTAN 100MG TAB TAKE ONE-HALF TABLET BY MOUTH ONCE A DAY ACTIVE Indication: FOR HIGH BLOOD PRESSURE Inactive Outpatient Medications Status 1) LATANOPROST 0.005%/NETARSUDIL 0.02% OPH INSTILL 1 DROP IN BOTH EYES EVERY EVENING KEEP REFRIGERATED UNTIL READY TO USE. Indication: FOR ELEVATED INTRAOCULAR PRESSURE Active Non-VA Medications Status 1) Non-VA ASPIRIN 81MG EC TAB 81MG BY MOUTH ONCE A DAY ACTIVE 2) Non-VA DOCUSATE NA 100MG CAP 200MG BY MOUTH ONCE A DAY ACTIVE NEEDED 3) Non-VA MULTIVITAMIN CAP/TAB BY MOUTH ONCE A DAY ACTIVE 4) Non-VA PEG 400 0.4%/PROP GLYCOL 0.3% OPH SOLN 1 DROP ACTIVE AFFECTED EYE(S) EVERY 4 HOURS NEEDED 5) Non-VA PROBIOTIC COMBINATION CAP/TAB 1 CAPSULE BY MOUTH ONCE ACTIVE A DAY 8 Total Medications Physical Exam VITALS (most recent, as listed in the electronic record): B/P: 136/78 (12/28/2024 13:31) Pulse: 82 (12/28/2024 13:31) Temperature: 97.3 F [36.3 C] (12/28/2024 13:31) Weight: 178.6 lb [81.01 kg] (12/28/2024 13:31) Height: 72 in [182.9 cm] (12/28/2024 13:31) BMI: 24.3 Pain: 0 (12/28/2024 13:31) (0-10 scale) General: WD, WN in NAD, pleasant affect HEENT: TM's clear, no cerumen impaction Neck: Supple. Lungs: CTA bilat, no W/R/R Heart: RRR, nl S1/S2, no murmurs. Abdomen: Soft, large central abdominal wall hernia. labs done through nonVA provider Assessment/Plan: 1) Lung CA: s/p radiation and lobectomy. --followed by nonVA oncology and reports currently he has been getting CT scan for monitoring w/o any current treatment. --discussed no records as of yet, will request. --he would still like to [facility] to the [facility]. 2) HTN: controlled to goal <140/90. --continue losartan 50mg --recommend monitoring at home, has no readings today. 3) Glaucoma: seeing nonVA supervisor pastry, receives eye drops through the VA. --latanaprost renewed. --cont current management --also wishes for exam with the VA for eyeglasses, number given to schedule. 4) Hernia: large central abdominal hernia, reports due to complications from colonoscopy. --failed surgical repair. --wears abdominal binder. --reports no recent issues. 5) BPH/elevated PSA: seeing nonVA Urology; has had biopsy x 1 that was benign. --no current medications --continue with urology. 6) Hearing loss, bilateral: [facility], examined ears and no cerumen blockage. --feels hearing aids not working well. --recommend f/u with Audiology. 7) Headaches: no current issues with headaches --continue to monitor RTC: 6 months Time: 30 min CLINICAL REMINDERS COMPLETED Sexual Orientation - CP,L,N,P,PH,PS,S,U: The patient thinks of their sexual orientation as: Straight or Heterosexual VVC DIGITAL DIVIDE CAPABILITY REMINDER: Patient is not interested in VVC at this time. 'S RIGHT TO DECLINE STATEMENT understands they have the right to decline the use of Telehealth Technology at any time without adverse affects on their continued access to healthcare. Eye Care At-Risk Screen - L,N,PH,U: Patient identified to be at risk for the following eye condition(s): GLAUCOMA: Glaucoma Risk Factors Information: Encounter Diagnosis: 05/27/2024@10:30 H40.9 (ICD-10-CM) Unspecified Glaucoma rank: SECONDARY Prov. Narr. - Glaucoma ([facility] [id number]) Action: Referral Ordered: Comprehensive Eye Exam Patient desires eyeglasses. Schedule for a comprehensive eye exam ordered. /merly/ CATRACHITA STEELE Staff Physician Signed: 12/28/2024 14:57 12/30/2024 ADDENDUM STATUS: COMPLETED records requested /es/ Mustapha Sidhu Rn, BSN REGISTERED NURSE Signed: 12/30/2024 15:37 CATRACHITA STEELE [facility] Dec 28, 2024 02:25 PM PRIMARY CARE NOTE: LOCAL TITLE: PRIMARY CARE PROVIDER ESTABLISHED VISIT ST STANDARD TITLE: PRIMARY CARE NOTE DATE OF NOTE: DEC 28, 2024@14:25 ENTRY DATE: DEC 28, 2024@14:25:24 AUTHOR: CATRACHITA STEELE EXP COSIGNER: URGENCY: STATUS: COMPLETED PRIMARY CARE PROVIDER ESTABLISHED VISIT STL Has ADDENDA Patient is 79 and WHITE Self Identified Gender - Man Reason for visit:Scheduled follow-up Chief Complaint: 79yo male here for f/u visit, last visit April 2024. NonVA Providers: urologist-Dr Morelos marketing account manager Dr Palacios at [facility] Dr Johnson at [facility] Lung surgeon/oncologist- Dr Crisostomo, [facility]. PCP- Milka Guerrero Derm: Dr. Forbes, [place], [place] History of Present Illness: Hx of lung CA, currently seeing nonVA oncology. --hx of radiation and lobectomy. Last radiation tx 1-2 years ago. --reports no current treatment, has been getting regular CT scan for monitoring. Problem List: 1) Hypertension 2) Glaucoma 3) Hernia 4) Varicose veins 5) Lung cancer Social History: NICOTINE: quit smoking 2013 ALCOHOL: 2 beers 3-4x per week ILLICIT DRUGS: None MARITAL STATUS: Medication Review: The essential med list for review which includes the patient's active VA prescriptions and if applicable, remote VA prescriptions, non-VA prescriptions, and discontinued VA prescriptions within the last 90 days and known allergies including local and remote allergies have been reviewed. Allergies:NOVOCAIN, SIMBRINZA, LUMIGAN, ERYTHROMYCIN, OXYCODONE, CODEINE Active and Recently Outpatient Medications (excluding Supplies): Active Outpatient Medications Status 1) DORZOLAMIDE 22.3/TIMOLOL6.8MG/ML OPH [place] INSTILL 1 DROP IN ACTIVE BOTH EYES TWICE A DAY Indication: FOR GLAUCOMA 2) LOSARTAN 100MG TAB TAKE ONE-HALF TABLET BY MOUTH ONCE A DAY ACTIVE Indication: FOR HIGH BLOOD PRESSURE Inactive Outpatient Medications Status 1) LATANOPROST 0.005%/NETARSUDIL 0.02% OPH INSTILL 1 DROP IN BOTH EYES EVERY EVENING KEEP REFRIGERATED UNTIL READY TO USE. Indication: FOR ELEVATED INTRAOCULAR PRESSURE Active Non-VA Medications Status 1) Non-VA ASPIRIN 81MG EC TAB 81MG BY MOUTH ONCE A DAY ACTIVE 2) Non-VA DOCUSATE NA 100MG CAP 200MG BY MOUTH ONCE A DAY ACTIVE NEEDED 3) Non-VA MULTIVITAMIN CAP/TAB BY MOUTH ONCE A DAY ACTIVE 4) Non-VA PEG 400 0.4%/PROP GLYCOL 0.3% OPH SOLN 1 DROP ACTIVE AFFECTED EYE(S) EVERY 4 HOURS NEEDED 5) Non-VA PROBIOTIC COMBINATION CAP/TAB 1 CAPSULE BY MOUTH ONCE ACTIVE A DAY 8 Total Medications Physical Exam VITALS (most recent, as listed in the electronic record): B/P: 136/78 (12/28/2024 13:31) Pulse: 82 (12/28/2024 13:31) Temperature: 97.3 F [36.3 C] (12/28/2024 13:31) Weight: 178.6 lb [81.01 kg] (12/28/2024 13:31) Height: 72 in [182.9 cm] (12/28/2024 13:31) BMI: 24.3 Pain: 0 (12/28/2024 13:31) (0-10 scale) General: WD, WN in NAD, pleasant affect HEENT: TM's clear, no cerumen impaction Neck: Supple. Lungs: CTA bilat, no W/R/R Heart: RRR, nl S1/S2, no murmurs. Abdomen: Soft, large central abdominal wall hernia. labs done through nonVA provider Assessment/Plan: 1) Lung CA: s/p radiation and lobectomy. --followed by nonVA oncology and reports currently he has been getting CT scan for monitoring w/o any current treatment. --discussed no records as of yet, will request. --he would still like to [facility] to [facility]. 2) HTN: controlled to goal <140/90. --continue losartan 50mg --recommend monitoring at home, has no readings today. 3) Glaucoma: seeing nonVA supervisor pastry, receives eye drops through the VA. --latanaprost renewed. --cont current management --also wishes for exam with the VA for eyeglasses, number given to schedule. 4) Hernia: large central abdominal hernia, reports due to complications from colonoscopy. --failed surgical repair. --wears abdominal binder. --reports no recent issues. 5) BPH/elevated PSA: seeing nonVA Urology; has had biopsy x 1 that was benign. --no current medications --continue with urology. 6) Hearing loss, bilateral: seeing [place] [facility]iology, examined ears and no cerumen blockage. --feels hearing aids not working well. --recommend f/u with Audiology. 7) Headaches: no current issues with headaches --continue to monitor RTC: 6 months Time: 30 min CLINICAL REMINDERS COMPLETED Sexual Orientation - CP,L,N,P,PH,PS,S,U: The patient thinks of their sexual orientation as: Straight or Heterosexual VVC DIGITAL DIVIDE CAPABILITY REMINDER: Patient is not interested in VVC at this time. 'S RIGHT TO DECLINE STATEMENT understands they have the right to decline the use of Telehealth Technology at any time without adverse affects on their continued access to healthcare. Eye Care At-Risk Screen - L,N,PH,U: Patient identified to be at risk for the following eye condition(s): GLAUCOMA: Glaucoma Risk Factors Information: Encounter Diagnosis: 05/27/2024@10:30 H40.9 (ICD-10-CM) Unspecified Glaucoma rank: SECONDARY Prov. Narr. - Glaucoma ([facility] [id number]) Action: Referral Ordered: Comprehensive Eye Exam Patient desires eyeglasses. Schedule for a comprehensive eye exam ordered. /merly/ CATRACHITA STEELE Staff Physician Signed: 12/28/2024 14:57 12/29/2024 ADDENDUM STATUS: COMPLETED Can we request records from his nonVA oncology clinic: oncologist- Dr Crisostomo, [facility] /merly/ CATRACHITA STEELE Staff Physician Signed: 12/29/2024 12:14 Receipt Acknowledged By: 12/30/2024 15:37 /merly/ Mustapha Sidhu Rn, BSN REGISTERED NURSE 12/30/2024 ADDENDUM STATUS: COMPLETED records requested /merly/ Mustapha Sidhu Rn, BSN REGISTERED NURSE Signed: 12/30/2024 15:37 CATRACHITA STEELE [facility] Dec 28, 2024 01:37 PM NURSING NOTE: LOCAL TITLE: V15 PACT FACE TO FACE NOTE STL STANDARD TITLE: NURSING NOTE DATE OF NOTE: DEC 28, 2024@13:37 ENTRY DATE: DEC 28, 2024@13:37:59 AUTHOR: BHUMI CASTILLO COSIGNER: URGENCY: STATUS: COMPLETED Provider Visit: Patient Identifiers : Full Name Date of Reason for visit: Established Follow-Up Mode of Arrival: Ambulatory Allergy Review: NOVOCAIN, SIMBRINZA, LUMIGAN, ERYTHROMYCIN, OXYCODONE, CODEINE Allergy list reviewed and remains current. Recent Vital Signs: Temperature: 97.3 F [36.3 C] (12/28/2024 13:31) Pulse: 82 (12/28/2024 13:31) Respiration: 18 (12/28/2024 13:31) B/P: 136/78 (12/28/2024 13:31) Pain: 0 (12/28/2024 13:31) Wt: 178.6 lb [81.01 kg] (12/28/2024 13:31) Ht: 72 in [182.9 cm] (12/28/2024 13:31) BMI: 24.3 POX: 98% (12/28/2024 13:31) PERSONAL HEALTH INVENTORY Notes: No data available for PHI note titles PERSONAL HEALTH INVENTORY - MAP: No data available for PHI MAP What matters most to you in your life right now? -- 's Response: family Would you like to discuss any personal problem, family problem, alcohol use, drug use, or a mental or emotional illness? No Contact provided Primary Care phone number and encouraged to call if any questions or concerns. Review that after hours nurse line [phone] and emergency room are available 22/06 for patient use. Contact verbalized good understanding. Frail/Elderly Screen: ADL Screen - Case Index of Gentry in Activities of Daily Living Bathing: (3 Points) Receives no assistance (gets in and out of tub by self, if tub is usual means of bathing) Dressing: (3 Points) Gets clothes and gets completely dressed without assistance. Toileting: (3 Points) Goes to toilet room , cleans self, and arranges clothes without assistance (may use object for support such as cane, walker, or wheelchair, and may manage own night bedpan or commode, emptying same next morning) Transferring: (3 Points) Moves in and out of bed and in and out of chair without assistance (may be using object for support, such as cane or walker) Continence: (3 Points) Controls urination and bowel movement completely by self Feeding: (3 Points) Feeds self without assistance Total Score: 18 Points 18 = High (patient independent) 6 = Low (patient very dependent) IADL Screen - [place] Instrumental Activities of Daily Living Scale Ability to use telephone: (1 point) Operates Telephone on own initiative; looks up and dials numbers. Shopping: (1 point) Takes care of all shopping needs independently. Food preparation: (1 point) Plans, prepares, and serves adequate meals independently. Housekeeping: (1 point) Maintains house alone with occasional assistance (heavy work). Laundry: (1 point) Does personal laundry completely. Mode of transportation: (1 point) Travels independently on public transportation or drives own car. Responsibility for own medications: (1 point) Is responsible for taking medications in correct dosages at correct times. Ability to handle finances: (1 point) Manages financial matters independently (budgets, writes checks, pays rent and bills, goes to bank); collects and keeps track of income. Total score: 8 points 8 = High function, independent 0 = Low function, dependent Homelessness/Food Insecurity Screen - DI,L,N,P,PH,PS,S,U: In the past 2 months, have you been living in stable housing that you own, rent, or stay in as part of a household? Yes - Living in stable housing. Are you worried or concerned that in the next 2 months you may NOT have stable housing that you own, rent, or stay in as part of a household? No - Not worried about housing near future The [place] reports the following: Within the past 12 months, you worried whether your food would run out before you got money to buy more. Never true Within the past 12 months, the food you bought just didn't last and you didn't have money to get more. Never true COVID-19 Immunization - L,N,P,PH,U: Refused Pfizer Monovalent COVID-19 vaccine Immunization: COVID-19 (PFIZER), MRNA, LNP-S, PF, RAGINI-SUCROSE, 30 MCG/0.3 ML (AGES 12+ YEARS) Refusal Reason: PATIENT DECISION Patient refuses all immunization(s) in the COVID-19 group Date Documented: 12/28/24 13:41 Influenza Immunization - L,N,P,PH,U: Deferral / Refusal The patient declines to receive the recommended dose of seasonal influenza vaccine. Immunization: INFLUENZA, UNSPECIFIED FORMULATION Refusal Reason: PATIENT DECISION Patient refuses all immunization(s) in the FLU group Date Documented: 12/28/24 13:41 Herpes Zoster (Shingles) Vaccine - L,N,P,PH,U: The patient declines to receive the recommended dose of zoster (shingles) vaccine. Immunization: ZOSTER RECOMBINANT Refusal Reason: PATIENT DECISION Patient refuses all immunization(s) in the ZOSTER group Date Documented: 12/28/24 13:41 Pneumococcal Conjugate Vaccine (PCV15/PCV20) - L,N,P,PH,U: Refuses PCV vaccine Immunization: PNEUMOCOCCAL CONJUGATE, UNSPECIFIED FORMULATION Refusal Reason: PATIENT DECISION Patient refuses all immunization(s) in the PneumoPCV group Date Documented: 12/28/24 13:42 /merly/ BHUMI CASTILLO LPN LICENSED PRACTIAL NURSE Signed: 12/28/2024 13:42 BHUMI CASTILLO [facility]
--- OUTSIDE RECORDS SUMMARY | 2025-04-19 10:27 | XMS_ITS | Referral Summary ---
Author Organization [facility] [address] Address [address] [place] [address] Care Team Providers Care Broth Setter Name Role Phone Lincoln Calzada Primary Care Provider [phone] Allergies Active Allergy Reactions Criticality Noted Date [...] on file Legal Sex Male 3:35 AM XRAY TECH Gender Identity Not on file Sexual Orientation Not on file Last Filed Vital Signs Vital Sign Reading Time Taken Comments Blood Pressure 130/80 10/08/2023 10:30 AM XRAY TECH Pulse 74 10/08/2023 10:30 AM XRAY TECH Temperature 37.2 C (98.9 F) 01/23/2021 2:03 PM XRAY TECH Respiratory Rate - - Oxygen Saturation 99% 10/08/2023 10:30 AM XRAY TECH Inhaled Oxygen Concentration - - Weight 81.6 kg (180 lb) 10/08/2023 10:30 AM XRAY TECH Height 182.9 cm (6') 10/08/2023 10:30 AM XRAY TECH Body Mass Index 24.41 10/08/2023 10:30 AM XRAY TECH Plan of Treatment Not on file Insurance MEDICARE [facility] MEDICARE SUPPLEMENT INSURANCE MEDICARE [facility] MEDICARE SUPPLEMENT INSURANCE Care Teams Broth Setter Relationship Specialty Start Date End Date Lincoln Calzada PA [address] [place] [address] PCP - General Physician Marine Equipment Research Engineer 01/10/21
--- OUTSIDE RECORDS SUMMARY | 2025-04-19 10:27 | XMS_ITS | Clinical Summary ---
Author Organization [facility] [address] Address [address] [place] [address] Care Team Providers Care Mine Technician Name Role Phone Lincoln Calzada Primary Care Provider [phone] Allergies Active Allergy Reactions Criticality Noted Date [...] 12/28/2014 Surgical History Surgery Date Site/Laterality Comments OK BIOPSY LUNG/MEDIASTINUM PERCUTANEOUS NEEDLE Biopsy Lung Percutaneous - (Added by TW Conv) FOOT SURGERY Foot Repair - (Added by TW Conv) OK TONSILLECTOMY PRIMARY/SECONDARY <AGE 12 Tonsillectomy - (Added by Conv) OK COLONOSCOPY FLX DX W/ANOOP J SPEC WHEN PFRMD Colonoscopy (Fiberoptic) - (Added by Conv) OK ESOPHAGOGASTRODUODENOSCOP Y TRANSORAL DIAGNOSTIC Diagnostic Esophagogastroduodenoscopy - [...] on file Legal Sex Male 3:35 AM MAMMOGRAPHY TECHNOLOGIST Gender Identity Not on file Sexual Orientation Not on file Obstetrics History Last Filed Vital Signs Vital Sign Reading Time Taken Comments Blood Pressure 130/80 10/08/2023 10:30 AM MAMMOGRAPHY TECHNOLOGIST Pulse 74 10/08/2023 10:30 AM MAMMOGRAPHY TECHNOLOGIST Temperature 37.2 C (98.9 F) 01/23/2021 2:03 PM MAMMOGRAPHY TECHNOLOGIST Respiratory Rate - - Oxygen Saturation 99% 10/08/2023 10:30 AM MAMMOGRAPHY TECHNOLOGIST Inhaled Oxygen Concentration - - Weight 81.6 kg (180 lb) 10/08/2023 10:30 AM MAMMOGRAPHY TECHNOLOGIST Height 182.9 cm (6') 10/08/2023 10:30 AM MAMMOGRAPHY TECHNOLOGIST Body Mass Index 24.41 10/08/2023 10:30 AM MAMMOGRAPHY TECHNOLOGIST Plan of Treatment Health Maintenance Due Date [...] 07/20/2017, 06/24/2016, Additional history exists Insurance MEDICARE [facility] MEDICARE SUPPLEMENT INSURANCE MEDICARE [facility] MEDICARE SUPPLEMENT INSURANCE Care Teams Mine Technician Relationship Specialty Start Date End Date Lincoln Calzada PA [address] [place] [address] PCP - General Physician Cinder Dump Crane Operator 01/10/21
--- OUTSIDE RECORDS SUMMARY | 2025-04-19 10:27 | XMS_ITS | Continuity of Care Document ---
Author Organization [facility] Address [address] [place] [address] Phone Care Team Providers Care Test Skein Winder Name Role Phone Luann Jett Unavailable Unavailable [...] Diagnoses Date Provider Providers Copied on Encounter [facility], [address], [place], [place], [id number], [place] tel:[phone] [facility] No Information Oct-2 2-201 0 Maliha Kong. [address], [place], [address], [place]. tel:[phone] [facility], [address] [place] [address] [address], [place], [place], [id number], [place] tel:[phone] [facility] No Information Oct-1 2-201 0 Jett Luann. [address], [place], [place], [facility], . tel:[phone] Office/outpat ient Visit, Est [facility], [address] [place] [address] [address], [place], [place], [id number], [place] tel:[phone] [facility] No Information Sep-1 4-201 0 Jett Luann. [address] , [address], [place], [place], [facility], . tel:[phone] [facility], [address] [place] [address] [address], [place], [place], [id number], tel:[phone] [facility] No Information May-1 3-201 0 Jett Luann. [address] , [address], [place], [place], [facility], [place]. tel:[phone] [facility], [address] [place] [address] [address], [place], [place], [address], [place] tel:[phone] [facility] No Information May-0 4-201 0 Jett Luann. [address], [place], [place], [facility], [place]. tel:[phone] [facility], [address] [place] [address] [address], [place], [place], [id number], [place] tel:[phone] [facility] No Information Apr-2 0-201 0 Jett Luann. [address] , [address], [place], [place], [facility], . tel:[phone] Office/outpat ient Visit, Est [facility], [address] [place] [address] [address], [place], [place], [address], [place] tel:[phone] [facility] No Information Dec-1 5-200 9 Maliha Kong. [address] , [address], [place], [place], [facility], . tel:[phone] Referring Provider: Luann Llanos, [address], [place], [facility]. tel:[phone] [facility], [address] [place] [address] [address], [place], [place], [id number], [place] tel:[phone] [facility] No Information Aug-1 0-200 9 Maliha Kong. [address], [place], [facility], [place]. tel:[phone] Referring Provider: Luann Llanos, [address], [place], [facility]. tel:[phone] Office/outpat ient Visit, Est [facility], [address] [place] [address] [address], [place], [place], [address], [place] tel:[phone] [facility] No Information Apr-0 7-200 9 Maliha Quiroz [address] , [address], [place], [facility], [place]. tel:[phone] [facility], [address], [place], [place], [address], [place] tel:[phone] [facility] No Information Dec-0 2-200 8 Maliha Kong. [address] , [address], [place], [facility], [place]. tel:[phone] Referring Provider: Luann Llanos, [address], [place], [facility]. tel:[phone] [facility], [address] [place] [address] [address], [place], [place], [address], [place] tel:[phone] [facility] No Information 9-200 8 Maliha Salvador [facility] , [address], [place], [facility], . tel:[phone] Referring Provider: Luann Llanos, [address], [place], [facility]. tel:[phone] Office/outpat ient Visit, [facility], [address] [place] [address] [address], [place], [place], [address], tel:[phone] [facility] No Information 5[address] Maliha Quiroz [address] [facility] , [address], [place], [facility], . tel:[phone] Office/outpat ient Visit, [facility], [address] [place] [address] [address], [place], [place], [address], tel:[phone] [facility] No Information 0-200 7 Maliha Salvador [facility] , [address], [place], [facility], . tel:[phone] Referring Provider: Luann Llanos, [address], [place], [facility]. tel:[phone] Office/outpat ient Visit, [facility], [address] [place] [address] [address], [place], [place], [id number], tel:[phone] [facility] No Information 7-200 7 Maliha [address] , [address], [place], [facility], . tel:[phone] [facility], [address] [place] [address] [address], [place], [place], [address], tel:[phone] [facility] No Information 3-200 7 Maliha Quiroz [address] , [address], [place], [address], [place]. tel:[phone] Referring Provider: Luann Llanos, [address] [facility] [address], [place], [address]. tel:[phone] Family History Family Member Type Diagnosis Age At Onset No Information Payers Payer name Insurance type Covered democrat ID Authoriza tion(s) No Information Social History [...]
--- OUTSIDE RECORDS SUMMARY | 2025-04-19 10:27 | XMS_ITS | Encounter Summary ---
Author Name [facility] ([place]) Address [address] [place] [address] Care Team Providers Care Lithographic Printing Machinist Name Role Phone CATRACHITA STEELE Primary Care [...] SUPPL EMENT Nov 30, 2015 PLAN F [id number] ROSALIE WASHINGTON PATIENT MEDICARE (WNR) MEDICARE (M) PART A Oct 30, 2011 PART A [id number] [facility] ROSALIE WASHINGTON PATIENT MEDICARE (WNR) MEDICARE (M) PART B Oct 30, 2011 PART B [id number] ROSALIE WASHINGTON PATIENT Selected Encounter This section includes the information on record at [place] for the Encounter. Date/Time Encounter Type Encounter Description Reason Provider Source May 27, 2024 10:30 AM OFFICE O/P EST MOD 30 MIN PRIMARY CARE/MEDICINE ICD-10-CM C34.90 Malignant neoplasm of unsp part of unsp bronchus or lung RIRI STEELE Encounter Template Text not used by [place] Assessments - Encounter Diagnoses This section includes the primary and secondary diagnoses documented for the Encounter. Date/Time Primary/Secondary Diagnosis Diagnosis Name Provider Source Jun 12, 2024 05:32 PM PRIMARY Malignant neoplasm of unsp part of unsp bronchus or lung RIRI STEELE [facility] Jun 12, 2024 05:32 PM SECONDARY Benign prostatic hyperplasia with lower urinary tract symp TERRANCEBALTAZARRIRI E [facility] Jun 12, 2024 05:32 PM SECONDARY Essential (primary) hypertension TERRANCEBALTAZARRIRI E [facility] Jun 12, 2024 05:32 PM SECONDARY Headache, unspecified TERRANCEBALTAZARRIRI E [facility] Jun 12, 2024 05:32 PM SECONDARY Other specified hearing loss, [facility] Jun 12, 2024 05:32 PM SECONDARY Unspecified glaucoma [facility] Vital Signs: All taken on the encounter date This section contains inpatient and outpatient Vital Signs collected on the date of the Encounter. Date/Time Temperature Pulse Blood Pressure Respiratory Rate SP02 Pain Height Weight Body Mass Index Source May 27, 2024 10:34 AM 130/78 [facility] May 27, 2024 10:22 AM 98 50 168/83 18 99 0 72 177 24 [facility] Social History: Smoking Status (Most current) and Tobacco Use (All prior to encounter date) This section includes the most current, and the historical, smoking and tobacco- related health factors from the [place] facility where the Encounter took place. Current Smoking Status This section includes the most current smoking, or tobacco-related health factor, from the [place] facility where the Encounter took place. Date/Time Current Smoking Status Comment Facil ity May 27, 2024 10:30 AM VA-TOBACCO FORMER USER [facility] Tobacco Use History This section includes a history of the smoking, or tobacco-related health factors, that were collected on or before the date of the Encounter. The data comes from the [place] facility where the Encounter took place. Date/Time Smoking Status/Tobacco Use Comment F acility May 27, 2024 10:30 AM [place]-TOBACCO QUIT 5 TO < 15 YRS [facility] May 27, 2023 01:30 PM VA-TOBACCO FORMER [facility] May 27, 2023 01:30 PM VA-TOBACCO QUIT 5 TO < 15 YRS . [facility] May 28, 2022 01:00 PM VA-TOBACCO [facility] May 28, 2022 01:00 PM VA-TOBACCO QUIT 5 TO < 15 YRS [facility] Encounter Notes: All associated encounter notes This section contains the clinical notes associated to the Encounter. Date/Time Encounter Note(s) Provider Source May 27, 2024 10:46 AM PRIMARY CARE NOTE: LOCAL TITLE: PRIMARY CARE PROVIDER ESTABLISHED VISIT ST STANDARD TITLE: PRIMARY CARE NOTE DATE OF NOTE: MAY 27, 2024@10:46 ENTRY DATE: MAY 27, 2024@10:46:58 AUTHOR: CATRACHITA STEELE COSIGNER: URGENCY: STATUS: COMPLETED ESTABLISHED PATIENT KIQH-VA-AACC: REASON FOR VISIT/CHIEF COMPLAINT: 78yo male here for f/u visit, last visit Oct 2023. NonVA Providers: urologist-Dr Morelos machine pecan gatherer Dr Palacios at [facility]ologists Dr Johnson at [facility] Lung surgeon/oncologist- Dr Rodriguez, Dr Crisostomo, [facility]. PCP- Milka Guerrero Derm: Dr. Forbes, [place], [place] HPI: Hx of lung cancer, has been seeing nonVA Oncology with recurrence. --hx of left lobectomy previously, then R lung radiation in 2022. --[facility], but we have not received any outside records and there are none in [facility]. --had a chest CT done in February 2024 for f/u, reports stable mass in right lower lobe, stable post op changes of the left lung, emphysema. Hx of HTN, currently losartan 50mg daily. Reports not checking BP at home often. Hx of elevated PSA, prior biopsies negative for prostate CA. Has been told he has BPH, but currently not on medications. Reports nocturia but no daytime issues. WHAT IS YOUR GOAL FOR TODAY? f/u visit SOURCE(S) OF HISTORY: Patient PAST MEDICAL HISTORY: 1) Hypertension 2) Glaucoma 3) Hernia 4) Varicose veins 5) Lung cancer FAMILY HISTORY: Reviewed and unchanged. SOCIAL HISTORY: NICOTINE: None ALCOHOL: 2 beers 3-4x per week ILLICIT DRUGS: None EXERCISE/DIET: MARITAL STATUS: ALLERGIES: NOVOCAIN, SIMBRINZA, LUMIGAN, ERYTHROMYCIN, OXYCODONE, CODEINE ALLERGY REVIEW: Allergy list reviewed and remains current. MEDICATIONS: Active and Recently Outpatient Medications (excluding Supplies): Active Outpatient Medications Status 1) DICLOFENAC NA 1% TOP GEL APPLY 4 GM TO AFFECTED ACTIVE AREA(S) FOUR TIMES A DAY NEEDED FOR PAIN DO NOT EXCEED MORE THAN 16 GRAMS DAILY TO ANY LOWER EXTREMITY JOINT. NOT MORE THAN 8 GRAMS DAILY TO ANY UPPER EXTREMITY JOINT. MAX 32GM/DAY OVER ALL JOINTS. (MEASURE DOSE WITH RULER ATTACHED INSIDE BOX) 2) HYDROPHILIC (EQV EUCERIN) TOP CREAM APPLY LIBERALLY ACTIVE TO AFFECTED AREA(S) ONCE A DAY FOR DRY SKIN (EXTERNAL USE ONLY) 3) LATANOPROST 0.005%/NETARSUDIL 0.02% OPH INSTILL 1 ACTIVE DROP IN BOTH EYES EVERY EVENING FOR ELEVATED INTRAOCULAR PRESSURE KEEP REFRIGERATED UNTIL READY TO USE. 4) LOSARTAN 100MG TAB TAKE ONE-HALF TABLET BY MOUTH ONCE ACTIVE A DAY Active Non-VA Medications Status 1) Non-VA ASPIRIN 81MG EC TAB 81MG BY MOUTH ONCE A DAY ACTIVE 2) Non-VA DOCUSATE NA 100MG CAP 200MG BY MOUTH ONCE A ACTIVE DAY NEEDED 3) Non-VA MULTIVITAMIN CAP/TAB BY MOUTH ONCE A DAY ACTIVE 4) Non-VA PEG 400 0.4%/PROP GLYCOL 0.3% OPH SOLN 1 DROP ACTIVE AFFECTED EYE(S) EVERY 4 HOURS NEEDED 5) Non-VA PROBIOTIC COMBINATION CAP/TAB 1 CAPSULE BY ACTIVE MOUTH ONCE A DAY 9 Total Medications MEDICATION RECONCILIATION: I have reviewed the patient's medication list with the patient and/or his/her care-card stripper. Handwritten corrections, additions and/or deletions were made to the list. Corrected Outpatient Medication List was provided to the patient/caregiver. REVIEW OF SYSTEMS: Neg other than as noted in HPI PHYSICAL EXAMINATION: VITALS (most recent, as listed in the electronic record): Temperature: 98 F [36.7 C] (05/27/2024 10:22) BP: 130/78 (05/27/2024 10:34) Pulse: 50 (05/27/2024 10:22) Resp: 18 (05/27/2024 10:22) PulsOx: 99% (05/27/2024 10:22) Pain: 0 (05/27/2024 10:22) Weight: Measurement DT WEIGHT LB(KG)[BMI] 05/27/2024 10:22 177(80.29)[24] 11/25/2023 12:58 182.8(82.92)[25] Gen: NAD EYE: PERRLA Cardiovascular: RRR, no murmurs, no edema Respiratory: Lungs CTAB Abd/GI: Abdomen non-distended Extremities: adequate ROM, no edema Hemo/lymph: no adenopathy, excessive bruising Endo: Thyroid without palpable nodules, no excess hair growth Psych: mood and affect appropriate Neuro: Alert and oriented, CN2-12 grossly intact Skin: Clear and intact DATA REVIEW: No HEMOGLOBIN A1C EO data found Lipid Panel: No LIPID PANEL EO data found CMP: No COMPREHENSIVE METABOLIC PANEL EO data found CBC: No CBC EO data found No PSA (LAST 10 5Y) EO data found TSH: No TSH (1YR) EO data found No VITAMIN D EO data found INR: No INR EO data found UA: No URINALYSIS EO data found IM - IMMUNIZATIONS ADMINISTERED Immunization Series Date Facility Reaction Info COVID-19 (PFIZER), MRNA, LNP-S, * 3 10/14/2021 [facility] COVID-19 (PFIZER), MRNA, LNP-S, * 2 02/16/2021 [facility] COVID-19 (PFIZER), MRNA, LNP-S, * 1 01/26/2021 [facility] PNEUMOCOCCAL POLYSACCHARIDE PPV23 1 04/19/2012 [facility] TDAP 1 01/09/2017 [facility] CONTRAINDICATED No data available REFUSED ======= Immunization Date Facility Info COVID-19 (PFIZER), MRNA, LNP-S, * 11/[facility]/2023 [facility] <I> INFLUENZA, UNSPECIFIED FORMULATI* 11/25/2023 [facility] <I> PNEUMOCOCCAL CONJUGATE, UNSPECIF* 11/25/2023 [facility] <I> PNEUMOCOCCAL CONJUGATE, UNSPECIF* 05/27/2023 [facility] <I> TDAP 05/27/2023 [facility] <I> ZOSTER RECOMBINANT 11/25/2023 [facility] <I> ASSESSMENT/PLAN: 1) Lung CA: currently being managed by nonVA Oncology, reports radiation tx last year, but now just having monitoring. --last chest CT done February 2024 showed stable R lung mass. --he would like to transfer to [place] oncology due to distance of current provider in [place]. Will request records once again. 2) HTN: controlled; goal <140/90. --recommend to continue losartan 50mg daily 3) BPH/elevated PSA: seeing nonVA Urology; has had biopsy x 1 that was benign. --no current medications --continue with urology. 4) glaucoma: cont fu/management by non va optho 5) ATKA/hearing loss: cont use of hearing aids --f/u with Audiology as needed. 6) Headaches: no current issues, stable. RETURN TO CLINIC: 6 months SUMMARY STATEMENT: Plan of care has been discussed with including expected therapeutic benefits and potential side effects of prescribed medication and treatments. Mission verbalizes understanding and is in agreement with the plan of care. Patient was instructed to keep all scheduled appointments and contact manager international for any additional problems. PREVENTION & SCREENING: ALCOHOL: Clinical Reminder not due now or within a month COLORECTAL CANCER: Clinical Reminder not due now or within a month BLOOD PRESSURE: Clinical Reminder not due now or within a month HEMOGLOBIN A1C: Clinical Reminder not due now or within a month /merly/ CATRACHITA STEELE Staff Physician Signed: 05/27/2024 11:16 [facility] May 27, 2024 10:27 AM NURSING NOTE: LOCAL TITLE: V15 PACT FACE TO FACE NOTE ST STANDARD TITLE: NURSING NOTE DATE OF NOTE: MAY 27, 2024@10:27 ENTRY DATE: MAY 27, 2024@10:28:06 AUTHOR: BHUMI CASTILLO COSIGNER: URGENCY: STATUS: COMPLETED Provider Visit: Patient Identifiers : Full Name Date of Reason for visit: Established Follow-Up Mode of Arrival: Ambulatory Allergy Review: NOVOCAIN, SIMBRINZA, LUMIGAN, ERYTHROMYCIN, OXYCODONE, CODEINE Allergy list reviewed and remains current. Recent Vital Signs: Temperature: 98 F [36.7 C] (05/27/2024 10:22) Pulse: 50 (05/27/2024 10:22) Respiration: 18 (05/27/2024 10:22) B/P: 168/83 (05/27/2024 10:22) Pain: 0 (05/27/2024 10:22) Wt: 177 lb [80.29 kg] (05/27/2024 10:22) Ht: 72 in [182.9 cm] (05/27/2024 10:22) BMI: 24.1 POX: 99% (05/27/2024 10:22) Would you like to discuss any personal problem, family problem, alcohol use, drug use, or a mental or emotional illness? No Contact provided Primary Care phone number and encouraged to call if any questions or concerns. Review that after hours nurse line [phone] and emergency room are available 22/06 for patient use. Contact verbalized good understanding. Suicide Screen: C-SSRS Screening Lostant-Suicide Severity Rating Scale (C-SSRS Screener) 1. Over the past month, have you wished you were or wished you could go to sleep and not wake up? No 2. Over the past month, have you had any actual thoughts of killing yourself? No 3. Over the past month, have you been thinking about how you might do this? Response not required due to responses to other questions. 4. Over the past month, have you had these thoughts and had some intention of acting on them? Response not required due to responses to other questions. 5. Over the past month, have you started to work out or worked out the details of how to kill yourself? Response not required due to responses to other questions. 6. If yes, at any time in the past month did you intend to carry out this plan? Response not required due to responses to other questions. 7. In your lifetime, have you ever done anything, started to do anything, or prepared to do anything to end your life (for example, collected pills, obtained a gun, gave away valuables, went to the roof but didn't jump)? No 8. If YES, was this within the past 3 months? Response not required due to responses to other questions. Alcohol Use Screen (AUDIT-C): Alcohol Screen: SCREEN FOR ALCOHOL (AUDIT-C) An alcohol screening test (AUDIT-C) was negative (score=3). 1. How often did you have a drink containing alcohol in the past year? Consider a drink to be a 12 ounce can or bottle of regular beer, 8 ounces of malt liquor, a 5 ounce glass of table wine, or a 1.5 ounce shot of liquor (like scotch, gin, or vodka). Two to three times per week 2. How many drinks containing alcohol did you have on a typical day when you were drinking in the past year? One or two drinks 3. How often did you have six or more drinks on one occasion in the past year? Never Depression Screening: Perform PHQ-2 A PHQ-2 screen was performed. The score was 0 which is a negative screen for depression. Over the past two weeks, how often have you been bothered by the following problems? 1. Little interest or pleasure in doing things Not at all 2. Feeling down, depressed, or hopeless Not at all Influenza Immunization: No influenza vaccination was received during the recent influenza season. Learning Assessment: - * This patient's learning ABILITIES, BARRIERS to learning, CULTURAL and ADVENTISM beliefs, and learning PREFERENCES were assessed. Following are findings of note: Patient reads well. 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 LANGUAGE Patient reports that Malagasy is preferred language for healthcare. Patient reports learning preference is to refer to handouts. Tobacco Use Screening: The patient is a former tobacco user. The patient quit five to less than fifteen years ago. /merly/ BHUMI CASTILLO LPN LICENSED PRACTIAL NURSE Signed: 05/27/2024 10:34 BHUMI CASTILLO [facility]
--- OUTSIDE RECORDS SUMMARY | 2025-04-19 10:27 | XMS_ITS | Clinical Summary ---
Author Organization [facility] Address [address] [facility], [address] [address] Phone Care Team Providers Care Labor Relations Officer Name Role Phone Magali David MD Primary [...] Comments Blood Pressure 153/83 10/16/2020 11:45 AM AUTOMOBILES SALESPERSON Pulse 72 10/16/2020 11:45 AM AUTOMOBILES SALESPERSON Temperature 36 C (96.8 F) 10/16/2020 9:13 AM AUTOMOBILES SALESPERSON Respiratory Rate 18 10/16/2020 11:45 AM AUTOMOBILES SALESPERSON Oxygen Saturation 98% 10/16/2020 11:45 AM AUTOMOBILES SALESPERSON Inhaled Oxygen Concentration - - Weight 77.6 [...] technique for this examination. us Leyda Camp LDR NURSE, ELECTRIC METER TESTER SHOP IMG CT ORDERABLES Edited Result - Final from Last 3 Months or Most Recently Relevant to Health Maintenance Insurance MEDICARE [employer] MEDICARE SUP Care Teams Labor Relations Officer Relationship Specialty Start Date End Date Magali David MD [address] [place] [address] PCP - General Family Medicine 10/16/20
--- OUTSIDE RECORDS SUMMARY | 2025-04-19 10:27 | XMS_ITS | Continuity of Care Document ---
Author Name [facility] Organization [facility] Care Team Providers Care Edm Operator Name Role Phone [facility] Unavailable Unavailable Problems Combined list of problems from [facility] and [facility] facilities. It does not include entries that were removed or entered in error. Problem Status Onset Date Problem Type Date of Resolution Comments Source Glaucoma Active Condition [facility] Hernia Active Condition [facility] Hypertension Active Condition [facility] Lung cancer Active Condition [facility] Varicose veins Active Condition [facility] Diagnosis: ICD-10-CM C34.90 Malignant neoplasm of unsp part of unsp bronchus or lung Active Diagnosis [facility] Diagnosis: ICD-10-CM H90.3 Sensorineural hearing loss, bilateral Active Diagnosis [facility] Diagnosis: ICD-10-CM I10 Essential (primary) hypertension Active Diagnosis [facility] Medications Combined list of outpatient medications from [facility] facilities.Medications provided include 1) outpatient medications from the last 15 months, and 2) patient-reported medications. Medication Details Route Status Patient Instructions Prescription Expires Prescription Number Last Dispense Date Ordering Provider Order Date Order Qty Source ASPIRIN 81MG TAB,EC TAKE ONE TABLET BY MOUTH ONCE A DAY ORAL ACTIVE Anali'AMANDA ROBLERO MEG A 2021 [facility] DOCUSATE NA 100MG CAP TAKE 2 CAPSULES BY MOUTH ONCE A DAY NEEDED ORAL ACTIVE Anali'OSBALDO,PA MEG A 2021 [facility] DORZOLAMIDE HCL 22.3MG/RANCHO LOL MALEATE 6.8MG/ML SOLN,OPH INSTILL 1 DROP IN BOTH EYES TWICE A DAY FOR GLAUCOMA OPHTHA LMIC ACTIVE 10/04/2025 [id number] DEPAUKatie LEDESMA UZANNE 2023 30 [facility] LATANOPROST 0.005%/IDALIA RSUDIL 0.02% SOLN,OPH INSTILL 1 DROP IN BOTH EYES EVERY EVENING FOR ELEVATED INTRAOCU LAR PRESSURE KEEP REFRIGER ATED UNTIL READY TO USE. OPHTHA LMIC ACTIVE 12/29/2025 [id number] 5 DEPAULO, UZANNE 2024 2.5 [facility] LATANOPROST 0.005%/IDALIA RSUDIL 0.02% SOLN,OPH INSTILL 1 DROP IN BOTH EYES EVERY EVENING FOR ELEVATED INTRAOCU LAR PRESSURE KEEP REFRIGER ATED UNTIL READY TO USE. OPHTHA LMIC DISCONT INUED 12/25/2024 [id number] [facility] 2023 2.5 [facility] [place] POTASSIUM 100MG TAB TAKE ONE-HALF TABLET BY MOUTH ONCE A DAY ORAL ACTIVE 12/29/2025 [id number] 5 [facility] 45 [facility] [place] POTASSIUM 100MG TAB TAKE ONE-HALF TABLET BY MOUTH ONCE A DAY ORAL DISCONT INUED 03/02/2025 [id number] 4 [facility] 2023 45 [facility] MULTIVITAMI N CAP/TAB TAKE BY MOUTH ONCE A DAY ORAL ACTIVE AMANDA LAI A 2021 [facility] PEG-400 0.4%/PROPYL AMANDA GLYCOL 0.3% SOLN,OPH INSTILL 1 DROP IN AFFECTED EYE(S) EVERY 4 HOURS NEEDED OPHTHA LMIC ACTIVE AMANDA LAI A 2021 [facility] PROBIOTIC COMBINATION CAP/TAB TAKE 1 CAPSULE BY MOUTH ONCE A DAY ORAL ACTIVE AMANDA LAIA A 2021 [facility] Allergies, Adverse Reactions, Alerts Combined list of allergies from Department of Defense and Veterans Affairs facilities. It does not include entries that were removed or entered in error. Substance Category Reaction Severity Reaction type Status Date Reported Comments Source CODEINE Propensity to adverse reactions to drug (finding) Eruption active 2 [facility] ERYTHROMYCIN Propensity to adverse reactions to drug (finding) EYE IRRITATION active 2 [facility] LUMIGAN Propensity to adverse reactions to drug (finding) active 2 [facility] NOVOCAIN Propensity to adverse reactions to drug (finding) Tachycardia active 2 [facility] OXYCODONE Propensity to adverse reactions to drug (finding) active 2 [facility] SIMBRINZA Propensity to adverse reactions to drug (finding) active 2 [facility] Immunizations Combined list of available immunizations from the Department of Defense and Veterans Affairs facilities. Immunization Series Date Given Administered By Site Reaction Lot Number CVX Code Drug Car Jockey Status Comments Source COVID-19 (Review Trackers), MRNA, LNP-S, PF, 30 MCG/0.3 ML DOSE 3 2020 208 complet ed [facility] COVID-19 (Review Trackers), MRNA, LNP-S, PF, 30 MCG/0.3 ML DOSE 2 2020 208 complet ed [facility] COVID-19 ([facility]), MRNA, LNP-S, PF, 30 MCG/0.3 ML DOSE 1 2020 208 complet ed [facility] TDAP 1 2016 115 complet ed HISTORICA L INFORMATI ON - FROM OTHER REGISTRY, [facility] PNEUMOCOCCAL POLYSACCHARID E PPV23 1 2011 33 complet ed HISTORICA L INFORMATI ON - FROM OTHER REGISTRY, [facility] Vital Signs Combined list of inpatient and outpatient Vital Signs from Department of Defense and Veterans Affairs, ranging from 12 months to all on record, depending upon the facility. Vital Sign Value Date Comments Source SYSTOLIC BLOOD PRESSURE 136 12/28/2024 13:31:31 [facility] DIASTOLIC BLOOD PRESSURE 78 12/28/2024 13:31:31 [facility] PULSE OXIMETRY 98 12/28/2024 13:31:31 [facility] WEIGHT 178.6 12/28/2024 13:31:31 ST. [...] 99 05/27/2024 10:22:44 [facility] WEIGHT 177 05/27/2024 10:22:44 [facility] [...] 18 05/27/2024 10:22:44 [facility] Encounters Combined list of: 1) Encounters from Department of Veterans Affairs facilities going backup to the last 18 months, not all VA inpatient encounters are included; 2) Encounters from the Department of Defense facilities going backup to 280 months. Location Location Details Encounter Type Encounter Number Reason For Visit Attending Provider ADM Date DC Date Status Disposition Source [facility] Outpatient Encounter [id number] SAAD CASTILLO A 11/19 [facility] OFFICE O/P EST MOD 30-39 MIN [id number] Diagnos is: ICD-10- CM I10 Essenti al (primar y) hyperte nsion ZHANG,BRYSON STEPHEN R 11/25 [facility] SUP/ACCESS /DEV [id number] Diagnos is: ICD-10- CM H90.3 Sensori neural hearing loss, MARIANN Groves 12/08 [facility] Outpatient Encounter [id number] LYNNE OROZCO 12/25 [facility] Outpatient Encounter [id number] JE JERRY A 03/01 [facility] Outpatient Encounter [id number] 04/07 [facility] OFFICE O/P EST MOD 30 MIN [id number] Diagnos is: ICD-10- CM C34.90 Maligna nt neoplas m of unsp part of unsp bronchu s or lung DEPFROILAN WHALEY 05/27 [facility] Outpatient Encounter [id number] 10/03 [facility] Outpatient Encounter [id number] SAAD CASTILLO A 12/21 [facility] O[facility]P EST MOD 30 MIN [id number] Diagnos is: ICD-10- CM C34.90 Maligna nt neoplas m of unsp part of unsp bronchu s or lung TERRANCEFROILAN WHALEY 12/28 [facility] Social History Combined list of available smoking, tobacco, and other social history from Department of Defense and Veterans Affairs facilities. Social History Type Response Date Comment Sourc e Tobacco smoking status NHIS VA-TOBACCO FORMER USER 05/27/2024 [facility] History of tobacco use MA-TOBACCO QUIT 5 TO < 15 YRS 05/27/2024 [facility] History of tobacco use MA-TOBACCO FORMER USER 05/27/2023 [facility] History of tobacco use MA-TOBACCO FORMER USER 05/28/2022 [facility] Plan of Care List of future care activities from Department of [facility] facilities. Additional future care activities may be listed in the Assessment and Plan section. Date/Time Care Activity Care Activity Detail Facili ty 07/03/2025 AMBULATORY - MEDICINE AMBULATORY - MEDICI NE [facility]
--- NOTE | 2025-04-19 11:00 | NEURO_ITS ---
Impression: # Complains of numbness of hands. ? # Bilateral Carpal Tunnel Syndrome, left more than right. ? # No ulnar neuropathy. ? # Mildly abnormal Needle/EMG exam. Nerve Conduction Studies Anti Sensory Summary Table ?Stim Site NR Peak (ms) P-T Amp (?V) Site1 Site2 Delta-P (ms) Dist (cm) Satya (m/s) Left Median Anti Sensory (2-3nd Digit) Wrist ? 6.2 9.7 Wrist 2-3nd Digit 6.2 14.0 23 Wrist ? 6.3 0.2 Wrist 2-3nd Digit 6.2 14.0 23 Right Median Anti Sensory (2-3nd Digit)??? NO RESPONSE Wrist NR Wrist 2-3nd Digit 14.0 Wrist NR Wrist 2-3nd Digit 14.0 Left Radial Anti Sensory (Base 1st Digit) Wrist ? 2.4 19.2 Wrist Base 1st Digit 2.4 0.0 Right Radial Anti Sensory (Base 1st Digit) Wrist ? 2.7 17.7 Wrist Base 1st Digit 2.7 0.0 Left Ulnar Anti Sensory (5th Digit) Wrist ? 2.9 22.7 Wrist 5th Digit 2.9 14.0 48 Right Ulnar Anti Sensory (5th Digit) Wrist ? 3.7 17.6 Wrist 5th Digit 3.7 14.0 38 Motor Summary Table ?Stim Site NR Onset (ms) O-P Amp (mV) Site1 Site2 Delta-0 (ms) Dist (cm) Satya (m/s) Left Median Motor (Abd Poll Brev) Wrist ? 6.5 1.8 Elbow Wrist 4.3 31.0 72 Elbow ? 10.8 2.2 Right Median Motor (Abd Poll Brev) Wrist ? 3.8 4.0 Elbow Wrist 6.0 30.0 50 Elbow ? 9.8 4.3 Left Ulnar Motor (Abd Dig Minimi) Wrist ? 2.8 4.4 A Elbow Wrist 5.4 32.0 59 A Elbow ? 8.2 3.4 B Elbow Wrist 4.4 25.0 57 B Elbow ? 7.2 3.4 Right Ulnar Motor (Abd Dig Minimi) Wrist ? 3.1 0.8 A Elbow Wrist 5.5 32.0 58 A Elbow ? 8.6 5.0 B Elbow Wrist 4.2 24.0 57 B Elbow ? 7.3 5.0 F Wave Studies ?NR F-Lat (ms) L-R F-Lat (ms) Left Median (Mrkrs) (Abd Poll Brev) ? 30.27 0.45 Right Median (Mrkrs) (Abd Poll Brev) ? 29.82 0.45 Left Ulnar (Mrkrs) (Abd Dig Min) ? 31.11 1.10 Right Ulnar (Mrkrs) (Abd Dig Min) ? 30.01 1.10 EMG ?Side Muscle Nerve Root Ins Act Fibs Amp Dur Recrt Comment Right 1stDorInt Ulnar C8-T1 Nml Nml Nml Nml Nml Right Ext Indicis Radial (Post Int) C7-8 Nml Nml Nml Nml Nml Right Ext Digitorum Radial (Post Int) C7-8 Nml Nml Nml Nml Nml Right BrachioRad Radial C5-6 Nml Nml Nml Nml Nml Right PronatorTeres Median C6-7 Nml Nml Nml Nml Nml Right Abd Poll Brev Median C8-T1 Nml Nml Nml >12ms +2 Right ABD Dig Min Ulnar C8-T1 Nml Nml Nml Nml Nml Right FlexPolLong Median (Ant Int) C7-8 Nml Nml Nml Nml Nml Right Abd Poll Long Radial (Post Int) C7-8 Nml Nml Nml Nml Nml Left 1stDorInt Ulnar C8-T1 Nml Nml Nml Nml Nml Left Ext Indicis Radial (Post Int) C7-8 Nml Nml Nml Nml Nml Left Ext Digitorum Radial (Post Int) C7-8 Nml Nml Nml Nml Nml Left BrachioRad Radial C5-6 Nml Nml Nml Nml Nml Left PronatorTeres Median C6-7 Nml Nml Nml Nml Nml Left Abd Poll Brev Median C8-T1 Nml Nml Nml >12ms +1 Left ABD Dig Min Ulnar C8-T1 Nml Nml Nml Nml Nml Left FlexPolLong Median (Ant Int) C7-8 Nml Nml Nml Nml Nml Left Abd Poll Long Radial (Post Int) C7-8 Nml Nml Nml Nml Nml MTDD
== END 2025-04-19 09:47 | disposition home or self-care (01) ==
PROVIDERS: PCP Family Medicine; Visit Provider Family Medicine
DX: G56.03 Carpal tunnel syndrome, bilateral upper limbs (principal)
CPT/HCPCS: 95886; 95911

== ENCOUNTER 2025-05-29 07:12 | Inpatient (IN) | payer MEDICARE, SELFPAY ==
[2025-05-29] VITALS (14 sets, daily range): BP systolic 101–155; BP diastolic 54–87; PULSE 74–93; RESP 17–20; TEMP 36.5–36.6; O2SAT 97–100; BMI 21.8
--- NOTE | ~2025-05-29 | XR_ITS ---
XR chest 1V portable Ordering provider: Mark Leung III, DO History: 79 years Male with . weakness . Comparison: July 18, 2024 FINDINGS: MEDIASTINUM: The cardiac silhouette is slightly enlarged. Sliding hiatus hernia. LUNGS: No infiltrates, effusions or pneumothorax. Emphysematous bulla is seen in the right lung base. OTHER: No free air under the diaphragm. Degenerative changes of the spine. IMPRESSION: No acute cardiopulmonary pathology. Reviewed, dictated and finalized at location A.
--- NOTE | 2025-05-29 07:28 | ECG_ITS ---
Test Date: 2025-05-29 07:41:34 Measurements Intervals [place] Rate: 70 P: 86 SD: 194 QRS: 63 QRSD: 99 T: 83 QT: 401 QTc: 435 Interpretive Statements SINUS RHYTHM LEFT VENTRICULAR HYPERTROPHY AND ST-T CHANGE MINIMAL Q WAVES- ANTEROLATERAL LEADS BORDERLINE ECG No previous ECG available for comparison Electronically Signed On 05-29-2025 07:56:05 CDT by Robson Dowling D.O.
--- NOTE | 2025-05-29 07:29 | ED.WEAKNESS ---
HPI - Weakness General Chief complaint: Weakness Stated complaint: Dizziness and weakness Time Seen by Provider: 05/29/25 07:17 History of Present Illness HPI Narrative: Pt had near syncopal episode when getting up to use the BR last night. Pt felt lightheaded and fell over. Pt did not completely pass out and did not injury himself. Pt has been outside in heat a lot recently and has not been feeling well and not eating or drinking well. Pt has generalized weakness but no one sided. No CP or SOB or fever. Related Data Home Medications ?Medication ?Instructions ?Recorded ?Confirmed ?Last Taken ?Type dorzolamide 2 %-timolol 0.5 % (PF) 1 drop ophthalmic (eye) BID 07/19/20 05/29/25 05/29/25 History eye drops lactobacillus combination no.9 4 4,000 mmu cells PO DAILY 07/19/20 05/29/25 05/29/25 History billion cell capsule (Adult 50 Plus Probiotic) multivitamin with minerals (Men's 1 tablet PO DAILY 07/19/20 05/29/25 05/29/25 History One Daily tablet) peg 400-propylene glycol 0.4 %-0.3 1 drp ophthalmic (eye) DAILY PRN 11/28/20 05/29/25 05/28/25 History % eye drops (Systane Ultra) Dry Eye(S) aspirin 81 mg tablet,delayed 81 mg PO DAILY 05/14/22 05/29/25 05/29/25 History release netarsudil 0.02 %-latanoprost 1 drp EACH EYE DAILY 04/10/23 05/29/25 05/28/25 History 0.005 % eye drops (Rocklatan) docusate sodium 250 mg capsule 250 mg PO BID PRN constipation 05/29/25 05/29/25 Unknown History (Col-Rite) naproxen sodium 220 mg capsule 220 mg PO Q12H 05/29/25 05/29/25 05/28/25 History (Aleve) Allergies Allergy/AdvReac Type Severity Reaction Status Date / Time codeine Allergy Severe Rash Verified 05/10/25 10:02 oxycodone Allergy Severe rash with Verified 05/10/25 10:02 blisters on back & sores in mouth brimonidine Allergy Unknown irritation Verified 05/10/25 10:02 in eye brinzolamide Allergy Unknown increase Verified 05/10/25 10:02 in eye pressure erythromycin base Allergy Unknown made eye Verified 05/10/25 10:02 red and eyelid swell procaine Allergy Unknown heart race Verified 05/10/25 10:02 Review of Systems Review of Systems: All systems reviewed & are unremarkable except as noted in HPI and below PMFSH Past Medical History Medical History Pain in both hands Numbness in both hands Prediabetes Non-small cell cancer of right lung Stage I s/p XRT Bilateral leg paresthesia Arthralgia of hands, bilateral Hard of hearing Osteoarthritis, multiple sites Elevated PSA Medicare annual wellness visit, subsequent Prostate cancer screening Colon cancer screening History of SCC (squamous cell carcinoma) of skin Adenoma of left adrenal gland which was noted to be stable. Ventral hernia History of lung cancer status post partial lobectomy History of colon polyps Glaucoma Chronic low back pain BPH (benign prostatic hyperplasia) COPD with emphysema Patient stated that he had PFTs and it was rule out that he does not have emphysema or COPD. Primary hypertension Surgical History Surgical History Status post glaucoma surgery right eye 12/12/21 Parastomal hernia June's reversal, primary repair parastomal hernia, mobilization of the splenic flexure, lysis of adhesions H/O exploratory laparotomy 10/18/20 exploratory laparatomy, sigmoid colectomy, creation of colostomy, intraabdominal washout History of prostate biopsy H/O vasectomy Hx of local excision of skin lesion facial History of tonsillectomy H/O cataract extraction H/O colonoscopy with polypectomy History of lobectomy of lung Family History Family History Mother Carcinoma of colon Family history of rheumatoid arthritis Family history of osteoarthritis Acute myocardial infarction Grandparent Acute myocardial infarction Father Aneurysm Social History Social History Social History: Lives at home with his China Moe, who he states is his healthcare POA. The patient has 3 biological children and he has 3 step children. 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 Patient has a history of being a former smoker we smoked up to 1 and half packs of cigarettes a day. He stop smoking 12-01-2014. 1-2 beers a day. No marijuana or illicit drugs. Smoking packs per day: 1 Smoking cigarettes per day: 20.0 Years smoked: 50 Smoking pack-years: 50.00 Smoking status: Former smoker Second hand tobacco smoke exposure: No Alcohol intake: former Drinks per week: 14 Substance use: never Substance use type: does not use Do You Feel Safe in your Home?: Yes Lack of Transportation: No Lack of Food: Never True Current Housing: I Have Housing Concerned About Future Housing: No Difficulty Paying Gas/Electric Bills: No Difficulty Paying for Meds: No Currently Unemployed: No Education: Trade/Vocational Certificate Difficulty w/ Childcare or Family Care: No Living arrangements: with family Additional living arrangements comments: Occupation/Education: retired Gender identity (if verbalized by the patient): Male Sexual Orientation (if Verbalized by the Patient): Straight or Heterosexual Spiritual care concerns: No Agree to blood products: Yes Exam Const: General: no acute distress Nutritional Appearance: thin Orientation/consciousness: patient oriented x3 Limitations: no limitations HENMT: Head: normal to inspection Resp: Effort & Inspection: normal respiratory effort Auscultation: clear to auscultation bilaterally Cardio: Rate: regular rate Rhythm: regular rhythm GI: GI Palp: Yes Soft to palpation and No Tenderness to palpation present (GI) Auscultation: normal bowel sounds Rectal Exam: normal sphincter tone and heme positive stool Other: large midline hernia but non tender Back/Spine/Pelvis: Back: no CVA tenderness Skin: Rashes: no rashes Wounds: no wounds Neuro: General: patient oriented x3, moves all extremities, no meningeal signs, no focal motor deficits and CN's II-XI intact bilaterally Cranial nerves: Yes Nystagmus not present Speech: normal speech Extrem: General: normal to inspection and no clubbing, cyanosis or edema Psych: Mental Status: mental status grossly normal Affect: normal affect Attitude: cooperative Course Vital Signs Vital signs: Vital Signs Temperature 97.8 F 05/29/25 07:20 Pulse Rate 74 05/29/25 07:20 Respiratory Rate 18 05/29/25 07:20 Blood Pressure 155/85 H 05/29/25 07:20 Pulse Oximetry 100 05/29/25 07:20 Oxygen Delivery Room Air 05/29/25 07:20 Temperature 97.9 F 05/29/25 14:00 Pulse Rate 91 05/29/25 16:00 Respiratory Rate 18 05/29/25 14:00 Blood Pressure 106/54 L 05/29/25 14:00 Pulse Oximetry 100 05/29/25 14:00 Oxygen Delivery Room Air 05/29/25 12:30 MDM - Weakness MDM Narrative Medical decision making narrative: pt feeling weak and had near syncopal episode. could be dehydrated with history of outside heat exposure and poor intake. will check orthostatics and give some fluids and check ekg and labs and UA and cxr. Pt anemic and heme positive. discussed with Dr Gomez and agrees to admit. will consult GI. discussed with Dr Thakur, asked for iron studies and will consult. Lab Data 05/29/25 07:48 05/29/25 07:48 Labs: Lab Results 05/29/25 05/29/25 05/29/25 Range/Units 07:47 07:48 08:53 WBC 10.5 H (4.5-10.0) K/mm3 RBC 2.96 L (4.6-6.20) M/mm3 Hgb 8.6 L D (14.0-18.0) g/dL Hct 27.1 L (42.0-52.0) % MCV 91.6 (80-100) fl MCH 29.1 (26-34) pg MCHC 31.7 L (32-36) g/dl RDW 16.0 H (11.5-14.5) % Plt Count 249 (150-375) k/mm3 MPV 8.8 (7.4-10.4) fl Immature Gran % (Auto) 0.5 (0-0.5) % Neut % (Auto) 68.7 (45.5-73.1) % Lymph % (Auto) 18.5 (18.3-44.2) % [place] % (Auto) 9.4 H (2.6-8.5) % Eos % (Auto) 2.3 (0-4.4) % Baso % (Auto) 0.6 (0.2-1.2) % Lymph # (Auto) 1.93 (0.9-3.2) K/mm3 [place] # (Auto) 1.0 H (0.1-0.6) K/mm3 Eos # (Auto) 0.2 (0-0.3) K/mm3 Baso # (Auto) 0.1 (0.0-0.1) K/mm3 Abs Immat Gran (auto) 0.05 H (0.00-0.031) K/mm3 Absolute Neuts (auto) 7.2 H (1.3-6.7) K/mm3 Absolute Nucleated RBC 0.000 (0.0-0.012) K/mm3 Nucleated RBC % 0.0 (0.0-0.2) % PT 15.8 H (11.1-14.7) Seconds INR 1.3 APTT 34.2 (22.3-36.8) Seconds Sodium 131 L (137-145) mmol/L Potassium 3.9 (3.4-5.0) mmol/L Chloride 103 (98-107) mmol/L Carbon Dioxide 22 (22-30) mmol/L Anion Gap 6 (4-12) mmol/L BUN 38 H D (9-20) mg/dL Creatinine 0.99 (0.7-1.3) mg/dL Estim Creat Clear Calc 56 ml/min Estimated GFR > 60 (59 - ) Glucose 98 (65-110) mg/dL Lactic Acid 1.2 (0.7-2.0) mmol/L Calcium 9.2 (8.4-10.2) mg/dL Magnesium 2.0 (1.6-2.3) mg/dL Iron 79 (49-181) ug/dL TIBC 278 (265-497) ug/dL % Saturation 28 (20-50) % Total Bilirubin 0.3 (0.2-1.3) mg/dL AST 26 (17-59) U/L ALT 17 (6-50) U/L Alkaline Phosphatase 58 (38-126) U/L Troponin I 0.014 (0.000-0.034) ng/mL NT-Pro-B Natriuret Pep 437 H (19.9-100) pg/mL Total Protein 6.1 L (6.3-8.2) g/dL Albumin 3.5 (3.5-5.1) g/dL Urine Color Yellow (Yellow) Urine Appearance Clear (Clear) Urine pH 7.0 (5.0-9.0) Ur Specific [place] 1.010 (1.001-1.035) Urine Protein Trace (Negative) mg/dL Urine Glucose (UA) Negative (Negative) mg/dL Urine Ketones Negative (Negative) mg/dL Ur Blood (Man) Negative (Negative) Urine Nitrate Negative (Negative) Urine Bilirubin Negative (Negative) Urine Urobilinogen 0.2 (<2.0) mg/dL Leukocyte Esterase Rfl Negative (Negative) RADHA/UL Urine RBC 0-2 (0-2) /hpf Urine WBC 0-5 (0-3) /hpf Ur Squamous Epith Cells None seen (Few) /hpf Urine Bacteria None seen /hpf Urine Casts 0-2 Discharge Plan Discharge Clinical Impression: GI (gastrointestinal bleed), Anemia Patient Disposition: Still a Patient Condition: Stable
[2025-05-29] MEDS: SODIUM CHLORIDE 0.9% IV 500 ML 999 ML IV CONT (07:50)
[2025-05-29 07:59] LABS: Hematocrit 27.1 % (42.0-52.0); Hemoglobin 8.6 g/dL (14.0-18.0); Immature Granulocyte Percent A 0.5 % (0-0.5); Lymphocytes Absolute Auto 1.93 K/mm3 (0.9-3.2); Mean Corpuscular HGB Conc 31.7 g/dl (32-36); Mean Corpuscular Hemoglobin 29.1 pg (26-34); Mean Corpuscular Volume 91.6 fl (80-100); Nucleated Red Blood Cells Absolute Auto 0.000 K/mm3 (0.0-0.012); Nucleated Red Blood Cells Perc 0.0 % (0.0-0.2); Platelet Count Result 249 k/mm3 (150-375); Red Blood Count 2.96 M/mm3 (4.6-6.20); White Blood Count 10.5 K/mm3 (4.5-10.0)
[2025-05-29 08:11] LABS: Alanine Aminotransferase 17 U/L (6-50); Albumin Level 3.5 g/dL (3.5-5.1); Alkaline Phosphatase 58 U/L (38-126); Anion Gap 6 mmol/L (4-12); Aspartate Amino Transferase 26 U/L (17-59); Bilirubin,Total 0.3 mg/dL (0.2-1.3); Blood Urea Nitrogen 38 mg/dL (9-20); Calcium 9.2 mg/dL (8.4-10.2); Carbon Dioxide 22 mmol/L (22-30); Chloride 103 mmol/L (98-107); Estimated CRCL calculation 56 ml/min; Estimated Glomerular Filt Rate > 60; Glucose 98 mg/dL (65-110); Magnesium 2.0 mg/dL (1.6-2.3); Potassium 3.9 mmol/L (3.4-5.0); Sodium 131 mmol/L (137-145); Total Protein 6.1 g/dL (6.3-8.2)
[2025-05-29 08:18] LABS: INR 1.3; Prothrombin Time 15.8 Seconds (11.1-14.7)
[2025-05-29 08:19] LABS: Partial Thromboplastin Time 34.2 Seconds (22.3-36.8)
[2025-05-29 08:23] LABS: NT Pro B Type Natriuretic Pept 437 pg/mL (19.9-100); Troponin I 0.014 ng/mL (0.000-0.034)
[2025-05-29 09:06] LABS: Add Urine Microscopic? YES; Appearance Urine Clear (Clear); Glucose Urine UA Negative (Negative); Leukocyte Esterase Ur Negative LEU/UL (Negative); Nitrate Urine Negative (Negative); Non Pathogenic Casts 0-2; Specific Grav Ur 1.010 (1.001-1.035)
--- NOTE | 2025-05-29 12:34 | ADMGEN ---
This patient, Rafael Moe, was admitted to 3 Med Surg Room 321-01. Patient/family oriented to hospital policies and general routines including ID bracelet, bed and alarms, visiting hours, pain management, procedures, bathroom and other care routines, personal items, smoking policy, room service/diet, and visiting hours. Information on how to activate the Rapid Response Team has been discussed. Patient/Family are encouraged to report perceived risks to care and to ask questions if they do not understand what they are told or what they should do.
[2025-05-29 13:25] LABS: Iron 79 ug/dL (49-181)
[2025-05-29 13:35] LABS: Percent Iron Saturation 28 % (20-50)
--- NOTE | 2025-05-29 16:38 | WPDGICN ---
Assessment and Plan Assessment and plan (1) Anemia: Code(s): D64.9 - Anemia, unspecified Status: Acute Assessment and Plan: The patient's presyncopal episode is highly suggestive of acute anemia. The normal iron saturation, in the context of his current hemoglobin, indicates that this is a recent blood loss, rather than chronic iron deficiency. This acute presentation is further supported by the new finding of melanotic stools this morning. To identify the source of bleeding, the patient will remain NPO, and an EGD is scheduled for tomorrow to rule out upper gastrointestinal lesions such as peptic ulcer disease or erosive gastritis. GI Consult Note Consult date/time: 05/29/25 16:38 Reason for consult: Near syncope-anemia HPI: This 79-year-old male, Rafael Moe, presented yesterday with near-syncope occurring during a bowel movement. While he was unsure about his stool quality initially, nursing staff reported frankly melanotic stools this afternoon, raising concern for gastrointestinal bleeding. His past surgical history is notable for a 2020 complicated colonoscopy with perforation, necessitating a colostomy and later June pouch reversal, which has left him with a large mid-abdominal incisional hernia. Pertinent admission laboratory values include a hemoglobin of 8.6 g/dL and hematocrit of 27.1%, with a BUN of 38 and creatinine of 0.99. His white blood cell count is 10.5, and platelets are 149. Iron saturation is 28%, and Vitamin B12 is elevated at 1148. Review of Systems Review of Systems: All systems reviewed & are unremarkable except as noted in HPI and below PMFSH Past Medical History Medical History (Reviewed 02/27/25 @ 10:55 by Kalpana Min [facility] [address]) Pain in both hands Numbness in both hands Prediabetes Non-small cell cancer of right lung Stage I s/p XRT Bilateral leg paresthesia Arthralgia of hands, bilateral Hard of hearing Osteoarthritis, multiple sites Elevated PSA Medicare annual wellness visit, subsequent Prostate cancer screening Colon cancer screening History of SCC (squamous cell carcinoma) of skin Adenoma of left adrenal gland which was noted to be stable. Ventral hernia History of lung cancer status post partial lobectomy History of colon polyps Glaucoma Chronic low back pain BPH (benign prostatic hyperplasia) COPD with emphysema Patient stated that he had PFTs and it was rule out that he does not have emphysema or COPD. Primary hypertension Surgical History Surgical History Status post glaucoma surgery right eye 12/12/21 Parastomal hernia June's reversal, primary repair parastomal hernia, mobilization of the splenic flexure, lysis of adhesions H/O exploratory laparotomy 10/18/20 exploratory laparatomy, sigmoid colectomy, creation of colostomy, intraabdominal washout History of prostate biopsy H/O vasectomy Hx of local excision of skin lesion facial History of tonsillectomy H/O cataract extraction H/O colonoscopy with polypectomy History of lobectomy of lung Family History Family History Mother Carcinoma of colon Family history of rheumatoid arthritis Family history of osteoarthritis Acute myocardial infarction Grandparent Acute myocardial infarction Father Aneurysm Social History Social History Social History: Lives at home with his China Moe, who he states is his healthcare POA. The patient has 3 biological children and he has 3 step children. 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 Patient has a history of being a former smoker we smoked up to 1 and half packs of cigarettes a day. He stop smoking 12-01-2014. 1-2 beers a day. No marijuana or illicit drugs. Smoking packs per day: 1 Smoking cigarettes per day: 20.0 Years smoked: 50 Smoking pack-years: 50.00 Smoking status: Former smoker Second hand tobacco smoke exposure: No Alcohol intake: former Drinks per week: 14 Substance use: never Substance use type: does not use Do You Feel Safe in your Home?: Yes Lack of Transportation: No Lack of Food: Never True Current Housing: I Have Housing Concerned About Future Housing: No Difficulty Paying Gas/Electric Bills: No Difficulty Paying for Meds: No Currently Unemployed: No Education: Trade/Vocational Certificate Difficulty w/ Childcare or Family Care: No Living arrangements: with family Additional living arrangements comments: Occupation/Education: retired Gender identity (if verbalized by the patient): Male Sexual Orientation (if Verbalized by the Patient): Straight or Heterosexual Spiritual care concerns: No Agree to blood products: Yes Meds Home Medications and Allergies Home Medications ?Medication ?Instructions ?Recorded ?Confirmed ?Type dorzolamide 2 %-timolol 0.5 % (PF) 1 drop ophthalmic (eye) BID 07/19/20 05/29/25 History eye drops lactobacillus combination no.9 4 4,000 mmu cells PO DAILY 07/19/20 05/29/25 History billion cell capsule (Adult 50 Plus Probiotic) multivitamin with minerals (Men's 1 tablet PO DAILY 07/19/20 05/29/25 History One Daily tablet) peg 400-propylene glycol 0.4 %-0.3 1 drp ophthalmic (eye) DAILY PRN 11/28/20 05/29/25 History % eye drops (Systane Ultra) Dry Eye(S) aspirin 81 mg tablet,delayed 81 mg PO DAILY 05/14/22 05/29/25 History release losartan 50 mg tablet (Cozaar) 50 mg PO QAM #90 tabs 01/30/23 05/29/25 Rx netarsudil 0.02 %-latanoprost 1 drp EACH EYE DAILY 04/10/23 05/29/25 History 0.005 % eye drops (Rocklatan) docusate sodium 250 mg capsule 250 mg PO BID PRN constipation 05/29/25 05/29/25 History (Col-Rite) naproxen sodium 220 mg capsule 220 mg PO Q12H 05/29/25 05/29/25 History (Aleve) Allergies Allergy/AdvReac Type Severity Reaction Status Date / Time codeine Allergy Severe Rash Verified 05/10/25 10:02 oxycodone Allergy Severe rash with Verified 05/10/25 10:02 blisters on back & sores in mouth brimonidine Allergy Unknown irritation Verified 05/10/25 10:02 in eye brinzolamide Allergy Unknown increase Verified 05/10/25 10:02 in eye pressure erythromycin base Allergy Unknown made eye Verified 05/10/25 10:02 red and eyelid swell procaine Allergy Unknown heart race Verified 05/10/25 10:02 Vital Signs Vital Signs - 24 hr 05/29/25 07:20 05/29/25 07:37 05/29/25 07:38 Temperature 97.8 F Pulse Rate 74 74 75 Respiratory Rate 18 Blood Pressure 155/85 H 155/85 H 130/82 Pulse Oximetry 100 Oxygen Delivery Room Air 05/29/25 07:38 05/29/25 08:32 05/29/25 09:01 Temperature 97.7 F Pulse Rate 85 80 80 Respiratory Rate 17 17 Blood Pressure 118/71 128/84 114/86 Pulse Oximetry 97 99 Oxygen Delivery 05/29/25 10:01 05/29/25 11:27 05/29/25 11:30 Temperature 97.9 F 97.9 F Pulse Rate 82 83 81 Respiratory Rate 20 17 17 Blood Pressure 154/87 H 123/77 Pulse Oximetry 100 100 100 Oxygen Delivery 05/29/25 12:30 05/29/25 14:00 05/29/25 16:00 Temperature 97.9 F Pulse Rate 93 91 Respiratory Rate 18 Blood Pressure 106/54 L Pulse Oximetry 100 Oxygen Delivery Room Air Exam Narrative: Abdomen: Large incisional hernia in the midline, almost complete absence of abdominal wall muscles. Bowel sounds present, soft, nontender, no hepatosplenomegaly. Rest of the exam within normal limits. Results Labs 05/29/25 07:48 05/29/25 07:48 Labs: Short CBC 05/29/25 Range/Units 07:48 WBC 10.5 H (4.5-10.0) K/mm3 Hgb 8.6 L D (14.0-18.0) g/dL Hct 27.1 L (42.0-52.0) % Plt Count 249 (150-375) k/mm3 BMP 05/29/25 07:48 Sodium 131 L Potassium 3.9 Chloride 103 Carbon Dioxide 22 BUN 38 H D Creatinine 0.99 Glucose 98 Calcium 9.2 Cardiac Enzymes 05/29/25 Range/Units 07:48 Troponin I 0.014 (0.000-0.034) ng/mL Liver Function 05/29/25 Range/Units 07:48 Total Bilirubin 0.3 (0.2-1.3) mg/dL AST 26 (17-59) U/L ALT 17 (6-50) U/L Alkaline Phosphatase 58 (38-126) U/L Albumin 3.5 (3.5-5.1) g/dL Urine 05/29/25 Range/Units 08:53 Urine Color Yellow (Yellow) Urine Appearance Clear (Clear) Urine pH 7.0 (5.0-9.0) Ur Specific [place] 1.010 (1.001-1.035) Urine Protein Trace (Negative) mg/dL Urine Glucose (UA) Negative (Negative) mg/dL
--- NOTE | 2025-05-29 17:11 | PM.IMHP ---
H&P: HPI History of Present Illness Date/Time: 05/29/25 17:11 Chief Complaint: Dizziness and weakness Narrative: ER-HPI Narrative: Pt had near syncopal episode when getting up to use the BR last night. Pt felt lightheaded and fell over. Pt did not completely pass out and did not injury himself. Pt has been outside in heat a lot recently and has not been feeling well and not eating or drinking well. Pt has generalized weakness but no one sided. No CP or SOB or fever. patient had been working outside in the heat with poor PO intake resulting in dehydration and also found to have stool hemoccult is positive, recent drop in his hgb to 8.6 from 12.4 on 02/09/25, seen by GI suspect patient syncopal episode possible related to anemia and recommending, EGD to further evaluate. will gently hydrated the patient and monitor. Review of Systems Review of Systems: All systems reviewed & are unremarkable except as noted in HPI and below PMFSH Past Medical History Medical History Pain in both hands Numbness in both hands Prediabetes Non-small cell cancer of right lung Stage I s/p XRT Bilateral leg paresthesia Arthralgia of hands, bilateral Hard of hearing Osteoarthritis, multiple sites Elevated PSA Medicare annual wellness visit, subsequent Prostate cancer screening Colon cancer screening History of SCC (squamous cell carcinoma) of skin Adenoma of left adrenal gland which was noted to be stable. Ventral hernia History of lung cancer status post partial lobectomy History of colon polyps Glaucoma Chronic low back pain BPH (benign prostatic hyperplasia) COPD with emphysema Patient stated that he had PFTs and it was rule out that he does not have emphysema or COPD. Primary hypertension Surgical History Surgical History Status post glaucoma surgery right eye 12/12/21 Parastomal hernia June's reversal, primary repair parastomal hernia, mobilization of the splenic flexure, lysis of adhesions H/O exploratory laparotomy 10/18/20 exploratory laparatomy, sigmoid colectomy, creation of colostomy, intraabdominal washout History of prostate biopsy H/O vasectomy Hx of local excision of skin lesion facial History of tonsillectomy H/O cataract extraction H/O colonoscopy with polypectomy History of lobectomy of lung Family History Family History Mother Carcinoma of colon Family history of rheumatoid arthritis Family history of osteoarthritis Acute myocardial infarction Grandparent Acute myocardial infarction Father Aneurysm Social History Social History Social History: Lives at home with his China Moe, who he states is his healthcare POA. The patient has 3 biological children and he has 3 step children. 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 Patient has a history of being a former smoker we smoked up to 1 and half packs of cigarettes a day. He stop smoking 12-01-2014. 1-2 beers a day. No marijuana or illicit drugs. Smoking packs per day: 1 Smoking cigarettes per day: 20.0 Years smoked: 50 Smoking pack-years: 50.00 Smoking status: Former smoker Second hand tobacco smoke exposure: No Alcohol intake: former Drinks per week: 14 Substance use: never Substance use type: does not use Do You Feel Safe in your Home?: Yes Lack of Transportation: No Lack of Food: Never True Current Housing: I Have Housing Concerned About Future Housing: No Difficulty Paying Gas/Electric Bills: No Difficulty Paying for Meds: No Currently Unemployed: No Education: Trade/Vocational Certificate Difficulty w/ Childcare or Family Care: No Living arrangements: with family Additional living arrangements comments: Occupation/Education: retired Gender identity (if verbalized by the patient): Male Sexual Orientation (if Verbalized by the Patient): Straight or Heterosexual Spiritual care concerns: No Agree to blood products: Yes Meds Home Medications and Allergies Home Medications ?Medication ?Instructions ?Recorded ?Confirmed ?Type dorzolamide 2 %-timolol 0.5 % (PF) 1 drop ophthalmic (eye) BID 07/19/20 05/29/25 History eye drops lactobacillus combination no.9 4 4,000 mmu cells PO DAILY 07/19/20 05/29/25 History billion cell capsule (Adult 50 Plus Probiotic) multivitamin with minerals (Men's 1 tablet PO DAILY 07/19/20 05/29/25 History One Daily tablet) peg 400-propylene glycol 0.4 %-0.3 1 drp ophthalmic (eye) DAILY PRN 11/28/20 05/29/25 History % eye drops (Systane Ultra) Dry Eye(S) aspirin 81 mg tablet,delayed 81 mg PO DAILY 05/14/22 05/29/25 History release losartan 50 mg tablet (Cozaar) 50 mg PO QAM #90 tabs 01/30/23 05/29/25 Rx netarsudil 0.02 %-latanoprost 1 drp EACH EYE DAILY 04/10/23 05/29/25 History 0.005 % eye drops (Rocklatan) docusate sodium 250 mg capsule 250 mg PO BID PRN constipation 05/29/25 05/29/25 History (Col-Rite) naproxen sodium 220 mg capsule 220 mg PO Q12H 05/29/25 05/29/25 History (Aleve) Allergies Allergy/AdvReac Type Severity Reaction Status Date / Time codeine Allergy Severe Rash Verified 05/10/25 10:02 oxycodone Allergy Severe rash with Verified 05/10/25 10:02 blisters on back & sores in mouth brimonidine Allergy Unknown irritation Verified 05/10/25 10:02 in eye brinzolamide Allergy Unknown increase Verified 05/10/25 10:02 in eye pressure erythromycin base Allergy Unknown made eye Verified 05/10/25 10:02 red and eyelid swell procaine Allergy Unknown heart race Verified 05/10/25 10:02 Vital Signs Vital Signs - 24 hr 05/29/25 07:20 05/29/25 07:37 05/29/25 07:38 Temperature 36.6 C Pulse Rate 74 74 75 Respiratory Rate 18 Blood Pressure 155/85 H 155/85 H 130/82 Pulse Oximetry 100 Oxygen Delivery Room Air 05/29/25 07:38 05/29/25 08:32 05/29/25 09:01 Temperature 36.5 C Pulse Rate 85 80 80 Respiratory Rate 17 17 Blood Pressure 118/71 128/84 114/86 Pulse Oximetry 97 99 Oxygen Delivery 05/29/25 10:01 05/29/25 11:27 05/29/25 11:30 Temperature 36.6 C 36.6 C Pulse Rate 82 83 81 Respiratory Rate 20 17 17 Blood Pressure 154/87 H 123/77 Pulse Oximetry 100 100 100 Oxygen Delivery 05/29/25 12:30 06/30/25 14:00 05/29/25 16:00 Temperature 36.6 C Pulse Rate 93 91 Respiratory Rate 18 Blood Pressure 106/54 L Pulse Oximetry 100 Oxygen Delivery Room Air Exam Narrative: Patient is comfortable, NAD HEENT: eyes are clear and none icteric LUNGS:CTA HEART: RR S1S2 ABD: BS+, Soft and nontender Lower extremities: no edema SKIN: nonjaundiced Neuro: grossly intact. H&P: Results Labs Labs: Short CBC 05/29/25 Range/Units 07:48 WBC 10.5 H (4.5-10.0) K/mm3 Hgb 8.6 L D (14.0-18.0) g/dL Hct 27.1 L (42.0-52.0) % Plt Count 249 (150-375) k/mm3 BMP 05/29/25 07:48 Sodium 131 L Potassium 3.9 Chloride 103 Carbon Dioxide 22 BUN 38 H D Creatinine 0.99 Glucose 98 Calcium 9.2 Cardiac Enzymes 05/29/25 Range/Units 07:48 Troponin I 0.014 (0.000-0.034) ng/mL Liver Function 05/29/25 Range/Units 07:48 Total Bilirubin 0.3 (0.2-1.3) mg/dL AST 26 (17-59) U/L ALT 17 (6-50) U/L Alkaline Phosphatase 58 (38-126) U/L Albumin 3.5 (3.5-5.1) g/dL Urine 05/29/25 Range/Units 08:53 Urine Color Yellow (Yellow) Urine Appearance Clear (Clear) Urine pH 7.0 (5.0-9.0) Ur Specific [place] 1.010 (1.001-1.035) Urine Protein Trace (Negative) mg/dL Urine Glucose (UA) Negative (Negative) mg/dL Assessment and Plan Assessment and plan (1) GI (gastrointestinal bleed): Code(s): K92.2 - Gastrointestinal hemorrhage, unspecified Status: Acute (2) Fecal peritonitis: Code(s): K65.8 - Other peritonitis Status: Acute (3) JERAD (acute kidney injury): Code(s): N17.9 - Acute kidney failure, unspecified Status: Acute (4) Anemia: Qualifiers: Anemia type: unspecified type Qualified Code(s): D64.9 - Anemia, unspecified Code(s): D64.9 - Anemia, unspecified Status: Acute (5) Dehydration: Code(s): E86.0 - Dehydration Status: Acute Plan patient had been working outside in the heat with poor PO intake resulting in dehydration and also found to have stool hemoccult is positive, recent drop in his hgb to 8.6 from 12.4 on 02/09/25, seen by GI suspect patient syncopal episode possible related to anemia and recommending, EGD to further evaluate. will gently hydrated the patient and monitor. Quality VTE Prophylaxis VTE prophylaxis: mechanical ordered Hospitalist MIPS Advance Care Plan I have confirmed that the patient's Advanced Care Plan is present, code status is documented, or surrogate decision maker is listed in patient medical record.: Yes Medication Reconciliation The patient is not eligible for med reconciliation; the patient is in a emergent medical situation where delaying treatment would jeopardize the patients health.: Yes
[2025-05-29] MEDS: SODIUM CHLORIDE 0.9% IV 1,000 ML 100 ML IV CONT (18:02)
[2025-05-29] MEDS: DORZOLAMIDE/TIMOLOL OPHTH SOL 10 ML BOTTLE 1 DROP EACH EYE (22:09)
[2025-05-30] VITALS (16 sets, daily range): BP systolic 111–169; BP diastolic 57–86; PULSE 65–78; RESP 14–24; TEMP 35.6–36.9; O2SAT 99–100; BMI 21.8
[2025-05-30] MEDS: SODIUM CHLORIDE 0.9% IV 1,000 ML 100 ML IV CONT (04:54)
[2025-05-30 06:32] LABS: Hematocrit 22.9 % (42.0-52.0); Hemoglobin 7.4 g/dL (14.0-18.0); Mean Corpuscular HGB Conc 32.3 g/dl (32-36); Mean Corpuscular Hemoglobin 29.8 pg (26-34); Mean Corpuscular Volume 92.3 fl (80-100); Platelet Count Result 212 k/mm3 (150-375); Red Blood Count 2.48 M/mm3 (4.6-6.20); White Blood Count 8.2 K/mm3 (4.5-10.0)
[2025-05-30 06:52] LABS: Anion Gap 5 mmol/L (4-12); Blood Urea Nitrogen 19 mg/dL (9-20); Calcium 8.4 mg/dL (8.4-10.2); Carbon Dioxide 21 mmol/L (22-30); Chloride 108 mmol/L (98-107); Estimated CRCL calculation 63 ml/min; Estimated Glomerular Filt Rate > 60; Glucose 100 mg/dL (65-110); Magnesium 1.9 mg/dL (1.6-2.3); Potassium 3.8 mmol/L (3.4-5.0); Sodium 134 mmol/L (137-145)
[2025-05-30] MEDS: DORZOLAMIDE/TIMOLOL OPHTH SOL 10 ML BOTTLE 1 DROP EACH EYE ×2 (07:58→20:55)
[2025-05-30] MEDS: PANTOPRAZOLE SODIUM IV 40 MG VIAL IV PUSH (07:59)
--- NOTE | 2025-05-30 14:42 | PM.IMPN ---
Progress Note: A&P Assessment and Plan (1) GI (gastrointestinal bleed): Code(s): K92.2 - Gastrointestinal hemorrhage, unspecified Status: Acute (2) Fecal peritonitis: Code(s): K65.8 - Other peritonitis Status: Acute (3) JERAD (acute kidney injury): Code(s): N17.9 - Acute kidney failure, unspecified Status: Acute (4) Anemia: Qualifiers: Anemia type: unspecified type Qualified Code(s): D64.9 - Anemia, unspecified Code(s): D64.9 - Anemia, unspecified Status: Acute (5) Dehydration: Code(s): E86.0 - Dehydration Status: Acute Plan patient had been working outside in the heat with poor PO intake resulting in dehydration and also found to have stool hemoccult is positive, recent drop in his hgb to 8.6 from 12.4 on 02/09/25, seen by GI suspect patient syncopal episode possible related to anemia and recommending, EGD to further evaluate. will gently hydrated the patient and monitor. patient is being gently hydrated with NS, his BUN is trending down, he stats feeling better, patient is scheduled to have EGD today and further recommendation to follow. Subjective Date/time seen: 05/30/25 14:42 Interval history: patient had been working outside in the heat with poor PO intake resulting in dehydration and also found to have stool hemoccult is positive, recent drop in his hgb to 8.6 from 12.4 on 02/09/25, seen by GI suspect patient syncopal episode possible related to anemia and recommending, EGD to further evaluate. will gently hydrated the patient and monitor. patient is being gently hydrated with NS, his BUN is trending down, he stats feeling better, patient is scheduled to have EGD today and further recommendation to follow. Review of Systems Review of Systems: All systems reviewed & are unremarkable except as noted in HPI and below Exam Narrative: Patient is comfortable, NAD HEENT: eyes are clear and none icteric LUNGS:CTA HEART: RR S1S2 ABD: BS+, Soft and nontender Lower extremities: no edema SKIN: nonjaundiced Neuro: grossly intact. Objective Data Vital Signs Vital Signs: Vital Signs - 24 hr 05/29/25 16:00 05/29/25 20:00 05/29/25 22:00 Temperature 36.6 C Pulse Rate 91 76 88 Respiratory Rate 18 Blood Pressure 108/59 L Pulse Oximetry 100 Oxygen Delivery 05/29/25 22:00 05/29/25 22:05 05/29/25 22:10 Temperature Pulse Rate Respiratory Rate Blood Pressure 106/56 L 101/54 L Pulse Oximetry 100 Oxygen Delivery Room Air 05/30/25 00:04 05/30/25 04:00 05/30/25 06:00 Temperature 36.2 C L Pulse Rate 70 68 78 Respiratory Rate 18 Blood Pressure 111/62 Pulse Oximetry 99 Oxygen Delivery 05/30/25 07:28 05/30/25 08:00 05/30/25 08:00 Temperature 36.7 C Pulse Rate 73 76 Respiratory Rate 16 Blood Pressure 128/81 Pulse Oximetry 100 Oxygen Delivery Room Air 05/30/25 12:00 Temperature Pulse Rate 72 Respiratory Rate Blood Pressure Pulse Oximetry Oxygen Delivery Intake/Output Intake/Output: Intake & Output 05/27/25 05/28/25 05/29/25 05/30/25 23:59 23:59 23:59 23:59 Intake Total 860 1000 Output Total 300 Balance 560 1000 Meds/Results Medications: Active Medications Generic Name Dose Route Start Last Admin Trade Name Freq PRN Reason Stop Dose Admin Artificial Tears 1 drop 05/29/25 14:14 Artificial Tears Ophth Soln 15 Ml Bottle EACH EYE DAILY PRN Dry Eye(S) Aspirin 81 mg 05/30/25 09:00 05/30/25 07:58 Aspirin 81 Mg Enteric Tablet PO Not Given DAILY SAYDA Docusate Sodium 250 mg 05/29/25 14:15 Docusate Sodium Liq 100 Mg/10 Ml Udc PO BID PRN constipation Dorzolamide/Timolol 1 drop 05/29/25 21:00 05/30/25 07:58 Dorzolamide/Timolol Ophth Roseanna 10 Ml Bottle EACH EYE 1 drop Q12HR SAYDA Administration Sodium Chloride 1,000 mls @ 100 mls/hr 05/29/25 17:25 05/30/25 04:54 Normal Saline Iv IV CONT 100 mls/hr .Q10H SAYDA Administration Lactated Ringer's 1,000 mls @ 150 mls/hr 05/30/25 07:30 Lr - Lactated Ringers Iv IV CONT .[id number] SAYDA Lactobacillus Acidophilus 1 tablet 05/30/25 09:00 05/30/25 07:58 Acidophilus/Bulgaricus Chewable Tablet PO Not Given DAILY [facility] Losartan Potassium 50 mg 05/30/25 09:00 05/30/25 07:58 Losartan Potassium 50 Mg Tablet PO Not Given QAM [facility] Miscellaneous Information 0 each 05/29/25 00:01 Rocklatan Nonform Can Pt Bring From Home? XX 06/28/25 00:00 CLARIFY [facility] Multivitamins/Calcium 1 tablet 05/30/25 09:00 05/30/25 07:58 Therapeutic Multivitamins/Minerals Tab (*Bkc) PO Not Given DAILY [facility] Non-Formulary Medication 1 drop 05/30/25 09:00 Netarsudil-Latanoprost [Gaylatan] EACH EYE 06/29/25 08:59 DAILY [facility] Ondansetron HCl 4 mg 05/30/25 10:00 Ondansetron Inj 4 Mg/2 Ml Vial IV PUSH Q6H PRN Nausea And Vomiting Pantoprazole Sodium 40 mg 05/30/25 09:00 05/30/25 07:59 Pantoprazole Sodium Iv 40 Mg Vial IV PUSH 40 mg QAM [facility] Administration Radiology Results: ITS Impressions Chest X-Ray 05/29/25 08:11 IMPRESSION: No acute cardiopulmonary pathology. Labs Labs: Laboratory Results - last 24 hr 05/30/25 06:11 WBC 8.2 RBC 2.48 L Hgb 7.4 L Hct 22.9 L MCV 92.3 MCH 29.8 MCHC 32.3 RDW 16.2 H Plt Count 212 MPV 9.1 Sodium 134 L Potassium 3.8 Chloride 108 H Carbon Dioxide 21 L Anion Gap 5 BUN 19 D Creatinine 0.88 Estim Creat Clear Calc 63 Estimated GFR > 60 Glucose 100 Calcium 8.4 Magnesium 1.9 Quality VTE Prophylaxis VTE prophylaxis: mechanical ordered
--- NOTE | 2025-05-30 14:47 | PC.NURSE ---
To GI Lab per [lilly], IV [20 R FA]. Report given to [Vaibhav CURRY].
--- NOTE | 2025-05-30 14:53 | P.PNAN_ITS ---
Anes - Initial Pre Proc Eval Procedure: Operation Date: 05/30/25 15:00 Proposed Procedures p Esophagogastroduodenoscopy - Jassi Thakur MD Date/Time: 05/30/25 14:53 Surgeon: Flash Gomez MD Pre Op Diagnosis: gi bleed Patient Data Age: 79 Gender: M Height: 1.83 m Weight: 73.1 kg Last Vital Signs Temp 36.7 C 05/30/25 07:28 Pulse 72 05/30/25 12:00 Resp 16 05/30/25 07:28 BP 128/81 05/30/25 07:28 Pulse Ox 100 05/30/25 07:28 O2 Del Method Room Air 05/30/25 08:00 Allergies Allergy/AdvReac Type Severity Reaction Status Date / Time codeine Allergy Severe Rash Verified 05/10/25 10:02 oxycodone Allergy Severe rash with Verified 05/10/25 10:02 blisters on back & sores in mouth brimonidine Allergy Unknown irritation Verified 05/10/25 10:02 in eye brinzolamide Allergy Unknown increase Verified 05/10/25 10:02 in eye pressure erythromycin base Allergy Unknown made eye Verified 05/10/25 10:02 red and eyelid swell procaine Allergy Unknown heart race Verified 05/10/25 10:02 Home Medications ?Medication ?Instructions ?Recorded ?Confirmed ?Type dorzolamide 2 %-timolol 0.5 % (PF) 1 drop ophthalmic (eye) BID 07/19/20 05/29/25 History eye drops lactobacillus combination no.9 4 4,000 mmu cells PO DAILY 07/19/20 05/29/25 History billion cell capsule (Adult 50 Plus Probiotic) multivitamin with minerals (Men's 1 tablet PO DAILY 07/19/20 05/29/25 History One Daily tablet) peg 400-propylene glycol 0.4 %-0.3 1 drp ophthalmic (eye) DAILY PRN 11/28/20 05/29/25 History % eye drops (Systane Ultra) Dry Eye(S) aspirin 81 mg tablet,delayed 81 mg PO DAILY 05/14/22 05/29/25 History release losartan 50 mg tablet (Cozaar) 50 mg PO QAM #90 tabs 01/30/23 05/29/25 Rx netarsudil 0.02 %-latanoprost 1 drp EACH EYE DAILY 04/10/23 05/29/25 History 0.005 % eye drops (Rocklatan) docusate sodium 250 mg capsule 250 mg PO BID PRN constipation 05/29/25 05/29/25 History (Col-Rite) naproxen sodium 220 mg capsule 220 mg PO Q12H 05/29/25 05/29/25 History (Aleve) Laboratory Tests 05/30/25 06:11 WBC 8.2 K/mm3 (4.5-10.0) RBC 2.48 L M/mm3 (4.6-6.20) Hgb 7.4 L g/dL (14.0-18.0) Hct 22.9 L % (42.0-52.0) MCV 92.3 fl (80-100) MCH 29.8 pg (26-34) MCHC 32.3 g/dl (32-36) RDW 16.2 H % (11.5-14.5) Plt Count 212 k/mm3 (150-375) MPV 9.1 fl (7.4-10.4) Sodium 134 L mmol/L (137-145) Potassium 3.8 mmol/L (3.4-5.0) Chloride 108 H mmol/L (98-107) Carbon Dioxide 21 L mmol/L (22-30) Anion Gap 5 mmol/L (4-12) BUN 19 D mg/dL (9-20) Creatinine 0.88 mg/dL (0.7-1.3) Estim Creat Clear Calc 63 ml/min Estimated GFR > 60 (59 - ) Glucose 100 mg/dL (65-110) Calcium 8.4 mg/dL (8.4-10.2) Magnesium 1.9 mg/dL (1.6-2.3) Patient hx anesthesia problems: none Family hx anesthesia problems: none Results Review: All pre-operative results and documents have been reviewed as part of the pre-operative evaluation. 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 Ventral hernia History of lung cancer status post partial lobectomy History of colon polyps Glaucoma Chronic low back pain BPH (benign prostatic hyperplasia) COPD with emphysema Patient stated that he had PFTs and it was rule out that he does not have emphysema or COPD. Primary hypertension Surgical History Surgical History Status post glaucoma surgery right eye 12/12/21 Parastomal hernia June's reversal, primary repair parastomal hernia, mobilization of the splenic flexure, lysis of adhesions H/O exploratory laparotomy 10/18/20 exploratory laparatomy, sigmoid colectomy, creation of colostomy, intraabdominal washout History of prostate biopsy H/O vasectomy Hx of local excision of skin lesion facial History of tonsillectomy H/O cataract extraction H/O colonoscopy with polypectomy History of lobectomy of lung Family History Family History Mother Carcinoma of colon Family history of rheumatoid arthritis Family history of osteoarthritis Acute myocardial infarction Grandparent Acute myocardial infarction Father Aneurysm Social History Social History Social History: Lives at home with his China Moe, who he states is his healthcare POA. The patient has 3 biological children and he has 3 step children. 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 Patient has a history of being a former smoker we smoked up to 1 and half packs of cigarettes a day. He stop smoking 12-01-2014. 1-2 beers a day. No marijuana or illicit drugs. Smoking packs per day: 1 Smoking cigarettes per day: 20.0 Years smoked: 50 Smoking pack-years: 50.00 Smoking status: Former smoker Second hand tobacco smoke exposure: No Alcohol intake: former Drinks per week: 14 Substance use: never Substance use type: does not use Do You Feel Safe in your Home?: Yes Lack of Transportation: No Lack of Food: Never True Current Housing: I Have Housing Concerned About Future Housing: No Difficulty Paying Gas/Electric Bills: No Difficulty Paying for Meds: No Currently Unemployed: No Education: Trade/Vocational Certificate Difficulty w/ Childcare or Family Care: No Living arrangements: with family Additional living arrangements comments: Occupation/Education: retired Gender identity (if verbalized by the patient): Male Sexual Orientation (if Verbalized by the Patient): Straight or Heterosexual Spiritual care concerns: No Agree to blood products: Yes Anes - Eval Final PreProcedure Day of Procedure 05/30/25 14:53 Patient weight: normal Heart: regular rate and rhythm Lungs: clear to auscultation Airway: Mallampati scale class II Neurological: alert and oriented Last oral intake: >/= 8 hours ASA classification: IV Emergent: no Anesthetic plan: proceed Anesthesia type and monitoring: general GIVS and standard monitoring Results Review: All pre-operative results and documents have been reviewed as part of the pre- operative evaluation. Informed Consent: The patient's anesthetic plan and its attendant risks and benefits were discussed with the patient/family/POA. Questions were solicited and answers provided to the satisfaction of the patient/family/POA.
[2025-05-30] MEDS: LACTATED RINGERS 1,000 ML 150 ML IV CONT (15:07)
--- NOTE | 2025-05-30 15:31 | S_PTH ---
PATIENT: Rafael Moe LOC: [id number] U#:[id number] AGE/SX: 79/M ROOM: 321 RE05/30/[address]: Danny Coronado MD : 1945 BED: 02 DIS: 05/31/2025 SPEC #: [id number] RECD: 05/31/25 07:26 STATUS: SANTO CABRERA #: [id number] ANOOP: 05/30/25 15:[address]: Jassi Thakur DEPT: [facility] Surgical RECD BY: Li Shaw ENTERED: 05/31/25 07:26 SP TYPE: Surgical OTHR DR: Milka Guerrero, MD Flash Gomez MD Tissues: A - Gastric Biopsy B - Gastric Biopsy Procedures: Hematoxylin and Eosin Stain Gross and Microscopic Level 4
--- NOTE | 2025-05-30 16:19 | PC.NURSE ---
Patient back from GI lab at 16:10. Returned to bed with bed alarm on.
[2025-05-30 16:38] LABS: HPYLORIRESULT Negative (Negative)
[2025-05-30] MEDS: PANTOPRAZOLE 40 MG TABLET PO (20:51)
[2025-05-31] VITALS: PULSE 63
[2025-05-31 04:00] VITALS: PULSE 68
[2025-05-31 06:00] VITALS: BP 148/85; PULSE 63; RESP 18; TEMP 36.6; O2SAT 99
[2025-05-31 06:41] LABS: Hematocrit 23.4 % (42.0-52.0); Hemoglobin 7.4 g/dL (14.0-18.0); Mean Corpuscular HGB Conc 31.6 g/dl (32-36); Mean Corpuscular Hemoglobin 29.5 pg (26-34); Mean Corpuscular Volume 93.2 fl (80-100); Platelet Count Result 216 k/mm3 (150-375); Red Blood Count 2.51 M/mm3 (4.6-6.20); White Blood Count 8.5 K/mm3 (4.5-10.0)
--- NOTE | 2025-05-31 07:15 | P.CDI_ITS ---
CDI Query Clarification Request BMI: 21.9 Nutritional Diagnostic Statement: Please refer to the comprehensive nutrition assessment for further information. If you agree with diagnosis of Moderate protein calorie malnutrition related to inadequate energy intake as evidenced by pt report of poor po intake greater than 1 month, a significant weight loss of -8% x 3 months, and NFPE findings for moderate subcutaneous fat loss (cheeks) and moderate muscle wasting (muslim, clavicles). Please specify severity if known: * Mild * Moderate * Severe * Other/Unknown <Isabelle Paulino RN - Last Filed: 05/31/25 07:16> Clarified Diagnosis Clarified Diagnosis: I agree with diagnosis of Moderate protein calorie malnutrition related to inadequate energy intake as evidenced by pt report of poor po intake greater than 1 month, a significant weight loss of -8% x 3 months, and NFPE findings for moderate subcutaneous fat loss (cheeks) and moderate muscle wasting (muslim, clavicles) <Danny Coronado MD - Last Filed: 06/19/25 07:32>
[2025-05-31 08:00] VITALS: PULSE 68
[2025-05-31] MEDS: THERAPEUTIC MULTIVITAMINS/MINERALS TAB (*BKC) 1 TABLET PO (08:22)
[2025-05-31] MEDS: LOSARTAN POTASSIUM 50 MG TABLET PO (08:22)
[2025-05-31] MEDS: ACIDOPHILUS/BULGARICUS CHEWABLE TABLET 1 TABLET PO (08:22)
[2025-05-31] MEDS: PANTOPRAZOLE 40 MG TABLET PO (08:22)
[2025-05-31] MEDS: DORZOLAMIDE/TIMOLOL OPHTH SOL 10 ML BOTTLE 1 DROP EACH EYE (08:22)
--- NOTE | 2025-05-31 09:30 | P.CDI_ITS ---
CDI Query Clarification Request Please clarify the status of the patient's anemia, if known. Anemia has been documented, please specify type of anemia if known: * Acute blood loss anemia * Chronic blood loss anemia * Anemia of chronic disease (CKD,neoplasm, other) * Aplastic anemia * Dilutional anemia * Iron Deficiency anemia * Pernicious anemia * Nutritional anemia (e.g., scorbutic anemia) * Other anemia * Unknown/unable to determine The medical chart reflects the following: hospitalist documented: (4) Anemia: Qualifiers: Anemia type: unspecified type Qualified Code(s): D64.9 - Anemia, u nspecified Code(s): D64.9 - Anemia, unspecified Status: Acute (5) Dehydration: Code(s): E86.0 - Dehydration Status: Acute Plan patient had been working outside in the heat with poor PO intake resulting in dehydration and also found to have stool hemoccult is positive, recent drop in his hgb to 8.6 from 12.4 on 02/09/25, seen by GI suspect patient syncopal episode possible related to anemia and recommending, EGD to further evaluate. will gently hydrated the patient and monitor. GI documented 05/29 (1) Anemia: Code(s): D64.9 - Anemia, unspecified Status: Acute Assessment and Plan: The patient's presyncopal episode is highly suggestive of acute anemia. The normal iron saturation, in the context of his current hemoglobin, indicates that this is a recent blood loss, rather than chronic iron deficiency. This acute presentation is further supported by the new finding of melanotic stools this morning. To identify the source of bleeding, the patient will remain NPO, and an EGD is scheduled for tomorrow to rule out upper gastrointestinal lesions such as peptic ulcer disease or erosive gastritis. Hgb: 05/29: 8.6 7/: 7.4 7/: 7.4 <Isabelle Paulino RN - Last Filed: 05/31/25 09:34> Clarified Diagnosis Clarified Diagnosis: Suspect patient had acute blood loss anemia from GI bleed <Danny Coronado MD - Last Filed: 06/19/25 07:33>
--- NOTE | 2025-05-31 09:40 | PHAR ---
Home eye drops identified in pharmacy and returned to [address] [place] [address] nursing unit. Rocklatan 2.5ml eye drop bottle
--- NOTE | 2025-05-31 09:43 | PC.NURSE ---
Patient's home Rocklatan eye drops returned to patient room 321 into patient closet.
[2025-05-31 12:00] VITALS: PULSE 74
--- NOTE | 2025-05-31 12:58 | P.DS_ITS ---
DS: Admitting Diagnosis Discharge Date 05/31/25 Admitting Diagnosis Dizziness and weakness DS: Discharge Diagnosis Discharge Diagnosis (1) GI (gastrointestinal bleed): Code(s): K92.2 - Gastrointestinal hemorrhage, unspecified Status: Acute (2) Fecal peritonitis: Code(s): K65.8 - Other peritonitis Status: Acute (3) JERAD (acute kidney injury): Code(s): N17.9 - Acute kidney failure, unspecified Status: Acute (4) Anemia: Qualifiers: Anemia type: unspecified type Qualified Code(s): D64.9 - Anemia, unspecified Code(s): D64.9 - Anemia, unspecified Status: Acute (5) Dehydration: Code(s): E86.0 - Dehydration Status: Acute Plan patient had been working outside in the heat with poor PO intake resulting in dehydration and also found to have stool hemoccult is positive, recent drop in his hgb to 8.6 from 12.4 on 02/09/25, seen by GI suspect patient syncopal episode possible related to anemia and recommending, EGD to further evaluate. will gently hydrated the patient and monitor. patient is being gently hydrated with NS, his BUN is trending down, he stats feeling better, patient is scheduled to have EGD today and further recommendation to follow. DS: Summary Hospital Course Hospital Course: patient had been working outside in the heat with poor PO intake resulting in dehydration and also found to have stool hemoccult is positive, recent drop in his hgb to 8.6 from 12.4 on 02/09/25, seen by GI suspect patient syncopal episode possible related to anemia and recommending, EGD to further evaluate. will gently hydrated the patient and monitor. patient is being gently hydrated with NS, his BUN is trending down, he stats feeling better, patient is scheduled to have EGD today and further recommendation to follow. patient had EGD, which did not any acute bleeding however there was a 20mm a single deep acute benign measuring ulcer, it was not bleeding, biopsies were taken, GI recommended Protonix 40mg BID for 8 weeks, patient is clinically stable is able to tolerate his diet, will discharge home today. Time Spent with Patient Time attestation: Total time spent providing and/or coordinating discharge services: Exam Narrative: Patient is comfortable, NAD HEENT: eyes are clear and none icteric LUNGS:CTA HEART: RR S1S2 ABD: BS+, Soft and nontender Lower extremities: no edema SKIN: nonjaundiced Neuro: grossly intact. DS: Data Data Completed and Pending Pending studies at discharge: Pending at discharge 05/30/25 15:31 Surgical [PTH] Routine Labs on day of discharge: Labs from last 24 hours 05/31/25 05/30/25 06:29 16:26 WBC 8.5 RBC 2.51 L Hgb 7.4 L Hct 23.4 L MCV 93.2 MCH 29.5 MCHC 31.6 L RDW 16.4 H Plt Count 216 MPV 9.0 POC H. pylori Urease Negative Discharge Plan Discharge Attending physician on discharge: Flash Gomez Consulting providers: Jassi Thakur; Robson Dowling; Zohaib Andrews; Yasir Rutledge Discharging Clinician: Danny Coronado Patient Disposition: Home Activity: as tolerated Diet: heart healthy Discharge Instructions: patient to follow up with his primary care provider as soon as possible, patient is instructed if any symptoms redevelop to go to nearest ER. Patient Instructions: Antibiotic Form Patient Language: American Stand Alone Forms: General Discharge Information Follow-up/Referrals: Milka Guerrero MD [Primary Care Provider] - Discharge Medications: New pantoprazole 40 mg Tablet,Delayed Release (Dr/Ec) 40 mg PO Q12HR Qty: 30 0RF Continued Systane Ultra 0.4-0.3 % drops 1 drp ophthalmic (eye) DAILY PRN (Reason: Dry Eye(S)) Adult 50 Plus Probiotic 4 billion cell capsule 4,000 mmu cells PO DAILY Rx Instructions: administer with a meal aspirin 81 mg tablet,delayed release (DR/EC) 81 mg PO DAILY Rocklatan 0.02-0.005 % drops 1 drp EACH EYE DAILY docusate sodium [Col-Rite] 250 mg capsule 250 mg PO BID PRN (Reason: constipation) losartan [Cozaar] 50 mg tablet 50 mg PO QAM Qty: 90 3RF Held naproxen sodium [Aleve] 220 mg capsule 220 mg PO Q12H Hold Instructions: until seen by his primary care provider Date of admission: 05/30/25 18:04 Primary Care Provider: Milka Guerrero Admitting Provider: Flash Gomez Attending physician on admission: Danny Coronado Condition: Stable
== END 2025-05-31 14:00 | disposition home or self-care (01) | DRG 378 ==
LOC: ANHED 10:29 → ANH3MEDSUR 12:09
PROVIDERS: Internal Medicine Gastroenterology; Admitting Provider Internal Medicine; Emergency Provider Emergency Medicine; PCP Family Medicine; Visit Provider Family Medicine
PROC: 0DJ08ZZ Inspection of Upper Intestinal Tract, Via Natural or Artificial Opening Endoscopic (ICD-10-PCS; principal; 2025-05-30 15:00)
DX: K26.0 Acute duodenal ulcer with hemorrhage (principal); D62 Acute posthemorrhagic anemia; E44.0 Moderate protein-calorie malnutrition; I10 Essential (primary) hypertension; J44.9 Chronic obstructive pulmonary disease, unspecified; K44.9 Diaphragmatic hernia without obstruction or gangrene; R73.03 Prediabetes; R20.2 Paresthesia of skin; H40.9 Unspecified glaucoma; N40.0 Benign prostatic hyperplasia without lower urinary tract symptoms; M15.9 Polyosteoarthritis, unspecified; M54.50 Low back pain, unspecified; G89.29 Other chronic pain; Z79.82 Long term (current) use of aspirin; Z85.118 Personal history of other malignant neoplasm of bronchus and lung; Z80.0 Family history of malignant neoplasm of digestive organs; Z90.2 Acquired absence of lung [part of]; Z87.891 Personal history of nicotine dependence
CPT/HCPCS: 36415; 71045; 80048; 80053; 81001; 83540; 83550; 83605; 83735; 83880; 84484; 85025; 85027; 85610; 85730; 87081; 88305; 93005; 96361; 97162; 99285; A9270; G0378; J2003; J2470; J2704; J7030; J7040; J7120

== ENCOUNTER 2025-06-02 12:32 | Observation (INO) | payer MEDICARE, SELFPAY ==
[2025-06-02] VITALS (19 sets, daily range): BP systolic 138–186; BP diastolic 73–85; PULSE 60–81; RESP 14–20; TEMP 36.5–36.9; O2SAT 100; BMI 22.4
--- NOTE | ~2025-06-02 | CT_ITS ---
CLINICAL INDICATION: Abdominal pain and melena. Personal history of lung cancer COMPARISON: 10/22/2020. TECHNIQUE: Multiple contiguous axial images of the abdomen and pelvis were performed following the ad ministration of with 100 mL Omnipaque-350 intravenous contrast The dose-length product (DLP) was 284.01 mGy-cm. Automated exposure control and iterative reconstruction technique were employed. FINDINGS/OBSERVATIONS: Visualized lower thorax: Right lower lobe consolidation with bulky calcifications, improved from 2020 examination. The remainder of the visualized lung bases are clear. The heart is enlarged, without pericardial effusion. Large hiatal hernia is present, unchanged from prior. Liver: The liver demonstrates homogeneous enhancement and is enlarged measuring 20 cm in longitudinal dimens ion. Gallbladder and biliary system: The gallbladder is only minimally distended, and otherwise unremarkable. Pancreas: The pancreas enhances homogeneously without ductal dilatation. Spleen: The spleen enhances homogeneously and is not enlarged measuring 8 cm in longitudinal dimension. Kidneys: The bilateral kidneys enhance symmetrically without hydronephrosis or renal calculi. Adrenal glands: Unremarkable. Gastrointestinal tract: Postoperative change within the left hemipelvis. Colonic diverticulosis without surrounding inflammatory change. Fecal stasis within the rectum. Appendix: The air-filled appendix is of normal caliber (axial series, images 105 through 118.) Vasculature: Densely calcified atherosclerotic disease. Lymph nodes: No pathologically enlarged or morphologically suspicious lymph nodes within the retroperitoneum or at the root of the mesentery. Pelvic structures: The bladder is markedly distended (extending to the level of the umbilicus) with multiple bladder div erticulum. The prostate gland is enlarged. No free fluid within the pelvis. Body wall and musculoskeletal: Fat-containing left inguinal hernia. S shaped curvature of the lower thoracic and lumbosacral spines, markedly distorting the retroperiton eum. IMPRESSION: Hepatomegaly. Significant bladder distention for which decompression is suggested. Colonic diverticulosis without surrounding inflammatory change. Fecal stasis within the rectum. Large hiatal hernia. Reviewed, dictated and finalized at location A.
--- OUTSIDE RECORDS SUMMARY | 2025-06-02 12:35 | XMS_ITS | Continuity of Care Document ---
Author Organization [facility] [place] [address] [place] [address] Phone Care Team Providers Care Controlled Area Checker Name Role Phone Luann Jett Unavailable Unavailable [...] Diagnoses Date Provider Providers Copied on Encounter [facility], [address], [place], [place], [address], [place] tel:[phone] SEC [facility] No Information Oct-2 2-201 0 Maliha Kong. [address] , [address], [place], [address], [place]. tel:[phone] [facility], [address] [place] [address] [address], [place], [place], [address], [place] tel:[phone] [facility] No Information Oct-1 2-201 0 Jett Luann. [address], [address], [place], [place], [facility], . tel:[phone] Office/outpat ient Visit, Est [facility], [address] [place] [address] [address], [place], [place], [address], [place] tel:[phone] SEC [facility] No Information Sep-1 4-201 0 Jett Luann. [address] , [address], [place], [place], [facility], . tel:[phone] [facility], [address] [place] [address] [address], [place], [place], [address], tel:[phone] SEC [facility] No Information May-1 3-201 0 Jett Luann. [address] , [address], [place], [place], [facility], [place]. tel:[phone] [facility], [address] [place] [address] [address], [place], [place], [address], [place] tel:[phone] [facility] No Information May-0 4-201 0 Jett Luann. [address] , [address], [place], [place], [facility], [place]. tel:[phone] [facility], [address] [place] [address] [address], [place], [place], [address], [place] tel:[phone] SEC [facility] No Information Apr-2 0-201 0 Jett Luann. [address] , [address], [place], [place], [facility], . tel:[phone] Office/outpat ient Visit, Est [facility], [address] [place] [address] [address], [place], [place], [address], [place] tel:[phone] SEC [facility] No Information Dec-1 5-200 9 Maliha Kong. [address] , [address], [place], [place], [facility], . tel:[phone] Referring Provider: Luann Llanos, [address], [place], [facility]. tel:[phone] [facility], [address] [place] [address] [address], [place], [place], [id number], [place] tel:[phone] SEC [facility] No Information Aug-1 0-200 9 Maliha Kong. [address] , [address], [place], [facility], [place]. tel:[phone] Referring Provider: Luann Llanos, [address], [place], [facility]. tel:[phone] Office/outpat ient Visit, Est [facility], [address] [place] [address] [address], [place], [place], [address], [place] tel:[phone] SEC [facility] No Information Apr-0 7-200 9 Maliha Quiroz [address] , [address], [place], [facility], [place]. tel:[phone] [facility], [address], [place], [place], [address], [place] tel:[phone] SEC [facility] No Information Dec-0 2-200 8 Maliha Kong. [address] , [address], [place], [facility], [place]. tel:[phone] Referring Provider: Luann Llanos, [address], [place], [facility]. tel:[phone] [facility], [address] [place] [address] [address], [place], [place], [address], [place] tel:[phone] SEC [facility] No Information 9-200 8 Maliha Salvador [facility] , [address], [place], [facility], . tel:[phone] Referring Provider: Luann Llanos, [address], [place], [facility]. tel:[phone] Office/outpat ient Visit, [facility], [address] [place] [address] [address], [place], [place], [id number], tel:[phone] SEC [facility] No Information 5200 8 Maliha Quiroz [address] [facility] , [address], [place], [facility], . tel:[phone] Office/outpat ient Visit, [facility], [address] [place] [address] [address], [place], [place], [address], tel:[phone] SEC [facility] No Information 0-200 7 Maliha Salvador [facility] , [address], [place], [facility], . tel:[phone] Referring Provider: Luann Llanos, [address], [place], [facility]. tel:[phone] Office/outpat ient Visit, [facility], [address] [place] [address] [address], [place], [place], [address], tel:[phone] SEC [facility] No Information 7-200 7 Maliha [address] , [address], [place], [facility], . tel:[phone] [facility], [address] [place] [address] [address], [place], [place], [id number], tel:[phone] SEC [facility] No Information 3-200 7 Maliha Quiroz [address] , [address], [place], [address], [place]. tel:[phone] Referring Provider: Luann Llanos, [address] [facility] [address], [place], [address]. tel:[phone] Family History Family Member Type Diagnosis Age At Onset No Information Payers Payer name Insurance type Covered constitution party ID Authoriza tion(s) No Information Social [...]
--- OUTSIDE RECORDS SUMMARY | 2025-06-02 12:35 | XMS_ITS | Clinical Summary ---
Author Organization [facility] Address [address] [facility], [address] [address] Phone Care Team Providers Care Nurse Tech Name Role Phone Magali David MD Primary [...] Comments Blood Pressure 153/83 10/16/2020 11:45 AM POWER TRANSFORMER REPAIR SUPERVISOR Pulse 72 10/16/2020 11:45 AM POWER TRANSFORMER REPAIR SUPERVISOR Temperature 36 C (96.8 F) 10/16/2020 9:13 AM POWER TRANSFORMER REPAIR SUPERVISOR Respiratory Rate 18 10/16/2020 11:45 AM POWER TRANSFORMER REPAIR SUPERVISOR Oxygen Saturation 98% 10/16/2020 11:45 AM POWER TRANSFORMER REPAIR SUPERVISOR Inhaled Oxygen Concentration - - Weight 77.6 [...] (Adult) (1 - 1-dose 75+ series) 2021 SARS-COV-2 Immunization ( - 2023- season) 2024 10/14/2021, 02/16/2021, 01/26/2021 Influenza Immunization (Seas on Ended) 2025 Pneumococcal Immunization Combined Discontinued 04/19/2012 DTaP/Tdap/Td Immunization Discontinued 01/09/2017 TdaP Immunization Completed 01/09/2017 AAA Screening Ultrasound Discontinued 07/20/2017 Colonoscopy Discontinued 10/16/2020, 10/31/2015 Colorectal Cancer Screening Discontinued Cologuard Discontinued Hepatitis B Immunization Aged Out No longer eligible based on patient's age to complete this topic Human Papillomavirus (HPV) Immunization Aged Out No longer eligible based [...] Modality Abdomen N/A Computed Tomogra phy 07/20/2017 2:20 PM CDT Addenda Addendum by Elvin Winn [...] 07/24/2017 8:28 AM: Renée Lord M.D. Radiologist RUIZ:ruiz HARDY Impressions 07/20/2017 2:24 PM CDT IMPRESSION: [...] technique for this examination. us Leyda Camp COMMUNITY HEALTH EDUCATION COORDINATOR, CORE WORKER IMG CT ORDERABLES Edited Result - Final from Last 3 Months or Most Recently Relevant to Health Maintenance Insurance MEDICARE [employer] MEDICARE SUP Care Teams Nurse Tech Relationship Specialty Start Date End Date Magali Dvaid MD [address] [place] [address] PCP - General Family Medicine 10/16/20
--- OUTSIDE RECORDS SUMMARY | 2025-06-02 12:35 | XMS_ITS | Clinical Summary ---
Author Organization [facility] [place] [address] Address [address] [place] [address] Care Team Providers Care Bailer Tenders Supervisor Name Role Phone Lincoln Calzada Primary Care Provider [phone] Allergies Active Allergy Reactions Criticality Noted Date [...] 12/28/2014 Surgical History Surgery Date Site/Laterality Comments DE BIOPSY LUNG/MEDIASTINUM PERCUTANEOUS NEEDLE Biopsy Lung Percutaneous - (Added by TW Conv) FOOT SURGERY Foot Repair - (Added by TW Conv) DE TONSILLECTOMY PRIMARY/SECONDARY <AGE 12 Tonsillectomy - (Added by Conv) DE COLONOSCOPY FLX DX W/ANOOP J SPEC WHEN PFRMD Colonoscopy (Fiberoptic) - (Added by Conv) DE ESOPHAGOGASTRODUODENOSCOP Y TRANSORAL DIAGNOSTIC Diagnostic Esophagogastroduodenoscopy - [...] on file Legal Sex Male 3:35 AM CROZE MACHINE OPERATOR Gender Identity Not on file Sexual Orientation Not on file Obstetrics History Last Filed Vital Signs Vital Sign Reading Time Taken Comments Blood Pressure 130/80 10/08/2023 10:30 AM CROZE MACHINE OPERATOR Pulse 74 10/08/2023 10:30 AM CROZE MACHINE OPERATOR Temperature 37.2 C (98.9 F) 01/23/2021 2:03 PM CROZE MACHINE OPERATOR Respiratory Rate - - Oxygen Saturation 99% 10/08/2023 10:30 AM CROZE MACHINE OPERATOR Inhaled Oxygen Concentration - - Weight 81.6 kg (180 lb) 10/08/2023 10:30 AM CROZE MACHINE OPERATOR Height 182.9 cm (6') 10/08/2023 10:30 AM CROZE MACHINE OPERATOR Body Mass Index 24.41 10/08/2023 10:30 AM CROZE MACHINE OPERATOR Plan of Treatment Health Maintenance Due Date Last Done Comments Depression Screening 1946 Fall Risk Assessment 1945 Hepatitis C Screening 1945 Hepatitis B Screening 1964 Zoster Vaccine (1 of 2) 1996 Well Visit 65+ 2011 Pneumococcal vaccine 65+ (2 of 2 - PCV) 04/19/2013 04/19/2012 Influenza Vaccine (Season Ended) 2025 DTaP/Tdap/Td Vaccine (2 - Td or Tdap) 01/09/2027 01/09/2017 Abdominal Aortic Aneurysm (A AA) Screen Completed 07/26/2018, 07/20/2017, 06/24/2016, Additional history exists Insurance MEDICARE COUNT INCLUDES THE [facility] MEDICARE SUPPLEMENT INSURANCE MEDICARE COUNT INCLUDES THE [facility] MEDICARE SUPPLEMENT INSURANCE Care Teams Bailer Tenders Supervisor Relationship Specialty Start Date End Date Lincoln Calzada PA [address] [place] [address] PCP - General Physician Last Model Department Supervisor 01/10/21
--- OUTSIDE RECORDS SUMMARY | 2025-06-02 12:35 | XMS_ITS | Continuity of Care Document ---
Author Name [facility] Organization [facility] Care Team Providers Care Printing And Stamping Supervisor Name Role Phone [facility] Unavailable Unavailable Problems Combined list of problems from [facility] and [facility] facilities. It does not include entries that were removed or entered in error. Problem Status Onset Date Problem Type Date of Resolution Comments Source Glaucoma Active Condition [facility] Hernia Active Condition [facility] Hypertension Active Condition [facility] Lung cancer Active Condition [facility] Varicose veins Active Condition [facility] Diagnosis: ICD-10-CM C34.90 Malignant neoplasm of unsp part of unsp bronchus or lung Active Diagnosis [facility] Diagnosis: ICD-10-CM H90.3 Sensorineural hearing loss, bilateral Active Diagnosis [facility] Medications Combined list of outpatient medications from [facility] and [facility] facilities.Medications provided include 1) outpatient medications from the last 15 months, and 2) patient-reported medications. Medication Details Route Status Patient Instructions Prescription Expires Prescription Number Last Dispense Date Ordering Provider Order Date Order Qty Source ASPIRIN 81MG TAB,EC TAKE ONE TABLET BY MOUTH ONCE A DAY ORAL ACTIVE Anali'AMANDA ROBLERO MEG A 2021 [facility] DOCUSATE NA 100MG CAP TAKE 2 CAPSULES BY MOUTH ONCE A DAY NEEDED ORAL ACTIVE O'OSBALDOAMANDA ZHAO MEG A 2021 [facility] DORZOLAMIDE HCL 22.3MG/RANCHO LOL MALEATE 6.8MG/ML SOLN,OPH INSTILL 1 DROP IN BOTH EYES TWICE A DAY FOR GLAUCOMA OPHTHA LMIC ACTIVE 10/04/2025 [id number] DEPAUBALTAZARS UZANNE 2023 30 [facility] LATANOPROST 0.005%/IDALIA RSUDIL 0.02% SOLN,OPH INSTILL 1 DROP IN BOTH EYES EVERY EVENING FOR ELEVATED INTRAOCU LAR PRESSURE KEEP REFRIGER ATED UNTIL READY TO USE. OPHTHA LMIC ACTIVE 12/29/2025 [id number] DEPAULO,S UZANNE 2024 2.5 [facility] LATANOPROST 0.005%/IDALIA RSUDIL 0.02% SOLN,OPH INSTILL 1 DROP IN BOTH EYES EVERY EVENING FOR ELEVATED INTRAOCU LAR PRESSURE KEEP REFRIGER ATED UNTIL READY TO USE. OPHTHA LMIC DISCONT INUED 12/25/2024 [id number] DEPAULO,S UZANNE 2023 2.5 [facility] [place]ARTAN POTASSIUM 100MG TAB TAKE ONE-HALF TABLET BY MOUTH ONCE A DAY ORAL ACTIVE 12/29/2025 [id number] DEPAULO,S UZANNE 2024 45 [facility] [place] POTASSIUM 100MG TAB TAKE ONE-HALF TABLET BY MOUTH ONCE A DAY ORAL DISCONT INUED 03/02/2025 [id number] [facility] 2023 45 [facility] MULTIVITAMI N CAP/TAB TAKE BY MOUTH ONCE A DAY ORAL ACTIVE AMANDA LAI MEG A 2021 [facility] PEG-400 0.4%/PROPYL AMANDA GLYCOL 0.3% SOLN,OPH INSTILL 1 DROP IN AFFECTED EYE(S) EVERY 4 HOURS NEEDED OPHTHA LMIC ACTIVE Anali'AMANDA ORBLEROA A 2021 [facility] PROBIOTIC COMBINATION CAP/TAB TAKE 1 CAPSULE BY MOUTH ONCE A DAY ORAL ACTIVE AMANDA LAIA A 2021 [facility] Allergies, Adverse Reactions, Alerts Combined list of allergies from Department of Defense and Veterans Affairs facilities. It does not include entries that were removed or entered in error. Substance Category Reaction Severity Reaction type Status Date Reported Comments Source CODEINE Propensity to adverse reactions to drug (finding) Eruption active 2 [facility] ERYTHROMYCIN Propensity to adverse reactions to drug (finding) EYE IRRITATION active 2 [facility] LUMIGAN Propensity to adverse reactions to drug (finding) active 2 [facility] NOVOCAIN Propensity to adverse reactions to drug (finding) Tachycardia active 2 [facility] OXYCODONE Propensity to adverse reactions to drug (finding) active 2 [facility] SIMBRINZA Propensity to adverse reactions to drug (finding) active 2 [facility] Immunizations Combined list of available immunizations from the Department of [facility] and Veterans Affairs facilities. Immunization Series Date Given Administered By Site Reaction Lot Number CVX Code Drug Blowing Weasand Status Comments Source COVID-19 ([facility]), MRNA, LNP-S, PF, 30 MCG/0.3 ML DOSE 3 2020 208 complet ed [facility] COVID-19 ([facility]), MRNA, LNP-S, PF, 30 MCG/0.3 ML DOSE 2 2020 208 complet ed [facility] COVID-19 ([facility]), MRNA, LNP-S, PF, 30 MCG/0.3 ML DOSE 1 2020 208 complet ed [facility] TDAP 1 2016 115 complet ed HISTORICA L INFORMATI ON - FROM OTHER REGISTRY, [facility] PNEUMOCOCCAL POLYSACCHARID E PPV23 1 2011 33 complet ed HISTORICA L INFORMATI ON - FROM OTHER REGISTRY, [facility] Vital Signs Combined list of inpatient and outpatient Vital Signs from Department of Defense and Veterans Affairs, ranging from 12 months to all on record, depending upon the facility. Vital Sign Value Date Comments Source SYSTOLIC BLOOD PRESSURE 136 12/28/2024 13:31:31 [facility] DIASTOLIC BLOOD PRESSURE 78 12/28/2024 13:31:31 [facility] PULSE OXIMETRY 98 12/28/2024 13:31:31 [facility] WEIGHT 178.6 12/28/2024 13:31:31 [facility] BMI 24 kg/m2 12/28/2024 13:31:31 [facility] PAIN 0 12/28/2024 13:31:31 [facility] HEIGHT 72 12/28/2024 13:31:31 [facility] TEMPERATURE 97.3 12/28/2024 13:31:31 [facility] PULSE 82 12/28/2024 13:31:31 [facility] RESPIRATION 18 12/28/2024 13:31:31 [facility] [facility] Encounters Combined list of: 1) Encounters from Department of Veterans Affairs facilities going backup to the last 18 months, not all [place] inpatient encounters are included; 2) Encounters from the Department of [facility] facilities going backup to 280 months. Location Location Details Encounter Type Encounter Number Reason For Visit Attending Provider ADM Date DC Date Status Disposition Source [facility] HEARING AID SUP/ACCESS /DEV [id number] Diagnos is: ICD-10- CM H90.3 Sensori neural hearing loss, MARIANN Groves 12/08 [facility] Outpatient Encounter [id number] LYNNE OROZCO 12/25 [facility] Outpatient Encounter [id number] JE JERRY 03/01 [facility] Outpatient Encounter [id number] 04/07 [facility] OFFICE O/P EST MOD 30 MIN [id number] Diagnos is: ICD-10- CM C34.90 Maligna nt neoplas m of unsp part of unsp bronchu s or lung DEPAUBALTAZAR,FROILAN PEOPLES 05/27 [facility] Outpatient Encounter [id number] 10/03 [facility] Outpatient Encounter [id number] SAAD CASTILLOKERRY Shawn 12[facility]21 [facility] OFFICE O/P EST MOD 30 MIN [id number] Diagnos is: ICD-10- CM C34.90 Maligna nt neoplas m of unsp part of unsp bronchu s or lung DEPAUBALTAZAR,FROILAN PEOPLES 12/28 [facility] Social History Combined list of available smoking, tobacco, and other social history from Department of Defense and [facility] Affairs facilities. Social History Type Response Date Comment Sourc e Tobacco smoking status NHIS VA-TOBACCO FORMER USER 05/27/2024 [facility] History of tobacco use PR-TOBACCO QUIT 5 TO < 15 YRS 05/27/2024 [facility] History of tobacco use PR-TOBACCO FORMER USER 05/27/2023 [facility] History of tobacco use PR-TOBACCO FORMER USER 05/28/2022 [facility] Plan of Care List of future care activities from Department of Veterans Affairs facilities. Additional future care activities may be listed in the Assessment and Plan section. Date/Time Care Activity Care Activity Detail Facili ty 07/03/2025 AMBULATORY - MEDICINE AMBULATORY - MEDICI NE [facility]
--- OUTSIDE RECORDS SUMMARY | 2025-06-02 12:35 | XMS_ITS | Clinical Summary ---
Author Organization [facility] Address [facility] [place] [address] Care Team Providers Care Conciliation Court Judge Name Role Phone Unavailable Primary Care Provider [...] Td Vaccines ( 1 - Tdap) 1965 Pneumococcal Vaccine: 50+ Ye ars (1 of 1 - PCV) 1996 Zoster Vaccines (1 of 2) 1996 RSV Immunization or 60+ Years (1 - [...]
--- OUTSIDE RECORDS SUMMARY | 2025-06-02 12:35 | XMS_ITS | Referral Summary ---
Author Organization [facility] [address] Address [address] [place] [address] Care Team Providers Care Minister Name Role Phone Lincoln Calzada Primary Care Provider [phone] Allergies Active Allergy Reactions Criticality Noted Date [...] on file Legal Sex Male 3:35 AM SURVEY RESEARCH ANALYST Gender Identity Not on file Sexual Orientation Not on file Last Filed Vital Signs Vital Sign Reading Time Taken Comments Blood Pressure 130/80 10/08/2023 10:30 AM SURVEY RESEARCH ANALYST Pulse 74 10/08/2023 10:30 AM SURVEY RESEARCH ANALYST Temperature 37.2 C (98.9 F) 01/23/2021 2:03 PM SURVEY RESEARCH ANALYST Respiratory Rate - - Oxygen Saturation 99% 10/08/2023 10:30 AM SURVEY RESEARCH ANALYST Inhaled Oxygen Concentration - - Weight 81.6 kg (180 lb) 10/08/2023 10:30 AM SURVEY RESEARCH ANALYST Height 182.9 cm (6') 10/08/2023 10:30 AM SURVEY RESEARCH ANALYST Body Mass Index 24.41 10/08/2023 10:30 AM SURVEY RESEARCH ANALYST Plan of Treatment Not on file Insurance MEDICARE [facility] MEDICARE SUPPLEMENT INSURANCE MEDICARE [facility] MEDICARE SUPPLEMENT INSURANCE Care Teams Minister Relationship Specialty Start Date End Date Lincoln Calzada PA [address] [place] [address] PCP - General Physician Tie Tamper 01/10/21
--- OUTSIDE RECORDS SUMMARY | 2025-06-02 13:53 | XMS_ITS | Referral Summary ---
Author Organization [facility] [place] [address] Address [address] [place] [address] Care Team Providers Care Blood Bank Worker Name Role Phone Lincoln Calzada Primary Care Provider [phone] Allergies Active Allergy Reactions Criticality Noted Date [...] on file Legal Sex Male 3:35 AM BIRD RAISER Gender Identity Not on file Sexual Orientation Not on file Last Filed Vital Signs Vital Sign Reading Time Taken Comments Blood Pressure 130/80 10/08/2023 10:30 AM BIRD RAISER Pulse 74 10/08/2023 10:30 AM BIRD RAISER Temperature 37.2 C (98.9 F) 01/23/2021 2:03 PM BIRD RAISER Respiratory Rate - - Oxygen Saturation 99% 10/08/2023 10:30 AM BIRD RAISER Inhaled Oxygen Concentration - - Weight 81.6 kg (180 lb) 10/08/2023 10:30 AM BIRD RAISER Height 182.9 cm (6') 10/08/2023 10:30 AM BIRD RAISER Body Mass Index 24.41 10/08/2023 10:30 AM BIRD RAISER Plan of Treatment Not on file Insurance MEDICARE [facility] MEDICARE SUPPLEMENT INSURANCE MEDICARE [facility] MEDICARE SUPPLEMENT INSURANCE Care Teams Blood Bank Worker Relationship Specialty Start Date End Date Lincoln Calzada PA [address] [place] [address] PCP - General Physician Skate Maker 01/10/21
--- OUTSIDE RECORDS SUMMARY | 2025-06-02 13:53 | XMS_ITS | Clinical Summary ---
Author Organization [facility] Address [address] [facility] [facility], [address] [address] Phone Care Team Providers Care Material Checker Name Role Phone Magali David MD Primary [...] Comments Blood Pressure 153/83 10/16/2020 11:45 AM HOT BRAIDER Pulse 72 10/16/2020 11:45 AM HOT BRAIDER Temperature 36 C (96.8 F) 10/16/2020 9:13 AM HOT BRAIDER Respiratory Rate 18 10/16/2020 11:45 AM HOT BRAIDER Oxygen Saturation 98% 10/16/2020 11:45 AM HOT BRAIDER Inhaled Oxygen Concentration - - Weight 77.6 [...] technique for this examination. us Leyda Camp ACID EXTRACTOR, LAUNDRY TECHNICIAN IMG CT ORDERABLES Edited Result - Final from Last 3 Months or Most Recently Relevant to Health Maintenance Insurance MEDICARE [employer] MEDICARE SUP Care Teams Material Checker Relationship Specialty Start Date End Date Magali David MD [address] [place] [address] PCP - General Family Medicine 10/16/20
--- OUTSIDE RECORDS SUMMARY | 2025-06-02 13:53 | XMS_ITS | Clinical Summary ---
Author Organization [facility] [address] Address [address] [place] [address] Care Team Providers Care International Representative Name Role Phone Lincoln Calzada Primary Care Provider [phone] Allergies Active Allergy Reactions Criticality Noted Date [...] 12/28/2014 Surgical History Surgery Date Site/Laterality Comments [place] BIOPSY LUNG/MEDIASTINUM PERCUTANEOUS NEEDLE Biopsy Lung Percutaneous - (Added by TW Conv) FOOT SURGERY Foot Repair - (Added by TW Conv) RI TONSILLECTOMY PRIMARY/SECONDARY <AGE 12 Tonsillectomy - (Added by Conv) [place] COLONOSCOPY FLX DX W/ANOOP J SPEC WHEN PFRMD Colonoscopy (Fiberoptic) - (Added by Conv) [place] ESOPHAGOGASTRODUODENOSCOP Y TRANSORAL DIAGNOSTIC Diagnostic Esophagogastroduodenoscopy - [...] on file Legal Sex Male 3:35 AM AUTOMOTIVE PARTS COUNTER PERSON Gender Identity Not on file Sexual Orientation Not on file Obstetrics History Last Filed Vital Signs Vital Sign Reading Time Taken Comments Blood Pressure 130/80 10/08/2023 10:30 AM AUTOMOTIVE PARTS COUNTER PERSON Pulse 74 10/08/2023 10:30 AM AUTOMOTIVE PARTS COUNTER PERSON Temperature 37.2 C (98.9 F) 01/23/2021 2:03 PM AUTOMOTIVE PARTS COUNTER PERSON Respiratory Rate - - Oxygen Saturation 99% 10/08/2023 10:30 AM AUTOMOTIVE PARTS COUNTER PERSON Inhaled Oxygen Concentration - - Weight 81.6 kg (180 lb) 10/08/2023 10:30 AM AUTOMOTIVE PARTS COUNTER PERSON Height 182.9 cm (6') 10/08/2023 10:30 AM AUTOMOTIVE PARTS COUNTER PERSON Body Mass Index 24.41 10/08/2023 10:30 AM AUTOMOTIVE PARTS COUNTER PERSON Plan of Treatment Health Maintenance Due Date [...] 07/20/2017, 06/24/2016, Additional history exists Insurance MEDICARE [facility] MEDICARE SUPPLEMENT INSURANCE MEDICARE [facility] MEDICARE SUPPLEMENT INSURANCE Care Teams International Representative Relationship Specialty Start Date End Date Lincoln Calzada PA [address] [place] [address] PCP - General Physician Dermatology Physician Assistant 01/10/21
--- OUTSIDE RECORDS SUMMARY | 2025-06-02 13:53 | XMS_ITS | Continuity of Care Document ---
Author Name [employer] Organization [employer] Care Team Providers Care Pricing Specialist Name Role Phone [employer] Unavailable Unavailable Problems Combined list of problems from [facility] and [facility] facilities. It does not include entries that were removed or entered in error. Problem Status Onset Date Problem Type Date of Resolution Comments Source Glaucoma Active Condition [facility] Hernia Active Condition [facility] Hypertension Active Condition [facility] Lung cancer Active Condition [facility] Varicose veins Active Condition [facility] Diagnosis: ICD-10-CM C34.90 Malignant neoplasm of unsp part of unsp bronchus or lung Active Diagnosis [facility] Diagnosis: ICD-10-CM H90.3 Sensorineural hearing loss, bilateral Active Diagnosis [facility] Medications Combined list of outpatient medications from [facility] and [facility] facilities.Medications provided include 1) outpatient medications from the last 15 months, and 2) patient-reported medications. Medication Details Route Status Patient Instructions Prescription Expires Prescription Number Last Dispense Date Ordering Provider Order Date Order Qty Source ASPIRIN 81MG TAB,EC TAKE ONE TABLET BY MOUTH ONCE A DAY ORAL ACTIVE Anali'AMANDA ROBLERO MEG A 2021 [facility] DOCUSATE NA 100MG CAP TAKE 2 CAPSULES BY MOUTH ONCE A DAY NEEDED ORAL ACTIVE O'OSBALDOAMANDA ZHAO MEG A 2021 [facility] DORZOLAMIDE HCL 22.3MG/RANCHO LOL MALEATE 6.8MG/ML SOLN,OPH INSTILL 1 DROP IN BOTH EYES TWICE A DAY FOR GLAUCOMA OPHTHA LMIC ACTIVE 10/04/2025 [id number] DEPAUBALTAZARS UZANNE 2023 30 [facility] LATANOPROST 0.005%/IDALIA RSUDIL 0.02% SOLN,OPH INSTILL 1 DROP IN BOTH EYES EVERY EVENING FOR ELEVATED INTRAOCU LAR PRESSURE KEEP REFRIGER ATED UNTIL READY TO USE. OPHTHA LMIC ACTIVE 12/29/2025 [id number] DEPAULO,S UZANNE 2024 2.5 [facility] LATANOPROST 0.005%/IDALIA RSUDIL 0.02% SOLN,OPH INSTILL 1 DROP IN BOTH EYES EVERY EVENING FOR ELEVATED INTRAOCU LAR PRESSURE KEEP REFRIGER ATED UNTIL READY TO USE. OPHTHA LMIC DISCONT INUED 12/25/2024 [id number] DEPAULO,S UZANNE 2023 2.5 [facility] [place] POTASSIUM 100MG TAB TAKE ONE-HALF TABLET BY MOUTH ONCE A DAY ORAL ACTIVE 12/29/2025 [id number] 5 DEPAULO,S UZANNE 2024 45 [facility] [place] POTASSIUM 100MG TAB TAKE ONE-HALF TABLET BY MOUTH ONCE A DAY ORAL DISCONT INUED 03/02/2025 [id number] [facility] 2023 45 [facility] MULTIVITAMI N CAP/TAB TAKE BY MOUTH ONCE A DAY ORAL ACTIVE AMANDA LAI MEG A 2021 [facility] PEG-400 0.4%/PROPYL AMANDA GLYCOL 0.3% SOLN,OPH INSTILL 1 DROP IN AFFECTED EYE(S) EVERY 4 HOURS NEEDED OPHTHA LMIC ACTIVE Anali'AMANDA ROBLEROA A 2021 [facility] PROBIOTIC COMBINATION CAP/TAB TAKE 1 CAPSULE BY MOUTH ONCE A DAY ORAL ACTIVE AMANDA LAIA A 2021 [facility] Allergies, Adverse Reactions, Alerts Combined list of allergies from Department of Defense and Veterans Affairs facilities. It does not include entries that were removed or entered in error. Substance Category Reaction Severity Reaction type Status Date Reported Comments Source CODEINE Propensity to adverse reactions to drug (finding) Eruption active 2 [facility] ERYTHROMYCIN Propensity to adverse reactions to drug (finding) EYE IRRITATION active 2 [facility] LUMIGAN Propensity to adverse reactions to drug (finding) active 2 [facility] NOVOCAIN Propensity to adverse reactions to drug (finding) Tachycardia active 2 [facility] OXYCODONE Propensity to adverse reactions to drug (finding) active 2 [facility] SIMBRINZA Propensity to adverse reactions to drug (finding) active 2 [facility] Immunizations Combined list of available immunizations from the Department of [facility] and Veterans Affairs facilities. Immunization Series Date Given Administered By Site Reaction Lot Number CVX Code Drug Leather Cutter Status Comments Source COVID-19 ([employer]), MRNA, LNP-S, PF, 30 MCG/0.3 ML DOSE 3 2020 208 complet ed [facility] COVID-19 ([facility]), MRNA, LNP-S, PF, 30 MCG/0.3 ML DOSE 2 2020 208 complet ed [facility] COVID-19 ([facility]), MRNA, LNP-S, PF, 30 MCG/0.3 ML DOSE 1 2020 208 complet ed [facility] TDAP 1 2016 115 complet ed HISTORICA L INFORMATI ON - FROM OTHER REGISTRY, [facility] PNEUMOCOCCAL POLYSACCHARID E PPV23 1 2011 33 complet ed HISTORICA L INFORMATI ON - FROM OTHER REGISTRY, [facility] Vital Signs Combined list of inpatient and outpatient Vital Signs from Department of Defense and Veterans Affairs, ranging from 12 months to all on record, depending upon the facility. Vital Sign Value Date Comments Source SYSTOLIC BLOOD PRESSURE 136 12/28/2024 13:31:31 [facility] DIASTOLIC BLOOD PRESSURE 78 12/28/2024 13:31:31 [facility] PULSE OXIMETRY 98 12/28/2024 13:31:31 [facility] WEIGHT 178.6 12/28/2024 13:31:31 [facility] BMI 24 kg/m2 12/28/2024 13:31:31 [facility] PAIN 0 12/28/2024 13:31:31 [facility] HEIGHT 72 12/28/2024 13:31:31 [facility] TEMPERATURE 97.3 12/28/2024 13:31:31 [facility] PULSE 82 12/28/2024 13:31:31 [facility] RESPIRATION 18 12/28/2024 13:31:31 [facility] [place] [facility] Encounters Combined list of: 1) Encounters from Department of Veterans Affairs facilities going backup to the last 18 months, not all MD inpatient encounters are included; 2) Encounters from the Department of [facility] facilities going backup to 280 months. Location Location Details Encounter Type Encounter Number Reason For Visit Attending Provider ADM Date DC Date Status Disposition Source [facility] HEARING AID SUP/ACCESS /DEV [id number] Diagnos is: ICD-10- CM H90.3 Sensori neural hearing loss, MARIANN Groves 12/08 [facility] Outpatient Encounter [id number] LYNNE OROZCO 12/25 [facility] Outpatient Encounter [id number] JE JERRY 03/01 [facility] Outpatient Encounter [id number] 04/07 [facility] OFFICE O/P EST MOD 30 MIN [id number] Diagnos is: ICD-10- CM C34.90 Maligna nt neoplas m of unsp part of unsp bronchu s or lung DEPAUBALTAZAR,FROILAN PEOPLES 05/27 [facility] Outpatient Encounter [id number] 10/03 [facility] Outpatient Encounter [id number] SAAD CASTILLOKERRY Shawn 12/21 [facility] OFFICE O/P EST MOD 30 MIN [id number] Diagnos is: ICD-10- CM C34.90 Maligna nt neoplas m of unsp part of unsp bronchu s or lung DEPAUBALTAZAR,FROILAN PEOPLES 12/28 [facility] Social History Combined list of available smoking, tobacco, and other social history from Department of Defense and [facility] facilities. Social History Type Response Date Comment Sourc e Tobacco smoking status NHIS VA-TOBACCO FORMER USER 05/27/2024 [facility] History of tobacco use MD-TOBACCO QUIT 5 TO < 15 YRS 05/27/2024 [facility] History of tobacco use MD-TOBACCO FORMER USER 05/27/2023 [facility] History of tobacco use MD-TOBACCO FORMER USER 05/28/2022 [facility] Plan of Care List of future care activities from Department of Veterans Affairs facilities. Additional future care activities may be listed in the Assessment and Plan section. Date/Time Care Activity Care Activity Detail Facili ty 07/03/2025 AMBULATORY - MEDICINE AMBULATORY - MEDICI NE [facility]
--- OUTSIDE RECORDS SUMMARY | 2025-06-02 13:53 | XMS_ITS | Continuity of Care Document ---
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 [address] , [address], [place], [address], [place]. tel:[phone] [facility], [address] [place] [address] [address], [place], [place], [address], [place] tel:[phone] [facility] No Information Oct-1 2-201 0 Jett Luann. [address], [address], [place], [place], [facility], . tel:[phone] Office/outpat ient Visit, Est [facility], [address] [place] [address] [address], [place], [place], [address], [place] tel:[phone] [facility] No Information Sep-1 4-201 0 Jett Luann. [address] , [address], [place], [place], [facility], . tel:[phone] [facility], [address] [place] [address] [address], [place], [place], [address], tel:[phone] [facility] No Information May-1 3-201 0 Jett Luann. [address] , [address], [place], [facility], [place]. tel:[phone] [facility], [address] [place] [address] [address], [place], [place], [address], [place] tel:[phone] [facility] No Information May-0 4-201 0 Jett Luann. [address] , [address], [place], [facility], [place]. tel:[phone] [facility], [address] [place] [address] [address], [place], [place], [address], [place] tel:[phone] [facility] No Information Apr-2 0-201 0 Jett Luann. [address] , [address], [place], [facility], . tel:[phone] Office/outpat ient Visit, Est [facility], [address] [place] [address] [address], [place], [place], [address], [place] tel:[phone] [facility] No Information Dec-1 5-200 9 Maliha Kong. [address] , [address], [place], [place], [facility], . tel:[phone] Referring Provider: Luann Llanos, [address], [place], [facility]. tel:[phone] [facility], [address] [place] [address] [address], [place], [place], [id number], [place] tel:[phone] [facility] No Information Aug-1 0-200 9 Maliha Kong. [address] , [address], [place], [facility], [place]. tel:[phone] Referring Provider: Luann Llanos, [address], [place], [facility]. tel:[phone] Office/outpat ient Visit, Est [facility], [address] [place] [address] [address], [place], [place], [address], [place] tel:[phone] [facility] No Information Apr-0 7-200 9 Maliha Quiroz [address] , [address], [place], [facility], [place]. tel:[phone] [facility], [address], [place], [place], [address], [place] tel:[phone] [facility] No Information Dec-0 2-200 8 Maliha Kong. [address] , [address], [place], [facility], [place]. tel:[phone] Referring Provider: Luann Llanos, [address], [place], [facility]. tel:[phone] [facility], [address] [place] [address] [address], [place], [place], [address], [place] tel:[phone] [facility] No Information 9-200 8 Maliha [facility] , [address], [place], [facility], . tel:[phone] Referring Provider: Luann Llanos, [address], [place], [facility]. tel:[phone] Office/outpat ient Visit, [facility], [address] [place] [address] [address], [place], [place], [address], tel:[phone] [facility] No Information 5200 8 Maliha Quiroz [address] [facility] , [address], [place], [facility], . tel:[phone] Office/outpat ient Visit, [facility], [address] [place] [address] [address], [place], [place], [address], tel:[phone] [facility] No Information 0-200 7 Maliha [facility] , [address], [place], [facility], . tel:[phone] Referring Provider: Luann Llanos, [address], [place], [facility]. tel:[phone] Office/outpat ient Visit, [facility], [address] [place] [address] [address], [place], [place], [address], tel:[phone] [facility] No Information 7-200 7 Maliha [address] , [address], [place], [facility], . tel:[phone] [facility], [address] [place] [address] [address], [place], [place], [address], tel:[phone] [facility] No Information 3-200 7 Maliha Quiroz [address] , [address], [place], [address], [place]. tel:[phone] Referring Provider: Luann Llanos, [address] [facility] [address], [place], [address]. tel:[phone] Family History Family Member Type Diagnosis Age At Onset No Information Payers Payer name Insurance type Covered libertarian ID Authoriza tion(s) No Information Social History [...]
--- OUTSIDE RECORDS SUMMARY | 2025-06-02 13:53 | XMS_ITS | Clinical Summary ---
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
[2025-06-02 14:00] LABS: Hematocrit 23.5 % (42.0-52.0); Hemoglobin 7.3 g/dL (14.0-18.0); Immature Granulocyte Percent A 0.4 % (0-0.5); Lymphocytes Absolute Auto 1.58 K/mm3 (0.9-3.2); Mean Corpuscular HGB Conc 31.1 g/dl (32-36); Mean Corpuscular Hemoglobin 29.0 pg (26-34); Mean Corpuscular Volume 93.3 fl (80-100); Nucleated Red Blood Cells Absolute Auto 0.000 K/mm3 (0.0-0.012); Nucleated Red Blood Cells Perc 0.0 % (0.0-0.2); Platelet Count Result 266 k/mm3 (150-375); Red Blood Count 2.52 M/mm3 (4.6-6.20); White Blood Count 9.2 K/mm3 (4.5-10.0)
[2025-06-02 14:10] LABS: Alanine Aminotransferase 18 U/L (6-50); Albumin Level 3.4 g/dL (3.5-5.1); Alkaline Phosphatase 60 U/L (38-126); Anion Gap 6 mmol/L (4-12); Aspartate Amino Transferase 24 U/L (17-59); Bilirubin,Total 0.2 mg/dL (0.2-1.3); Blood Urea Nitrogen 12 mg/dL (9-20); Calcium 8.8 mg/dL (8.4-10.2); Carbon Dioxide 23 mmol/L (22-30); Chloride 101 mmol/L (98-107); Estimated CRCL calculation 59 ml/min; Estimated Glomerular Filt Rate > 60; Glucose 101 mg/dL (65-110); Potassium 4.1 mmol/L (3.4-5.0); Sodium 130 mmol/L (137-145); Total Protein 6.0 g/dL (6.3-8.2)
[2025-06-02 14:11] LABS: INR 1.1; Prothrombin Time 14.5 Seconds (11.1-14.7)
[2025-06-02 14:12] LABS: Partial Thromboplastin Time 33.9 Seconds (22.3-36.8)
--- NOTE | 2025-06-02 14:55 | ED.GENADULT ---
HPI - General Adult General Chief complaint: Abdominal Pain Stated complaint: constipation Time Seen by Provider: 06/02/25 13:45 History of Present Illness HPI narrative: Patient 79-year-old gentleman presents emergency department with chief complaint of generalized weakness and black stools. The patient reports he was in the hospital recently had an EGD that showed that he had a ulcer the patient was discharged home on Protonix patient states he has continued to have black stool and reports he feels very weak and run down patient denies fever reports he has some abdominal discomfort Related Data Home Medications ?Medication ?Instructions ?Recorded ?Confirmed ?Last Taken ?Type dorzolamide 2 %-timolol 0.5 % (PF) 1 drop ophthalmic (eye) BID 07/19/20 05/29/25 05/29/25 History eye drops lactobacillus combination no.9 4 4,000 mmu cells PO DAILY 07/19/20 05/29/25 05/29/25 History billion cell capsule (Adult 50 Plus Probiotic) multivitamin with minerals (Men's 1 tablet PO DAILY 07/19/20 05/29/25 05/29/25 History One Daily tablet) peg 400-propylene glycol 0.4 %-0.3 1 drp ophthalmic (eye) DAILY PRN 11/28/20 05/29/25 05/28/25 History % eye drops (Systane Ultra) Dry Eye(S) aspirin 81 mg tablet,delayed 81 mg PO DAILY 05/14/22 05/29/25 05/29/25 History release netarsudil 0.02 %-latanoprost 1 drp EACH EYE DAILY 04/10/23 05/29/25 05/28/25 History 0.005 % eye drops (Rocklatan) docusate sodium 250 mg capsule 250 mg PO BID PRN constipation 05/29/25 05/29/25 Unknown History (Col-Rite) naproxen sodium 220 mg capsule 220 mg PO Q12H 05/29/25 05/29/25 05/28/25 History (Aleve) Allergies Allergy/AdvReac Type Severity Reaction Status Date / Time codeine Allergy Severe Rash Verified 05/10/25 10:02 oxycodone Allergy Severe rash with Verified 05/10/25 10:02 blisters on back & sores in mouth brimonidine Allergy Unknown irritation Verified 05/10/25 10:02 in eye brinzolamide Allergy Unknown increase Verified 05/10/25 10:02 in eye pressure erythromycin base Allergy Unknown made eye Verified 05/10/25 10:02 red and eyelid swell procaine Allergy Unknown heart race Verified 05/10/25 10:02 Review of Systems Review of Systems: A 10 system review of systems was completed on the patient and is negative except for what is stated in the HPI. Nursing and ancillary documentation was reviewed. 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 Ventral hernia History of lung cancer status post partial lobectomy History of colon polyps Glaucoma Chronic low back pain BPH (benign prostatic hyperplasia) COPD with emphysema Patient stated that he had PFTs and it was rule out that he does not have emphysema or COPD. Primary hypertension Surgical History Surgical History Status post glaucoma surgery right eye 12/12/21 Parastomal hernia June's reversal, primary repair parastomal hernia, mobilization of the splenic flexure, lysis of adhesions H/O exploratory laparotomy 10/18/20 exploratory laparatomy, sigmoid colectomy, creation of colostomy, intraabdominal washout History of prostate biopsy H/O vasectomy Hx of local excision of skin lesion facial History of tonsillectomy H/O cataract extraction H/O colonoscopy with polypectomy History of lobectomy of lung Family History Family History Mother Carcinoma of colon Family history of rheumatoid arthritis Family history of osteoarthritis Acute myocardial infarction Grandparent Acute myocardial infarction Father Aneurysm Social History Social History Social History: Lives at home with his China Moe, who he states is his healthcare POA. The patient has 3 biological children and he has 3 step children. 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 Patient has a history of being a former smoker we smoked up to 1 and half packs of cigarettes a day. He stop smoking 12-01-2014. 1-2 beers a day. No marijuana or illicit drugs. Smoking packs per day: 1 Smoking cigarettes per day: 20.0 Years smoked: 50 Smoking pack-years: 50.00 Smoking status: Former smoker Second hand tobacco smoke exposure: No Alcohol intake: former Drinks per week: 14 Substance use: never Substance use type: does not use Do You Feel Safe in your Home?: Yes Lack of Transportation: No Lack of Food: Never True Current Housing: I Have Housing Concerned About Future Housing: No Difficulty Paying Gas/Electric Bills: No Difficulty Paying for Meds: No Currently Unemployed: No Education: Trade/Vocational Certificate Difficulty w/ Childcare or Family Care: No Living arrangements: with family Additional living arrangements comments: Occupation/Education: retired Gender identity (if verbalized by the patient): Male Sexual Orientation (if Verbalized by the Patient): Straight or Heterosexual Spiritual care concerns: No Agree to blood products: Yes Exam Narrative: GENERAL: Well-appearing, well-nourished, and in no acute distress. HEAD: Normocephalic, atraumatic. EYES: PERRLA and EOMI. ENT: Nares clear, no rhinorrhea or epistaxis. Mucous membranes moist. NECK: Supple. CHEST: Clear to auscultation. No respiratory distress. HEART: Regular rate and rhythm. No murmur heard. Normal peripheral pulses. ABDOMEN: Soft, nontender, nondistended, normal active bowel sounds. : Black stool is guaiac positive EXTREMITIES: Normal range of motion. No edema. SKIN: Warm, dry, no rash. NEURO: No focal deficits. Alert and oriented x3. PSYCH: Normal mood and affect. Course Vital Signs Vital signs: Vital Signs Temperature 36.5 C 06/02/25 12:44 Pulse Rate 65 06/02/25 12:44 Respiratory Rate 20 06/02/25 12:44 Blood Pressure 147/80 H 06/02/25 12:44 Pulse Oximetry 100 06/02/25 12:44 Oxygen Delivery Room Air 06/02/25 12:44 Temperature 36.5 C 06/02/25 12:44 Pulse Rate 65 06/02/25 12:44 Respiratory Rate 20 06/02/25 12:44 Blood Pressure 147/80 H 06/02/25 12:44 Pulse Oximetry 100 06/02/25 12:44 Oxygen Delivery Room Air 06/02/25 12:44 Medical Decision Making MDM Narrative Medical decision making narrative: Differential diagnosis includes GI bleed, symptomatic anemia, electrolyte abnormality Laboratory studies were obtained showed a hemoglobin of 7.3 patient was 7.4 on his recent admission Electrolytes showed a sodium of 130 potassium was normal CO2 was normal BUN was 12 and creatinine was 0.96 Vital Signs Vital Signs: Vital Signs Temperature 36.5 C 06/02/25 12:44 Pulse Rate 65 06/02/25 12:44 Respiratory Rate 20 06/02/25 12:44 Blood Pressure 147/80 H 06/02/25 12:44 Pulse Oximetry 100 06/02/25 12:44 Oxygen Delivery Room Air 06/02/25 12:44 Temperature 36.5 C 06/02/25 12:44 Pulse Rate 65 06/02/25 12:44 Respiratory Rate 20 06/02/25 12:44 Blood Pressure 147/80 H 06/02/25 12:44 Pulse Oximetry 100 06/02/25 12:44 Oxygen Delivery Room Air 06/02/25 12:44 Lab Data 06/02/25 13:46 06/02/25 13:46 Labs: Lab Results 06/02/25 Range/Units 13:46 WBC 9.2 (4.5-10.0) K/mm3 RBC 2.52 L (4.6-6.20) M/mm3 Hgb 7.3 L (14.0-18.0) g/dL Hct 23.5 L (42.0-52.0) % MCV 93.3 (80-100) fl MCH 29.0 (26-34) pg MCHC 31.1 L (32-36) g/dl RDW 17.3 H (11.5-14.5) % Plt Count 266 (150-375) k/mm3 MPV 9.4 (7.4-10.4) fl Immature Gran % (Auto) 0.4 (0-0.5) % Neut % (Auto) 69.0 (45.5-73.1) % Lymph % (Auto) 17.2 L (18.3-44.2) % [place] % (Auto) 9.5 H (2.6-8.5) % Eos % (Auto) 3.4 (0-4.4) % Baso % (Auto) 0.5 (0.2-1.2) % Lymph # (Auto) 1.58 (0.9-3.2) K/mm3 [place] # (Auto) 0.9 H (0.1-0.6) K/mm3 Eos # (Auto) 0.3 (0-0.3) K/mm3 Baso # (Auto) 0.1 (0.0-0.1) K/mm3 Abs Immat Gran (auto) 0.04 H (0.00-0.031) K/mm3 Absolute Neuts (auto) 6.3 (1.3-6.7) K/mm3 Absolute Nucleated RBC 0.000 (0.0-0.012) K/mm3 Nucleated RBC % 0.0 (0.0-0.2) % PT 14.5 (11.1-14.7) Seconds INR 1.1 APTT 33.9 (22.3-36.8) Seconds Sodium 130 L (137-145) mmol/L Potassium 4.1 (3.4-5.0) mmol/L Chloride 101 (98-107) mmol/L Carbon Dioxide 23 (22-30) mmol/L Anion Gap 6 (4-12) mmol/L BUN 12 D (9-20) mg/dL Creatinine 0.96 (0.7-1.3) mg/dL Estim Creat Clear Calc 59 ml/min Estimated GFR > 60 (59 - ) Glucose 101 (65-110) mg/dL Calcium 8.8 (8.4-10.2) mg/dL Total Bilirubin 0.2 (0.2-1.3) mg/dL AST 24 (17-59) U/L ALT 18 (6-50) U/L Alkaline Phosphatase 60 (38-126) U/L Total Protein 6.0 L (6.3-8.2) g/dL Albumin 3.4 L (3.5-5.1) g/dL Discharge Plan Discharge Clinical Impression: Generalized weakness Anemia Qualifiers: Anemia type: unspecified type Qualified Code(s): D64.9 - Anemia, unspecified Patient Disposition: Still a Patient Condition: Stable Patient Language: Indian Prescriptions: No Action Systane Ultra 0.4-0.3 % drops 1 drp ophthalmic (eye) DAILY PRN (Reason: Dry Eye(S)) dorzolamide-timolol (PF) 2-0.5 % drops 1 drop EACH EYE BID multivitamin with minerals [Men's One Daily] Tablet 1 tablet PO DAILY Adult 50 Plus Probiotic 4 billion cell capsule 4,000 mmu cells PO DAILY Rx Instructions: administer with a meal aspirin 81 mg tablet,delayed release (DR/EC) 81 mg PO DAILY Rocklatan 0.02-0.005 % drops 1 drp EACH EYE DAILY naproxen sodium [Aleve] 220 mg capsule 220 mg PO Q12H docusate sodium [Col-Rite] 250 mg capsule 250 mg PO BID PRN (Reason: constipation) pantoprazole 40 mg Tablet,Delayed Release (Dr/Ec) 40 mg PO Q12HR Qty: 30 0RF losartan [Cozaar] 50 mg tablet 50 mg PO QAM Qty: 90 3RF Follow-up/Referrals: Milka Guerrero MD [Primary Care Provider] - Time of Disposition: 15:28
[2025-06-02 15:49] LABS: Hematocrit 24.8 % (42.0-52.0); Hemoglobin 8.0 g/dL (14.0-18.0)
--- NOTE | 2025-06-02 19:13 | P.HP_ITS ---
H&P: HPI History of Present Illness Date/Time: 06/02/25 19:13 Chief Complaint: Dark tardy stools Narrative: 71-year-old male past medical history of [id number] skin cancer right lung, squamous cell carcinoma, BPH, COPD, ventral hernia presents the hospital with dark tardy stools. Patient was here earlier this week for a GI bleed he was discharged on 05/31/2025. He is not complaining of increased weakness and still having black tarry stools. Hemoglobin on arrival is 7.3 which is close to what it was on discharge. CT of the abdomen shows hepatomegaly, ladders distension, fecal stasis, and a hiatal hernia. Will in the patient's for serial H&Hs and work with PT OT. Review of Systems Review of Systems: 12 systems were reviewed and are negativ e except for as per HPI. [facility] Past Medical History Medical History Pain in both hands Numbness in both hands Prediabetes Non-small cell cancer of right lung Stage I s/p XRT Bilateral leg paresthesia Arthralgia of hands, bilateral Hard of hearing Osteoarthritis, multiple sites Elevated PSA Medicare annual wellness visit, subsequent Prostate cancer screening Colon cancer screening History of SCC (squamous cell carcinoma) of skin Adenoma of left adrenal gland which was noted to be stable. Ventral hernia History of lung cancer status post partial lobectomy History of colon polyps Glaucoma Chronic low back pain BPH (benign prostatic hyperplasia) COPD with emphysema Patient stated that he had PFTs and it was rule out that he does not have emphysema or COPD. Primary hypertension Surgical History Surgical History Status post glaucoma surgery right eye 12/12/21 Parastomal hernia June's reversal, primary repair parastomal hernia, mobilization of the splenic flexure, lysis of adhesions H/O exploratory laparotomy 10/18/20 exploratory laparatomy, sigmoid colectomy, creation of colostomy, intraabdominal washout History of prostate biopsy H/O vasectomy Hx of local excision of skin lesion facial History of tonsillectomy H/O cataract extraction H/O colonoscopy with polypectomy History of lobectomy of lung Family History Family History Mother Carcinoma of colon Family history of rheumatoid arthritis Family history of osteoarthritis Acute myocardial infarction Grandparent Acute myocardial infarction Father Aneurysm Social History Social History Social History: Lives at home with his China Moe, who he states is his healthcare POA. The patient has 3 biological children and he has 3 step children. 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 Patient has a history of being a former smoker we smoked up to 1 and half packs of cigarettes a day. He stop smoking 12-01-2014. 1-2 beers a day. No marijuana or illicit drugs. Smoking packs per day: 1 Smoking cigarettes per day: 20.0 Years smoked: 50 Smoking pack-years: 50.00 Smoking status: Former smoker Second hand tobacco smoke exposure: No Additional smoking assessment comments: history of smoking 1-2 PPD. Smoking less since being a couple of m Alcohol intake: former Substance use: never Substance use type: does not use Last use: 2 WEEKS AGO Do You Feel Safe in your Home?: Yes Lack of Transportation: No Lack of Food: Never True Current Housing: I Have Housing Concerned About Future Housing: No Difficulty Paying Gas/Electric Bills: No Difficulty Paying for Meds: No Currently Unemployed: No Education: Trade/Vocational Certificate Difficulty w/ Childcare or Family Care: No Living arrangements: with family Additional living arrangements comments: Occupation/Education: retired Gender identity (if verbalized by the patient): Male Sexual Orientation (if Verbalized by the Patient): Straight or Heterosexual Spiritual care concerns: No Agree to blood products: Yes Meds Home Medications and Allergies Home Medications ?Medication ?Instructions ?Recorded ?Confirmed ?Type dorzolamide 2 %-timolol 0.5 % (PF) 1 drop ophthalmic (eye) BID 07/19/20 06/02/25 History eye drops lactobacillus combination no.9 4 4,000 mmu cells PO DAILY 07/19/20 06/02/25 History billion cell capsule (Adult 50 Plus Probiotic) multivitamin with minerals (Men's 1 tablet PO DAILY 07/19/20 06/02/25 History One Daily tablet) peg 400-propylene glycol 0.4 %-0.3 1 drp ophthalmic (eye) DAILY PRN 11/28/20 06/02/25 History % eye drops (Systane Ultra) Dry Eye(S) aspirin 81 mg tablet,delayed 81 mg PO DAILY 05/14/22 06/02/25 History release losartan 50 mg tablet (Cozaar) 50 mg PO QAM #90 tabs 01/30/23 06/02/25 Rx netarsudil 0.02 %-latanoprost 1 drp EACH EYE DAILY 04/10/23 06/02/25 History 0.005 % eye drops (Rocklatan) docusate sodium 250 mg capsule 250 mg PO BID PRN constipation 05/29/25 06/02/25 History (Col-Rite) naproxen sodium 220 mg capsule 220 mg PO Q12H 05/29/25 06/02/25 History (Aleve) pantoprazole 40 mg tablet,delayed 40 mg PO Q12HR #30 tabs 05/31/25 06/02/25 Rx release Allergies Allergy/AdvReac Type Severity Reaction Status Date / Time codeine Allergy Severe Rash Verified 05/10/25 10:02 oxycodone Allergy Severe rash with Verified 05/10/25 10:02 blisters on back & sores in mouth brimonidine Allergy Unknown irritation Verified 05/10/25 10:02 in eye brinzolamide Allergy Unknown increase Verified 05/10/25 10:02 in eye pressure erythromycin base Allergy Unknown made eye Verified 05/10/25 10:02 red and eyelid swell procaine Allergy Unknown heart race Verified 05/10/25 10:02 Vital Signs Vital Signs - 24 hr 06/02/25 12:44 06/02/25 13:01 06/02/25 13:02 Temperature 97.7 F Pulse Rate 65 64 64 Respiratory Rate 20 14 20 Blood Pressure 147/80 H 140/80 Pulse Oximetry 100 100 100 Oxygen Delivery Room Air 06/02/25 13:25 06/02/25 13:30 06/02/25 13:32 Temperature Pulse Rate 61 63 62 Respiratory Rate 19 14 15 Blood Pressure 141/75 H Pulse Oximetry 100 100 100 Oxygen Delivery 06/02/25 13:45 06/02/25 13:47 06/02/25 14:00 Temperature Pulse Rate 61 62 63 Respiratory Rate 14 19 16 Blood Pressure 151/73 H Pulse Oximetry 100 100 100 Oxygen Delivery 06/02/25 14:02 06/02/25 14:19 06/02/25 16:07 Temperature Pulse Rate 62 72 76 Respiratory Rate 16 18 20 Blood Pressure 148/78 H Pulse Oximetry 100 Oxygen Delivery 06/02/25 16:15 06/02/25 16:30 06/02/25 16:32 Temperature Pulse Rate 63 65 69 Respiratory Rate 15 15 19 Blood Pressure 168/85 H Pulse Oximetry 100 100 Oxygen Delivery 06/02/25 16:45 06/02/25 16:47 Temperature Pulse Rate 66 62 Respiratory Rate 15 16 Blood Pressure 158/84 H Pulse Oximetry 100 100 Oxygen Delivery Exam Narrative: General: well appearing, appears stated age. HEENT: normocephalic, atraumatic. Mucous membranes moist. EOMI, PERRLA, bilateral sclera anicteric, no conjunctival injection. Neck supple without JVD, lymphadenopathy, or bruit. Respiratory: clear to ascultation bilaterally. No rales/rhonic/wheezes. Cardiovascular: Regular rate and rhythm, normal S1-S2 upon ascultation. No murmurs, rubs, or clicks. PMI is nondisplaced, capillary refill less than 3 second. Abdomen: Soft, round, no pulsatile masses, nondistended and nontender. No rebound, no guarding. No CVA tenderness, no hepatosplenomegaly. Bowel sounds present to all four quadrants. No high pitch or tinkling sounds, resonant to percussion. Extremities: No cyanosis, clubbing, or edema present. Pulses are palpable 2/2. Active ROM to all four extremities. Neuro: Alert and orientated x 4. PERRLA. Cranial nerves 2-12 intact without focal deficit. Skin: Warm, dry, and intact, without rash, erythema, or lesion. Psych: pleasant, cooperative, normal speech, normal affect, no hallucinations, no dysarthia H&P: Results Labs Labs: Short CBC 06/02/25 06/02/25 Range/Units 13:46 15:43 WBC 9.2 (4.5-10.0) K/mm3 Hgb 7.3 L 8.0 L (14.0-18.0) g/dL Hct 23.5 L 24.8 L (42.0-52.0) % Plt Count 266 (150-375) k/mm3 BMP 06/02/25 13:46 Sodium 130 L Potassium 4.1 Chloride 101 Carbon Dioxide 23 BUN 12 D Creatinine 0.96 Glucose 101 Calcium 8.8 Liver Function 06/02/25 Range/Units 13:46 Total Bilirubin 0.2 (0.2-1.3) mg/dL AST 24 (17-59) U/L ALT 18 (6-50) U/L Alkaline Phosphatase 60 (38-126) U/L Albumin 3.4 L (3.5-5.1) g/dL Assessment and Plan Assessment and plan (1) Anemia: Qualifiers: Anemia type: unspecified type Qualified Code(s): D64.9 - Anemia, unspecified Code(s): D64.9 - Anemia, unspecified Status: Acute Assessment and Plan: H&H q.6 Monitor for acute signs of bleeding Transfuse for hemoglobin less than 7 (2) GI (gastrointestinal bleed): Code(s): K92.2 - Gastrointestinal hemorrhage, unspecified Status: Acute Assessment and Plan: Patient was admitted here this week with a GI bleed had EGD on 05/30/2025 he was found have a large nonbleeding ulcer at that time. The dark stools tardy is likely residue from previous GI bleed however due to patient's age, comorbidities and weakness we will keep him overnight for monitoring IV Protonix Avoid NSAIDs (3) Primary hypertension: Code(s): I10 - Essential (primary) hypertension Status: Chronic (4) BPH (benign prostatic hyperplasia): Qualifiers: Lower urinary tract symptom presence: unspecified whether lower urinary tract symptoms present Qualified Code(s): N40.0 - Benign prostatic hyperplasia without lower urinary tract symptoms Code(s): N40.0 - Benign prostatic hyperplasia without lower urinary tract symptoms Status: Chronic Assessment and Plan: Patient does not appear to be on home medication Added Flomax Bladder scan in straight cath q.6 for urinary tension over 350 (5) Weakness generalized: Code(s): R53.1 - Weakness Status: Acute Assessment and Plan: PT and OT evaluate and treat (6) Constipation: Code(s): K59.00 - Constipation, unspecified Status: Acute Assessment and Plan: With fecal stasis Senna S and MiraLax Quality VTE Prophylaxis VTE prophylaxis: mechanical ordered If No VTE Prophylaxis Answer both mechanical and pharmacologic: Reason no pharmacologic proph: medical contraindication Hospitalist MIPS Advance Care Plan I have confirmed that the patient's Advanced Care Plan is present, code status is documented, or surrogate decision maker is listed in patient medical record.: Yes Medication Reconciliation I have utilized all available resources to obtain, update and review the patients current medications (includes all prescriptions, OTC, herbals, ca nnabis, and nutritional supplements).: Yes
--- NOTE | 2025-06-02 19:15 | ADMGEN ---
This patient, Rafael Moe, was admitted to Medical Room 253-01. Patient/family oriented to hospital policies and general routines including ID bracelet, bed and alarms, visiting hours, pain management, procedures, bathroom and other care routines, personal items, smoking policy, room service/diet, and visiting hours. Information on how to activate the Rapid Response Team has been discussed. Patient/Family are encouraged to report perceived risks to care and to ask questions if they do not understand what they are told or what they should do.
[2025-06-02] MEDS: PANTOPRAZOLE SODIUM IV 40 MG VIAL IV PUSH (20:13)
[2025-06-02] MEDS: SODIUM CHLORIDE 0.9% IV 1,000 ML 100 ML IV CONT ×2 (20:13→20:15)
[2025-06-02] MEDS: ARTIFICIAL TEARS OPHTH SOLN 15 ML BOTTLE 1 DROP EACH EYE (21:27)
[2025-06-02] MEDS: SENNA/DOCUSATE SODIUM TABLET 1 TAB PO (21:27)
[2025-06-02] MEDS: TAMSULOSIN HCL 0.4 MG CAPSULE PO (21:27)
[2025-06-02 22:08] LABS: Hematocrit 24.4 % (42.0-52.0); Hemoglobin 7.9 g/dL (14.0-18.0)
[2025-06-03 03:55] LABS: Hematocrit 23.1 % (42.0-52.0); Hematocrit 23.8 % (42.0-52.0); Hemoglobin 7.4 g/dL (14.0-18.0); Hemoglobin 7.7 g/dL (14.0-18.0); Immature Granulocyte Percent A 0.3 % (0-0.5); Lymphocytes Absolute Auto 2.07 K/mm3 (0.9-3.2); Mean Corpuscular HGB Conc 32.4 g/dl (32-36); Mean Corpuscular Hemoglobin 30.2 pg (26-34); Mean Corpuscular Volume 93.3 fl (80-100); Nucleated Red Blood Cells Absolute Auto 0.000 K/mm3 (0.0-0.012); Nucleated Red Blood Cells Perc 0.0 % (0.0-0.2); Platelet Count Result 248 k/mm3 (150-375); Red Blood Count 2.55 M/mm3 (4.6-6.20); White Blood Count 7.4 K/mm3 (4.5-10.0)
[2025-06-03 04:07] LABS: Anion Gap 5 mmol/L (4-12); Blood Urea Nitrogen 8 mg/dL (9-20); Calcium 9.0 mg/dL (8.4-10.2); Carbon Dioxide 24 mmol/L (22-30); Chloride 105 mmol/L (98-107); Estimated CRCL calculation 61 ml/min; Estimated Glomerular Filt Rate > 60; Glucose 100 mg/dL (65-110); Potassium 3.7 mmol/L (3.4-5.0); Sodium 134 mmol/L (137-145)
[2025-06-03 06:00] VITALS: BP 140/65; PULSE 60; RESP 16; TEMP 36.8; O2SAT 100
--- NOTE | 2025-06-03 07:32 | P.PNIM_ITS ---
Progress Note: A&P Assessment and Plan (1) Anemia: Qualifiers: Anemia type: unspecified type Qualified Code(s): D64.9 - Anemia, unspecified Code(s): D64.9 - Anemia, unspecified Status: Acute Assessment and Plan: * EGD 05/30 * Hiatal hernia, acute duodenal ulcers * Rec: Pantoprazole 40mg BID x8wk, then dec to 40mg qam. Regular diet * H&H q.6 * Monitor for acute signs of bleeding * Transuse for hemoglobin less than 7 * 06/03: Hgb 8.0 * GI consult for further recommendations * Unable to do colonoscopy last visit given complications from previous abdominal surgeries (2) GI (gastrointestinal bleed): Code(s): K92.2 - Gastrointestinal hemorrhage, unspecified Status: Acute Assessment and Plan: * Patient was admitted here this week with a GI bleed had EGD on 05/30/2025 he was found have a large nonbleeding ulcer at that time. * The dark stools tardy is likely residue from previous GI bleed however due to patient's age, comorbidities and weakness we will keep him overnight for monitoring * IV Protonix * Avoid NSAIDs (3) Primary hypertension: Code(s): I10 - Essential (primary) hypertension Status: Chronic Assessment and Plan: * Patient's blood pressure was reviewed on 06/03 * Blood pressure remains well controlled. * Will continue current medications. * Stable (4) BPH (benign prostatic hyperplasia): Qualifiers: Lower urinary tract symptom presence: unspecified whether lower urinary tract symptoms present Qualified Code(s): N40.0 - Benign prostatic hyperplasia without lower urinary tract symptoms Code(s): N40.0 - Benign prostatic hyperplasia without lower urinary tract symptoms Status: Chronic Assessment and Plan: * Patient does not appear to be on home medication * Added Flomax * Bladder scan in straight cath q.6 for urinary tension over 350 (5) Weakness generalized: Code(s): R53.1 - Weakness Status: Acute Assessment and Plan: * PT and OT evaluate and treat (6) Constipation: Code(s): K59.00 - Constipation, unspecified Status: Acute Assessment and Plan: * With fecal stasis * Senna S and MiraLax Subjective Date/time seen: 06/03/25 07:32 Interval history: 71-year-old male past medical history of [id number] skin cancer right lung, squamous cell carcinoma, BPH, COPD, ventral hernia presents the hospital with dark tardy stools. 06/03/2025 Patient sitting comfortably in bed at time of exam. Denies any chest pain, SOB, n/v, or abdominal pain at this time. H&H this am was 8.0/25.1, which is near baseline when compared to ED/last admission values. Will have pt see GI, unable to do colonoscopy last time due to previous surgical complications/scar tissue. Review of Systems Review of Systems: 12 systems were reviewed and are negativ e except for as per HPI. Exam Narrative: General: well appearing, appears stated age. HEENT: normocephalic, atraumatic. Mucous membranes moist. EOMI, PERRLA, bilateral sclera anicteric, no conjunctival injection. Neck supple without JVD, lymphadenopathy, or bruit. Respiratory: clear to ascultation bilaterally. No rales/rhonic/wheezes. Cardiovascular: Regular rate and rhythm, normal S1-S2 upon ascultation. No murmurs, rubs, or clicks. PMI is nondisplaced, capillary refill less than 3 second. Abdomen: Soft, round, no pulsatile masses, nondistended and nontender. No rebound, no guarding. No CVA tenderness, no hepatosplenomegaly. Bowel sounds present to all four quadrants. No high pitch or tinkling sounds, resonant to percussion. Extremities: No cyanosis, clubbing, or edema present. Pulses are palpable 2/2. Active ROM to all four extremities. Neuro: Alert and orientated x 4. PERRLA. Cranial nerves 2-12 intact without focal deficit. Skin: Warm, dry, and intact, without rash, erythema, or lesion. Psych: pleasant, cooperative, normal speech, normal affect, no hallucinations, no dysarthia Objective Data Vital Signs Vital Signs: Vital Signs - 24 hr 06/02/25 12:44 06/02/25 13:01 06/02/25 13:02 Temperature 97.7 F Pulse Rate 65 64 64 Respiratory Rate 20 14 20 Blood Pressure 147/80 H 140/80 Pulse Oximetry 100 100 100 Oxygen Delivery Room Air 06/02/25 13:25 06/02/25 13:30 06/02/25 13:32 Temperature Pulse Rate 61 63 62 Respiratory Rate 19 14 15 Blood Pressure 141/75 H Pulse Oximetry 100 100 100 Oxygen Delivery 06/02/25 13:45 06/02/25 13:47 06/02/25 14:00 Temperature Pulse Rate 61 62 63 Respiratory Rate 14 19 16 Blood Pressure 151/73 H Pulse Oximetry 100 100 100 Oxygen Delivery 06/02/25 14:02 06/02/25 14:19 06/02/25 16:07 Temperature Pulse Rate 62 72 76 Respiratory Rate 16 18 20 Blood Pressure 148/78 H Pulse Oximetry 100 Oxygen Delivery 06/02/25 16:15 06/02/25 16:30 06/02/25 16:32 Temperature Pulse Rate 63 65 69 Respiratory Rate 15 15 19 Blood Pressure 168/85 H Pulse Oximetry 100 100 Oxygen Delivery 06/02/25 16:45 06/02/25 16:47 06/02/25 19:00 Temperature 98.4 F Pulse Rate 66 62 81 Respiratory Rate 15 16 18 Blood Pressure 158/84 H 186/79 H Pulse Oximetry 100 100 100 Oxygen Delivery 06/02/25 20:00 06/02/25 20:24 06/03/25 06:00 Temperature 98.5 F 98.2 F Pulse Rate 60 60 Respiratory Rate 16 16 Blood Pressure 138/80 140/65 Pulse Oximetry 100 100 Oxygen Delivery Room Air Intake/Output Intake/Output: Intake & Output 05/31/25 06/01/25 06/02/25 06/03/25 23:59 23:59 23:59 23:59 Intake Total 3.3 550 Output Total 2500 Balance 3.3 -1950 Meds/Results Medications: Active Medications Generic Name Dose Route Start Last Admin Trade Name Freq PRN Reason Stop Dose Admin Acetaminophen 650 mg 06/02/25 19:16 Acetaminophen 325 Mg Tablet PO Q4H PRN Mild Pain (1-3) or Fever Artificial Tears 1 drop 06/02/25 20:49 06/02/25 21:27 Artificial Tears Ophth Soln 15 Ml Bottle EACH EYE 1 drop DAILY PRN Administration Dry Eye(S) Sodium Chloride 1,000 mls @ 100 mls/hr 06/02/25 15:30 06/02/25 20:15 Normal Saline Iv IV CONT 100 mls/hr .Q10H SAYDA Administration Losartan Potassium 50 mg 06/03/25 09:00 Losartan Potassium 50 Mg Tablet PO QAM [facility] Miscellaneous Information 1 each 06/03/25 00:01 Rocklatan Is Nonform; Can Pt Use From Home? XX 07/03/25 00:00 CLARIFY SAYDA Non-Formulary Medication 1 drop 06/03/25 09:00 Netarsudil-Latanoprost [Rocklatan] EACH EYE 07/03/25 08:59 DAILY SAYDA Ondansetron HCl 4 mg 06/02/25 15:29 Ondansetron Inj 4 Mg/2 Ml Vial IV PUSH Q4H PRN Nausea Pantoprazole Sodium 40 mg 06/02/25 21:00 06/02/25 20:13 Pantoprazole Sodium Iv 40 Mg Vial IV PUSH 40 mg Q12HR [facility] Administration Polyethylene Glycol 17 gm 06/03/25 09:00 Polyethylene Glycol 3350 17 Gm Powd.Pack PO QAM [facility] Senna/Docusate Sodium 1 tab 06/02/25 21:00 06/02/25 21:27 Senna/Docusate Sodium Tablet PO 1 tab HS [facility] Administration Tamsulosin HCl 0.4 mg 06/03/25 09:00 Tamsulosin Hcl 0.4 Mg Capsule PO QAM [facility] Radiology Results: ITS Impressions Abdomen/Pelvis CT 06/02/25 14:49 IMPRESSION: Hepatomegaly. Significant bladder distention for which decompression is suggested. Colonic diverticulosis without surrounding inflammatory change. Fecal stasis within the rectum. Large hiatal hernia. Labs Labs: Laboratory Results - last 24 hr 06/02/25 06/02/25 06/02/25 13:46 15:43 21:58 WBC 9.2 RBC 2.52 L Hgb 7.3 L 8.0 L 7.9 L Hct 23.5 L 24.8 L 24.4 L MCV 93.3 MCH 29.0 MCHC 31.1 L RDW 17.3 H Plt Count 266 MPV 9.4 Immature Gran % (Auto) 0.4 Neut % (Auto) 69.0 Lymph % (Auto) 17.2 L [place] % (Auto) 9.5 H Eos % (Auto) 3.4 Baso % (Auto) 0.5 Lymph # (Auto) 1.58 [place] # (Auto) 0.9 H Eos # (Auto) 0.3 Baso # (Auto) 0.1 Abs Immat Gran (auto) 0.04 H Absolute Neuts (auto) 6.3 Absolute Nucleated RBC 0.000 Nucleated RBC % 0.0 PT 14.5 INR 1.1 APTT 33.9 Sodium 130 L Potassium 4.1 Chloride 101 Carbon Dioxide 23 Anion Gap 6 BUN 12 D Creatinine 0.96 Estim Creat Clear Calc 59 Estimated GFR > 60 Glucose 101 Calcium 8.8 Total Bilirubin 0.2 AST 24 ALT 18 Alkaline Phosphatase 60 Total Protein 6.0 L Albumin 3.4 L Blood Type O Positive Antibody Screen Negative 06/03/25 06/03/25 06/03/25 03:50 03:50 03:50 WBC 7.4 RBC 2.55 L Hgb 7.4 L 7.7 L Hct 23.1 L 23.8 L MCV 93.3 MCH 30.2 MCHC 32.4 RDW 17.3 H Plt Count 248 MPV 8.6 Immature Gran % (Auto) 0.3 Neut % (Auto) 54.5 Lymph % (Auto) 27.9 [place] % (Auto) 12.3 H Eos % (Auto) 4.3 Baso % (Auto) 0.7 Lymph # (Auto) 2.07 [place] # (Auto) 0.9 H Eos # (Auto) 0.3 Baso # (Auto) 0.1 Abs Immat Gran (auto) 0.02 Absolute Neuts (auto) 4.0 Absolute Nucleated RBC 0.000 Nucleated RBC % 0.0 PT INR APTT Sodium 134 L Potassium 3.7 Chloride 105 Carbon Dioxide 24 Anion Gap 5 BUN 8 L Creatinine 0.93 Estim Creat Clear Calc 61 Estimated GFR > 60 Glucose 100 Calcium 9.0 Total Bilirubin AST ALT Alkaline Phosphatase Total Protein Albumin Blood Type Antibody Screen Quality VTE Prophylaxis VTE prophylaxis: mechanical ordered
[2025-06-03] MEDS: LOSARTAN POTASSIUM 50 MG TABLET PO (08:22)
[2025-06-03] MEDS: TAMSULOSIN HCL 0.4 MG CAPSULE PO (08:22)
[2025-06-03] MEDS: SODIUM CHLORIDE 0.9% IV 1,000 ML 100 ML IV CONT (08:23)
[2025-06-03] MEDS: PANTOPRAZOLE SODIUM IV 40 MG VIAL IV PUSH (08:30)
[2025-06-03 08:35] VITALS: O2SAT 100
[2025-06-03 09:44] LABS: Hematocrit 25.1 % (42.0-52.0); Hemoglobin 8.0 g/dL (14.0-18.0)
--- NOTE | 2025-06-03 10:42 | PHAR ---
The patient's home med of Rocklatan eye drop has been verified.
--- NOTE | 2025-06-03 12:32 | WPDGIPROGNO ---
Progress Note: A&P Assessment and Plan (1) Duodenal bulb ulcer: Code(s): K26.9 - Duodenal ulcer, unspecified as acute or chronic, without hemorrhage or perforation Status: Acute Assessment and Plan: We believe the black stool is from an old, retained bleed and not indicative of any active gastrointestinal bleeding. With this in mind, the patient can safely be fed normally. He'll be discharged with a prescription for pantoprazole 40 mg to be taken twice daily for the next two months (as instructed when he was discharged on 05/31) . After that, he can stop the evening dose and continue the morning dose as maintenance therapy. Subjective Date/time seen: 06/03/25 12:33 Interval history: This patient was admitted last week for a GI bleeding episode, and an EGD revealed the presence of a large duodenal ulcer with no stigmata of active bleeding. He was discharged on pantoprazole 40 mg b.i.d.. He did well and did not have any bowel movement for 5 days until last night when he passed a black solid stool. Subsequently, after admission he had 2 other brown bowel movements. He did not have evidence of syncopal episodes, but he was feeling overall very weak. Review of Systems Review of Systems: All systems reviewed & are unremarkable except as noted in HPI and below Exam Const: General: cooperative and healthy appearing Resp: Effort & Inspection: normal respiratory effort and able to speak in complete sentences Auscultation: clear to auscultation bilaterally Cardio: Rate: regular rate Rhythm: regular rhythm GI: Inspection: normal to inspection GI Palp: No No hepatosplenomegaly present Auscultation: normal bowel sounds Rectal Exam: deferred Skin: General skin exam: normal color Psych: Appearance: grossly normal Mental Status: mental status grossly normal Objective Data Vital Signs Vital Signs: Vital Signs - 24 hr 06/02/25 12:44 06/02/25 13:01 06/02/25 13:02 Temperature 97.7 F Pulse Rate 65 64 64 Respiratory Rate 20 14 20 Blood Pressure 147/80 H 140/80 Pulse Oximetry 100 100 100 Oxygen Delivery Room Air 06/02/25 13:25 06/02/25 13:30 06/02/25 13:32 Temperature Pulse Rate 61 63 62 Respiratory Rate 19 14 15 Blood Pressure 141/75 H Pulse Oximetry 100 100 100 Oxygen Delivery 06/02/25 13:45 06/02/25 13:47 06/02/25 14:00 Temperature Pulse Rate 61 62 63 Respiratory Rate 14 19 16 Blood Pressure 151/73 H Pulse Oximetry 100 100 100 Oxygen Delivery 06/02/25 14:02 06/02/25 14:19 06/02/25 16:07 Temperature Pulse Rate 62 72 76 Respiratory Rate 16 18 20 Blood Pressure 148/78 H Pulse Oximetry 100 Oxygen Delivery 06/02/25 16:15 06/02/25 16:30 06/02/25 16:32 Temperature Pulse Rate 63 65 69 Respiratory Rate 15 15 19 Blood Pressure 168/85 H Pulse Oximetry 100 100 Oxygen Delivery 06/02/25 16:45 06/02/25 16:47 06/02/25 19:00 Temperature 98.4 F Pulse Rate 66 62 81 Respiratory Rate 15 16 18 Blood Pressure 158/84 H 186/79 H Pulse Oximetry 100 100 100 Oxygen Delivery 06/02/25 20:00 06/02/25 20:24 06/03/25 06:00 Temperature 98.5 F 98.2 F Pulse Rate 60 60 Respiratory Rate 16 16 Blood Pressure 138/80 140/65 Pulse Oximetry 100 100 Oxygen Delivery Room Air 06/03/25 08:00 06/03/25 08:35 Temperature Pulse Rate Respiratory Rate Blood Pressure Pulse Oximetry 100 Oxygen Delivery Room Air Room Air Intake/Output Intake/Output: Intake & Output 05/31/25 06/01/25 06/02/25 06/03/25 23:59 23:59 23:59 23:59 Intake Total 3.3 2698 Output Total 3150 Balance 3.3 -452 Meds/Results Medications: Active Medications Generic Name Dose Route Start Last Admin Trade Name Freq PRN Reason Stop Dose Admin Acetaminophen 650 mg 06/02/25 19:16 Acetaminophen 325 Mg Tablet PO Q4H PRN Mild Pain (1-3) or Fever Artificial Tears 1 drop 06/02/25 20:49 06/02/25 21:27 Artificial Tears Ophth Soln 15 Ml Bottle EACH EYE 1 drop DAILY PRN Administration Dry Eye(S) Sodium Chloride 1,000 mls @ 100 mls/hr 06/02/25 15:30 06/03/25 08:23 Normal Saline Iv IV CONT 100 mls/hr .Q10H SAYDA Administration Losartan Potassium 50 mg 06/03/25 09:00 06/03/25 08:22 Losartan Potassium 50 Mg Tablet PO 50 mg QAM [facility] Administration Nonformulary Drug 0 drop 06/03/25 18:00 Netarsudil- EACH EYE 07/03/25 17:59 Latanoprost [ QPM [facility] Rocklatan] 0.02-0. 005 % Drops Ondansetron HCl 4 mg 06/02/25 15:29 Ondansetron Inj 4 Mg/2 Ml Vial IV PUSH Q4H PRN Nausea Polyethylene Glycol 17 gm 06/03/25 09:00 06/03/25 08:22 Polyethylene Glycol 3350 17 Gm Powd.Pack PO Not Given QAM [facility] Senna/Docusate Sodium 1 tab 06/02/25 21:00 06/02/25 21:27 Senna/Docusate Sodium Tablet PO 1 tab HS [facility] Administration Tamsulosin HCl 0.4 mg 06/03/25 09:00 06/03/25 08:22 Tamsulosin Hcl 0.4 Mg Capsule PO 0.4 mg QAM [facility] Administration Radiology Results: ITS Impressions Abdomen/Pelvis CT 06/02/25 14:49 IMPRESSION: Hepatomegaly. Significant bladder distention for which decompression is suggested. Colonic diverticulosis without surrounding inflammatory change. Fecal stasis within the rectum. Large hiatal hernia. Labs Labs: Laboratory Results - last 24 hr 06/02/25 06/02/25 06/02/25 13:46 15:43 21:58 WBC 9.2 RBC 2.52 L Hgb 7.3 L 8.0 L 7.9 L Hct 23.5 L 24.8 L 24.4 L MCV 93.3 MCH 29.0 MCHC 31.1 L RDW 17.3 H Plt Count 266 MPV 9.4 Immature Gran % (Auto) 0.4 Neut % (Auto) 69.0 Lymph % (Auto) 17.2 L [place] % (Auto) 9.5 H Eos % (Auto) 3.4 Baso % (Auto) 0.5 Lymph # (Auto) 1.58 [place] # (Auto) 0.9 H Eos # (Auto) 0.3 Baso # (Auto) 0.1 Abs Immat Gran (auto) 0.04 H Absolute Neuts (auto) 6.3 Absolute Nucleated RBC 0.000 Nucleated RBC % 0.0 PT 14.5 INR 1.1 APTT 33.9 Sodium 130 L Potassium 4.1 Chloride 101 Carbon Dioxide 23 Anion Gap 6 BUN 12 D Creatinine 0.96 Estim Creat Clear Calc 59 Estimated GFR > 60 Glucose 101 Calcium 8.8 Total Bilirubin 0.2 AST 24 ALT 18 Alkaline Phosphatase 60 Total Protein 6.0 L Albumin 3.4 L Blood Type O Positive Antibody Screen Negative 06/03/25 06/03/25 06/03/25 03:50 03:50 03:50 WBC 7.4 RBC 2.55 L Hgb 7.4 L 7.7 L Hct 23.1 L 23.8 L MCV 93.3 MCH 30.2 MCHC 32.4 RDW 17.3 H Plt Count 248 MPV 8.6 Immature Gran % (Auto) 0.3 Neut % (Auto) 54.5 Lymph % (Auto) 27.9 [place] % (Auto) 12.3 H Eos % (Auto) 4.3 Baso % (Auto) 0.7 Lymph # (Auto) 2.07 [place] # (Auto) 0.9 H Eos # (Auto) 0.3 Baso # (Auto) 0.1 Abs Immat Gran (auto) 0.02 Absolute Neuts (auto) 4.0 Absolute Nucleated RBC 0.000 Nucleated RBC % 0.0 PT INR APTT Sodium 134 L Potassium 3.7 Chloride 105 Carbon Dioxide 24 Anion Gap 5 BUN 8 L Creatinine 0.93 Estim Creat Clear Calc 61 Estimated GFR > 60 Glucose 100 Calcium 9.0 Total Bilirubin AST ALT Alkaline Phosphatase Total Protein Albumin Blood Type Antibody Screen 06/03/25 09:38 WBC RBC Hgb 8.0 L Hct 25.1 L MCV MCH MCHC RDW Plt Count MPV Immature Gran % (Auto) Neut % (Auto) Lymph % (Auto) [place] % (Auto) Eos % (Auto) Baso % (Auto) Lymph # (Auto) [place] # (Auto) Eos # (Auto) Baso # (Auto) Abs Immat Gran (auto) Absolute Neuts (auto) Absolute Nucleated RBC Nucleated RBC % PT INR APTT Sodium Potassium Chloride Carbon Dioxide Anion Gap BUN Creatinine Estim Creat Clear Calc Estimated GFR Glucose Calcium Total Bilirubin AST ALT Alkaline Phosphatase Total Protein Albumin Blood Type Antibody Screen
--- NOTE | 2025-06-03 13:05 | P.DS_ITS ---
DS: Admitting Diagnosis Discharge Date 06/03/2025 Admitting Diagnosis Anemia, GI (gastrointestinal bleed) DS: Discharge Diagnosis Discharge Diagnosis (1) Anemia: Qualifiers: Anemia type: unspecified type Qualified Code(s): D64.9 - Anemia, unspecified Code(s): D64.9 - Anemia, unspecified Status: Acute Assessment and Plan: * EGD 05/30 * Hiatal hernia, acute duodenal ulcers * Rec: Pantoprazole 40mg BID x8wk, then dec to 40mg qam. Regular diet * H&H q.6 * Monitor for acute signs of bleeding * Transuse for hemoglobin less than 7 * 06/03: Hgb 8.0 * GI consult for further recommendations * Unable to do colonoscopy last visit given complications from previous abdominal surgeries (2) GI (gastrointestinal bleed): Code(s): K92.2 - Gastrointestinal hemorrhage, unspecified Status: Acute Assessment and Plan: * Patient was admitted here this week with a GI bleed had EGD on 05/30/2025 he was found have a large nonbleeding ulcer at that time. * The dark stools tardy is likely residue from previous GI bleed however due to patient's age, comorbidities and weakness we will keep him overnight for monitoring * IV Protonix * Avoid NSAIDs (3) Primary hypertension: Code(s): I10 - Essential (primary) hypertension Status: Chronic Assessment and Plan: * Patient's blood pressure was reviewed on 06/03 * Blood pressure remains well controlled. * Will continue current medications. * Stable (4) BPH (benign prostatic hyperplasia): Qualifiers: Lower urinary tract symptom presence: unspecified whether lower urinary tract symptoms present Qualified Code(s): N40.0 - Benign prostatic hyperplasia without lower urinary tract symptoms Code(s): N40.0 - Benign prostatic hyperplasia without lower urinary tract symptoms Status: Chronic Assessment and Plan: * Patient does not appear to be on home medication * Added Flomax * Bladder scan in straight cath q.6 for urinary tension over 350 (5) Weakness generalized: Code(s): R53.1 - Weakness Status: Acute Assessment and Plan: * PT and OT evaluate and treat (6) Constipation: Code(s): K59.00 - Constipation, unspecified Status: Acute Assessment and Plan: * With fecal stasis * Senna S and MiraLax DS: Summary Hospital Course Reason for hospitalization: Dark tardy stools Hospital Course: 71-year-old male past medical history of [id number] skin cancer right lung, squamous cell carcinoma, BPH, COPD, ventral hernia presents the hospital with dark tardy stools. Patient was here earlier this week for a GI bleed he was discharged on 05/31/2025. He is not complaining of increased weakness and still having black tarry stools. Hemoglobin on arrival is 7.3 which is close to what it was on discharge. CT of the abdomen shows hepatomegaly, ladders distension, fecal stasis, and a hiatal hernia. Will in the patient's for serial H&Hs and work with PT OT. EGD on 05/30 showed Hiatal hernia, acute duodenal ulcers. Seen by GI. Dark stools likely 2/2 to old/retained bleed, no signs of active GI bleed. Safe to D/c from GI standpoint with continuation of Pantoprazole per last discharge instructions. Status at Discharge Functional status at discharge: uses cane/walker Overall status at discharge: patient is back to baseline Time Spent with Patient Time attestation: Total time spent providing and/or coordinating discharge services: 41 Exam Narrative: General: well appearing, appears stated age. HEENT: normocephalic, atraumatic. Mucous membranes moist. EOMI, PERRLA, bilateral sclera anicteric, no conjunctival injection. Neck supple without JVD, lymphadenopathy, or bruit. Respiratory: clear to ascultation bilaterally. No rales/rhonic/wheezes. Cardiovascular: Regular rate and rhythm, normal S1-S2 upon ascultation. No murmurs, rubs, or clicks. PMI is nondisplaced, capillary refill less than 3 second. Abdomen: Soft, round, no pulsatile masses, nondistended and nontender. No rebound, no guarding. No CVA tenderness, no hepatosplenomegaly. Bowel sounds present to all four quadrants. No high pitch or tinkling sounds, resonant to percussion. Extremities: No cyanosis, clubbing, or edema present. Pulses are palpable 2/2. Active ROM to all four extremities. Neuro: Alert and orientated x 4. PERRLA. Cranial nerves 2-12 intact without focal deficit. Skin: Warm, dry, and intact, without rash, erythema, or lesion. Psych: pleasant, cooperative, normal speech, normal affect, no hallucinations, no dysarthia DS: Data Data Completed and Pending Labs on day of discharge: Labs from last 24 hours 06/03/25 06/03/25 06/03/25 09:38 03:50 03:50 WBC RBC Hgb 8.0 L 7.7 L Hct 25.1 L 23.8 L 23.1 L MCV 93.3 MCH 30.2 MCHC 32.4 RDW 17.3 H Plt Count 248 MPV 8.6 Immature Gran % (Auto) 0.3 Neut % (Auto) 54.5 Lymph % (Auto) 27.9 Mcduffie % (Auto) 12.3 H Eos % (Auto) 4.3 Baso % (Auto) 0.7 Lymph # (Auto) 2.07 Mcduffie # (Auto) 0.9 H Eos # (Auto) 0.3 Baso # (Auto) 0.1 Abs Immat Gran (auto) 0.02 Absolute Neuts (auto) 4.0 Absolute Nucleated RBC 0.000 Nucleated RBC % 0.0 PT INR APTT Sodium 134 L Potassium 3.7 Chloride 105 Carbon Dioxide 24 Anion Gap 5 BUN 8 L Creatinine 0.93 Estim Creat Clear Calc 61 Estimated GFR > 60 Glucose 100 Calcium 9.0 Total Bilirubin AST ALT Alkaline Phosphatase Total Protein Albumin Blood Type Antibody Screen 06/03/25 06/02/25 06/02/25 03:50 21:58 15:43 WBC 7.4 RBC 2.55 L Hgb 7.4 L 7.9 L 8.0 L Hct 24.4 L 24.8 L MCV MCH MCHC RDW Plt Count MPV Immature Gran % (Auto) Neut % (Auto) Lymph % (Auto) Mcduffie % (Auto) Eos % (Auto) Baso % (Auto) Lymph # (Auto) Mcduffie # (Auto) Eos # (Auto) Baso # (Auto) Abs Immat Gran (auto) Absolute Neuts (auto) Absolute Nucleated RBC Nucleated RBC % PT INR APTT Sodium Potassium Chloride Carbon Dioxide Anion Gap BUN Creatinine Estim Creat Clear Calc Estimated GFR Glucose Calcium Total Bilirubin AST ALT Alkaline Phosphatase Total Protein Albumin Blood Type Antibody Screen 06/02/25 13:46 WBC 9.2 RBC 2.52 L Hgb 7.3 L Hct 23.5 L MCV 93.3 MCH 29.0 MCHC 31.1 L RDW 17.3 H Plt Count 266 MPV 9.4 Immature Gran % (Auto) 0.4 Neut % (Auto) 69.0 Lymph % (Auto) 17.2 L Mcduffie % (Auto) 9.5 H Eos % (Auto) 3.4 Baso % (Auto) 0.5 Lymph # (Auto) 1.58 Mcduffie # (Auto) 0.9 H Eos # (Auto) 0.3 Baso # (Auto) 0.1 Abs Immat Gran (auto) 0.04 H Absolute Neuts (auto) 6.3 Absolute Nucleated RBC 0.000 Nucleated RBC % 0.0 PT 14.5 INR 1.1 APTT 33.9 Sodium 130 L Potassium 4.1 Chloride 101 Carbon Dioxide 23 Anion Gap 6 BUN 12 D Creatinine 0.96 Estim Creat Clear Calc 59 Estimated GFR > 60 Glucose 101 Calcium 8.8 Total Bilirubin 0.2 AST 24 ALT 18 Alkaline Phosphatase 60 Total Protein 6.0 L Albumin 3.4 L Blood Type O Positive Antibody Screen Negative Discharge Plan Discharge Attending physician on discharge: Danny Coronado Consulting providers: Andrés Plunkett Discharging Clinician: Andrés Plunkett Anticipated Discharge Date/Time: 06/03/25 13:03 Patient Disposition: Home Activity: as tolerated Diet: as tolerated Discharge Instructions: Discharge disposition: Stable Take medications as prescribed. Continue your Pantoprazole as instructed during your last admission. Monitor blood pressures Take caution while standing, rising, or moving Change positions slowly taking a break between each position change If you standing feel dizzy sit back down and take a break Encouraged to continue with yearly vaccinations Return to the emergency department if he developed sudden shortness of breath, chest pain, nausea, vomiting, upset stomach or intractable diarrhea Return to the emergency department if you develop fever greater than 101.5 Follow-up with the primary care physician within 1-2 weeks Thank you for [facility] for your healthcare needs Patient Instructions: Antibiotic Form Patient Language: Bulgarian Stand Alone Forms: General Discharge Information Follow-up/Referrals: Milka Guerrero MD [Primary Care Provider] - Jassi Thakur MD [Physician] - Discharge Medications: Continued Systane Ultra 0.4-0.3 % drops 1 drp ophthalmic (eye) DAILY PRN (Reason: Dry Eye(S)) Adult 50 Plus Probiotic 4 billion cell capsule 4,000 mmu cells PO DAILY Rx Instructions: administer with a meal aspirin 81 mg tablet,delayed release (DR/EC) 81 mg PO DAILY Rocklatan 0.02-0.005 % drops 1 drp EACH EYE DAILY naproxen sodium [Aleve] 220 mg capsule 220 mg PO Q12H docusate sodium [Col-Rite] 250 mg capsule 250 mg PO BID PRN (Reason: constipation) pantoprazole 40 mg Tablet,Delayed Release (Dr/Ec) 40 mg PO Q12HR Qty: 30 0RF losartan [Cozaar] 50 mg tablet 50 mg PO QAM Qty: 90 3RF Discontinued dorzolamide-timolol (PF) 2-0.5 % drops 1 drop EACH EYE BID multivitamin with minerals [Men's One Daily] Tablet 1 tablet PO DAILY Date of admission: 06/02/25 15:29 Primary Care Provider: Milka Guerrero Admitting Provider: Tj Marlow Attending physician on admission: Tj Marlow Condition: Stable Quality VTE Prophylaxis VTE prophylaxis: mechanical ordered
[2025-06-03 14:00] VITALS: BP 134/68; PULSE 65; RESP 16; TEMP 36.8; O2SAT 100
== END 2025-06-03 14:20 | disposition home or self-care (01) ==
LOC: ANHED 15:30 → ANH2MED 06-03 06:52 → ANH3MEDSUR 06-05 11:48
PROVIDERS: Emergency Medicine; Nurse Practitioner Gerontology; Admitting Provider Internal Medicine; Emergency Provider Emergency Medicine; PCP Family Medicine; Visit Provider Family Medicine
DX: D64.9 Anemia, unspecified (principal); R19.5 Other fecal abnormalities; K26.9 Duodenal ulcer, unspecified as acute or chronic, without hemorrhage or perforation; K44.9 Diaphragmatic hernia without obstruction or gangrene; K59.00 Constipation, unspecified; R53.1 Weakness; I10 Essential (primary) hypertension; J43.9 Emphysema, unspecified; R73.03 Prediabetes; Z87.891 Personal history of nicotine dependence; Z79.82 Long term (current) use of aspirin; Z79.899 Other long term (current) drug therapy; Z85.828 Personal history of other malignant neoplasm of skin; Z85.118 Personal history of other malignant neoplasm of bronchus and lung; Z90.2 Acquired absence of lung [part of]; Z86.0100 Personal history of colon polyps, unspecified
CPT/HCPCS: 36415; 74177; 80048; 80053; 85014; 85018; 85025; 85610; 85730; 86850; 86900; 86901; 96361; 96374; 96376; 99285; A9270; G0378; J2470; J7030; Q9967

== ENCOUNTER 2025-09-18 11:27 | Outpatient (CLI) | payer MEDICARE, SELFPAY ==
[2025-09-18 12:02] LABS: Hematocrit 37.4 % (42.0-52.0); Hemoglobin 12.1 g/dL (14.0-18.0); Immature Granulocyte Percent A 0.4 % (0-0.5); Lymphocytes Absolute Auto 1.66 K/mm3 (0.9-3.2); Mean Corpuscular HGB Conc 32.4 g/dl (32-36); Mean Corpuscular Hemoglobin 28.9 pg (26-34); Mean Corpuscular Volume 89.5 fl (80-100); Nucleated Red Blood Cells Absolute Auto 0.000 K/mm3 (0.0-0.012); Nucleated Red Blood Cells Perc 0.0 % (0.0-0.2); Platelet Count Result 286 k/mm3 (150-375); Red Blood Count 4.18 M/mm3 (4.6-6.20); White Blood Count 10.1 K/mm3 (4.5-10.0)
[2025-09-18 12:32] LABS: Alanine Aminotransferase 21 U/L (6-50); Albumin Level 4.2 g/dL (3.5-5.1); Alkaline Phosphatase 72 U/L (38-126); Anion Gap 6 mmol/L (4-12); Aspartate Amino Transferase 25 U/L (17-59); Bilirubin,Total 0.6 mg/dL (0.2-1.3); Blood Urea Nitrogen 14 mg/dL (9-20); Calcium 9.4 mg/dL (8.4-10.2); Carbon Dioxide 28 mmol/L (22-30); Chloride 97 mmol/L (98-107); Estimated Glomerular Filt Rate > 60; Glucose 103 mg/dL (65-110); Potassium 4.3 mmol/L (3.4-5.0); Sodium 131 mmol/L (137-145); Total Protein 7.2 g/dL (6.3-8.2)
== END 2025-09-18 11:28 | disposition home or self-care (01) ==
PROVIDERS: PCP Family Medicine Adolescent Medicine
DX: D64.9 Anemia, unspecified (principal); N17.9 Acute kidney failure, unspecified
CPT/HCPCS: 36415; 80053; 85025

== ENCOUNTER 2025-11-08 09:32 | Outpatient (CLI) | payer MEDICARE, SELFPAY ==
[2025-11-08 10:48] LABS: Anion Gap 3 mmol/L (4-12); Blood Urea Nitrogen 12 mg/dL (9-20); Calcium 9.4 mg/dL (8.4-10.2); Carbon Dioxide 28 mmol/L (22-30); Chloride 103 mmol/L (98-107); Estimated Glomerular Filt Rate > 60; Glucose 105 mg/dL (65-110); Potassium 4.1 mmol/L (3.4-5.0); Sodium 134 mmol/L (137-145)
== END 2025-11-08 09:33 | disposition home or self-care (01) ==
DX: E87.1 Hypo-osmolality and hyponatremia (principal)
CPT/HCPCS: 36415; 80048